=== PATIENT | female | born 1935 | race Caucasian/White ===

== ENCOUNTER → 2016-04-24 | Outpatient (CLI) | payer OTHER, BC ==
[~2016-04-24] MED LIST: AMOX500T PO; ASPEC81 PO; ASPI81TA28 PO; Boost PO; CEPH500C2 PO; FLV1 PO; FLV400 PO; FOLI1TAB7 PO; HYDR200T5 PO; LISI-461 PO; LPR25 PO; MCR/50 PO; METH10TA32 PO; METH2.5T PO; MGCUDL400 PO; MTH25 PO; MXZC25 PO; MYR25 PO; NRV5 PO; NUTR-7 PO; POTA1CAP2 PO; PRED-301 PO; PRED10TA PO; PRED20TA PO; PRMVC PV; SIMV20TA2 PO; TRAM-10 PO; ULT50X PO; VSC/5 PO
== END | disposition home or self-care (01) ==
LOC: C.LABSPEC 17:08
PROVIDERS: ATTEND Internal Medicine
DX: N39.0 Urinary tract infection, site not specified (principal)

== ENCOUNTER → 2016-05-22 | Outpatient (CLI) | payer OTHER, BC ==
[2016-05-22 13:29] LABS: BASO % 0.4 %; BASO ABS # 0.05 K/uL (0-0.2); COMPLETE YES; EOS % 0.7 %; HEMATOCRIT 30.1 % (37-47); LYMPH % 18.8 %; LYMPH ABS # 2.11 K/uL (1.2-3.4); MEAN CELL VOLUME 99.7 fL (80-100); MEAN CORPUSCULAR HEMOGLOBIN 32.5 pg (25-34); MEAN CORPUSCULAR HGB CONC 32.6 g/dl (32-36); MEAN PLATELET VOLUME 9.4 fL (7.4-10.4); MONO % 10.7 %; NEUT % 66.4 %; PLATELET COUNT 300 K/uL (130-400); RED BLOOD COUNT 3.02 M/uL (4.2-5.4); WHITE BLOOD COUNT 11.21 K/uL (4.8-10.8)
[2016-05-22 13:35] LABS: ALT/SGPT 18 U/L (12-78)
[2016-05-22 13:36] LABS: ALKALINE PHOSPHATASE 46 U/L (45-117); AST/SGOT 14 U/L (15-37)
== END | disposition home or self-care (01) ==
LOC: C.LAB1850 11:33
PROVIDERS: ATTEND Internal Medicine Rheumatology
DX: Z51.81 Encounter for therapeutic drug level monitoring (principal); Z79.899 Other long term (current) drug therapy

== ENCOUNTER → 2016-06-22 | Outpatient (CLI) | payer OTHER, BC ==
[~2016-06-22] MED LIST changes: +GADAVIST IV PRN
--- NOTE | 2016-06-22 15:06 | DIAGNOSTIC IMAGING REPORT ---
MRI OF THE BRAIN COMBO INTERNAL FOR CANAL PROTOCOL CLINICAL HISTORY: Acute left-sided hearing loss. COMPARISON STUDY: CT of the brain dated 09/28/2013. TECHNIQUE: MRI of the brain was performed utilizing various T1 and T2-weighted sequences in the axial, sagittal, and coronal planes. Contrast-enhanced sequences were acquired following the administration of 4 cc of Gadavist. Additional high-resolution imaging was performed through the skull base both pre and postcontrast for further assessment of the internal auditory canals. FINDINGS: Brain parenchyma: There are age-related involutional changes noting mild to moderate patchy subcortical and periventricular microangiopathic disease. There is no hemorrhage or mass effect. There is no restricted diffusion to suggest acute ischemia. There is a 12 mm extra-axial nodule identified in the right posterior fossa seen on axial image #6. This is typical appearance for a small meningioma. There is no associated mass effect. No additional enhancing lesions are identified. Shannon-white matter differentiation is preserved. No extra-axial fluid collection is seen. The cerebellar tonsils are normal in configuration. Ventricles, sulci, and cisterns: Prominent secondary to involutional change. Internal auditory canals: No mass lesion is identified within the cerebellopontine angle bilaterally. There is no mass or normal enhancement identified along the course of the internal auditory canals. The middle ear structures are normal as visualized. Pituitary and sella: Partially empty sella is incidentally noted. Intracranial vasculature: Normal flow voids are maintained at the skull base. Orbits: The bony orbits are grossly intact. Orbital contents are normal in appearance noting a right ocular lens implant. Sinuses and mastoids: Clear. There is evidence of previous right mastoid surgery. Calvarium: Unremarkable. Cervical cord: Partially visualized cervical spinal cord is normal in morphology and signal intensity. IMPRESSION: 1. No acute intracranial abnormality. 2. A 12 mm extra-axial nodule at the posterior right skull base is typical in appearance for a small meningioma. There is no associated mass effect. 3. Unremarkable MRI assessment of the internal auditory canals. Electronically signed by: Christiano James M.D. 06/22/2016 3:05 PM Dictated Date/Time: 06/22/2016 2:54 PM
== END | disposition home or self-care (01) ==
LOC: C.MRI 13:02
PROVIDERS: ATTEND Surgery
DX: H91.22 Sudden idiopathic hearing loss, left ear (principal)

== ENCOUNTER → 2016-06-30 | Outpatient (CLI) | payer OTHER, BC ==
[~2016-06-30] MED LIST changes: -GADAVIST IV PRN
[2016-06-30 15:45] LABS: HEMATOCRIT 35.3 % (37-47); MEAN CELL VOLUME 98.3 fL (80-100); MEAN CORPUSCULAR HEMOGLOBIN 32.3 pg (25-34); MEAN CORPUSCULAR HGB CONC 32.9 g/dl (32-36); MEAN PLATELET VOLUME 9.9 fL (7.4-10.4); PLATELET COUNT 304 K/uL (130-400); RED BLOOD COUNT 3.59 M/uL (4.2-5.4); WHITE BLOOD COUNT 14.83 K/uL (4.8-10.8)
[2016-06-30 15:58] LABS: ALT/SGPT 40 U/L (12-78)
[2016-06-30 16:08] LABS: ALKALINE PHOSPHATASE 50 U/L (45-117); AST/SGOT 24 U/L (15-37)
[2016-06-30 16:28] LABS: ACANTHOCYTES 1+; BASO % 0.2 %; BASO ABS # 0.03 K/uL (0-0.2); COMPLETE YES; EOS % 0.1 %; IG% 4.5 %; LYMPH % 9.6 %; LYMPH ABS # 1.43 K/uL (1.2-3.4); MONO % 3.2 %; NEUT % 82.4 %
[2016-06-30 16:46] LABS: LYME DISEASE AB IGG NEG (NEG); LYME DISEASE AB IGM NEG (NEG)
[2016-07-06 18:17] LABS: ANTI-68 kd Ag (HSP-70 Ab) NEGATIVE (NEGATIVE)
== END | disposition home or self-care (01) ==
LOC: C.LAB1850 13:54
PROVIDERS: ATTEND Surgery
DX: M06.9 Rheumatoid arthritis, unspecified (principal); Z79.899 Other long term (current) drug therapy; N32.89 Other specified disorders of bladder; H91.22 Sudden idiopathic hearing loss, left ear

== ENCOUNTER → 2016-08-02 | Outpatient (CLI) | payer OTHER, BC ==
[~2016-08-02] MED LIST changes: -MCR/50 PO; +NITR50CA39 PO
== END | disposition home or self-care (01) ==
LOC: C.MAMM 15:24
PROVIDERS: ATTEND Internal Medicine Rheumatology
DX: M81.0 Age-related osteoporosis without current pathological fracture (principal); H91.22 Sudden idiopathic hearing loss, left ear; E55.9 Vitamin D deficiency, unspecified; E61.8 Deficiency of other specified nutrient elements

== ENCOUNTER → 2016-09-13 | Outpatient (CLI) | payer OTHER, BC ==
[2016-09-13 16:32] LABS: COMPLETE YES; HEMATOCRIT 31.7 % (37-47); IG% 0.9 %; LYMPH % 7.2 %; LYMPH ABS # 0.69 K/uL (1.2-3.4); MEAN CELL VOLUME 95.8 fL (80-100); MEAN CORPUSCULAR HEMOGLOBIN 29.9 pg (25-34); MEAN CORPUSCULAR HGB CONC 31.2 g/dl (32-36); MEAN PLATELET VOLUME 8.8 fL (7.4-10.4); MONO % 0.8 %; NEUT % 91.1 %; PLATELET COUNT 383 K/uL (130-400); RED BLOOD COUNT 3.31 M/uL (4.2-5.4); WHITE BLOOD COUNT 9.61 K/uL (4.8-10.8)
[2016-09-13 16:57] LABS: ALT/SGPT 17 U/L (12-78); AST/SGOT 9 U/L (15-37)
[2016-09-13 17:00] LABS: ALKALINE PHOSPHATASE 53 U/L (45-117)
[2016-09-15 17:40] LABS: ALBUMIN 3.2 G/DL (3.8-4.8); GAMMA GLOBULIN 0.6 G/DL (0.8-1.7); TOTAL PROTEIN 5.8 G/DL (6.2-8.3)
== END | disposition home or self-care (01) ==
LOC: C.LAB1850 14:59
PROVIDERS: ATTEND Internal Medicine Rheumatology
DX: M06.9 Rheumatoid arthritis, unspecified (principal); M81.0 Age-related osteoporosis without current pathological fracture; E61.8 Deficiency of other specified nutrient elements; E55.9 Vitamin D deficiency, unspecified; Z79.899 Other long term (current) drug therapy

== ENCOUNTER 2016-09-26 18:47 | Inpatient (IN) | payer OTHER, BC ==
[~2016-09-26] VITALS: Ht 160 cm; Wt 43.0 kg
[~2016-09-26 18:47] MED LIST changes: -ASPI81TA28 PO; -CEPH500C2 PO; -FLV400 PO; -FOLI1TAB7 PO; -METH2.5T PO; -MTH25 PO; -MXZC25 PO; -MYR25 PO; -NITR50CA39 PO; -NRV5 PO; -NUTR-7 PO; -POTA1CAP2 PO; -PRED20TA PO; -PRMVC PV; -ULT50X PO
[2016-09-26] MEDS ORDERED: PIPERACILLIN/TAZOBACTAM 4.5 GM/100ML D5W IV STA (18:57)
[2016-09-26] MEDS ORDERED: SODIUM CHLORIDE 0.9% 1000ML 500 ML IV ONE (18:57)
[2016-09-26] MEDS ORDERED: ACETAMINOPHEN 325 MG TAB PO ONE (19:00)
--- NOTE | 2016-09-26 19:12 | EMERGENCY ROOM VISIT NOTE ---
History Report prepared by Adina: Justina Kidd Under the Supervision of: Dr. Christiano Felix M.D. First contact with patient: 18:54 Chief Complaint: FEVER Stated Complaint: PAIN ALL OVER, FEVER History of Present Illness The patient is an 81 year old female who presents to the Emergency Room with complaints of a persistent fever that began today prior to arrival. She currently rates her discomfort as a 7/10 in severity. The patient reports that for the past several days she has been feeling dizzy. She states that today she started noticing lower leg pain and edema. The patient notes a history of rheumatoid arthritis, and states that she always has joint pain. The patient additionally notes a cough and chills. Her daughter states that the patient had a fever of 101.7 degrees Fahrenheit. The patient states that she has noticed increased swelling and erythema to her left hand, and her daughter states that is new since yesterday. She denies any trauma to her wrist or hand. The patient reports nausea earlier today and her daughter states that the patient spent most of the day in bed. The patient's daughter denies giving the patient anything for a fever. The patient's daughter denies the patient having any known sick contacts. The patient denies any sore throat, stuffy nose , abdominal pain, vomiting, urinary symptoms, or diarrhea. No recent tick bite. Source of History: patient, family (daughter) Onset: prior to arrival Position: other (global) Symptom Intensity: 7/10 Quality: other (fever) Timing: other (persistent) Associated Symptoms: + cough, + nausea, No vomiting, No abdominal pain, No diarrhea, No urinary symptoms Note: Associated Symptoms: swelling and erythema to her left hand, dizziness, ankle pain, swelling to ankles Review of Systems See HPI for pertinent positives & negatives. A total of 10 systems reviewed and were otherwise negative. Past Medical & Surgical Medical Problems: (1) Arthritis (2) Back pain (3) CELLULITIS LEFT HAND/WRIST. ACUTE ARTHRITIS L WRIST (4) DEHYD,UTI,ANENIA (5) Fungus present in urine (6) Hypertension (7) Lower urinary tract infection, acute (8) PERSISTENT UTI, VOMITING (9) Pneumonia (10) RECURRENT UTI, ?SEPSIS (11) Rheumatoid arthritis (12) S/P hysterectomy (13) SEPSIS,UTI,ACUTE RENAL FAILURE,RHEUMATOID ARTH (14) UTI, SEPSIS SYNDROME, Surgical Problems: (1) History of back surgery (2) History of cataract surgery (3) History of cholecystectomy (4) History of left hip replacement (5) History of right hip replacement (6) S/P lumpectomy of breast Family History Cancer Diabetes mellitus Hypertension Social History Smoking Status: Never Smoker Alcohol Use: none Marital Status: Housing Status: lives with significant other Occupation Status: retired Current/Historical Medications Scheduled Folic Acid (Folic Acid), 400 MG PO EXCEPT SUNDAY Hydroxychloroquine Sulfate (Plaquenil), 200 MG PO BIDM Lisinopril (Zestril), 10 MG PO QAM Methotrexate (Methotrexate), 10 MG PO FRIDAYS ONLY Metoprolol Tartrate (Lopressor), 25 MG PO BID Mirabegron (Myrbetriq Er), 25 MG PO DAILY Nitrofurantoin Macrocrystals (Nitrofurantoin Macrocryst), 50 MG PO DAILY Potassium Chloride (Potassium Chloride Er), 10 MEQ PO BID Prednisone (Prednisone), 20 MG PO QAM Simvastatin (Zocor), 20 MG PO QPM Triamterene/Hctz (Triamterene/Hctz 37.5-25MG Tab), 1 TAB PO DAILY Scheduled PRN Tramadol (Ultram), 50 MG PO Q4H PRN for Pain Allergies Coded Allergies: Sulfa Antibiotics (Verified Allergy, Unknown, ., 09/08/16) Sulfamethoxazole (Verified Allergy, Unknown, 09/08/16) Trimethoprim (Verified Allergy, Unknown, 09/08/16) Physical Exam Vital Signs Date Time Temp Pulse Resp B/P (MAP) Pulse Ox O2 Delivery O2 Flow Rate FiO2 09/26/16 23:24 78 20 113/47 100 09/26/16 22:13 37.8 88 20 98/42 98 Room Air 09/26/16 21:10 38.4 105 20 125/57 100 Room Air 09/26/16 20:37 102 18 157/62 99 Room Air 09/26/16 19:28 96 20 145/58 98 Room Air 09/26/16 19:24 98 Room Air 09/26/16 18:50 36.5 100 18 114/56 99 Room Air Physical Exam GENERAL: Patient is in no acute distress. HEENT: No acute trauma, normocephalic atraumatic, mucous membranes moist, no nasal congestion, no scleral icterus. NECK: No stridor, no adenopathy, no meningismus, trachea is midline. LUNGS: Clear to auscultation bilaterally, no wheeze, no rhonchi, breath sounds equal. HEART: Without murmurs gallops or rubs, regular rate and rhythm. ABDOMEN: Soft, nontender, bowel sounds positive, no hernias, no peritonitis. EXTREMITIES: Left wrist and dorsal hand are swollen with warmth and erythema, pain primarily over the 3rd MCP joint, minimal to no pain to move left wrist. NEUROLOGIC: Oriented x 3, no acute motor or sensory deficits, no focal weakness. SKIN: No rash, no jaundice, no diaphoresis. Medical Decision & Procedures ER Provider Diagnostic Interpretation: Radiology results as stated below per my review and radiologist interpretation: LEFT WRIST MIN 3 VIEWS ROUTINE CLINICAL HISTORY: Left wrist pain and swelling COMPARISON: 11/12/2015 DISCUSSION: The bones are osteopenic. There are flexion deformities of the fingers. There are advanced arthritic changes. There is proximal carpal row collapse. There is minor ulnar subluxation of the carpal bones with respect to the radius. There are erosive changes involving the distal radial ulnar joint. There is soft tissue edema. IMPRESSION: Osteopenia and advanced arthritic changes with carpal collapse as described above. No significant change from the preceding examination. Electronically signed by: Nicko Caldwell M.D. 09/26/2016 8:08 PM Dictated Date/Time: 09/26/2016 8:06 PM LEFT HAND MIN 3 VIEWS ROUTINE CLINICAL HISTORY: Left hand pain and swelling COMPARISON: None. DISCUSSION: There are flexion deformities at the level of the proximal interphalangeal joints. The bones are osteopenic. There are severe arthritic changes present within the wrist with carpal collapse, and mild ulnar subluxation of the carpal bones with respect to the radius and ulna. There are erosive changes involving the distal radial ulnar joint. There is dorsal soft tissue swelling. IMPRESSION: Severe arthritic change. Osteopenia. Flexion deformities of the fingers. Carpal collapse and mild chronic subluxation. Erosive changes involving the distal radial ulnar joint. Electronically signed by: Nicko Caldwell M.D. 09/26/2016 8:04 PM Dictated Date/Time: 09/26/2016 8:01 PM CHEST ONE VIEW PORTABLE CLINICAL HISTORY: Sepsis COMPARISON STUDY: February 22, 2016 FINDINGS: There is persistent elevation right hemidiaphragm. There is a left-sided A-Port catheter unchanged in position. There is no failure. There is no lobar consolidation. There are no pleural effusions. There is stable right hilar prominence. There are scattered calcific densities, possibly pleural. Surgical clips project over the right axillary region. There are surgical clips in the right upper quadrant consistent with a prior cholecystectomy. There are postsurgical changes present within the lumbar spine.[ IMPRESSION: No active disease in the chest. Electronically signed by: Nicko Caldwell M.D. 09/26/2016 8:00 PM Dictated Date/Time: 09/26/2016 7:59 PM Laboratory Results 09/26/16 20:40 Red Blood Count 3.31, Mean Corpuscular Volume 96.1, Mean Corpuscular Hemoglobin 31.4, Mean Corpuscular Hemoglobin Concent 32.7, Mean Platelet Volume 9.2, Neutrophils (%) (Auto) 66.3, Lymphocytes (%) (Auto) 23.8, Monocytes (%) (Auto) 8.1, Eosinophils (%) (Auto) 0.4, Basophils (%) (Auto) 0.1, Neutrophils # (Auto) 9.47, Lymphocytes # (Auto) 3.40, Monocytes # (Auto) 1.16, Eosinophils # (Auto) 0.05, Basophils # (Auto) 0.01 09/26/16 20:40 Test 09/26/16 19:23 09/26/16 20:39 09/26/16 20:40 Urine Color YELLOW Urine Appearance CLEAR (CLEAR) Urine pH 6.0 (4.5-7.5) Urine Specific [place] 1.013 (1.000-1.030) Urine Protein NEG (NEG) Urine Glucose (UA) NEG (NEG) Urine Ketones 1+ (NEG) Urine Occult Blood NEG (NEG) Urine Nitrite NEG (NEG) Urine Bilirubin NEG (NEG) Urine Urobilinogen NEG (NEG) Urine Leukocyte Esterase TRACE (NEG) Urine WBC (Auto) 1-5 /hpf (0-5) Urine RBC (Auto) 0-4 /hpf (0-4) Urine Hyaline Casts (Auto) 0 /lpf (0-5) Urine Epithelial Cells (Auto) >30 /lpf (0-5) Urine Bacteria (Auto) NEG (NEG) Bedside Lactic Acid Venous 0.47 mmol/L (0.90-1.70) White Blood Count 14.27 K/uL (4.8-10.8) Red Blood Count 3.31 M/uL (4.2-5.4) Hemoglobin 10.4 g/dL (12.0-16.0) Hematocrit 31.8 % (37-47) Mean Corpuscular Volume 96.1 fL (80-100) Mean Corpuscular Hemoglobin 31.4 pg (25-34) Mean Corpuscular Hemoglobin Concent 32.7 g/dl (32-36) Platelet Count 281 K/uL (130-400) Mean Platelet Volume 9.2 fL (7.4-10.4) Neutrophils (%) (Auto) 66.3 % Lymphocytes (%) (Auto) 23.8 % Monocytes (%) (Auto) 8.1 % Eosinophils (%) (Auto) 0.4 % Basophils (%) (Auto) 0.1 % Neutrophils # (Auto) 9.47 K/uL (1.4-6.5) Lymphocytes # (Auto) 3.40 K/uL (1.2-3.4) Monocytes # (Auto) 1.16 K/uL (0.11-0.59) Eosinophils # (Auto) 0.05 K/uL (0-0.5) Basophils # (Auto) 0.01 K/uL (0-0.2) RDW Standard Deviation 51.3 fL (36.4-46.3) RDW Coefficient of Variation 14.9 % (11.5-14.5) Immature Granulocyte % (Auto) 1.3 % Immature Granulocyte # (Auto) 0.18 K/uL (0.00-0.02) Prothrombin Time 12.3 SECONDS (9.0-12.0) Prothromb Time International Ratio 1.1 (0.9-1.1) Activated Partial Thromboplast Time 30.0 SECONDS (21.0-31.0) Partial Thromboplastin Ratio 1.2 Anion Gap 12.0 mmol/L (3-11) Est Creatinine Clear Calc Drug Dose 28.8 ml/min Estimated GFR () 60.8 Estimated GFR (Non- 52.4 BUN/Creatinine Ratio 18.6 (10-20) Uric Acid 5.6 mg/dl (2.6-7.2) Calcium Level 8.4 mg/dl (8.5-10.1) Magnesium Level 1.8 mg/dl (1.8-2.4) Total Bilirubin 0.6 mg/dl (0.2-1) Aspartate Amino Transf (AST/SGOT) 14 U/L (15-37) Alanine Aminotransferase (ALT/SGPT) 15 U/L (12-78) Alkaline Phosphatase 54 U/L (45-117) Total Protein 5.7 gm/dl (6.4-8.2) Albumin 2.9 gm/dl (3.4-5.0) Globulin 2.8 gm/dl (2.5-4.0) Albumin/Globulin Ratio 1.0 (0.9-2) Laboratory results reviewed by me. Medications Administered Medications (Trade) Dose Ordered Sig/Martina Route Start Time Stop Time Status Last Admin Dose Admin Sodium Chloride 500 ml @ 999 mls/hr Q31M ONCE IV 09/26/16 18:57 09/26/16 19:27 DC 09/26/16 21:00 999 MLS/HR Piperacillin Sod/ Tazobactam Sod (Zosyn Iv) 4.5 gm ONE STAT IV 09/26/16 18:57 09/26/16 19:08 DC 09/26/16 21:00 4.5 GM Acetaminophen (Tylenol Tab) 650 mg ONE ONCE PO 09/26/16 19:00 09/26/16 19:08 DC 09/26/16 21:00 650 MG Ibuprofen (Motrin Tab) 600 mg NOW STAT PO 09/26/16 21:42 09/26/16 21:43 DC 09/26/16 22:12 600 MG Methylprednisolone Sodium Succinate 60 mg/Syringe 0.96 ml @ 1.5 mls/min TODAY@2245 IV 09/26/16 22:45 09/26/16 23:59 09/26/16 22:44 1.5 MLS/MIN ECG Indication: other (fever) Rate (beats per minute): 91 Rhythm: normal sinus Findings: no ectopy, other (old anterior infarct) ED Course 1854: The patient was evaluated in room C5. A complete history and physical exam was performed. 7: Ordered Zosyn IV 4.5 gm IV, Sodium Chloride 500 ml @ 999 mls/hr IV. 1899: Ordered Tylenol Tab 650 mg PO. 2132: I reevaluated the patient and she is resting comfortably. I discussed the exam findings with her and her family and I discussed the treatment plan. They verbalized complete understanding and agreement. Dr. Montaño, Internal Medicine will be consulted. 2141: Ordered Ibuprofen 600 mg PO. 2149: I discussed the patients case with Dr. Montaño, Internal Medicine. He is going to evaluate the patient for further treatment. Medical Decision The patient is an 81 year old female who presents to the ED with complaints of a fever. Differential diagnoses considered include sepsis or bacteremia, cellulitis, joint infection, pneumonia, UTI, electrolyte imbalance, anemia, viral illness. There is a moderate leukocytosis, this could be consistent with infection. No concerning anemia although a mild anemia was noted. No significant electrolyte abnormality or kidney failure. No hepatitis. Lactic acid level was not elevated making severe sepsis less likely. Blood cultures are pending. EKG showed a sinus rhythm, no acute ischemia. Chest x-ray did not show any evidence for pneumonia. Left hand and wrist film showed arthritis, no evidence for fracture or true osteomyelitis. Urinalysis does not show infection. The patient received IV saline, oral Motrin and oral Tylenol. She was given IV Zosyn as antibiotic coverage. The patient is immunocompromised because of her arthritis, she is on a few meds that lower her immune system response. She has a fever, a left arm/hand cellulitis, she is weak and seems to be having difficulty at home. I do think further care in the hospital is warranted, I do think antibiotic therapy IV is warranted. I spoke to the patient and case management. The on-call hospitalist was consulted. Medication Reconciliation: I attest that I have personally reviewed the patient' s current medication list. Blood Pressure Screening: Patient was found to have an elevated blood pressure and was referred to their primary doctor for recheck and further treatment. Consults Time Called: 2140 Consulting Physician: Dr. Montaño, Internal Medicine Returned Call: 2149 I discussed the patients case with Dr. Montaño, Internal Medicine. He is going to evaluate the patient for further treatment. Impression Primary Impression: Left arm cellulitis Additional Impressions: Weakness Leukocytosis Immunocompromised Scribe Attestation The scribe's documentation has been prepared under my direction and personally reviewed by me in its entirety. I confirm that the note above accurately reflects all work, treatment, procedures, and medical decision making performed by me. Departure Information Dispostion Being Evaluated By Hospitalist Referrals Wilmar Dela Cruz M.D. (PCP) Problem Qualifiers
[2016-09-26 19:32] LABS: URINE APPEARANCE CLEAR (CLEAR); URINE BILIRUBIN NEG (NEG); URINE COLOR YELLOW; URINE EPITHELIAL CELL AUTO >30 /lpf (0-5); URINE NITRITE NEG (NEG); URINE SPECIFIC GRAVITY 1.013 (1.000-1.030); UROBILINOGEN NEG (NEG); ZZURINE CULT IF INDIC CATH NO
[2016-09-26 19:33] LABS: MANUAL MICROSCOPIC REQUIRED? NO; REVIEW REQ? NO
[2016-09-26] MEDS ORDERED: POTA1CAP2 PO (19:35)
[2016-09-26] MEDS ORDERED: MYR25 PO (19:35)
[2016-09-26] MEDS ORDERED: MTH25 PO (19:35)
[2016-09-26] MEDS ORDERED: NITR50CA39 PO (19:35)
[2016-09-26] MEDS ORDERED: PRED20TA PO (19:35)
[2016-09-26] MEDS ORDERED: FLV400 PO (19:35)
[2016-09-26] MEDS ORDERED: MXZC25 PO (19:35)
--- NOTE | 2016-09-26 20:01 | DIAGNOSTIC IMAGING REPORT ---
CHEST ONE VIEW PORTABLE CLINICAL HISTORY: Sepsis COMPARISON STUDY: February 22, 2016 FINDINGS: There is persistent elevation right hemidiaphragm. There is a left-sided A-Port catheter unchanged in position. There is no failure. There is no lobar consolidation. There are no pleural effusions. There is stable right hilar prominence. There are scattered calcific densities, possibly pleural. Surgical clips project over the right axillary region. There are surgical clips in the right upper quadrant consistent with a prior cholecystectomy. There are postsurgical changes present within the lumbar spine.[ IMPRESSION: No active disease in the chest. Electronically signed by: Nicko Caldwell M.D. 09/26/2016 8:00 PM Dictated Date/Time: 09/26/2016 7:59 PM
--- NOTE | 2016-09-26 20:05 | DIAGNOSTIC IMAGING REPORT ---
LEFT HAND MIN 3 VIEWS ROUTINE CLINICAL HISTORY: Left hand pain and swelling COMPARISON: None. DISCUSSION: There are flexion deformities at the level of the proximal interphalangeal joints. The bones are osteopenic. There are severe arthritic changes present within the wrist with carpal collapse, and mild ulnar subluxation of the carpal bones with respect to the radius and ulna. There are erosive changes involving the distal radial ulnar joint. There is dorsal soft tissue swelling. IMPRESSION: Severe arthritic change. Osteopenia. Flexion deformities of the fingers. Carpal collapse and mild chronic subluxation. Erosive changes involving the distal radial ulnar joint. Electronically signed by: Nicko Caldwell M.D. 09/26/2016 8:04 PM Dictated Date/Time: 09/26/2016 8:01 PM
--- NOTE | 2016-09-26 20:09 | DIAGNOSTIC IMAGING REPORT ---
LEFT WRIST MIN 3 VIEWS ROUTINE CLINICAL HISTORY: Left wrist pain and swelling COMPARISON: 11/12/2015 DISCUSSION: The bones are osteopenic. There are flexion deformities of the fingers. There are advanced arthritic changes. There is proximal carpal row collapse. There is minor ulnar subluxation of the carpal bones with respect to the radius. There are erosive changes involving the distal radial ulnar joint. There is soft tissue edema. IMPRESSION: Osteopenia and advanced arthritic changes with carpal collapse as described above. No significant change from the preceding examination. Electronically signed by: Nicko Caldwell M.D. 09/26/2016 8:08 PM Dictated Date/Time: 09/26/2016 8:06 PM
[2016-09-26 20:56] LABS: BASO % 0.1 %; BASO ABS # 0.01 K/uL (0-0.2); COMPLETE YES; EOS % 0.4 %; HEMATOCRIT 31.8 % (37-47); IG% 1.3 %; LYMPH % 23.8 %; MEAN CELL VOLUME 96.1 fL (80-100); MEAN CORPUSCULAR HEMOGLOBIN 31.4 pg (25-34); MEAN CORPUSCULAR HGB CONC 32.7 g/dl (32-36); MEAN PLATELET VOLUME 9.2 fL (7.4-10.4); MONO % 8.1 %; NEUT % 66.3 %; PLATELET COUNT 281 K/uL (130-400); RED BLOOD COUNT 3.31 M/uL (4.2-5.4); WHITE BLOOD COUNT 14.27 K/uL (4.8-10.8)
[2016-09-26 21:06] LABS: INR 1.1 (0.9-1.1); PARTIAL THROMBOPLASTIN RATIO 1.2; PROTHROMBIN TIME (PATIENT) 12.3 SECONDS (9.0-12.0)
[2016-09-26] MEDS ORDERED: ACETAMINOPHEN 325 MG TAB ONE (21:08)
[2016-09-26 21:12] LABS: BUN/CREATININE RATIO 18.6 (10-20); MAGNESIUM 1.8 mg/dl (1.8-2.4); POTASSIUM 4.2 mmol/L (3.5-5.1)
[2016-09-26] MEDS ORDERED: IBUPROFEN 600 MG TAB PO STA (21:42)
[2016-09-26 21:52] LABS: CALCIUM 8.4 mg/dl (8.5-10.1)
[2016-09-26] MEDS ORDERED: TRAMADOL HCL 50 MG TAB PO PRN (22:15)
[2016-09-26] MEDS ORDERED: ACETAMINOPHEN 325 MG TAB PO PRN (22:15)
[2016-09-26] MEDS ORDERED: METHYLPREDNISOLONE IV 60 MG in SYRINGE 0 ML IV SCH (22:45)
[2016-09-26 23:09] LABS: URIC ACID 5.6 mg/dl (2.6-7.2)
[2016-09-27] VITALS: Ht 160 cm; Wt 43.0 kg
[2016-09-27 00:01] VITALS: BP 129/60; PULSE 78; TEMP 36.6; O2SAT 98
[2016-09-27] MEDS: SODIUM CHLORIDE 0.9% 1000ML 1,000 ML IV SCH ×3 (00:14→20:19)
--- NOTE | 2016-09-27 00:45 | HISTORY & PHYSICAL EXAMINATION ---
DATE OF ADMISSION: 09/26/2016 An 81-year-old female, admitted through the Emergency Room with fever, chills and suspected cellulitis of her left wrist and left arm. HISTORY OF PRESENT ILLNESS: The patient with multiple medical problems including rheumatoid arthritis. She is on prednisone, methotrexate and Plaquenil. She has had recurrent urinary tract infections. She is on suppressive therapy with Macrodantin. She was also treated for arterial hypertension. She has severe degenerative disc disease of the lumbar spine with lumbar stenosis that required multiple interventions. She also had multiple orthopedic procedures with joint replacements in her hands and feet. The patient has been at home. Her daughter called this evening stating that her mother was in bed all day. She was complaining of generalized aches and pains. She had fever up to 101. She has had problems in the past with recurrent urinary tract infection and her daughter thought that she was having recurrent problem related to that. She was brought to the Emergency Room. She was evaluated by Dr. Felix. The patient stated that she has not been feeling well for a few days. She has been feeling lightheaded and nauseous. She has had recurrent episodes where she felt warm and chilled ,could not get warm enough. Denied any headache. Denied any chest pain. No shortness of breath. She has been coughing. Not producing any sputum. Nauseous. No vomiting. She does have chronic pain in her back and joints. I saw the patient in the Emergency Room. Dr. Felix already ordered all the cultures He also started her on Zosyn and she was given one dose of 4.5 grams IV. PAST MEDICAL HISTORY: 1. Recurrent urinary tract infection requiring multiple hospitalizations. She is currently on suppressive therapy. She does see Dr. Francois for her urology followup. She also has had in the past urinary tract infections secondary to yeast, she was admitted by Dr. Francois and treated with amphotericin irrigations. 2. Rheumatoid arthritis, longstanding, treated. 3. Left total hip arthroplasty, back in 1989. 4. Right total hip arthroplasty, in 1993. 5. Multiple joint replacements in her hands and feet because of her rheumatoid arthritis. 6. History of compression fractures of T12 and T11, in 1986. 7. Degenerative disc disease of the lumbar spine with severe spinal stenosis requiring multiple surgeries. 8. Right inguinal hernia repair in 1993. 9. Cholecystectomy in 1985. 10. History of breast cancer in 1988, treated with radiation and lumpectomy. 11. Lymphedema of the right arm after her right breast cancer treatment, treated with compression sleeves. SOCIAL HISTORY: She is , has 3 children. No history of any smoking. No excessive coffee, tea or soft drinks. She retired many years ago after her hip surgeries. FAMILY HISTORY: Her mother at age 94. She was in a personal home care. Her father at age 62, had myocardial infarction and congestive heart failure. She had one brother and one sister. One brother at age 64 of heart failure. One sister treated for arterial hypertension and type 2 diabetes mellitus and has Crohn's disease. One son was killed in a truck accident at age 31. ALLERGIES: SULFA. MEDICATIONS ON ADMISSION: All as noted on her home medication list. REVIEW OF SYSTEMS: All as noted above. PHYSICAL EXAMINATION: GENERAL: Well-developed, feeling acutely ill. Feeling very weak, tired and complaining of pain all over; mostly the muscles and joints. Her recorded weight is 42 kg, height 149 cm and BMI 18.7. VITAL SIGNS: On arrival to the Emergency Room her blood pressure was 145/58, pulse 96, respirations 20, temperature 38.4 rectally and oxygen saturation 98% on room air. SKIN: Warm and dry. Multiple bruises and ecchymotic areas. HEENT: Markedly decreased hearing. She has hearing aids. She also wears glasses. Oxygen cannula is in place. NECK: Supple. Nontender. No lymph node or thyroid enlargement. No JVD. Bilateral carotid bruits. CHEST: She has an [id number] in place. HEART: Regular heart sounds with 2/6 systolic murmur. LUNGS: Clear. No wheezing. ABDOMEN: Soft and nontender, without organomegaly or masses. BACK: Surgical scars. EXTREMITIES: Multiple surgical scars. Severe joint deformities. Decreased posterior tibialis pulses. Absent dorsalis pedis pulses. She does have swelling of her left wrist with an area of fluctuation. Also, she does have evidence of cellulitis of the left wrist and dorsal aspect of her left hand and forearm. NEUROLOGIC: She is alert and oriented. Sleepy, but arousable. No evidence of any lateralized deficits. ADMISSION LABORATORY TESTS: WBC count 14,270, hemoglobin 10.4, hematocrit 31.8 and platelets 281,000. Prothrombin time 12.3, INR 1.1, PTT 30. Sodium 140, potassium 4.2, chloride 105, CO2 23, BUN 19, creatinine 1.0, glucose 58, uric acid 5.6, calcium 8.4, magnesium 1.8, total bilirubin 0.6, AST 14, ALT 15, alkaline phosphatase 54, total protein 5.7 and albumin 2.9. Her urine showed trace leukocyte esterase and only 1-5 RBCs. Her chest x-ray showed no evidence of any congestive heart failure. No evidence of any infiltrates or any active disease. X-rays of her left hand and left wrist mostly showed inflammatory changes. ASSESSMENT: 1. Cellulitis of the left wrist, left hand and forearm. 2. Acute arthritis of the left wrist. 3. Rheumatoid arthritis. 4. Generalized weakness. 5. Arterial hypertension. 6. History of recurrent urinary tract infections. 7. Spinal stenosis and degenerative disc disease of the lumbar spine with prior surgeries. 8. Chronic steroid therapy. She is also on methotrexate and Plaquenil. PLAN: The patient was admitted to a medical bed. Resuscitation level 5 as previously established. All her laboratory tests were ordered. Cultures were ordered. She was started on IV Ancef. Also because of the inflammatory changes in her left wrist and left hand she was started on IV Solu-Medrol. The plan is to wait for cultures. Continue IV Ancef. Increase the dose of her steroids. Monitor her condition. IV fluids. We will decide on initiating physical and occupational therapy as soon as her condition starts to improve. MTDD
[2016-09-27] MEDS: METHYLPREDNISOLONE IV 20 MG in SYRINGE 0 ML IV SCH ×4 (03:54→22:07)
[2016-09-27 05:57] LABS: COMPLETE YES; HEMATOCRIT 29.7 % (37-47); IG% 1.3 %; LYMPH % 5.6 %; LYMPH ABS # 0.44 K/uL (1.2-3.4); MEAN CELL VOLUME 95.8 fL (80-100); MEAN CORPUSCULAR HEMOGLOBIN 31.3 pg (25-34); MEAN CORPUSCULAR HGB CONC 32.7 g/dl (32-36); MEAN PLATELET VOLUME 9.1 fL (7.4-10.4); MONO % 1.1 %; PLATELET COUNT 243 K/uL (130-400); WHITE BLOOD COUNT 7.92 K/uL (4.8-10.8)
[2016-09-27 06:41] LABS: BUN/CREATININE RATIO 25.3 (10-20); CALCIUM 7.7 mg/dl (8.5-10.1); POTASSIUM 4.2 mmol/L (3.5-5.1)
[2016-09-27 07:12] VITALS: BP 135/68; PULSE 81; TEMP 36.6; O2SAT 98
[2016-09-27] MEDS: NITROFURANTOIN MACROCRYSTALS 50 MG CAP PO SCH (08:37)
[2016-09-27] MEDS: HYDROXYCHLOROQUINE SULFATE 200 MG TAB PO SCH ×2 (08:38→16:59)
[2016-09-27] MEDS: CEFAZOLIN IV 500 MG in DEXTROSE 5% 50ML 50 ML IV SCH ×2 (08:38→20:28)
[2016-09-27] MEDS: HEPARIN SOD 5000 UNIT/0.5 ML CARP SQ SCH ×2 (08:38→22:17)
[2016-09-27] MEDS: METOPROLOL TARTRATE 25 MG TAB PO SCH ×2 (08:39→20:20)
[2016-09-27] MEDS: LISINOPRIL 10 MG TAB PO SCH (08:39)
[2016-09-27] MEDS: MIRABEGRON ER 25 MG TAB PO SCH (08:39)
[2016-09-27 11:49] VITALS: BP 125/68; PULSE 64; TEMP 36.6; O2SAT 98
[2016-09-27 15:25] VITALS: BP 131/57; PULSE 66; TEMP 36.6; O2SAT 99
[2016-09-27 15:53] VITALS: BP 145/64; PULSE 66; O2SAT 99
[2016-09-27] MEDS: SIMVASTATIN 20 MG TAB PO SCH (20:20)
[2016-09-27] MEDS: BOOST VANILLA PO SCH ×2 (20:28)
[2016-09-27] MEDS: ZOLPIDEM TARTRATE 5 MG TAB PO PRN (22:07)
[2016-09-27 23:58] VITALS: BP 127/54; PULSE 67; TEMP 36.7; O2SAT 98
--- NOTE | 2016-09-28 01:37 | PROGRESS NOTE ---
DATE: 09/27/2016 An 81-year-old female admitted with fever and chills. She had evidence of cellulitis of her left wrist and left hand and forearm. Also had acute arthritis of her left wrist. She does have rheumatoid arthritis. She is on multiple medications. She also is treated for arterial hypertension. Urinary frequency and urgency, and she has had recurrent urinary tract infection and currently on suppressive therapy with Macrodantin. She remains afebrile. Her generalized aches and pains are subsiding. She denied any headache. No dizziness. No chest pain, no shortness of breath. No cough. No abdominal pain, no nausea, no vomiting. No urinary problem. No ankle edema. PHYSICAL EXAMINATION: GENERAL: Well developed, in no distress. VITAL SIGNS: Blood pressure 135/68, pulse 81, respirations 20, temperature 36.6, oxygen saturation 98% on room air. SKIN: Warm and dry. No rash. Multiple ecchymotic areas and bruises. HEENT: No mucosal abnormality. NECK: No adenopathy, no thyromegaly, no JVD. HEART: Regular heart sounds. LUNGS: Clear. ABDOMEN: Soft, nontender. BACK: Surgical scar. EXTREMITIES: Severe deformities of her joints in her hands and feet related to her rheumatoid arthritis and history of multiple surgeries. TODAY'S LABORATORY TESTS: WBC count 7920, hemoglobin 9.7, hematocrit 29.7, platelet count 243,000. Sodium 141, potassium 4.2, chloride 109, CO2 18, BUN 25, creatinine 1.0, glucose 73, calcium 7.7. ASSESSMENT: 1. Cellulitis, left wrist and hand. 2. Acute arthritis, left wrist. Markedly improved. 3. Rheumatoid arthritis. 4. Arterial hypertension. 5. Severe degenerative disc disease and spinal stenosis, has had prior surgery. 6. History of recurrent urinary tract infection. PLAN: 1. Continuing her medications. 2. She is on IV Solu-Medrol. 3. Physical and occupational therapies. 4. Continue IV fluids. 5. Continue monitoring her laboratory tests.
[2016-09-28] MEDS: METHYLPREDNISOLONE IV 20 MG in SYRINGE 0 ML IV SCH ×2 (04:10→16:21)
[2016-09-28 05:50] LABS: HEMATOCRIT 25.4 % (37-47); MEAN CELL VOLUME 93.7 fL (80-100); MEAN CORPUSCULAR HEMOGLOBIN 31.7 pg (25-34); MEAN CORPUSCULAR HGB CONC 33.9 g/dl (32-36); MEAN PLATELET VOLUME 8.8 fL (7.4-10.4); PLATELET COUNT 251 K/uL (130-400); RED BLOOD COUNT 2.71 M/uL (4.2-5.4); WHITE BLOOD COUNT 12.07 K/uL (4.8-10.8)
[2016-09-28] MEDS: SODIUM CHLORIDE 0.9% 1000ML 1,000 ML IV SCH ×2 (05:57→16:21)
[2016-09-28 06:21] LABS: COMPLETE YES; ECHINOCYTES 1+; IG% 0.4 %; MONO % 1.6 %
[2016-09-28 06:26] LABS: BUN/CREATININE RATIO 33.4 (10-20); CALCIUM 7.6 mg/dl (8.5-10.1); CREATININE 1.2 mg/dl (0.60-1.20)
[2016-09-28 07:06] VITALS: BP 184/74; PULSE 86; TEMP 36.6; O2SAT 98
[2016-09-28] MEDS: MIRABEGRON ER 25 MG TAB PO SCH (08:19)
[2016-09-28] MEDS: HYDROXYCHLOROQUINE SULFATE 200 MG TAB PO SCH ×2 (08:19→16:21)
[2016-09-28] MEDS: NITROFURANTOIN MACROCRYSTALS 50 MG CAP PO SCH (08:19)
[2016-09-28] MEDS: CEFAZOLIN IV 500 MG in DEXTROSE 5% 50ML 50 ML IV SCH ×2 (08:20→21:14)
[2016-09-28] MEDS: LISINOPRIL 10 MG TAB PO SCH (08:20)
[2016-09-28] MEDS: METOPROLOL TARTRATE 25 MG TAB PO SCH ×2 (08:20→20:27)
[2016-09-28] MEDS: HEPARIN SOD 5000 UNIT/0.5 ML CARP SQ SCH ×2 (08:22→21:14)
[2016-09-28 10:42] VITALS: BP 147/74
[2016-09-28] MEDS: BOOST VANILLA PO SCH ×4 (10:42→20:27)
[2016-09-28 14:13] VITALS: BP 172/60; PULSE 83; O2SAT 100
[2016-09-28 15:31] VITALS: BP 146/66; PULSE 68; TEMP 36.6; O2SAT 98
[2016-09-28] MEDS: SIMVASTATIN 20 MG TAB PO SCH (20:27)
[2016-09-28] MEDS: ZOLPIDEM TARTRATE 5 MG TAB PO PRN (21:41)
[2016-09-29] VITALS (7 sets, daily range): BP systolic 157–211; BP diastolic 63–80; PULSE 64–97; TEMP 36.6–36.9; O2SAT 94–97
[2016-09-29] MEDS: SODIUM CHLORIDE 0.9% 1000ML 1,000 ML IV SCH ×2 (00:58→11:12)
--- NOTE | 2016-09-29 01:44 | PROGRESS NOTE ---
DATE: 09/28/2016 An 81-year-old female admitted with cellulitis of her left upper extremity and acute arthritis of her left wrist. The patient with rheumatoid arthritis. Arterial hypertension. History of multiple orthopedic procedures. Spinal stenosis. Recurrent urinary tract infection. The patient was admitted. Cultures were done. She was started on IV Ancef. Also, IV Solu-Medrol. Her fever resolved. She is not having any more chills. Her aches and pains are resolving. She denied any headache or dizziness. No chest pain, no shortness of breath. No abdominal pain. Her appetite is improving. She does have chronic pain in her back and extremities. PHYSICAL EXAMINATION: GENERAL: Well developed, in no distress. VITAL SIGNS: Blood pressure 184/74, initially, this morning and subsequently, came down to 147/74 and 146/66, pulse 86, respiration 20, temperature 36.6, oxygen saturation 98% on room air. SKIN: Warm and dry. Multiple bruises and ecchymotic areas. HEENT: Markedly decreased hearing. She wears glasses. Has hearing aids. NECK: No JVD. No adenopathy. HEART: Regular heart sounds. LUNGS: Clear. ABDOMEN: Soft, nontender. BACK: Spinal deformity. Surgical scar. EXTREMITIES: Severe deformities of her hands and feet, related to her rheumatoid arthritis. Multiple surgical scars. Has had multiple orthopedic procedures. LABORATORY TESTS: WBC count 12,070; hemoglobin 8.6, hematocrit 25.4, platelet count 251,000. Sodium 143, potassium 4.0, chloride 115, CO2 17, BUN 40, creatinine 1.2, glucose 134, calcium 7.6. ASSESSMENT: 1. Cellulitis of the left arm. At this time, the redness and the swelling and the tenderness in her left wrist, left hand and forearm are resolved. 2. Acute arthritis of the left wrist, resolving. 3. Rheumatoid arthritis. 4. Arterial hypertension. 5. History of recurrent urinary tract infection. 6. Spinal stenosis. PLAN: 1. Her WBC count is elevated, most likely related to the steroids. 2. Continuing all her medications. 3. Continue IV fluids. 4. Physical and occupational therapy. 5. Continue monitoring her laboratory tests. 6. Encouraged to be out of bed.
[2016-09-29] MEDS: METHYLPREDNISOLONE IV 20 MG in SYRINGE 0 ML IV SCH ×2 (03:44→15:57)
[2016-09-29] MEDS ORDERED: COUGH DROP (SUGAR FREE) LOZ 24 LOZ/1 BOX PO PRN (04:00)
[2016-09-29 05:35] LABS: HEMATOCRIT 23.4 % (37-47); MEAN CORPUSCULAR HEMOGLOBIN 31.7 pg (25-34); MEAN CORPUSCULAR HGB CONC 33.8 g/dl (32-36); MEAN PLATELET VOLUME 9.1 fL (7.4-10.4); PLATELET COUNT 240 K/uL (130-400); RED BLOOD COUNT 2.49 M/uL (4.2-5.4); WHITE BLOOD COUNT 12.02 K/uL (4.8-10.8)
[2016-09-29 06:13] LABS: BUN/CREATININE RATIO 39.5 (10-20); CREATININE 0.88 mg/dl (0.60-1.20)
[2016-09-29 06:35] LABS: COMPLETE YES; ECHINOCYTES 2+; IG% 0.2 %; LYMPH % 4.7 %; LYMPH ABS # 0.57 K/uL (1.2-3.4); MONO % 4.8 %; NEUT % 90.3 %; OVALOCYTES 1+
[2016-09-29] MEDS: CEFAZOLIN IV 500 MG in DEXTROSE 5% 50ML 50 ML IV SCH ×2 (08:41→21:41)
[2016-09-29] MEDS: MIRABEGRON ER 25 MG TAB PO SCH (08:43)
[2016-09-29] MEDS: HYDROXYCHLOROQUINE SULFATE 200 MG TAB PO SCH ×2 (08:43→16:53)
[2016-09-29] MEDS: LISINOPRIL 10 MG TAB PO SCH (08:44)
[2016-09-29] MEDS: NITROFURANTOIN MACROCRYSTALS 50 MG CAP PO SCH (08:44)
[2016-09-29] MEDS: METOPROLOL TARTRATE 25 MG TAB PO SCH ×2 (08:44→21:42)
[2016-09-29] MEDS: HEPARIN SOD 5000 UNIT/0.5 ML CARP SQ SCH ×2 (08:47→21:46)
[2016-09-29] MEDS ORDERED: METHOTREXATE 2.5 MG TAB PO SCH (09:00)
[2016-09-29] MEDS: BOOST VANILLA PO SCH ×4 (10:03→21:00)
[2016-09-29 11:59] LABS: FERRITIN 840.3 ng/ml (8.0-388.0)
[2016-09-29 16:13] LABS: CALCIUM 8.8 mg/dl (8.5-10.1)
[2016-09-29] MEDS ORDERED: AMLODIPINE BESYLATE 5 MG TAB PO ONE (17:30)
[2016-09-29] MEDS ORDERED: ONDANSETRON INJ 2 MG/ML 2 ML VIAL IV STA (17:33)
[2016-09-29] MEDS ORDERED: ONDANSETRON INJ 8 MG in DEXTROSE 5% 50ML 50 ML IV PRN ×2 (17:45→18:00)
[2016-09-29 18:36] LABS: HEMATOCRIT 26.6 % (37-47); MEAN CELL VOLUME 93.3 fL (80-100); MEAN CORPUSCULAR HEMOGLOBIN 30.2 pg (25-34); MEAN CORPUSCULAR HGB CONC 32.3 g/dl (32-36); MEAN PLATELET VOLUME 8.6 fL (7.4-10.4); PLATELET COUNT 253 K/uL (130-400); RED BLOOD COUNT 2.85 M/uL (4.2-5.4); WHITE BLOOD COUNT 12.18 K/uL (4.8-10.8)
[2016-09-29] MEDS: SIMVASTATIN 20 MG TAB PO SCH (21:42)
--- NOTE | 2016-09-30 01:51 | PROGRESS NOTE ---
DATE: 09/29/2016 An 81-year-old female, admitted with cellulitis of her left arm mostly over her wrist, hand and forearm. Also had an acute arthritis of her left wrist. She has rheumatoid arthritis, arterial hypertension and history of recurrent urinary tract infections. Her condition has improved. She remains afebrile. She denied any headache. No dizziness. No chest pain, no shortness of breath. No abdominal pain, no nausea, no vomiting. No back pain. No pain in her extremities. No edema. PHYSICAL EXAMINATION: GENERAL: Well-developed, in no distress. VITAL SIGNS: Blood pressure 161/64, pulse 97, respirations 16, temperature 36.8 and oxygen saturation 97% on room air. SKIN: Warm and dry. No rash. HEENT: No mucosal abnormality. NECK: No JVD. No adenopathy. HEART: Regular heart sounds. LUNGS: Clear. ABDOMEN: Soft and nontender. BACK: Surgical scar from prior surgery. EXTREMITIES: No edema, clubbing or cyanosis. Resolved swelling and tenderness of the left wrist. Resolved erythema and swelling of the left forearm and left hand. TODAY'S LABORATORY TESTS: WBC count 12,020, hemoglobin 7.9, hematocrit 23.4 and platelet count 240,000. Sodium 144, potassium 4.0, chloride 117, CO2 20, BUN 35, creatinine 0.88, glucose 99 and calcium 8.8. ASSESSMENT: 1. Cellulitis, left upper extremity. 2. Acute arthritis, left wrist. 3. Arterial hypertension. 4. Anemia. 5. Rheumatoid arthritis. 6. Arterial hypertension. 7. Degenerative disc disease and spinal stenosis. PLAN: 1. This morning, her hemoglobin was down to 7.9. I did order a repeat CBC to be done in the afternoon and her hemoglobin was 8.6. There was no clear indication for transfusion. 2. Her blood pressure was elevated this afternoon. Norvasc was added. 3. IV fluid was discontinued. 4. Continue IV antibiotics. 5. Continue Solu-Medrol. 6. She is getting out of bed with physical and occupational therapies. 7. We will repeat her laboratory tests in the morning. Decide on any further treatment. Anticipating discharge home after her acute hospitalization.
[2016-09-30] MEDS: METHYLPREDNISOLONE IV 20 MG in SYRINGE 0 ML IV SCH (04:00)
[2016-09-30 06:09] LABS: COMPLETE YES; HEMATOCRIT 27.3 % (37-47); IG% 0.3 %; LYMPH % 4.9 %; LYMPH ABS # 0.57 K/uL (1.2-3.4); MEAN CELL VOLUME 93.2 fL (80-100); MEAN CORPUSCULAR HEMOGLOBIN 30.7 pg (25-34); MEAN PLATELET VOLUME 9.1 fL (7.4-10.4); MONO % 3.7 %; NEUT % 91.1 %; PLATELET COUNT 270 K/uL (130-400); RED BLOOD COUNT 2.93 M/uL (4.2-5.4); WHITE BLOOD COUNT 11.67 K/uL (4.8-10.8)
[2016-09-30 06:42] LABS: BUN/CREATININE RATIO 36.2 (10-20); CALCIUM 8.1 mg/dl (8.5-10.1); CREATININE 0.79 mg/dl (0.60-1.20); POTASSIUM 4.4 mmol/L (3.5-5.1)
[2016-09-30 06:59] VITALS: BP 177/66; PULSE 70; TEMP 36.6; O2SAT 95
[2016-09-30] MEDS: LISINOPRIL 10 MG TAB PO SCH (07:50)
[2016-09-30] MEDS: CEFAZOLIN IV 500 MG in DEXTROSE 5% 50ML 50 ML IV SCH (07:51)
[2016-09-30] MEDS: MIRABEGRON ER 25 MG TAB PO SCH (07:51)
[2016-09-30] MEDS: HYDROXYCHLOROQUINE SULFATE 200 MG TAB PO SCH (07:51)
[2016-09-30] MEDS: NITROFURANTOIN MACROCRYSTALS 50 MG CAP PO SCH (07:51)
[2016-09-30] MEDS: METOPROLOL TARTRATE 25 MG TAB PO SCH (07:51)
[2016-09-30 08:00] VITALS: O2SAT 95
[2016-09-30] MEDS ORDERED: AMLODIPINE BESYLATE 5 MG TAB PO SCH (08:00)
[2016-09-30] MEDS: HEPARIN SOD 5000 UNIT/0.5 ML CARP SQ SCH (08:01)
[2016-09-30] MEDS: BOOST VANILLA PO SCH ×2 (09:23)
[2016-09-30 09:30] VITALS: BP 133/67; PULSE 60
[2016-09-30] MEDS ORDERED: CEPH500C2 PO (10:48)
[2016-09-30] MEDS ORDERED: NRV5 PO (10:48)
--- NOTE | 2016-09-30 10:52 | Discharge Instructions ---
Discharge Instructions Date of Service Sep 30, 2016. Admission Reason for Admission: Cellulitis Left Hand/Wrist, Acute Arthritis Left wrist RHEUMATOID ARTHRITIS ARTERIAL HYPERTENSION Discharge Discharge Diagnosis / Problem: CELLULITIS LEFT HAND FOREARM AND WRIST. ACUTE ARTHRITIS LEFT WRIST Discharge Goals Goal(s): Decrease discomfort, Improve function Activity Recommendations Activity Limitations: resume your previous activity . Instructions / Follow-Up Instructions / Follow-Up DR OLSON 7-10 DAYS Current Hospital Diet Patient's current hospital diet: Regular Diet Discharge Diet Recommended Diet: Regular Diet Pending Studies Studies pending at discharge: no Medical Emergencies . Who to Call and When: Medical Emergencies: If at any time you feel your situation is an emergency, please call 911 immediately. . Non-Emergent Contact Non-Emergency issues call your: Primary Care Provider . . "Provider Documentation" section prepared by Wilmar Olson. . VTE Core Measure Inpt VTE Proph given/why not?: Treatment not indicated
[2016-09-30 10:57] VITALS: BP 133/67; PULSE 60; TEMP 36.6; O2SAT 95
--- NOTE | 2016-09-30 20:09 | PROGRESS NOTE ---
DATE: 09/30/2016 An 81-year-old female, admitted with cellulitis of her left wrist, left hand, left forearm and acute arthritis of her left wrist. She has rheumatoid arthritis, arterial hypertension and degenerative disc disease of the lumbar spine which required multiple surgeries. She also has a history of recurrent urinary tract infections. She is on suppressive therapy with Macrodantin. The patient remained afebrile. All her cultures came back negative. The swelling, the redness and inflammation in her left upper extremity resolved. She denied any headache. No dizziness. No chest pain, no shortness of breath. No abdominal pain, no nausea, no vomiting. She does have chronic joint pain. PHYSICAL EXAMINATION: GENERAL: Well-developed, in no distress. VITAL SIGNS: Blood pressure 177/66 then subsequently 133/67, pulse 70, respirations 16, temperature 36.6 and oxygen saturation 95% on room air. SKIN: Warm and dry. No rash. Multiple ecchymotic areas. HEENT: She has decreased hearing. Has hearing aids. NECK: No JVD, no adenopathy. HEART: Regular heart sounds with 2/6 systolic murmur. LUNGS: Clear. ABDOMEN: Soft and nontender. EXTREMITIES: Severe joint deformities related to her rheumatoid arthritis and prior surgeries. TODAY'S LABORATORY TESTS: WBC count 11,670, hemoglobin 9, hematocrit 27.3 and platelet count 270,000. Sodium 143, potassium 4.4, chloride 114, CO2 20, BUN 29, creatinine 0.79, glucose 89 and calcium 8.1. ASSESSMENT: 1. Cellulitis, left upper extremity. 2. Acute arthritis, left wrist, resolved. 3. Arterial hypertension. 4. Rheumatoid arthritis. PLAN: 1. Continuing the same medications. 2. She was discharged home. She was switched to Keflex 500 mg three times a day. 3. She is on prednisone 20 mg daily and will continue that along with her other medications for her rheumatoid arthritis. 4. Follow up in the office in one week to ten days.
--- NOTE | 2016-10-08 17:00 | DISCHARGE SUMMARY ---
DISCHARGE DIAGNOSES: 1. Cellulitis of the left upper extremity. 2. Acute arthritis of the left wrist. 3. Rheumatoid arthritis. 4. Generalized weakness. 5. Arterial hypertension. 6. History of recurrent urinary tract infections. 7. Spinal stenosis and degenerative disk disease of the lumbar spine requiring surgery in the past. 8. Chronic steroid therapy. DISCHARGE MEDICATIONS: Included: 1. Amlodipine 5 mg daily. 2. Cephalexin 500 mg 3 times a day for 7 days. 3. Folic acid 400 mcg daily except on Sunday. 4. Plaquenil 200 mg twice a day. 5. Lisinopril 10 mg daily. 6. Methotrexate 10 mg weekly, usually on Sunday. 7. Metoprolol tartrate 25 mg twice a day. 8. Myrbetriq 25 mg daily. 9. Nitrofurantoin 50 mg daily. 10. Potassium chloride 10 mEq twice a day. 11. Prednisone 20 mg daily. 12. Simvastatin 20 mg daily. 13. Tramadol 50 mg every 4 hours as needed. 14. Triamterene/HCTZ 37.5/25 one daily. HISTORY OF PRESENT ILLNESS: Mrs. Alex is an 81-year-old female admitted through the Emergency Room with fever and chills and suspected cellulitis of her left arm and also acute arthritis of the left wrist. The patient with multiple medical problems as noted above. She is at home. Her daughter called this evening stating that her mother was in bed all day. She was complaining of generalized aches and pains. She had a fever up to 101. She has had problem in the past with recurrent urinary tract infection and her daughter thought that she may be having a recurrent one. She was brought to the Emergency Room. She was evaluated by Dr. Felix. She stated that she has been feeling ill for a few days. She has been feeling lightheaded and nauseous. She has had recurrent episodes where she felt warm and chilled, could not get warm enough. Denied any headache. No chest pain, no shortness of breath. No cough or sputum. She was feeling nauseous. No vomiting. She does have chronic pain in her back and joints. I saw the patient in the Emergency Room. She was admitted for further evaluation and treatment. Dr. Felix already gave her a dose of Zosyn 4.5 grams IV. PAST MEDICAL HISTORY, SOCIAL HISTORY AND FAMILY HISTORY: All as noted. ALLERGIES: SULFA. MEDICATIONS ON ADMISSION: All as noted. PHYSICAL EXAMINATION AND ADMISSION LABORATORY TESTS: All as noted. HOSPITAL COURSE: The patient was admitted to medical bed. Resuscitation level 5. All her laboratory tests were ordered. Cultures were ordered. She was started on IV Ancef. She was also started on IV Solu-Medrol. Physical and occupational therapies were ordered. Her fever subsided. She started to feel better. She was continued on IV fluid and IV cefazolin. Her condition started to improve. The swelling and inflammatory changes in her left upper extremity and left wrist started to improve and resolved. The patient was getting out of bed. She was able to ambulate. Her appetite improved. She remained afebrile. Her cultures were negative for any specific bacterial growth. She did not have evidence of any urinary tract infection. The patient was able to return home. Medications as noted above. Rheumatology followup as scheduled. Follow up with me in the office in 1 week after her discharge.
== END 2016-09-30 12:45 | disposition home or self-care (01) | DRG 603 ==
LOC: C.EDB 18:49 → C.MS4W 22:24 → ENRESERV 23:04
PROVIDERS: ADMIT Internal Medicine; ATTEND Internal Medicine
DX: L03.114 Cellulitis of left upper limb (principal); I10 Essential (primary) hypertension; D72.829 Elevated white blood cell count, unspecified; M06.9 Rheumatoid arthritis, unspecified; Z87.440 Personal history of urinary (tract) infections; Z96.643 Presence of artificial hip joint, bilateral; Z79.52 Long term (current) use of systemic steroids; Z87.01 Personal history of pneumonia (recurrent)

== ENCOUNTER → 2016-10-18 | Outpatient (CLI) | payer OTHER, BC ==
[~2016-10-18] MED LIST changes: -ASPEC81 PO; +ASPI81TA28 PO; -Boost PO; -FLV1 PO; +FLV400 PO; +FOLI1TAB7 PO; +MCR/50 PO; -METH10TA32 PO; +METH2.5T PO; -MGCUDL400 PO; +MTH25 PO; +MXZC25 PO; +MYR25 PO; +NRV5 PO; +NUTR-7 PO; +POTA1CAP2 PO; -PRED-301 PO; -PRED10TA PO; +PRED20TA PO; +PRMVC PV; +ULT50X PO; -VSC/5 PO
[2016-10-18 13:11] LABS: EOS % 0.2 %; HEMATOCRIT 25.5 % (37-47); IG% 1.1 %; LYMPH % 11.9 %; LYMPH ABS # 1.13 K/uL (1.2-3.4); MEAN CELL VOLUME 96.2 fL (80-100); MEAN CORPUSCULAR HEMOGLOBIN 29.4 pg (25-34); MEAN CORPUSCULAR HGB CONC 30.6 g/dl (32-36); MEAN PLATELET VOLUME 9.2 fL (7.4-10.4); MONO % 6.4 %; NEUT % 80.4 %; PLATELET COUNT 396 K/uL (130-400); RED BLOOD COUNT 2.65 M/uL (4.2-5.4); WHITE BLOOD COUNT 9.48 K/uL (4.8-10.8)
[2016-10-18 13:47] LABS: COMPLETE YES; ECHINOCYTES 1+
[2016-10-18 13:51] LABS: ALT/SGPT 17 U/L (12-78)
[2016-10-18 13:54] LABS: ALKALINE PHOSPHATASE 55 U/L (45-117); AST/SGOT 15 U/L (15-37)
== END | disposition home or self-care (01) ==
LOC: C.LAB1850 11:30
PROVIDERS: ATTEND Internal Medicine Rheumatology
DX: M06.9 Rheumatoid arthritis, unspecified (principal); Z79.899 Other long term (current) drug therapy

== ENCOUNTER 2016-10-19 09:04 | Inpatient (IN) | payer OTHER, BC ==
[2016-10-19] VITALS (12 sets, daily range): BP systolic 117–150; BP diastolic 53–72; PULSE 70–80; TEMP 36.3–36.9; O2SAT 96–100; Ht 160 cm; Wt 43.0 kg
[~2016-10-19] VITALS: Ht 160 cm; Wt 43.0 kg
[~2016-10-19 09:04] MED LIST changes: -AMOX500T PO; -ASPI81TA28 PO; -FOLI1TAB7 PO; -METH2.5T PO; -NUTR-7 PO; -PRMVC PV; -ULT50X PO
[2016-10-19] MEDS ORDERED: ACETAMINOPHEN 325 MG TAB PO PRN (10:00)
[2016-10-19] MEDS: SODIUM CHLORIDE 0.9% 1000ML 1,000 ML IV SCH ×2 (11:39→21:18)
[2016-10-19 11:59] LABS: HEMATOCRIT 22.3 % (37-47); MEAN CELL VOLUME 94.1 fL (80-100); MEAN CORPUSCULAR HEMOGLOBIN 30.8 pg (25-34); MEAN CORPUSCULAR HGB CONC 32.7 g/dl (32-36); MEAN PLATELET VOLUME 8.6 fL (7.4-10.4); PARTIAL THROMBOPLASTIN RATIO 0.9; PLATELET COUNT 375 K/uL (130-400); PROTHROMBIN TIME (PATIENT) 11.1 SECONDS (9.0-12.0); RED BLOOD COUNT 2.37 M/uL (4.2-5.4); WHITE BLOOD COUNT 9.39 K/uL (4.8-10.8)
[2016-10-19 12:07] LABS: ALT/SGPT 16 U/L (12-78); AST/SGOT 13 U/L (15-37); BLOOD UREA NITROGEN 47 mg/dl (7-18); BUN/CREATININE RATIO 24.6 (10-20); CALCIUM 9.2 mg/dl (8.5-10.1); CARBON DIOXIDE 20 mmol/L (21-32); CHLORIDE 111 mmol/L (98-107); GLUCOSE 76 mg/dl (70-99); POTASSIUM 5.5 mmol/L (3.5-5.1); SODIUM 139 mmol/L (136-145)
[2016-10-19 12:11] LABS: ALB/GLOB RATIO 0.9 (0.9-2); ALKALINE PHOSPHATASE 50 U/L (45-117)
[2016-10-19 12:16] LABS: BASO % 0.1 %; BASO ABS # 0.01 K/uL (0-0.2); COMPLETE YES; EOS % 0.2 %; LYMPH % 17.9 %; LYMPH ABS # 1.68 K/uL (1.2-3.4); MONO % 11.2 %; NEUT % 69.6 %
[2016-10-19] MEDS: FoLIC ACID TAB 400 MCG TAB PO SCH (17:24)
[2016-10-19] MEDS ORDERED: ZOLPIDEM TARTRATE 5 MG TAB PO PRN (18:00)
[2016-10-19 21:09] LABS: URINE APPEARANCE CLEAR (CLEAR); URINE BILIRUBIN NEG (NEG); URINE COLOR YELLOW; URINE EPITHELIAL CELL AUTO 20-30 /lpf (0-5); URINE NITRITE NEG (NEG); URINE PH 6.5 (4.5-7.5); URINE SPECIFIC GRAVITY 1.011 (1.000-1.030); UROBILINOGEN NEG (NEG)
[2016-10-19] MEDS: BOOST VANILLA PO SCH ×2 (21:17)
[2016-10-19] MEDS: METOPROLOL TARTRATE 25 MG TAB PO SCH (21:17)
[2016-10-19] MEDS: SIMVASTATIN 20 MG TAB PO SCH (21:17)
[2016-10-19 21:23] LABS: MANUAL MICROSCOPIC REQUIRED? NO; REVIEW REQ? NO
[2016-10-20] VITALS: O2SAT 97
[2016-10-20] MEDS: SODIUM CHLORIDE 0.9% 1000ML 1,000 ML IV SCH ×2 (06:34→15:24)
[2016-10-20 07:17] LABS: COMPLETE YES; EOS % 0.4 %; HEMATOCRIT 31.6 % (37-47); IG% 2.1 %; IMMATURE RETIC FRACTION 8.1 % (3.0-15.9); LYMPH % 23.9 %; LYMPH ABS # 2.39 K/uL (1.2-3.4); MEAN CELL VOLUME 92.4 fL (80-100); MEAN CORPUSCULAR HGB CONC 33.5 g/dl (32-36); MEAN PLATELET VOLUME 9.1 fL (7.4-10.4); MONO % 9.4 %; NEUT % 64.2 %; PLATELET COUNT 336 K/uL (130-400); RED BLOOD COUNT 3.42 M/uL (4.2-5.4); RETHE 30.5 PG (28.2-36.6); WHITE BLOOD COUNT 10.01 K/uL (4.8-10.8)
[2016-10-20 07:40] LABS: BUN/CREATININE RATIO 29.8 (10-20); CALCIUM 8.4 mg/dl (8.5-10.1); CREATININE 1.3 mg/dl (0.60-1.20); POTASSIUM 5.2 mmol/L (3.5-5.1)
[2016-10-20 07:41] VITALS: BP 135/64; PULSE 59; TEMP 36.6; O2SAT 96
[2016-10-20] MEDS: NITROFURANTOIN MACROCRYSTALS 50 MG CAP PO SCH (07:44)
[2016-10-20] MEDS: MIRABEGRON ER 25 MG TAB PO SCH (07:44)
[2016-10-20] MEDS: AMLODIPINE BESYLATE 5 MG TAB PO SCH (07:44)
[2016-10-20] MEDS: METOPROLOL TARTRATE 25 MG TAB PO SCH ×2 (07:44→20:44)
[2016-10-20] MEDS: FoLIC ACID TAB 400 MCG TAB PO SCH (07:44)
[2016-10-20] MEDS: BOOST VANILLA PO SCH ×4 (07:47→20:44)
[2016-10-20 08:00] VITALS: O2SAT 96
[2016-10-20 15:03] VITALS: BP 134/63; PULSE 63; TEMP 37.1; O2SAT 96
--- NOTE | 2016-10-20 17:45 | Progress Note ---
Progress Note Date of Service Oct 20, 2016. Progress Note 81-year-old female admitted with severe anemia. She has multiple medical problems including rheumatoid arthritis, acute hypertension, spinal stenosis, recurrent urinary tract infection. Patient was admitted. She was transfused 2 units of packed RBCs. There is no evidence of any GI bleed. She had a restful night. She denied any headache no dizziness no lightheadedness. Denied any chest pain. No shortness of breath. No abdominal pain. No nausea no vomiting. No problems with her bowel movements. She did have diarrhea prior to her admission she is tolerating her diet well. Examination: General she is well-developed. No distress. No complaints Vital signs blood pressure 134/68 pulse 63 respirations 16 and temperature 37 1 oxygen saturation 96% on room air. Skin is warm and dry. No rash. Multiple bruised areas. HEENT she wears glasses. Has hearing aids. Markedly decreased hearing Neck is supple without adenopathy or thyromegaly. No JVD. Heart regular heart sounds. Lungs are clear. Abdomen is soft nontender. No organomegaly or masses. Back kyphoscoliosis. Surgical scar. Extremities severe joint deformities related to her rheumatoid arthritis. No edema. Laboratory tests: WBC count 10,010, hemoglobin 10.6, hematocrit 31.6, this is after 2 units of packed RBCs. Platelet count 336,000. Sodium 141, potassium 5.2, chloride 114, CO2 22, BUN/creatinine 39, creatinine 1 , glucose 63, calcium 8.4. LDH 183. Stool is negative for occult blood. Assessment Anemia. Multiple factors contributing including chronic inflammation related to her rheumatoid arthritis, her medications, worsening renal function which is now improving. Rheumatoid arthritis Arterial hypertension Degenerative disc disease of the lumbar spine Recurrent urinary tract infection Plan: Continue the same medications Continue IV fluids Her BUN/creatinine are improving. Her potassium level is improving. She is off methotrexate and hydroxychloroquine. We will continue prednisone. Dr. Sosa is considering starting Enbrel in the future will recheck her laboratory tests in the morning.
[2016-10-20] MEDS: SIMVASTATIN 20 MG TAB PO SCH (20:44)
[2016-10-20 23:01] VITALS: BP 137/65; PULSE 70; TEMP 36.7; O2SAT 98
[2016-10-21] MEDS: SODIUM CHLORIDE 0.9% 1000ML 1,000 ML IV SCH ×2 (01:17→12:00)
[2016-10-21 06:08] LABS: BASO % 0.1 %; BASO ABS # 0.01 K/uL (0-0.2); COMPLETE YES; EOS % 0.3 %; HEMATOCRIT 33.7 % (37-47); IG% 1.4 %; LYMPH % 17.8 %; LYMPH ABS # 1.85 K/uL (1.2-3.4); MEAN CELL VOLUME 93.6 fL (80-100); MEAN CORPUSCULAR HEMOGLOBIN 31.1 pg (25-34); MEAN CORPUSCULAR HGB CONC 33.2 g/dl (32-36); MONO % 7.9 %; NEUT % 72.5 %; PLATELET COUNT 352 K/uL (130-400); WHITE BLOOD COUNT 10.37 K/uL (4.8-10.8)
[2016-10-21 07:31] VITALS: BP 153/63; PULSE 68; TEMP 36.8; O2SAT 97
[2016-10-21 07:38] LABS: BUN/CREATININE RATIO 24.5 (10-20); CALCIUM 8.1 mg/dl (8.5-10.1); CREATININE 1.1 mg/dl (0.60-1.20); POTASSIUM 4.3 mmol/L (3.5-5.1)
[2016-10-21] MEDS: NITROFURANTOIN MACROCRYSTALS 50 MG CAP PO SCH (07:53)
[2016-10-21] MEDS: AMLODIPINE BESYLATE 5 MG TAB PO SCH (07:53)
[2016-10-21] MEDS: METOPROLOL TARTRATE 25 MG TAB PO SCH (07:53)
[2016-10-21] MEDS: FoLIC ACID TAB 400 MCG TAB PO SCH (07:53)
[2016-10-21] MEDS: MIRABEGRON ER 25 MG TAB PO SCH (07:54)
[2016-10-21] MEDS: BOOST VANILLA PO SCH ×2 (07:59)
--- NOTE | 2016-10-21 10:34 | Discharge Instructions ---
Discharge Instructions Date of Service Oct 21, 2016. Admission Reason for Admission: Anemia. Multifactorial ( chronic inflammation,methotrexate,Plaquenil,chronic kidney disease) Rheumatoid arthritis arterial hypertension recurrent urinary tract infection Discharge Discharge Diagnosis / Problem: anemia multifactorial.( chronic inflammation, plaquenil, methotrexate), rheu Discharge Goals Goal(s): Decrease discomfort, Improve function, Increase independence, Improve disease control Activity Recommendations Activity Limitations: resume your previous activity . Current Hospital Diet Patient's current hospital diet: Regular Diet Discharge Diet Recommended Diet: Regular Diet Pending Studies Studies pending at discharge: no Medical Emergencies . Who to Call and When: Medical Emergencies: If at any time you feel your situation is an emergency, please call 911 immediately. . Non-Emergent Contact Non-Emergency issues call your: Primary Care Provider . . "Provider Documentation" section prepared by Wilmar Montaño. . VTE Core Measure Inpt VTE Proph given/why not?: Treatment not indicated
[2016-10-21 11:14] VITALS: BP 153/63; PULSE 68; TEMP 36.8; O2SAT 97
--- NOTE | 2016-10-21 11:27 | Progress Note ---
Progress Note Date of Service Oct 21, 2016. Progress Note 81-year-old female admitted with anemia. She has multiple medical problems including arterial hypertension, rheumatoid arthritis, chronic anemia, severe joint deformities related to her rheumatoid arthritis, spinal stenosis required multiple surgeries in the past. Recurrent urinary tract infection as she is on suppression treatment with Macrodantin. She was admitted. She was transfused 2 units of packed RBCs. Her hemoglobin is stabilized. There has been no evidence of any blood loss. It is thought that her anemia is secondary to multiple factors including chronic inflammation because of her rheumatoid arthritis, medications that she has received including methotrexate and Plaquenil. Her chronic kidney disease. Her condition improved. She is doing well. Resting comfortably. She has no problem with any headache or dizziness. No chest pain no shortness of breath. Good appetite. No abdominal pain no nausea no vomiting. She did have normal bowel movements but the stool was loose. No blood noted. No urinary problem. No ankle edema. Examination: She is well developed. Resting comfortably. Vital signs blood pressure 153/63 pulse 68 respiration 20 temperature 36.8 oxygen saturation 97% on room air Skin is warm and dry. Multiple ecchymotic areas. HEENT she does have markedly decreased hearing. She has hearing aids. No mucosal abnormality. Neck is supple without adenopathy or thyromegaly Heart regular heart sounds with door 6 systolic murmur. Lungs are clear. Abdomen is soft nontender without organomegaly or masses. Extremities no edema clubbing or cyanosis. Severe joint deformities. Laboratory tests WBC count 10,370, hemoglobin 11.2, hematocrit 33.7, platelet count 352,000. Sodium 142, potassium 4.3, chloride 116, CO2 19, BUS and 27, creatinine 1.1, glucose 76, calcium 8.1. Assessment: Severe anemia. Multifactorial. Chronic inflammation, medications including methotrexate and Plaquenil, chronic kidney disease, Rheumatoid arthritis Arterial hypertension Chronic kidney disease Recurrent urinary tract infection Plan: Her condition is stable Her hemoglobin is stable since transfusion We'll keep her off methotrexate and Plaquenil as recommended by Dr. Sosa Continue prednisone currently on 20 mg daily Discharged home today Follow up in the office in one week We'll repeat her CBC and PRP.
--- NOTE | 2016-11-03 09:58 | Discharge Summary ---
Discharge Summary Date of Service Nov 03, 2016. Discharge Summary ADMISSION DATE : 10/19/2016 DISCHARGE DATE: 10/21/2016 DISCHARGE DIAGNOSES Anemia. Multifactorial including chronic inflammation secondary to her rheumatoid arthritis, methotrexate, hydroxychloroquine, chronic kidney disease Rheumatoid arthritis Arterial hypertension Recurrent urinary tract infection DISCHARGE MEDICATIONS: Amlodipine 5 mg daily Folic acid 400 mcg daily Lisinopril 10 mg daily Metoprolol tartrate 25 mg twice a day Myrbetriq ER 25 mg daily Nitrofurantoin 50 mg daily Potassium chloride 10 mEq twice a day Prednisone 20 mg twice a day Simvastatin 20 mg daily Tramadol 50 mg every 4 hours as needed for pain Triamterene/HCTZ 37.5/25 one tablet daily 81-year-old female admitted directly from home with severe anemia. Patient with multiple medical problems as noted above. She was seen by Dr. Ana Sosa for rheumatology followup. She had blood tests done. Her hemoglobin was down to 7.8. Her indices were normal. I spoke with Dr. Sosa and Mrs. Alex.arrangements were made for admission for evaluation and for transfusion. There has been no evidence of any bleeding. Dr. Sosa suspected that her anemia could be related to her chronic inflammation related to her rheumatoid arthritis and a recent increase in her methotrexate and hydroxychloroquine. Her creatinine was also elevated. Past medical history social history and family history were ordered as noted Allergies: SULFA Medications on admission were oral as noted on her admission medication list. HOSPITAL COURSE: The patient was admitted to a medical bed. Resuscitation level V. All other laboratory tests were ordered. She was transfused 2 units of packed RBCs. The transfusions were well tolerated. Postoperatively her hemoglobin remained stable in. She was also treated with IV fluid. Her creatinine came back gradually to 1.1. As far as her hemoglobin it was 11.2 on 10/21/2016. One stool was positive for blood the other one was negative. Her indices are normal. Her condition improved. The recommendation by Dr. Sosa was to keep her off methotrexate and hydroxychloroquine but to continue her prednisone. Dr. Sosa is working on getting insurance approval for for a new medication. Patient was doing well. She was completely asymptomatic. She was tolerating her diet. She'll was ambulating. She was discharged home. Followup in the office in one week. Repeat her PRP and CBC at that time. She will followup with Dr. Ana Sosa as scheduled.
== END 2016-10-21 12:28 | disposition home or self-care (01) | DRG 812 ==
LOC: C.MS2W 10:57
PROVIDERS: ADMIT Internal Medicine; ATTEND Internal Medicine
DX: D64.9 Anemia, unspecified (principal); M06.9 Rheumatoid arthritis, unspecified; I12.9 Hypertensive chronic kidney disease with stage 1 through stage 4 chronic kidney disease, or unspecified chronic kidney disease; N18.9 Chronic kidney disease, unspecified; Z79.899 Other long term (current) drug therapy

== ENCOUNTER → 2016-10-27 | Outpatient (CLI) | payer OTHER, BC ==
[~2016-10-27] MED LIST changes: -HYDR200T5 PO; -MTH25 PO
[2016-10-27 14:47] LABS: BASO % 0.2 %; BASO ABS # 0.02 K/uL (0-0.2); COMPLETE YES; IG% 1.4 %; LYMPH % 14.1 %; LYMPH ABS # 1.76 K/uL (1.2-3.4); MEAN CELL VOLUME 95.7 fL (80-100); MEAN CORPUSCULAR HEMOGLOBIN 31.6 pg (25-34); MEAN CORPUSCULAR HGB CONC 33.1 g/dl (32-36); MEAN PLATELET VOLUME 9.5 fL (7.4-10.4); MONO % 7.5 %; NEUT % 76.8 %; PLATELET COUNT 378 K/uL (130-400); RED BLOOD COUNT 3.76 M/uL (4.2-5.4); WHITE BLOOD COUNT 12.48 K/uL (4.8-10.8)
[2016-10-27 14:54] LABS: BLOOD UREA NITROGEN 36 mg/dl (7-18); BUN/CREATININE RATIO 27.5 (10-20); CALCIUM 9.2 mg/dl (8.5-10.1); CARBON DIOXIDE 23 mmol/L (21-32); CHLORIDE 110 mmol/L (98-107); GLUCOSE 77 mg/dl (70-99); POTASSIUM 4.6 mmol/L (3.5-5.1); SODIUM 139 mmol/L (136-145)
== END | disposition home or self-care (01) ==
LOC: C.LABSPEC 14:27
PROVIDERS: ATTEND Internal Medicine
DX: D64.9 Anemia, unspecified (principal); I10 Essential (primary) hypertension

== ENCOUNTER → 2016-11-03 | Outpatient (CLI) | payer OTHER, BC ==
[~2016-11-03] MED LIST changes: +AMOX500T PO; +ASPI81TA28 PO; +FOLI1TAB7 PO; +METH2.5T PO; +NUTR-7 PO; +PRMVC PV; +ULT50X PO
[2016-11-03 17:18] LABS: BASO % 0.1 %; BASO ABS # 0.01 K/uL (0-0.2); COMPLETE YES; HEMATOCRIT 36.6 % (37-47); IG% 2.1 %; LYMPH % 6.3 %; LYMPH ABS # 0.67 K/uL (1.2-3.4); MEAN CELL VOLUME 94.8 fL (80-100); MEAN CORPUSCULAR HEMOGLOBIN 32.1 pg (25-34); MEAN CORPUSCULAR HGB CONC 33.9 g/dl (32-36); MEAN PLATELET VOLUME 9.6 fL (7.4-10.4); MONO % 0.9 %; NEUT % 90.6 %; PLATELET COUNT 243 K/uL (130-400); RED BLOOD COUNT 3.86 M/uL (4.2-5.4); WHITE BLOOD COUNT 10.58 K/uL (4.8-10.8)
[2016-11-03 17:41] LABS: ALT/SGPT 23 U/L (12-78); AST/SGOT 13 U/L (15-37)
== END | disposition home or self-care (01) ==
LOC: C.LAB1850 16:17
PROVIDERS: ATTEND Internal Medicine Rheumatology
DX: M06.9 Rheumatoid arthritis, unspecified (principal); Z79.899 Other long term (current) drug therapy

== ENCOUNTER 2016-11-30 13:07 | Inpatient (IN) | payer OTHER, BC ==
[~2016-11-30] VITALS: Ht 157.5 cm; Wt 46.1 kg
[~2016-11-30 13:07] MED LIST changes: -AMOX500T PO; -ASPI81TA28 PO; -FOLI1TAB7 PO; -METH2.5T PO; -NUTR-7 PO; -PRMVC PV; -ULT50X PO
[2016-11-30] MEDS ORDERED: SODIUM CHLORIDE 0.9% 1000ML 1,000 ML IV ONE (13:44)
--- NOTE | 2016-11-30 14:00 | EMERGENCY ROOM VISIT NOTE ---
History First contact with patient: 13:30 Chief Complaint: FEVER Stated Complaint: CHILLS, FEVER History of Present Illness The patient is a 81 year old female who presents to the Emergency Room with complaints of fevers, chills, and diarrhea that started yesterday. Fever was as high as 100.7 this morning. Patient denies any blood, black stools, or coffee ground stools in her diarrhea, states it is water, she has been going almost every hour, and it has a foul odor to it. Patient states she called her PCP yesterday when her symptoms started, he gave her prescription for Lomotil which she has been taking and this has improved her diarrhea somewhat, however she continues to have fevers and chills. Of note, patient is on chronic prednisone for her RA and was started Enbrel injections 3 weeks ago. Patient has not taken any antipyretics. She denies any abdominal pain, but states she has a lot of cramping with diarrhea. She takes chronic Macrobid for UTI prevention, which she states she gets frequently, she denies any other recent antibiotics. She denies any headaches, neck pain, back pain, chest pain, shortness of breath, cough, palpitations, dizziness or syncope, nausea or vomiting, urinary symptoms, rash. Review of Systems A complete 10 point review of systems was reviewed with the patient with pertinent positives and negatives as per history of present illness. All else were negative. Past Medical/Surgical History Medical Problems: (1) ANEMIA,RHEUMATOID ARTHRITIS (2) Arthritis (3) Back pain (4) CELLULITIS LEFT HAND/WRIST. ACUTE ARTHRITIS L WRIST (5) DEHYD,UTI,ANENIA (6) elev. troponinn,diarrhea, dehyd (7) Fungus present in urine (8) Hypertension (9) Lower urinary tract infection, acute (10) PERSISTENT UTI, VOMITING (11) Pneumonia (12) RECURRENT UTI, ?SEPSIS (13) Rheumatoid arthritis (14) S/P hysterectomy (15) SEPSIS,UTI,ACUTE RENAL FAILURE,RHEUMATOID ARTH (16) UTI, SEPSIS SYNDROME, Surgical Problems: (1) History of back surgery (2) History of cataract surgery (3) History of cholecystectomy (4) History of left hip replacement (5) History of right hip replacement (6) S/P lumpectomy of breast Family History Cancer Diabetes mellitus Hypertension Social History Smoking Status: Never Smoker Alcohol Use: none Marital Status: Housing Status: lives with significant other Occupation Status: retired Current/Historical Medications Scheduled Amlodipine Besylate (Amlodipine Besylate), 5 MG PO QAM Aspirin (Aspirin Ec), 81 MG PO DAILY Estrogens, Conjugated (Premarin), 1 APPLN PV [id number] Folic Acid (Folvite), 1 MG PO DAILY Lisinopril (Zestril), 5 MG PO QAM Methotrexate (Methotrexate), 3 TAB PO WK Metoprolol Tartrate (Lopressor), 12.5 MG PO QAM Mirabegron (Myrbetriq Er), 25 MG PO DAILY Nitrofurantoin Macrocrystals (Nitrofurantoin Macrocryst), 50 MG PO DAILY Nutritional Supplements (Boost), 2 CAN PO DAILY Potassium Chloride (Potassium Chloride Er), 20 MEQ PO DAILY Prednisone (Prednisone), 20 MG PO QAM Simvastatin (Zocor), 20 MG PO QPM Triamterene/Hctz (Triamterene/Hctz 37.5-25MG Tab), 1 TAB PO DAILY Physical Exam Vital Signs Date Time Temp Pulse Resp B/P (MAP) Pulse Ox O2 Delivery O2 Flow Rate FiO2 11/30/16 18:19 77 18 98 11/30/16 17:00 88 18 100/42 98 Room Air 11/30/16 16:55 79 22 89/42 97 Room Air 11/30/16 14:25 70 16 106/50 11/30/16 14:22 78 11/30/16 13:10 37.8 129 22 103/52 100 Room Air Physical Exam CONSTITUTIONAL: No acute distress. Moderately dehydrated. Nontoxic appearing. Alert and oriented X 4 with normal affect. HEENT: Normocephalic, atraumatic. Pupils equal, round and reactive to light, EOMI. TMs normal. Pharynx normal. Dry mucous membranes. NECK: Supple, full active range of motion without discomfort. RESPIRATORY: Clear to auscultation bilaterally with no wheezing, crackles, rhonchi or stridor. Equal expansion bilaterally. CARDIOVASCULAR: Regular rate and rhythm with no murmurs, rubs or gallops. Normal peripheral perfusion. No edema. Bilateral peripheral vascular disease. GASTROINTESTINAL: Moderate tenderness in the left lower quadrant palpation, otherwise nontender. No rebound tenderness or guarding. Soft, nondistended. Bowel sounds present in all quadrants. MUSCULOSKELETAL: Full range of motion of all joints without discomfort. INTEGUMENTARY: No rash or other significant dermatologic conditions noted. NEUROLOGIC: Cranial nerves II-XII grossly intact. No focal neurologic deficits noted. Medical Decision & Procedures ER Provider Diagnostic Interpretation: Chest x-ray: IMPRESSION: 1. There are patchy airspace opacities at the left lung base, likely representing atelectasis. Cortical clinically for evidence of a superimposed infectious/inflammatory pneumonitis. 2. Additional chronic findings as above. ----- CT abdomen/pelvis: IMPRESSION: 1. No acute intra-abdominal pathology. 2. Diverticulosis without evidence of diverticulitis. 3. No bowel obstruction. 4. Likely dependent atelectasis. Laboratory Results 11/30/16 14:05 Red Blood Count 3.61, Mean Corpuscular Volume 90.3, Mean Corpuscular Hemoglobin 31.3, Mean Corpuscular Hemoglobin Concent 34.7, Mean Platelet Volume 9.3, Neutrophils (%) (Auto) 91.8, Lymphocytes (%) (Auto) 3.2, Monocytes (%) (Auto) 3.0, Eosinophils (%) (Auto) 0.0, Basophils (%) (Auto) 0.1, Neutrophils # (Auto) 9.90, Lymphocytes # (Auto) 0.35, Monocytes # (Auto) 0.32, Eosinophils # (Auto) 0.00, Basophils # (Auto) 0.01 11/30/16 14:05 Test 11/30/16 14:05 11/30/16 14:09 11/30/16 15:48 11/30/16 16:10 White Blood Count 10.78 K/uL (4.8-10.8) Red Blood Count 3.61 M/uL (4.2-5.4) Hemoglobin 11.3 g/dL (12.0-16.0) Hematocrit 32.6 % (37-47) Mean Corpuscular Volume 90.3 fL (80-100) Mean Corpuscular Hemoglobin 31.3 pg (25-34) Mean Corpuscular Hemoglobin Concent 34.7 g/dl (32-36) Platelet Count 149 K/uL (130-400) Mean Platelet Volume 9.3 fL (7.4-10.4) Neutrophils (%) (Auto) 91.8 % Lymphocytes (%) (Auto) 3.2 % Monocytes (%) (Auto) 3.0 % Eosinophils (%) (Auto) 0.0 % Basophils (%) (Auto) 0.1 % Neutrophils # (Auto) 9.90 K/uL (1.4-6.5) Lymphocytes # (Auto) 0.35 K/uL (1.2-3.4) Monocytes # (Auto) 0.32 K/uL (0.11-0.59) Eosinophils # (Auto) 0.00 K/uL (0-0.5) Basophils # (Auto) 0.01 K/uL (0-0.2) RDW Standard Deviation 52.4 fL (36.4-46.3) RDW Coefficient of Variation 15.9 % (11.5-14.5) Immature Granulocyte % (Auto) 1.9 % Immature Granulocyte # (Auto) 0.20 K/uL (0.00-0.02) Anion Gap 10.0 mmol/L (3-11) Estimated GFR () 44.2 Estimated GFR (Non- 38.2 BUN/Creatinine Ratio 34.0 (10-20) Calcium Level 8.3 mg/dl (8.5-10.1) Total Bilirubin 0.5 mg/dl (0.2-1) Direct Bilirubin 0.2 mg/dl (0-0.2) Aspartate Amino Transf (AST/SGOT) 27 U/L (15-37) Alanine Aminotransferase (ALT/SGPT) 32 U/L (12-78) Alkaline Phosphatase 45 U/L (45-117) Total Protein 5.2 gm/dl (6.4-8.2) Albumin 2.6 gm/dl (3.4-5.0) Lipase 115 U/L (73-393) Bedside Lactic Acid Venous 1.38 mmol/L (0.90-1.70) Urine Color YELLOW Urine Appearance CLEAR (CLEAR) Urine pH 5.0 (4.5-7.5) Urine Specific [place] 1.017 (1.000-1.030) Urine Protein NEG (NEG) Urine Glucose (UA) NEG (NEG) Urine Ketones 1+ (NEG) Urine Occult Blood TRACE (NEG) Urine Nitrite NEG (NEG) Urine Bilirubin NEG (NEG) Urine Urobilinogen NEG (NEG) Urine Leukocyte Esterase NEG (NEG) Urine WBC (Auto) 0 /hpf (0-5) Urine RBC (Auto) 0-4 /hpf (0-4) Urine Hyaline Casts (Auto) 1-5 /lpf (0-5) Urine Epithelial Cells (Auto) 0-5 /lpf (0-5) Urine Bacteria (Auto) NEG (NEG) Troponin I 0.091 ng/ml (0-0.045) Medications Administered Medications (Trade) Dose Ordered Sig/Martina Route Start Time Stop Time Status Last Admin Dose Admin Sodium Chloride 1,000 ml @ 1,000 mls/hr Q1H ONCE IV 11/30/16 13:44 11/30/16 14:43 DC 11/30/16 14:30 1,000 MLS/HR ECG Indication: weakness Rate (beats per minute): 79 Rhythm: sinus rhythm (with sinus arrhythmia) Findings: no acute ischemic change, left axis deviation, no ectopy Change: no significant change (compared to EKG from 10/19/16) Medical Decision CC: Patient presenting with complaint of fevers and diarrhea Interpretation of Labs: No leukocytosis, however neutrophil count is elevated, anemia at baseline, mild hyponatremia, no significant electrolyte abnormalities , renal function at baseline, liver enzymes and lipase normal, lactic acid is within normal limits. UA pending. Blood and urine cultures pending. Elevated troponin of 0.086. Differential Diagnosis: Includes, but not limited to gastroenteritis, colitis, diverticulitis, diverticulosis, C. difficile, UTI, pneumonia, sepsis/bacteremia , dehydration, among others. Medication Reconciliation: I attest that I have personally reviewed the patient' s current medication list. Vital signs review: I reviewed the patient's vital signs and interpret them as follows: T: Febrile; BP: Normotensive; HR: Tachycardic; RR: Tachypneic; Pulse Ox: Within normal limits on room air. Blood pressure screening: The patient was found to have normal blood pressure on screening and does not require follow-up for repeat blood pressure check. Summary: Patient was evaluated at bedside, history of physical exam performed. Patient is alert and oriented, cooperative, resting comfortably in the stretcher in no acute distress. She is febrile. Patient complains of feeling very chilled and generally weak and tired. Neurologic exam is normal with no focal deficits. Patient does appear moderately dehydrated with dry mucous membranes and poor skin turgor, as well as tachycardia. Orders were placed at bedside for labs, UA and culture, blood culture, IV fluid bolus for hydration, EKG, chest x-ray, CT abdomen/pelvis with contrast to evaluate for intra-abdominal infection. Patient discussed with Dr. Cisneros, who independently examined the patient and agrees with my assessment and plan. Labs reviewed as above, concerning for elevated troponin level. EKG reviewed and no ischemic changes noted. Second troponin level ordered for trending purposes. Chest x-ray reviewed, findings seem most consistent with atelectasis, however cannot rule out pneumonia. CT reviewed, no diverticulitis or other abdominal infectious etiology. UA pending. Stool studies pending. Patient reassessed multiple times throughout ED stay, she remains well appearing , tachycardia resolved after IV fluid bolus, fever also improved. Patient was discussed with Dr. Catrachita Maciel, who agrees to evaluate the patient and admit her for further management. Patient and family updated on plan for admission, they verbalized understanding and are agreeable to this plan. Patient stable and without any complaints at time of admission. Impression Primary Impression: Fever Additional Impressions: Diarrhea Elevated troponin I level Departure Information Dispostion Admitted as an inpatient Condition GOOD Referrals Wilmar Dela Cruz M.D. (PCP) Patient Instructions [facility] Problem Qualifiers Primary Impression: Fever Fever type: unspecified Qualified Codes: R50.9 - Fever, unspecified Additional Impressions: Diarrhea Diarrhea type: presumed infectious Qualified Codes: A09 - Infectious gastroenteritis and colitis, unspecified
[2016-11-30] MEDS ORDERED: OPTIRAY 320 IV PRN (14:15)
[2016-11-30 14:25] LABS: BASO % 0.1 %; BASO ABS # 0.01 K/uL (0-0.2); COMPLETE YES; HEMATOCRIT 32.6 % (37-47); IG% 1.9 %; LYMPH % 3.2 %; LYMPH ABS # 0.35 K/uL (1.2-3.4); MEAN CELL VOLUME 90.3 fL (80-100); MEAN CORPUSCULAR HEMOGLOBIN 31.3 pg (25-34); MEAN CORPUSCULAR HGB CONC 34.7 g/dl (32-36); MEAN PLATELET VOLUME 9.3 fL (7.4-10.4); NEUT % 91.8 %; PLATELET COUNT 149 K/uL (130-400); RED BLOOD COUNT 3.61 M/uL (4.2-5.4); WHITE BLOOD COUNT 10.78 K/uL (4.8-10.8)
[2016-11-30 14:48] LABS: ALT/SGPT 32 U/L (12-78); AST/SGOT 27 U/L (15-37); BLOOD UREA NITROGEN 44 mg/dl (7-18); CALCIUM 8.3 mg/dl (8.5-10.1); CARBON DIOXIDE 16 mmol/L (21-32); CHLORIDE 107 mmol/L (98-107); GLUCOSE 76 mg/dl (70-99); SODIUM 133 mmol/L (136-145)
--- NOTE | 2016-11-30 14:56 | DIAGNOSTIC IMAGING REPORT ---
SINGLE VIEW CHEST CLINICAL HISTORY: Fever. Sepsis. FINDINGS: An AP, portable, upright chest radiograph is compared to study dated 09/26/2016. Correlation is made with chest CT dated 07/08/2009. The examination is degraded by portable technique and patient rotation. A left subclavian central venous infusion port is unchanged in position. The heart is top normal for projection and there is atherosclerotic calcification of the thoracic aorta. The pulmonary vasculature is noncongested. Superior mediastinal density is unchanged and consistent with mediastinal fat gland when correlated with prior studies. Chronic elevation of the right hemidiaphragm with right basilar atelectasis is unchanged, as is chronic interstitial thickening. Scattered calcified granulomas are again seen. Apical scarring is observed. Airspace opacities are present the left lung base. There is no large pleural effusion or pneumothorax. The skeletal structures are osteopenic. The bony thorax is grossly intact. Fusion hardware is noted in the lumbar spine. Degenerative change and scoliosis are noted in the thoracic spine. Cholecystectomy clips are present in the right upper quadrant. Surgical clips are seen in the right axilla. IMPRESSION: 1. There are patchy airspace opacities at the left lung base, likely representing atelectasis. Cortical clinically for evidence of a superimposed infectious/inflammatory pneumonitis. 2. Additional chronic findings as above. Electronically signed by: Christiano James M.D. 11/30/2016 2:54 PM Dictated Date/Time: 11/30/2016 2:45 PM
[2016-11-30 15:04] LABS: ALKALINE PHOSPHATASE 45 U/L (45-117)
[2016-11-30 16:16] LABS: URINE APPEARANCE CLEAR (CLEAR); URINE BILIRUBIN NEG (NEG); URINE COLOR YELLOW; URINE EPITHELIAL CELL AUTO 0-5 /lpf (0-5); URINE NITRITE NEG (NEG); URINE SPECIFIC GRAVITY 1.017 (1.000-1.030); UROBILINOGEN NEG (NEG)
--- NOTE | 2016-11-30 16:20 | EMERGENCY ROOM VISIT NOTE ---
ED Visit Note First contact with patient: 13:30 81-year-old female with fever and diarrhea was fully evaluated by Cathy Huitron NP. Please see her note. I also independently evaluated the patient. The patient's troponin is elevated. She also may have an underlying infection. The patient is on Embrel. The patient will require further evaluation in the hospital.
[2016-11-30 16:30] LABS: MANUAL MICROSCOPIC REQUIRED? NO; REVIEW REQ? NO
[2016-11-30] MEDS ORDERED: FOLI1TAB7 PO (16:30)
[2016-11-30] MEDS ORDERED: METH2.5T PO (16:30)
[2016-11-30] MEDS ORDERED: NUTR-7 PO (16:30)
[2016-11-30] MEDS ORDERED: PRMVC PV (16:30)
[2016-11-30] MEDS ORDERED: ASPI81TA28 PO (16:30)
[2016-11-30] MEDS ORDERED: ACETAMINOPHEN 325 MG TAB PO PRN (17:00)
[2016-11-30] MEDS ORDERED: CEFTRIAXONE SOD INJ 1 GM in DEXTROSE 5% ADD-VANTAGE 50ML 50 ML IV STA (17:01)
[2016-11-30] MEDS ORDERED: ONDANSETRON INJ 8 MG in DEXTROSE 5% 50ML 50 ML IV PRN (17:15)
--- NOTE | 2016-11-30 17:31 | DIAGNOSTIC IMAGING REPORT ---
ABD/PELVIS IV AND ORAL CONT CLINICAL HISTORY: 81 years-old Female presenting with left lower quadrant pain, eval diverticulitis, colitis, infection. TECHNIQUE: Multidetector CT of the abdomen and pelvis was performed after the administration of oral and intravenous contrast. IV contrast: 118 mL of Optiray 320. A dose lowering technique was used consistent with the principles of ALARA (as low as reasonably achievable). COMPARISON: 10/05/2015. CT DOSE (mGy.cm): The estimated cumulative dose is 398.69 mGy.cm. FINDINGS: Elevator Mechanic topogram: Cholecystectomy clips, posterior lumbar fusion hardware, and bilateral total hip arthroplasties noted. Diffuse mild gaseous distention of bowel. S-shaped scoliotic curvature of the spine. Lung bases: Dependent consolidation. No pericardial or pleural effusion. Enlargement of the left atrium. Mitral annular, aortic valve, and coronary artery calcification. Liver: Normal morphology. No liver lesion. Patent hepatic vasculature. Biliary: Prominent biliary ductal dilatation within the medial right hepatic lobe and to a lesser degree centrally diffusely. The common duct is also dilated up to 1.5 cm. Gallbladder surgically absent. Pancreas: 4 mm cystic lesion in the body neck of the pancreas (series 3 image 147) versus focal invaginated fat. Mild diffuse rectal atrophy. Spleen: Normal. Adrenal glands: Normal. Kidneys and ureters: Cortical thinning in the right kidney with focal scarring in the interpolar region posteriorly. Extrarenal pelvis on the right. Few small hypodensities in the kidneys bilaterally, too small to characterize. The left kidney has prominent persistent lobulations. No nephrolithiasis. No hydronephrosis. Mild apparent urothelial thickening of the ureters bilaterally. Distal ureters poorly visualized secondary to extensive streak artifact arising from arthroplasties. Bladder: Poorly visualized secondary to artifact. Pelvic organs: Poorly visualized secondary to artifact. Bowel: Sigmoid and descending colonic diverticulosis no evidence of diverticulitis. No bowel obstruction, although proximal bowel is mildly distended. Small duodenal diverticulum at the level of the pancreatic head may be present. Peritoneal cavity: No free fluid or intraperitoneal gas. Vasculature: Atherosclerosis of the normal caliber abdominal aorta. IVC patent. Lymph nodes: No enlarged lymph nodes in the abdomen or pelvis. Abdominal wall: Normal. Musculoskeletal: Bilateral total hip arthroplasties and posterior lumbar fusion with associated laminectomy defects. Osteopenia. Degenerative changes of the sacroiliac joints. No acute osseous injury or destructive osseous lesion. IMPRESSION: 1. No acute intra-abdominal pathology. 2. Diverticulosis without evidence of diverticulitis. 3. No bowel obstruction. 4. Likely dependent atelectasis. Electronically signed by: Jony Ulrich M.D. 11/30/2016 5:29 PM Dictated Date/Time: 11/30/2016 5:18 PM
[2016-11-30 18:44] VITALS: BP 120/65; PULSE 80; TEMP 37.2; O2SAT 96; Ht 157.5 cm; Wt 46.1 kg
[2016-11-30 19:34] LABS: INR 1.2 (0.9-1.1); PROTHROMBIN TIME (PATIENT) 13.2 SECONDS (9.0-12.0)
[2016-11-30] MEDS: SODIUM CHLORIDE 0.9% 1000ML 1,000 ML IV SCH (20:01)
[2016-11-30] MEDS: CEFTRIAXONE SOD INJ 1 GM in DEXTROSE 5% ADD-VANTAGE 50ML 50 ML IV SCH (20:04)
[2016-11-30 20:26] VITALS: BP 120/65; PULSE 80; TEMP 37.2; O2SAT 96
[2016-11-30] MEDS: METOPROLOL TARTRATE 25 MG TAB PO SCH (20:51)
[2016-11-30] MEDS: SIMVASTATIN 20 MG TAB PO SCH (20:51)
[2016-11-30] MEDS: HEPARIN SOD 5000 UNIT/0.5 ML CARP SQ SCH (20:53)
--- NOTE | 2016-11-30 22:03 | History and Physical ---
History & Physical Date of Service Nov 30, 2016. History & Physical ADMISSION DATE: 11/30/2016 CHIEF COMPLAINT: 81-year-old female admitted through the emergency room with multiple problems including diarrhea, dehydration, generalized weakness, elevated troponin I. PRESENT ILLNESS : Patient with multiple medical problems including rheumatoid arthritis currently on Enbrel. Arterial hypertension. Recurrent urinary tract infection. Generalized weakness. 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 Chronic anemia. Patient is at home with her . She had an appointment to be seen in the office yesterday. Her called before her appointment stating that she was very sick and they could not get her out of bed. She wanted to rest. She was having diarrhea. Today her daughter called stating that she had not gotten out of bed since yesterday. She is feeling very weak. She has fever. She is having chills. Having diarrhea. They were not able to get her out of bed. I asked them to bring her to the emergency room. Patient was noted to be febrile. She is very weak. Dehydrated. She was complaining of lower abdominal pain. Multiple laboratory tests were ordered. Cultures were done. I saw the patient in the emergency room. Her troponin I was slightly elevated. She was admitted for further evaluation. PAST MEDICAL HISTORY: * Rheumatoid arthritis. Long-standing. Severe joint deformities. Multiple interventions with joint replacement in her hands and feet. She has been on multiple medications including prednisone, methotrexate, Plaquenil. She was recently started on Enbrel. * Recurrent urinary tract infection. She has had multiple hospitalizations related to her infection. She is now on suppressive therapy with Macrodantin. This has been very effective recently. She does see Dr. Irvin Francois. * Arterial hypertension. Long-standing. * Left total hip arthroplasty in 1989 * Right total hip arthroplasty in 1993 * Compression fractures of T12 and T11 in the past * Degenerative disc disease of the lumbar spine requiring multiple surgeries * Cholecystectomy in 1985 * History of right breast cancer in 1988 treated with lumpectomy and radiation therapy * Lymphedema of the right arm after her breast surgery treated with compression sleeves * Recent hospitalization for anemia. Her hemoglobin was down to 7.8. She did require transfusion. It was thought that her anemia was related to her chronic inflammatory disease with her rheumatoid arthritis and also to the increased dose of methotrexate and hydroxychloroquine SOCIAL HISTORY: She is . Has 3 children. No history of any smoking or alcohol. No excessive coffee tea or soft pain. She is retired. FAMILY HISTORY: Her mother at age 94 she was in personal home care. Her father at age 62 had myocardial infarction and congestive heart failure one brother age 64 of heart failure one sister recently . She had Crohn's disease, type 2 diabetes mellitus, arterial hypertension, osteoarthritis. One son was killed in a truck accident at age 31 ALLERGIES: SULFA CURRENT MEDICATIONS: * amlodipine 5 mg p.o. daily * Folic acid 400 mcg daily * Lisinopril 10 mg daily * Metoprolol tartrate 25 mg twice a day * Myrbetriq ER 25 mg daily * Prednisone 20 mg twice a day * Simvastatin 20 mg daily * Tramadol 50 mg every 4 hours as needed * Triamterene/HCTZ 37.5/25 one tablet daily * Potassium chloride 10 mEq twice a day REVIEW OF SYSTEMS: She is feeling weak and tired. She has been feeling hot. She did have fever at home. Had chills. Denies any earache or sore throat. No neck pain. No chest pain.no shortness of breath. No nausea no vomiting. Diarrhea. Poor appetite. Markedly decreased oral intake. No urinary problem. Chronic back pain. Chronic joint pain. EXAMINATION GENERAL : Well developed. Well nourished. No acute distress.Weight 46.9 kg. Height 157.5 cm. BMI 18.9. VITAL SIGNS : Blood Pressure : 103/52. Pulse 129. Respiration 22. Temperature 37.8. Oxygen saturation 100% on room air. After arrival to the emergency room her heart rate came down to 78. SKIN : Warm and dry. No rash.Multiple bruises and ecchymotic areas HEENT :Markedly decreased hearing. Has hearing aids. She does wear glasses. Dry mucosa. NECK : Supple. No lymph node or thyroid enlargement. No JVD. Normal carotid pulses. Bilateral carotid bruits. CHEST : Normal. She has an [id number] in place HEART: Regular heart tones with 2/6 systolic murmur. No rub no gallop. LUNGS: decreased breath sounds. Minimal rhonchi. ABDOMEN: Soft. Slight lower abdominal tenderness. She thinks it's related to a pulled muscle . No evidence of any masses.no guarding or rebound. BACK: Evidence of kyphoscoliosis. Surgical scar. EXTREMITIES: No edema. Multiple ecchymotic areas. Severe joint deformities. 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 Good posterior tibialis pulses. Absent dorsalis pedis pulses. NEUROLOGICAL EXAMINATION: She is an awake alert and oriented. There is no deficit. LABORATORY TESTS : WBC count 10,780, hemoglobin 11.3, hematocrit 32.6, platelet count 149,000. Prothrombin time 13.2. INR 1.2. Sodium 133, potassium 5.0, chloride 107, CO2 16, BUN 44, creatinine 1.3, glucose 76, calcium 8.3, total bilirubin 0.3, AST 27 , ALT 32, alkaline phosphatase 45, total protein 5.2, albumin 2.6, lipase 115. Troponin I elevated to 0.086. Electrocardiogram showed a sinus rhythm without any acute changes Chest x-ray showed patchy airspace opacities in the left lung base. Thought to represent atelectasis but possibly a superimposed infectious/inflammatory pneumonitis. CT scan of the abdomen and pelvis showed no acute abnormalities. No inflammatory changes. She does have diverticulosis without diverticulitis. Urinalysis did not show any evidence of urinary tract infection ASSESSMENT: * enterocolitis with diarrhea * Dehydration * generalized weakness * Elevated troponin I * Rheumatoid arthritis * Atelectasis versus infectious/inflammatory process left lung base * Arterial hypertension * Recurrent urinary tract infection * Chronic kidney disease * Degenerative disc disease of the lumbar spine with spinal stenosis had prior surgeries PLAN: Because of the elevated troponin I patient was admitted to PCU with telemetry. Cardiac isoenzymes and electrocardiograms were ordered. She was started on IV fluid. Started on IV Rocephin. Continued on her oral medications. Except for the diuretic. She was due for her Enbrel injection today but we have to put that off in view of her acute illness and the fever and the chills. All cultures were done.Will check her stool for Clostridium difficile toxin. Will monitor her laboratory tests. Will increase her activity gradually as tolerated. Physical and occupational therapy evaluations. The plan is for her to return home with her family after her acute hospitalization.
[2016-12-01] VITALS (8 sets, daily range): BP systolic 91–126; BP diastolic 48–64; PULSE 60–83; TEMP 36.4–37.3; O2SAT 96–98
[2016-12-01 01:16] LABS: CKMB/CK RATIO 7.8 (0-3.0)
[2016-12-01] MEDS: SODIUM CHLORIDE 0.9% 1000ML 1,000 ML IV SCH ×3 (06:25→22:52)
[2016-12-01 06:32] LABS: BASO % 0.2 %; BASO ABS # 0.01 K/uL (0-0.2); COMPLETE YES; EOS % 0.2 %; HEMATOCRIT 27.7 % (37-47); IG% 1.3 %; LYMPH % 8.7 %; LYMPH ABS # 0.54 K/uL (1.2-3.4); MEAN CELL VOLUME 89.1 fL (80-100); MEAN CORPUSCULAR HEMOGLOBIN 30.9 pg (25-34); MEAN CORPUSCULAR HGB CONC 34.7 g/dl (32-36); MEAN PLATELET VOLUME 9.1 fL (7.4-10.4); MONO % 7.4 %; NEUT % 82.2 %; PLATELET COUNT 138 K/uL (130-400); RED BLOOD COUNT 3.11 M/uL (4.2-5.4); WHITE BLOOD COUNT 6.19 K/uL (4.8-10.8)
--- NOTE | 2016-12-01 06:39 | Clinical Documentation Query ---
Dr. KAVEH SANCHEZ [facility], [place] : CLINICAL DOCUMENTATION QUERIES QUERY 1 OF 3 Patient is an 81 year old female admitted for evaluation and treatment of diarrhea, dehydration, weakness, fever, and elevated troponin I. Documentation includes "enterocolitis with diarrhea" and "atelectasis versus infectious/inflammatory process" (of the left lung base). She is being treated with IVF and IV Rocephin. Please clarify as clinically appropriate. Thank you. In your clinical opinion is this patient being managed for: ( ) (Possible/Suspected) Bacterial enteritis and/or pneumonia/pneumonitis ( ) Other explanation of clinical findings (Please Explain) ( x ) Unable to determine (Please Define) ( ) Need to Discuss ( ) Not Agree The medical record reflects the following clinical findings, treatment, and risk factors. Clinical Indicators: As above Treatment: IVF, IV Rocephin, blood cultures Risk Factors: Age, comorbid conditions, low BMI QUERY 2 OF 3 Serum troponin 0.086 ng/ml on admission, with subsequent 0.091, 0.066 ng/ml. Patient is being monitored on telemetry with serial troponins, isoenzymes, recieving ASA and Lopressor. As appropriate, consider documentation as suggested below. In your clinical opinion is this patient being managed for: ( ) Myocardial demand ischemia ( ) Other explanation of clinical findings (Please Explain) (x ) Unable to determine (Please Define) ( ) Need to Discuss ( ) Not Agree The medical record reflects the following clinical findings, treatment, and risk factors. Clinical Indicators: As above Treatment: Patient is being monitored on telemetry with serial troponins, isoenzymes, recieving ASA and Lopressor. Risk Factors: Age, possible bacterial enteritis, pneumonia/pneumonitis QUERY 3 OF 3 Documentation includes "chronic kidney disease". Estimated GFR range from 06/01/16 to present of 22-70 ml/min. In your clinical opinion is this patient being managed for: ( x) Chronic kidney disease, stage 2-3 ( ) Other explanation of clinical findings (Please Explain) ( ) Unable to determine (Please Define) ( ) Need to Discuss ( ) Not Agree The medical record reflects the following clinical findings, treatment, and risk factors. Clinical Indicators: As above Treatment: IVF, serial chemistries Risk Factors: Age, recurrent episodic acute renal failure, medications Please clarify and document your clinical opinion in the progress notes and discharge summary. Terms such as "probable", "suspected", "likely", "questionable", "possible", or "still to be ruled out" are acceptable. IF IN AGREEMENT, YOU MUST DOCUMENT ABOVE DIAGNOSTIC STATEMENT IN DAILY PROGRESS NOTES AND DISCHARGE SUMMARY. This document is not part of the patient's record. Thank You, Luis Alberto Cai, RN [phone]
[2016-12-01 07:16] LABS: BUN/CREATININE RATIO 32.4 (10-20); CALCIUM 7.4 mg/dl (8.5-10.1); CREATININE 0.96 mg/dl (0.60-1.20); POTASSIUM 4.3 mmol/L (3.5-5.1)
[2016-12-01 07:27] LABS: CKMB/CK RATIO 7.4 (0-3.0)
[2016-12-01] MEDS: NITROFURANTOIN MACROCRYSTALS 50 MG CAP PO SCH (07:54)
[2016-12-01] MEDS: MIRABEGRON ER 25 MG TAB PO SCH (07:54)
[2016-12-01] MEDS: ASPIRIN 81 MG ECTAB PO SCH (07:54)
[2016-12-01] MEDS: SIMVASTATIN 20 MG TAB PO SCH (07:55)
[2016-12-01] MEDS: AMLODIPINE BESYLATE 5 MG TAB PO SCH (07:55)
[2016-12-01] MEDS: HEPARIN SOD 5000 UNIT/0.5 ML CARP SQ SCH ×2 (07:56→20:33)
[2016-12-01] MEDS: BOOST VANILLA PO SCH ×2 (09:00)
[2016-12-01] MEDS: METOPROLOL TARTRATE 25 MG TAB PO SCH ×2 (09:00→20:32)
--- NOTE | 2016-12-01 15:40 | Progress Note ---
Progress Note Date of Service Dec 01, 2016. Progress Note 81-year-old female admitted yesterday through the emergency room with multiple problems including diarrhea, dehydration, anorexia, generalized weakness. She also has rheumatoid arthritis, arterial hypertension, recurrent urinary tract infections. Her troponin I was elevated. Patient was admitted. All her laboratory tests were ordered. Her troponin I is drifting down. She has not had any recurrent fever or any chills. Her appetite has improved. She denied any headache or dizziness or lightheadedness. No chest pain no shortness of breath. No cough. No abdominal pain. No nausea no vomiting. No problem with her bowel movements she has not had any diarrhea since her admission. Denied any problem urinating. No she does have chronic pain in her back. Chronic pain in her joints. EXAMINATION: General : Well developed. Well. No distress. Vital signs: Blood pressure 97/56, pulse 64, respiration 18, temperature 36.7, oxygen saturation 96% on room air. Skin is warm and dry. Multiple ecchymotic areas Neck is supple. Nontender. No liver or thyroid enlargement. Heart : Regular heart sounds. 2/6 systolic murmur. No rub or gallop. Lungs : Clear. Normal breath sounds. Abdomen : Soft nontender without any organomegaly or masses. Active bowel sounds. Back: Kyphoscoliosis. Surgical scar. Extremities: No edema clubbing or cyanosis. Multiple ecchymotic areas. Severe joint deformities related to her rheumatoid arthritis LABORATORY TESTS: WBC count 6190, hemoglobin 9.6, hematocrit 27.6, platelet count 138,000. Sodium 138, potassium 4.3, chloride 112, CO2 19, BUN 31, creatinine 0.96, glucose 96, calcium 7.4, magnesium 2.0, total CK 31, MB fraction 2.3, troponin I 0.051. ASSESSMENT: * elevated troponin I * Rheumatoid arthritis * Enterocolitis * Arterial hypertension * Severe degenerative disease and spinal stenosis of the lumbar spine PLAN: * Will hold medications as indicated for low blood pressure * Continue her other medications unchanged * Check an echocardiogram * Stool for Clostridium difficile was not sent yet. We'll try to send with her next bowel movement * So far all her blood cultures are negative * She is on Rocephin. We'll continue that for now onto the final culture reports are available
[2016-12-01] MEDS: CEFTRIAXONE SOD INJ 1 GM in DEXTROSE 5% ADD-VANTAGE 50ML 50 ML IV SCH (17:26)
[2016-12-01] MEDS ORDERED: TRAMADOL HCL 50 MG TAB PO PRN (20:45)
--- NOTE | 2016-12-01 21:05 | ECHOCARDIOGRAM REPORT ---
*NOTICE TO RECEIVING REPUBLICAN AGENCY This information is strictly Confidential and protected under [place] law. [place] law prohibits you from making any further disclosure of this information unless further disclosure is expressly permitted by the written consent of the person to whom it pertains or is authorized by law. A general authorization for the release of medical or other information is not sufficient for this purpose. Hospital accepts no responsibility if the information is made available to any other person, INCLUDING THE PATIENT. Interpretation Summary * Name: NAVYA DIAZ Study Date: 12/01/2016 08:47 AM BP: 97/56 mmHg * Patient Location: C.2T\S\S238\S\2 HR: 84 * : 1935 (M/d/yyy) Gender: Female Height: 62 in * Age: 81 yrs Ethnicity: [place] Weight: 101 lb * Ordering Physician: Wilmar Dela Cruz * Referring Physician: Wilmar Dela Cruz * Performed By: Maddy Agudelo RCS * * Reason For Study: ELEVATED TROPONIN * BSA: 1.4 m2 * Normal biventricular systolic pressure. * Left ventricular diastolic dysfunction. * Trace pulmonic regurgitation. * Moderate tricuspid regurgitation. * Mildly elevated right ventricular systolic pressure. * -- Conclusions -- * Aortic valve sclerosis moderate, without significant aortic valvular stenosis. Procedure Details * A complete two-dimensional transthoracic echocardiogram was performed (2D, M-mode, Doppler and color flow Doppler). Left Ventricle * The left ventricle is normal in size. * There is normal left ventricular wall thickness. * Left ventricular systolic function is normal. * A full diastolic examination was done with clinical findings of Class I diastolic dysfunction. * The left ventricular wall motion is normal. Right Ventricle * The right ventricle is normal in size and function. Atria * The left atrium is mildly dilated. * Right atrial size is normal. * No ASD detected; PFO is not assessed. Mitral Valve * There is mild mitral annular calcification. * There is no mitral valve stenosis. * There is trace mitral regurgitation. Tricuspid Valve * The tricuspid valve is not well visualized, but is grossly normal. * There is no tricuspid stenosis. * There is moderate tricuspid regurgitation. * Right ventricular systolic pressure is elevated at 30-40mmHg. Aortic Valve * The aortic valve is trileaflet. * The aortic valve opens well. * Aortic valve sclerosis moderate, without significant aortic valvular stenosis. * No aortic regurgitation is present. Pulmonic Valve * The pulmonic valve is not well visualized. * The pulmonary valve is inadequately visualized, but the Doppler data is adequate for interpretation. * There is no pulmonic valvular stenosis. * Trace pulmonic valvular regurgitation. Great Vessels * The aortic root is normal size. Pericardium/Pleural * There is no pericardial effusion. Great Vessels * Normal inferior vena cava diameter and respiratory variation suggests normal central venous pressure. MMode 2D Measurements and Calculations IVSd 0.90 cm IVSs 1.1 cm LVIDd 4.3 cm LVIDs 3.1 cm LVPWd 0.78 cm LVPWs 1.2 cm IVS/LVPW 1.1 FS 28.4 % EDV(Teich) 82.6 ml ESV(Teich) 37.1 ml EF(Teich) 55.1 % EDV(cubed) 78.9 ml ESV(cubed) 29.0 ml EF(cubed) 63.3 % % IVS thick 25.1 % % LVPW thick 48.5 % LV mass(C)d 111.6 grams LV mass(C)dI 78.1 grams/m\S\2 LV mass(C)s 104.0 grams LV mass(C)sI 72.7 grams/m\S\2 SV(Teich) 45.6 ml SI(Teich) 31.9 ml/m\S\2 SV(cubed) 50.0 ml SI(cubed) 35.0 ml/m\S\2 Ao root diam 3.4 cm Ao root area 9.1 cm\S\2 LA dimension 4.1 cm LA/Ao 1.2 LVOT diam 2.0 cm LVOT area 3.2 cm\S\2 Doppler Measurements and Calculations MV E max fernando 65.2 cm/sec MV A max fernando 172.6 cm/sec MV E/A 0.38 MV P1/2t max fernando 67.1 cm/sec MV P1/2t 124.0 msec MVA(P1/2t) 1.8 cm\S\2 MV dec slope 158.5 cm/sec\S\2 MV dec time 0.23 sec Ao V2 max 112.4 cm/sec Ao max PG 5.0 mmHg Ao max PG (full) 3.4 mmHg FLETCHER(V,A) 1.8 cm\S\2 FLETCHER(V,D) 1.8 cm\S\2 LV V1 max PG 1.6 mmHg LV V1 max 63.6 cm/sec PA V2 max 82.4 cm/sec PA max PG 2.7 mmHg PI max fernando 168.3 cm/sec PI max PG 11.3 mmHg PI dec slope 142.0 cm/sec\S\2 PI P1/2t 347.3 msec TR max fernando 261.9 cm/sec
[2016-12-02 00:05] VITALS: O2SAT 98
[2016-12-02 04:08] VITALS: O2SAT 98
[2016-12-02 04:18] VITALS: BP 110/59; PULSE 67; TEMP 36.9; O2SAT 98
[2016-12-02 05:24] LABS: BASO % 0.1 %; BASO ABS # 0.01 K/uL (0-0.2); COMPLETE YES; HEMATOCRIT 25.6 % (37-47); IG% 1.9 %; LYMPH % 8.8 %; LYMPH ABS # 0.61 K/uL (1.2-3.4); MEAN CELL VOLUME 88.9 fL (80-100); MEAN CORPUSCULAR HEMOGLOBIN 31.3 pg (25-34); MEAN CORPUSCULAR HGB CONC 35.2 g/dl (32-36); MEAN PLATELET VOLUME 9.7 fL (7.4-10.4); MONO % 8.3 %; NEUT % 80.9 %; PLATELET COUNT 156 K/uL (130-400); RED BLOOD COUNT 2.88 M/uL (4.2-5.4)
[2016-12-02 06:02] LABS: BUN/CREATININE RATIO 30.2 (10-20); CALCIUM 7.6 mg/dl (8.5-10.1); CREATININE 0.9 mg/dl (0.60-1.20)
[2016-12-02 07:08] VITALS: BP 117/69; PULSE 68; TEMP 37; O2SAT 95
[2016-12-02] MEDS: AMLODIPINE BESYLATE 5 MG TAB PO SCH (07:57)
[2016-12-02] MEDS: METOPROLOL TARTRATE 25 MG TAB PO SCH (07:57)
[2016-12-02] MEDS: NITROFURANTOIN MACROCRYSTALS 50 MG CAP PO SCH (07:57)
[2016-12-02] MEDS: ASPIRIN 81 MG ECTAB PO SCH (07:57)
[2016-12-02] MEDS: MIRABEGRON ER 25 MG TAB PO SCH (07:58)
[2016-12-02] MEDS: SIMVASTATIN 20 MG TAB PO SCH (07:58)
[2016-12-02] MEDS: HEPARIN SOD 5000 UNIT/0.5 ML CARP SQ SCH (07:59)
[2016-12-02] MEDS: BOOST VANILLA PO SCH ×2 (09:00)
[2016-12-02] MEDS ORDERED: LPR25 PO (09:20)
[2016-12-02] MEDS ORDERED: AMOX500T PO (09:20)
[2016-12-02] MEDS ORDERED: ULT50X PO (09:20)
--- NOTE | 2016-12-02 09:26 | Discharge Instructions ---
Discharge Instructions Date of Service Dec 02, 2016. Admission Reason for Admission: Account enterocolitis Dehydration Acute renal insufficiency Elevated troponin I Rheumatoid arthritis Suspected pneumonitis Discharge Discharge Diagnosis / Problem: acute enterocolitis, dehydration, acute renal insufficiency, elevated tropo Discharge Goals Goal(s): Decrease discomfort, Improve function, Increase independence, Improve disease control, Improve nutritional status Activity Recommendations Activity Limitations: resume your previous activity . Instructions / Follow-Up Instructions / Follow-Up Dr Montaño in one week Dr. Sosa as scheduled Resume Enbrel as prescribed by Dr. Sosa next Do not take methotrexate Current Hospital Diet Patient's current hospital diet: Regular Diet Discharge Diet Recommended Diet: Regular Diet Pending Studies Studies pending at discharge: no Medical Emergencies . Who to Call and When: Medical Emergencies: If at any time you feel your situation is an emergency, please call 911 immediately. . Non-Emergent Contact Non-Emergency issues call your: Primary Care Provider . . "Provider Documentation" section prepared by Wilmar Montaño. . VTE Core Measure Inpt VTE Proph given/why not?: Treatment not indicated
[2016-12-02 09:27] VITALS: BP 117/69; PULSE 68; TEMP 37; O2SAT 95
--- NOTE | 2016-12-02 10:31 | Progress Note ---
Progress Note Date of Service Dec 02, 2016. Progress Note 81-year-old female admitted through the emergency room with multiple problems including enterocolitis, dehydration, elevated troponin I, acute renal insufficiency. She also has rheumatoid arthritis and arterial hypertension. She has severe rheumatoid arthritis with severe deformities of her joints. She has had Spinal stenosis of the lumbar spine and required multiple surgeries. Patient was admitted. She was hydrated. Her renal function normalized. All her cultures have been negative. After admission she did not have any diarrhea. Stool studies were not sent because her diarrhea was subsided. Cardiac isoenzymes did not show any changes consistent with acute myocardial infarction. She had an echocardiogram done. She has normal ejection fraction. Normal wall motion. No valvular abnormalities. This morning she is resting comfortably. Good appetite. Tolerating her diet without any problem. No headache no dizziness no lightheadedness. No chest pain pressure or tightness. No shortness of breath. No abdominal pain no nausea no vomiting. No diarrhea. She does have chronic pain in her back and extremities. EXAMINATION: She is well-developed in no distress Vital signs blood pressure 117/69, pulse 68, respiration 18, temperature 37, oxygen saturation 95% on room air. Skin is warm and dry. Multiple ecchymotic areas. HEENT no evidence of mucosal abnormalities. Neck is supple without lymph node or thyroid enlargement. No JVD. Heart regular heart sounds with 2/6 systolic murmur Lungs are clear. Abdomen is soft nontender without organomegaly or masses. Back evidence of kyphoscoliosis. Surgical scar. Extremities no edema clubbing or cyanosis. Severe joint deformities. LABORATORY TESTS WBC count 6900, hemoglobin 9, hematocrit 25.6, platelet count 156,000. Sodium 143, potassium 4.0, chloride 118, CO2 19, BU and 27, creatinine 0.9, glucose 82, calcium 7.6 ASSESSMENT * Acute enterocolitis. Resolved. * Elevated troponin I * Dehydration * Acute renal insufficiency * Rheumatoid arthritis * Arterial hypertension * History of spinal stenosis required surgery PLAN: * Continuing all her medications * She is to resume Enbrel next * All her cultures have been negative * We will discharge home today * Follow up in the office in one week * I asked her to bring all her medications in the back next week so we can go over them in detail and make sure that she does not have any medications keeping on hand that she does not need * Follow-up in rheumatology as scheduled
--- NOTE | 2016-12-14 21:32 | Discharge Summary ---
Discharge Summary Date of Service Dec 14, 2016. Discharge Summary ADMISSION DATE: 11/30/2016 DISCHARGE DATE: 12/02/2016 DISCHARGE DIAGNOSES: * acute enterocolitis * Dehydration * Acute renal insufficiency * Elevated troponin I * Rheumatoid arthritis * Suspected pneumonitis * Degenerative disc disease of the lumbar spine * Arterial hypertension * Recurrent urinary tract infection DISCHARGE MEDICATIONS: * Augmentin 500 mg every 8 hours for 5 days * Metoprolol tartrate 25 mg twice a day * Tramadol 50 mg every 4 hours as needed for pain * Amlodipine 5 mg daily * Aspirin 81 mg daily * Premarin vaginal cream to apply vaginally 3 days a week * Folate acid 1 mg daily * lisinopril is 5 mg daily * Myrbetriq 25 mg daily * Macrodantin 50 mg daily as a suppressive therapy * Boost one can twice a day * Potassium chloride 10 mEq 2 capsules daily * Prednisone 20 mg daily * Simvastatin 20 mg daily * Triamterene/HCTZ 37.5/25 one tablet daily 81-year-old female admitted through the emergency room with multiple problems including diarrhea, dehydration, generalized weakness, elevated troponin I. Patient with multiple medical problems including rheumatoid arthritis currently on Enbrel. Arterial hypertension, recurrent urinary tract infection, degenerative disc disease of the lumbar spine required prior surgery, chronic anemia. Patient was at home. She lives with her . Her daughter checks on them regularly. She had an appointment to be seen in the office on the day prior to her admission. Her called before her appointment stating that she was very sick and they could not get her out of bed. She wanted to rest. She was having diarrhea. On the day of admission her daughter called stating that she has not gotten out of bed since the day prior to her admission. She was having chills. She was very weak. Had a fever. Under those circumstances I asked them to bring her to the emergency room. She was evaluated. Multiple tests were done. Cultures were done. Her troponin I was slightly elevated. She was admitted for further evaluation and treatment. PAST MEDICAL HISTORY, SOCIAL HISTORY, FAMILY HISTORY: As noted on admission history and physical ALLERGIES: sulfa ADMISSION MEDICATIONS: As noted on the home medication list PHYSICAL EXAMINATION AND LABORATORY TESTS ARE NOTED ON ADMISSION HITORY AND PHYSICAL HOSPITAL COURSE: Patient was admitted to PCU with telemetry. Cardiac isoenzymes and electrocardiograms were ordered. She was started on IV fluid. Started on IV Rocephin. She was continued on her oral medication except for her diuretic. She was due to have her Enbrel injection but because of the infection it was put on hold. Stool was sent for Clostridium difficile toxin. All her laboratory tests were monitored. Her activity was increased gradually. Her WBC count was normal her. She was anemic. Her lowest hemoglobin was 9. Her platelet count was normal. Her troponin I drifted down. It was not consistent with any myocardial injury. Her creatinine normalized. Her BUN improved. Her urine did not show any evidence of infection. Blood cultures were negative. Stool studies could not be done because after admission she did not have a bowel movement. Her condition improved. She remained afebrile. Her WBC count was normal. Her appetite improved. She was tolerating her diet without any difficulty. Her diarrhea has stopped. Patient was discharged home. Medications as noted above. She was to followup with Dr. Sosa as scheduled . She was to see me in the office one week after her discharge.
== END 2016-12-02 10:48 | disposition home or self-care (01) | DRG 392 ==
LOC: C.EDB 13:08 → C.2T 17:00 → ENRESERV 17:13
PROVIDERS: ADMIT Internal Medicine; ATTEND Internal Medicine
DX: K52.9 Noninfective gastroenteritis and colitis, unspecified (principal); R78.89 Finding of other specified substances, not normally found in blood; E86.0 Dehydration; N28.9 Disorder of kidney and ureter, unspecified; I10 Essential (primary) hypertension; M06.9 Rheumatoid arthritis, unspecified; M51.36 Other intervertebral disc degeneration, lumbar region; M48.06 Spinal stenosis, lumbar region; Z79.899 Other long term (current) drug therapy; Z79.52 Long term (current) use of systemic steroids; Z79.2 Long term (current) use of antibiotics; Z79.82 Long term (current) use of aspirin; Z66 Do not resuscitate; Z87.440 Personal history of urinary (tract) infections; Z86.19 Personal history of other infectious and parasitic diseases; Z85.3 Personal history of malignant neoplasm of breast; Z82.49 Family history of ischemic heart disease and other diseases of the circulatory system; Z83.3 Family history of diabetes mellitus

== ENCOUNTER → 2017-01-19 | Outpatient (CLI) | payer OTHER, BC ==
[~2017-01-19] MED LIST changes: +ASPI81TA28 PO; -FLV400 PO; +FOLI1TAB7 PO; +NUTR-7 PO; +PRMVC PV; -TRAM-10 PO; +ULT50X PO
[2017-01-19 15:39] LABS: BASO % 0.1 %; BASO ABS # 0.01 K/uL (0-0.2); COMPLETE YES; HEMATOCRIT 29.8 % (37-47); IG% 3.9 %; LYMPH % 8.5 %; LYMPH ABS # 0.95 K/uL (1.2-3.4); MEAN CELL VOLUME 94.6 fL (80-100); MEAN CORPUSCULAR HEMOGLOBIN 31.4 pg (25-34); MEAN CORPUSCULAR HGB CONC 33.2 g/dl (32-36); MONO % 1.6 %; NEUT % 85.9 %; PLATELET COUNT 269 K/uL (130-400); RED BLOOD COUNT 3.15 M/uL (4.2-5.4); WHITE BLOOD COUNT 11.15 K/uL (4.8-10.8)
[2017-01-19 15:43] LABS: ALT/SGPT 25 U/L (12-78)
[2017-01-19 15:46] LABS: ALKALINE PHOSPHATASE 49 U/L (45-117); AST/SGOT 22 U/L (15-37)
== END | disposition home or self-care (01) ==
LOC: C.LAB1850 13:47
PROVIDERS: ATTEND Internal Medicine Rheumatology
DX: M06.9 Rheumatoid arthritis, unspecified (principal); Z51.81 Encounter for therapeutic drug level monitoring; Z79.899 Other long term (current) drug therapy; Z79.52 Long term (current) use of systemic steroids; D63.8 Anemia in other chronic diseases classified elsewhere

== ENCOUNTER → 2017-03-06 | Outpatient (CLI) | payer OTHER, BC ==
[~2017-03-06] MED LIST changes: -MCR/50 PO; +NITR50CA39 PO
--- NOTE | 2017-03-06 17:24 | DIAGNOSTIC IMAGING REPORT ---
BILATERAL LOWER EXTREMITY VENOUS DOPPLER CLINICAL HISTORY: Bilateral leg swelling. COMPARISON STUDY: No previous studies for comparison. TECHNIQUE: Sonography of the deep venous system of the bilateral lower extremities was performed. Compression and augmentation were evaluated. FINDINGS: Exam was compromised due to suboptimal penetration related to lower extremity edema, greater on the right. The common femoral, superficial femoral and popliteal veins were compressible. Augmentation was normal. Flow was shown within the deep calf vessels. IMPRESSION: Exam compromised due to lower extremity edema but no evidence of deep venous thrombus within the bilateral lower extremities. Electronically signed by: Maurice Lala M.D. 03/06/2017 5:23 PM Dictated Date/Time: 03/06/2017 5:22 PM
== END | disposition home or self-care (01) ==
LOC: C.ULTR 16:12
PROVIDERS: ATTEND Internal Medicine
DX: R60.0 Localized edema (principal)

== ENCOUNTER → 2017-04-23 | Outpatient (CLI) | payer OTHER, BC ==
[~2017-04-23] MED LIST changes: -FOLI1TAB7 PO; +FOLI1TAB8 PO
[2017-04-23 15:17] LABS: BASO % 0.1 %; BASO ABS # 0.01 K/uL (0-0.2); HEMATOCRIT 25.2 % (37-47); IG# 0.22 K/uL (0.00-0.02); LYMPH ABS # 0.53 K/uL (1.2-3.4); MEAN CELL VOLUME 98.1 fL (80-100); MEAN CORPUSCULAR HEMOGLOBIN 31.1 pg (25-34); MEAN CORPUSCULAR HGB CONC 31.7 g/dl (32-36); MEAN PLATELET VOLUME 9.4 fL (7.4-10.4); MONO % 1.5 %; MONO ABS # 0.16 K/uL (0.11-0.59); NEUT % 91.3 %; PLATELET COUNT 275 K/uL (130-400); RED CELL DISTRIBUTION WIDTH CV 15.2 % (11.5-14.5); RED CELL DISTRIBUTION WIDTH SD 54.7 fL (36.4-46.3); WHITE BLOOD COUNT 10.62 K/uL (4.8-10.8)
[2017-04-23 15:40] LABS: ALBUMIN 3.1 gm/dl (3.4-5.0); ALT/SGPT 22 U/L (12-78); CREATININE 1.48 mg/dl (0.60-1.20)
[2017-04-23 15:43] LABS: ALKALINE PHOSPHATASE 51 U/L (45-117); AST/SGOT 16 U/L (15-37); TOTAL PROTEIN 6.1 gm/dl (6.4-8.2)
== END | disposition home or self-care (01) ==
LOC: C.LAB1850 14:15
PROVIDERS: ATTEND Internal Medicine Rheumatology
DX: M06.9 Rheumatoid arthritis, unspecified (principal); Z79.899 Other long term (current) drug therapy; Z79.52 Long term (current) use of systemic steroids; D63.8 Anemia in other chronic diseases classified elsewhere; Z51.81 Encounter for therapeutic drug level monitoring

== ENCOUNTER → 2017-05-10 | Outpatient (CLI) | payer OTHER, BC ==
[~2017-05-10] MED LIST changes: +ETAN50IN3 INJ
[2017-05-10 15:31] LABS: BASO % 0.1 %; BASO ABS # 0.01 K/uL (0-0.2); HEMATOCRIT 32.3 % (37-47); HEMOGLOBIN 10.5 g/dL (12.0-16.0); IG# 0.21 K/uL (0.00-0.02); LYMPH % 6.6 %; LYMPH ABS # 0.72 K/uL (1.2-3.4); MEAN CORPUSCULAR HEMOGLOBIN 31.5 pg (25-34); MEAN CORPUSCULAR HGB CONC 32.5 g/dl (32-36); MEAN PLATELET VOLUME 9.4 fL (7.4-10.4); MONO % 1.5 %; MONO ABS # 0.16 K/uL (0.11-0.59); NEUT % 89.9 %; NEUT ABS # 9.76 K/uL (1.4-6.5); PLATELET COUNT 243 K/uL (130-400); RED CELL DISTRIBUTION WIDTH CV 14.9 % (11.5-14.5); RED CELL DISTRIBUTION WIDTH SD 52.9 fL (36.4-46.3); WHITE BLOOD COUNT 10.86 K/uL (4.8-10.8)
[2017-05-10 16:00] LABS: ALBUMIN 3.1 gm/dl (3.4-5.0); ALT/SGPT 23 U/L (12-78); AST/SGOT 18 U/L (15-37); BLOOD UREA NITROGEN 46 mg/dl (7-18); CALCIUM 8.4 mg/dl (8.5-10.1); CARBON DIOXIDE 20 mmol/L (21-32); CREATININE 1.47 mg/dl (0.60-1.20); GLUCOSE 211 mg/dl (70-99); POTASSIUM 5.1 mmol/L (3.5-5.1); SODIUM 138 mmol/L (136-145)
[2017-05-10 16:02] LABS: ALKALINE PHOSPHATASE 61 U/L (45-117); TOTAL PROTEIN 6.2 gm/dl (6.4-8.2)
== END | disposition home or self-care (01) ==
LOC: C.LAB 14:25
PROVIDERS: ATTEND Internal Medicine
DX: D64.9 Anemia, unspecified (principal); M06.9 Rheumatoid arthritis, unspecified

== ENCOUNTER → 2017-06-13 | Day surgery (SDC) | payer OTHER, BC ==
[2017-06-01 11:36] VITALS: Ht 162.6 cm; Wt 55.0 kg
[~2017-06-13] VITALS: Ht 162.6 cm; Wt 55.0 kg
[~2017-06-13] MED LIST changes: +AMLO-110 PO; +ATROPINE SULFATE 0.1 MG/ML 5ML SYR IV PRN; +ENDOSCOPIC MARKER 5 ML SYR ONE; +EpHEDrine SULFATE INJ 50 MG/ML AMP IV PRN; +FENTANYL CITRATE INJ 50 MCG/1 ML 2 ML VIAL IV PRN; +FENTANYL CITRATE INJ 50 MCG/1 ML 2 ML VIAL ONE; +LIDOCAINE HCL 2% 2 ML VIAL (20MG/ML) ONE; -LISI-461 PO; +LISI10TA PO; -LPR25 PO; +MIDAZOLAM HCL 1 MG/ML 2ML VIAL ONE; +MIRA100T PO; -MXZC25 PO; -MYR25 PO; +NITR50CA PO; -NITR50CA39 PO; -NRV5 PO; -NUTR-7 PO; -PRMVC PV; +PROPOFOL IV EMULSION 10 MG/ML 20 ML VIAL IV ONE; +SODIUM CHLORIDE 0.9% 500ML 500 ML IV ONE; +TRAM-10 PO; +TRIATAB3 PO; -ULT50X PO
--- NOTE | 2017-06-13 14:12 | Endo History and Physical ---
History & Physical Date of Service: Jun 13, 2017. Chief Complaint: anemia Referring Physician: Dr. Montaño History of Present Illness anemia Past Medical History Arthritis, Fractures, Cancer, Hypertension Past Surgical History Hx Cardiac Surgery: No Hx Internal Defibrillator: No Hx Pacemaker: No Hx Abdominal Surgery: Yes (HYSTERECTOMY, [place], Inguinal hernia, D&C) Hx of Implantable Prosthesis: No Hx Post-Op Nausea and Vomiting: No Hx Cancer Surgery: Yes (RT LUMPECTOMY) Hx Thoracic Surgery: Yes Hx Orthopedic: Yes (LEFT/RT PUSHPA, RT TOE REPAIR, RT HAND JOINT REPAIR, LUMBAR DISCEC,RT WRIST SX) Hx Urinary Tract Surgery: No Family History Polyp Social History Smoking Status: Never Smoker Hx Substance Use: No Hx Alcohol Use: No Allergies Coded Allergies: Sulfa Antibiotics (Verified Allergy, Unknown, FLU LIKE SYMPTOMS, 06/06/17) Sulfamethoxazole w/Trimethoprim (Verified Allergy, Unknown, FLU LIKE SYMPTOMS, 06/06/17) Current Medications Reported Home Medications Medications Dose Route/Sig Max Daily Dose Days Date Category Ultram (Tramadol HCl) 50 Mg Tab 50 Mg PO Q8H PRN 06/01/17 Reported Norvasc (Amlodipine Besylate) 5 Mg Tab 5 Mg PO QAM 06/01/17 Reported Nitrofurantoin Macrocryst (Nitrofurantoin Macrocrystal) 50 Mg Cap 1 Cap PO QPM 06/01/17 Reported Triamterene/Hctz 37.5-25MG (Triamterene/HCTZ) 1 Tab Tab 1 Tab PO QAM 06/01/17 Reported Prinivil (Lisinopril) 10 Mg Tab 10 Mg PO QAM 06/01/17 Reported Myrbetriq Er (Mirabegron) 25 Mg Tab 25 Mg PO QPM 06/01/17 Reported Enbrel Sureclick (Etanercept) 50 Mg/Ml Inj 1 INJ WK 04/27/17 Reported Folvite (Folic Acid) 1 Mg Tab 1 Mg PO QPM 11/30/16 Reported Aspirin Ec (Aspirin) 81 Mg Tab 81 Mg PO QAM 11/30/16 Reported Potassium Chloride Er (Potassium Chloride) 10 Meq Cap 1 Cap PO BID 09/26/16 Reported Prednisone 20 Mg Tab 20 Mg PO QAM 09/26/16 Reported Zocor (Simvastatin) 20 Mg Tab 20 Mg PO QPM 03/29/15 Reported Vital Signs Weight (Kilograms): 55 Height (Feet): 5 Height (Inches): 4 Date Time Temp Pulse Resp B/P (MAP) Pulse Ox O2 Delivery O2 Flow Rate FiO2 06/13/17 13:32 36.6 82 18 138/70 (92) 98 Room Air Physical Exam General Appearance: WD/WN, no apparent distress Respiratory/Chest: Auscultation: breath sounds normal Cardiovascular: Heart Auscultation: RRR Abdomen: Bowel Sounds: normal Inspection & Palpation: soft, non-distended, no tenderness, guarding & rebound Assessment and Plan EGD and colon with possible bx
--- NOTE | 2017-06-13 15:22 | Discharge Instructions ---
Endoscopy Patient Instructions Date / Procedure(s) Performed Jun 13, 2017. Colonoscopy, EGD Allergy Information Coded Allergies: Sulfa Antibiotics (Verified Allergy, Unknown, FLU LIKE SYMPTOMS, 06/06/17) Sulfamethoxazole w/Trimethoprim (Verified Allergy, Unknown, FLU LIKE SYMPTOMS, 06/06/17) Discharge Date / Findings Jun 13, 2017. 1) HH; Schatzki ring; duodenal/jejunal tics Colon with tics/polyps; Medication Instructions Stopped Medication(s): took ASA yesterday Restart Stopped Medication(s): Reported Home Medications Medications Dose Route/Sig Max Daily Dose Days Date Category Ultram (Tramadol HCl) 50 Mg Tab 50 Mg PO Q8H PRN 06/01/17 Reported Norvasc (Amlodipine Besylate) 5 Mg Tab 5 Mg PO QAM 06/01/17 Reported Nitrofurantoin Macrocryst (Nitrofurantoin Macrocrystal) 50 Mg Cap 1 Cap PO QPM 06/01/17 Reported Triamterene/Hctz 37.5-25MG (Triamterene/HCTZ) 1 Tab Tab 1 Tab PO QAM 06/01/17 Reported Prinivil (Lisinopril) 10 Mg Tab 10 Mg PO QAM 06/01/17 Reported Myrbetriq Er (Mirabegron) 25 Mg Tab 25 Mg PO QPM 06/01/17 Reported Enbrel Sureclick (Etanercept) 50 Mg/Ml Inj 1 INJ WK 04/27/17 Reported Folvite (Folic Acid) 1 Mg Tab 1 Mg PO QPM 11/30/16 Reported Aspirin Ec (Aspirin) 81 Mg Tab 81 Mg PO QAM 11/30/16 Reported Potassium Chloride Er (Potassium Chloride) 10 Meq Cap 1 Cap PO BID 09/26/16 Reported Prednisone 20 Mg Tab 20 Mg PO QAM 09/26/16 Reported Zocor (Simvastatin) 20 Mg Tab 20 Mg PO QPM 03/29/15 Reported Reported Home Medications Medications Dose Route/Sig Max Daily Dose Days Date Category Ultram (Tramadol HCl) 50 Mg Tab 50 Mg PO Q8H PRN 06/01/17 Reported Norvasc (Amlodipine Besylate) 5 Mg Tab 5 Mg PO QAM 06/01/17 Reported Nitrofurantoin Macrocryst (Nitrofurantoin Macrocrystal) 50 Mg Cap 1 Cap PO QPM 06/01/17 Reported Triamterene/Hctz 37.5-25MG (Triamterene/HCTZ) 1 Tab Tab 1 Tab PO QAM 06/01/17 Reported Prinivil (Lisinopril) 10 Mg Tab 10 Mg PO QAM 06/01/17 Reported Myrbetriq Er (Mirabegron) 25 Mg Tab 25 Mg PO QPM 06/01/17 Reported Enbrel Sureclick (Etanercept) 50 Mg/Ml Inj 1 INJ WK 04/27/17 Reported Folvite (Folic Acid) 1 Mg Tab 1 Mg PO QPM 11/30/16 Reported Aspirin Ec (Aspirin) 81 Mg Tab 81 Mg PO QAM 11/30/16 Reported Potassium Chloride Er (Potassium Chloride) 10 Meq Cap 1 Cap PO BID 09/26/16 Reported Prednisone 20 Mg Tab 20 Mg PO QAM 09/26/16 Reported Zocor (Simvastatin) 20 Mg Tab 20 Mg PO QPM 03/29/15 Reported Provider Instructions Activity Restrictions - No exercising or heavy lifting for 24 hours. - Do not drink alcohol the day of the procedure. - Do not drive a car or operate machinery until the day after the procedure. - Do not make any important decisions or sign important papers in 24 hours after the procedure. Following Day: - Return to full activity which may include returning to work/school. Diet Start your diet with liquids and light foods (jello, soup, juice, toast). Then eat your usual diet if not nauseated. Treatment For Common After Affects For mild abdominal pain, bloating, or excessive gas: - Rest - Eat lightly - Lie on right side Follow-Up Information Follow-up with Dr. Montaño as scheduled Anesthesia Information What You Should Know You have had a procedure that required some medicine to reduce anxiety and discomfort. This treatment is called moderate sedation. After receiving the treatment, you may be sleepy, but you will be able to breathe on your own. The effects of the treatment may last for several hours. Follow these instructions along with Activity/Diet recommendations noted above: * Do NOT do anything where dizziness or clumsiness would be dangerous. * Rest quietly at home today, then you can be up and about tomorrow. * Have a responsible person stay with you the rest of today. * You may have had an I.V. today. If so, you may take the dressing off later today. Recommendations Call your doctor if: * Trouble breathing * Continuous vomiting for more than 24 hours * Temperature above 101 degrees * Severe abdominal pain or bloating * Pain not relieved by pain medicine ordered * There is increased drainage or redness from any incision * A large amount of rectal bleeding greater than 2-3 tablespoons. (If you had a polyp/s removed or have hemorrhoids, a small amount of blood - from the rectum is to be expected.) * You have any unanswered questions or concerns. IN THE EVENT OF A SERIOUS EMERGENCY, GO TO THE NEAREST EMERGENCY ROOM Your discharge instructions were prepared by provider Leonidas Garcia. Patient Instructions Signature Page Chuyita Alex Patient (or Guardian) Signature/Date: I have read and understand the instructions given to me by my caregivers. Caregiver/RN/Doctor Signature/Date: The above-named patient and/or guardian has received patient instructions on this date. + Original Patient Signature Page (only) stays with chart. Please make copy for patient.
--- NOTE | 2017-06-13 15:31 | Anesthesiology Progress Note ---
Anesthesia Post Op Note Date & Time Jun 13, 2017 at 15:31 Vital Signs Pain Intensity: 4 Vital Signs Past 12 Hours Date Time Temp Pulse Resp B/P (MAP) Pulse Ox O2 Delivery O2 Flow Rate FiO2 06/13/17 13:32 36.6 82 18 138/70 (92) 98 Room Air Notes Mental Status: alert / awake / arousable, participated in evaluation Pt Amnestic to Procedure: Yes Nausea / Vomiting: adequately controlled Pain: adequately controlled Airway Patency, RR, SpO2: stable & adequate BP & HR: stable & adequate Hydration State: stable & adequate Anesthetic Complications: no major complications apparent
--- NOTE | 2017-06-13 15:37 | GI REPORT ---
Procedure Date: 06/13/2017 2:11 PM Procedure: Small bowel enteroscopy Indications: Anemia Medicines: Propofol per Anesthesia Complications: No immediate complications. Estimated blood loss: Minimal. Estimated Blood Loss: Estimated blood loss was minimal. Procedure: Pre-Anesthesia Assessment: - Prior to the procedure, a History and Physical was performed, and patient medications and allergies were reviewed. The patient's tolerance of previous anesthesia was also reviewed. The risks and benefits of the procedure and the sedation options and risks were discussed with the patient. All questions were answered, and informed consent was obtained. Prior Anticoagulants: The patient has taken no previous anticoagulant or antiplatelet agents. ASA Grade Assessment: III - A patient with severe systemic disease. After reviewing the risks and benefits, the patient was deemed in satisfactory condition to undergo the procedure. After obtaining informed consent, the endoscope was passed under direct vision. Throughout the procedure, the patient's blood pressure, pulse, and oxygen saturations were monitored continuously. The scope was introduced through the mouth and advanced to the mid-jejunum. After obtaining informed consent, the endoscope was passed under direct vision. Throughout the procedure, the patient's blood pressure, pulse, and oxygen saturations were monitored continuously.The small bowel enteroscopy was accomplished without difficulty. The patient tolerated the procedure well. Findings: The examined esophagus was normal. A medium-sized hiatal hernia was found. The proximal extent of the gastric folds (end of tubular esophagus) was 35 cm from the incisors. The hiatal narrowing was 39 cm from the incisors. The Z-line was 35 cm from the incisors. A widely patent, non-obstructing and mild Schatzki ring (acquired) was found at the gastroesophageal junction. The entire examined stomach was normal. There was no evidence of significant pathology in the entire examined duodenum. Biopsies for histology were taken with a cold forceps for evaluation of celiac disease. Estimated blood loss was minimal. There was no evidence of significant pathology in the proximal jejunum and in the mid-jejunum. A diverticulum was found in the third portion of the duodenum and in the fourth portion of the duodenum. A diverticulum was found in the proximal jejunum and in the mid-jejunum. The cardia and gastric fundus were normal on retroflexion. Retained gastric contents are not identified on this exam. A few small sessile polyps with no bleeding and no stigmata of recent bleeding were found in the cardia and in the gastric fundus. Biopsies were taken with a cold forceps for histology. Estimated blood loss was minimal. Verification of patient identification for the specimen was done by the physician and clinical dental technician using the patient's name and medical record number. Impression: - Normal esophagus. - Medium-sized hiatal hernia. - Widely patent, non-obstructing and mild Schatzki ring. - Normal stomach. - Normal examined duodenum. Biopsied. - The examined portion of the jejunum was normal. - Duodenal diverticulum. - Non-bleeding jejunal diverticulum. - A few gastric polyps. Biopsied. Recommendation: - Discharge patient to home (ambulatory). - Perform a colonoscopy today. MD Leonidas Shaffer MD 06/13/2017 3:36:28 PM This report has been signed electronically. Note Initiated On: 06/13/2017 2:11 PM I attest to the content of the Intraoperative Record and orders documented therein, exceptions below
[2017-06-13 16:00] VITALS: BP 133/63; PULSE 71; O2SAT 95
== END | disposition home or self-care (01) ==
LOC: C.GI 12:59
PROVIDERS: ATTEND Internal Medicine Gastroenterology
DX: D50.0 Iron deficiency anemia secondary to blood loss (chronic) (principal); D12.9 Benign neoplasm of anus and anal canal; D12.6 Benign neoplasm of colon, unspecified; M19.90 Unspecified osteoarthritis, unspecified site; I10 Essential (primary) hypertension; Z88.2 Allergy status to sulfonamides; Z79.899 Other long term (current) drug therapy; Z79.82 Long term (current) use of aspirin; K57.30 Diverticulosis of large intestine without perforation or abscess without bleeding

== ENCOUNTER 2017-08-05 03:35 | Inpatient (IN) | payer OTHER, BC ==
[~2017-08-05] VITALS: Ht 157.5 cm; Wt 65.3 kg
[~2017-08-05 03:35] MED LIST changes: -ATROPINE SULFATE 0.1 MG/ML 5ML SYR IV PRN; -ENDOSCOPIC MARKER 5 ML SYR ONE; -EpHEDrine SULFATE INJ 50 MG/ML AMP IV PRN; -FENTANYL CITRATE INJ 50 MCG/1 ML 2 ML VIAL IV PRN; -FENTANYL CITRATE INJ 50 MCG/1 ML 2 ML VIAL ONE; -LIDOCAINE HCL 2% 2 ML VIAL (20MG/ML) ONE; -MIDAZOLAM HCL 1 MG/ML 2ML VIAL ONE; -NITR50CA PO; +NITR50CA4 PO; -PROPOFOL IV EMULSION 10 MG/ML 20 ML VIAL IV ONE; -SODIUM CHLORIDE 0.9% 500ML 500 ML IV ONE
[2017-08-05] MEDS ORDERED: ONDANSETRON INJ 2 MG/ML 2 ML VIAL IV STA (04:10)
[2017-08-05] MEDS ORDERED: SODIUM CHLORIDE 0.9% 1000ML 1,000 ML IV STA (04:10)
[2017-08-05] MEDS ORDERED: FENTANYL CITRATE INJ 50 MCG/1 ML 2 ML VIAL IV STA ×2 (04:10→05:11)
[2017-08-05] MEDS ORDERED: PRD/1 PO (04:20)
[2017-08-05] MEDS ORDERED: PRD10 PO (04:20)
[2017-08-05 04:23] LABS: BASO % 0.2 %; BASO ABS # 0.04 K/uL (0-0.2); EOS % 0.3 %; EOS ABS # 0.05 K/uL (0-0.5); HEMOGLOBIN 13.1 g/dL (12.0-16.0); IG# 0.27 K/uL (0.00-0.02); LYMPH % 17.2 %; LYMPH ABS # 3.27 K/uL (1.2-3.4); MEAN CELL VOLUME 91.9 fL (80-100); MEAN CORPUSCULAR HEMOGLOBIN 28.7 pg (25-34); MEAN CORPUSCULAR HGB CONC 31.2 g/dl (32-36); MEAN PLATELET VOLUME 9.1 fL (7.4-10.4); MONO % 11.9 %; MONO ABS # 2.27 K/uL (0.11-0.59); NEUT ABS # 13.16 K/uL (1.4-6.5); NUCLEATED RED BLOOD CELL ABS 0.02 K/uL (0-0); PLATELET COUNT 340 K/uL (130-400); RED CELL DISTRIBUTION WIDTH CV 16.7 % (11.5-14.5); RED CELL DISTRIBUTION WIDTH SD 56.6 fL (36.4-46.3); WHITE BLOOD COUNT 19.06 K/uL (4.8-10.8)
[2017-08-05] MEDS ORDERED: CALC1TAB9 PO (04:23)
[2017-08-05] MEDS ORDERED: ERGO1TAB10 PO (04:23)
--- NOTE | 2017-08-05 04:26 | EMERGENCY ROOM VISIT NOTE ---
History Report prepared by Adina: Chance Leon Under the Supervision of: Leslie ArnoldO. First contact with patient: 03:56 Chief Complaint: ABDOMINAL PAIN Stated Complaint: SHARP PAIN LT SIDE History of Present Illness The patient is an 81 year old female who presents to the Emergency Room with complaints of constant sharp abdominal pain since yesterday. She notes the pain was worsening last night and this morning. She notes the pain is radiating around to the back. She reports the abdominal pain is dull, while the upper abdomen is sharp. She reports that movement worsens the pain. She reports nausea , though denies any vomiting. She reports bloody diarrhea. She denies any history of bloody stools. She denies any abdominal distension or bloating. She had a colonoscopy and EGD last month, which was negative. She denies any fevers or chills. She denies any dizziness. She reports a loss of appetite and a headache. She has a history of cholecystectomy, hysterectomy, and hernia repair. She has a history of bladder infections and was hospitalized for them. She has baseline leg swelling. The patient began vomiting while in the room. Source of History: patient Onset: since yesterday Position: abdomen Quality: sharp, dull Timing: constant Modifying Factors (Worsening): movement Associated Symptoms: + headache, + nausea, + vomiting, + back pain, + diarrhea (bloody), No fevers, No chills Note: Denies any dizziness. Notes loss of appetite. Review of Systems See HPI for pertinent positives & negatives. A total of 10 systems reviewed and were otherwise negative. Past Medical & Surgical Medical Problems: (1) Acute diverticulitis (2) ANEMIA,RHEUMATOID ARTHRITIS (3) Arthritis (4) Back pain (5) CELLULITIS LEFT HAND/WRIST. ACUTE ARTHRITIS L WRIST (6) DEHYD,UTI,ANENIA (7) elev. troponinn,diarrhea, dehyd (8) Fungus present in urine (9) Hypertension (10) Lower urinary tract infection, acute (11) PERSISTENT UTI, VOMITING (12) Pneumonia (13) RECURRENT UTI, ?SEPSIS (14) Rheumatoid arthritis (15) S/P hysterectomy (16) Sepsis (17) SEPSIS,UTI,ACUTE RENAL FAILURE,RHEUMATOID ARTH (18) UTI, SEPSIS SYNDROME, Surgical Problems: (1) History of back surgery (2) History of cataract surgery (3) History of cholecystectomy (4) History of left hip replacement (5) History of right hip replacement (6) S/P lumpectomy of breast Family History Cancer Diabetes mellitus Hypertension Social History Smoking Status: Never Smoker Alcohol Use: none Marital Status: Housing Status: lives with significant other Occupation Status: retired Current/Historical Medications Scheduled Amlodipine (Norvasc), 5 MG PO QAM Aspirin (Aspirin Ec), 81 MG PO QAM Calcium Citrate-Vitamin D (Citracal + D3 Maximum), 1 TAB PO QAM Ergocalciferol (Vitamin D2), 1 DOSE PO QAM Etanercept (Enbrel Sureclick), 1 INJ WK Gentamicin Sulfate (Gentak), 1 APPLN OP QID Lisinopril (Prinivil), 10 MG PO QAM Mirabegron (Myrbetriq Er), 25 MG PO QPM Nitrofurantoin Macrocrystal (Nitrofurantoin Macrocryst), 1 CAP PO QPM Potassium Chloride (Potassium Chloride Er), 1 CAP PO BID Prednisone (Prednisone), 10 MG PO QAM Prednisone (Prednisone), 2 MG PO QAM Simvastatin (Zocor), 20 MG PO QPM Triamterene/Hctz (Triamterene/Hctz 37.5-25MG), 1 TAB PO QAM Scheduled PRN Tramadol (Ultram), 50 MG PO Q8H PRN for Pain Allergies Coded Allergies: Sulfa Antibiotics (Verified Allergy, Intermediate, FLU LIKE SYMPTOMS, 08/05) Sulfamethoxazole w/Trimethoprim (Verified Allergy, Intermediate, FLU LIKE SYMPTOMS, 08/05/17) Physical Exam Vital Signs Date Time Temp Pulse Resp B/P (MAP) Pulse Ox O2 Delivery O2 Flow Rate FiO2 08/05/17 07:59 94 08/05/17 07:31 97/52 08/05/17 07:20 98 23 98 08/05/17 07:01 114/58 08/05/17 06:50 99 27 92 08/05/17 06:31 111/47 08/05/17 06:20 101 24 97 08/05/17 06:15 103 25 95 Nasal Cannula 2.0 08/05/17 06:01 116/53 08/05/17 05:45 100 28 97 Nasal Cannula 2.0 08/05/17 05:39 94 Nasal Cannula 2.0 08/05/17 05:39 95 Nasal Cannula 2.0 08/05/17 05:38 88 Room Air 08/05/17 05:29 100 18 116/93 92 Room Air 08/05/17 04:52 99 08/05/17 04:35 111 24 172/68 93 Room Air 08/05/17 03:39 36.7 112 18 109/56 93 Room Air Physical Exam GENERAL: alert, ill-appearing, well nourished, no distress, non-toxic. Hard of hearing. Patient began vomiting during exam. EYE EXAM: normal conjunctiva, PERRL and EOM's grossly intact OROPHARYNX: no exudate, no erythema, lips, buccal mucosa, and tongue normal and mucous membranes are dry. NECK: supple, no nuchal rigidity, no adenopathy, non-tender LUNGS: Clear to auscultation. Normal chest wall mechanics, no w/r/r HEART: no murmurs, S1 normal and S2 normal ABDOMEN: abdomen soft, normo-active bowel sounds, no masses, no rebound or guarding. Tender to palpation to left anterior, inferior ribs and tender in bilateral lower quadrants. BACK: Back is symmetrical on inspection and there is no deformity, no midline tenderness, no CVA tenderness. SKIN: no rashes and no bruising UPPER EXTREMITIES: upper extremities are grossly normal. FROM, nml pulses, mild RA deformities noted. LOWER EXTREMITIES: No pitting edema. from, nml pulses. NEURO EXAM: Normal sensorium, cranial nerves II-XII grossly intact, normal speech, no gross weakness of arms, no gross weakness of legs. Medical Decision & Procedures ER Provider Diagnostic Interpretation: Radiology results have been interpreted by the radiologist and reviewed by me. CHEST ONE VIEW PORTABLE CLINICAL HISTORY: left lower rib pain pain COMPARISON STUDY: 11/30/2016 FINDINGS: Bibasilar atelectasis. Fixed hiatal hernia. Central catheter in superior vena cava. Upper lungs are clear. Chronic apical fibrosis. Right axillary dissection. IMPRESSION: Bibasilar atelectasis . Mild cardiomegaly. Chronic and postoperative change. The above report was generated using voice recognition software. It may contain grammatical, syntax or spelling errors. Electronically signed by: Sammy Joseph M.D. 08/05/2017 6:22 AM Dictated Date/Time: 08/05/2017 6:21 AM ABD/PELVIS IV CONTRAST ONLY CT DOSE: 787.89 mGy.cm HISTORY: Pain lower abd pain, LUQ pain, diarrhea TECHNIQUE: Multiaxial CT images of the abdomen and pelvis were performed following the use of intravenous contrast. A dose lowering technique was utilized adhering to the principles of ALARA. COMPARISON STUDY: 11/30/2016 FINDINGS: Mild bibasilar parenchymal infiltrative change. Superimposed dependent atelectasis. Prior cholecystectomy. Residual chronic biliary ductal prominence. Moderate atrophy right kidney. Left kidney is negative for hydronephrosis. Bowel pattern is nonobstructive. Fixed lateral hernia. Chronic colonic diverticulosis with a suggestion of mild acute diverticulitis of the sigmoid and descending colon. No evidence for abscess collection or obstruction. No evidence for pneumatosis. IMPRESSION: 1. Mild bibasilar parenchymal infiltrative change. 2. Fixed hiatal hernia. 3. Diffuse colonic diverticulosis with superimposed acute diverticulitis involving the sigmoid and components of the descending colon. The above report was generated using voice recognition software. It may contain grammatical, syntax or spelling errors. Electronically signed by: Sammy Joseph M.D. 08/05/2017 6:41 AM Dictated Date/Time: 08/05/2017 6:37 AM Laboratory Results Test 08/05/17 04:00 08/05/17 04:27 08/05/17 04:30 Prothrombin Time 11.6 SECONDS (9.0-12.0) Prothromb Time International Ratio 1.1 (0.9-1.1) Troponin I < 0.015 ng/ml (0-0.045) Globulin 3.2 gm/dl (2.5-4.0) Albumin/Globulin Ratio 0.8 (0.9-2) Lipase 137 U/L (73-393) Bedside Lactic Acid Venous 0.85 mmol/L (0.90-1.70) Urine Color YELLOW Urine Appearance SL CLOUDY (CLEAR) Urine pH 5.5 (4.5-7.5) Urine Specific [place] 1.020 (1.000-1.030) Urine Protein TRACE (NEG) Urine Glucose (UA) NEG (NEG) Urine Ketones NEG (NEG) Urine Occult Blood 3+ (NEG) Urine Nitrite NEG (NEG) Urine Bilirubin NEG (NEG) Urine Urobilinogen NEG (NEG) Urine Leukocyte Esterase LARGE (NEG) Urine RBC 10-30 /hpf (0-4) Urine WBC 5-10 /hpf (0-5) Urine Epithelial Cells 5-10 /lpf (0-5) Urine Bacteria 1+ (NEG) Date/Time Source Procedure Growth Status 08/05/17 04:30 Urine , Random Urine Culture - Final THREE TYPES OF ORGANISMS PRESENT, ALL... Complete Laboratory results per my review. Medications Administered Medications (Trade) Dose Ordered Sig/Martina Route Start Time Stop Time Status Last Admin Dose Admin Sodium Chloride 1,000 ml @ 250 mls/hr Q4H STAT IV 08/05/17 04:10 08/05/17 08:09 DC 08/05/17 04:35 250 MLS/HR Fentanyl Citrate (Fentanyl Inj) 50 mcg NOW STAT IV 08/05/17 04:10 08/05/17 04:15 DC 08/05/17 04:35 50 MCG Ondansetron HCl (Zofran Inj) 4 mg NOW STAT IV 08/05/17 04:10 08/05/17 04:15 DC 08/05/17 04:34 4 MG Piperacillin Sod/ Tazobactam Sod (Zosyn Iv) 3.375 gm NOW STAT IV 08/05/17 05:09 08/05/17 05:10 DC 08/05/17 05:46 3.375 GM Fentanyl Citrate (Fentanyl Inj) 50 mcg NOW STAT IV 08/05/17 05:11 08/05/17 05:12 DC 08/05/17 05:35 50 MCG Metronidazole (Flagyl Tab) 500 mg NOW STAT PO 08/05/17 06:20 08/05/17 06:21 DC 08/05/17 06:52 500 MG Sodium Chloride 1,000 ml @ 100 mls/hr Q10H IV 08/05/17 07:30 09/04/17 07:29 08/06/17 21:13 100 MLS/HR ECG Per My Interpretation Indication: abdominal pain Rate (beats per minute): 102 Rhythm: sinus tachycardia Findings: Q waves (in L3 and aVF), left axis deviation, other (Normal intervals. ) ED Course 0405: The patient was evaluated in room A10. A complete history and physical exam was performed. 0410: Ordered Zofran 4 mg IV, Fentanyl 50 mcg IV, and Sodium Chloride 1,000 ml @ 250 mls/hr IV 0509: Ordered Zosyn 3.375 gm IV 0511: Ordered Fentanyl 50 mcg IV 0618: I reassessed the patient at this time. She states the pain medication helps. I discussed the results and treatment plan with the patient. I answered all pertaining questions that she had. She expressed understanding and verbalized agreement. The patient will be further evaluated. 619: TUCKER hospitalist paged. 0620: Ordered Flagyl 500 mg PO 0716: I spoke with TCUKER Reyes hospitalist. We discussed the patient's case. The patient will be evaluated by the [facility] for further management. Medical Decision Differential diagnoses includes but is not limited to gastritis, peptic ulcer disease, GERD, gallbladder disease, pancreatitis, small bowel obstruction, acute coronary syndrome, pericarditis, ischemic bowel, irritable bowel disease, irritable bowel syndrome, appendicitis, diverticulitis, malignancy, hernia, urinary tract infection, torsion, perforation, trauma, infectious. Pt ill appearing and found to have UTI and then initially colitis on CT a/p. Given hx of bloody diarrhea, this seemed a reasonable diagnosis. Overread by in house rad now stating diverticulitis. Blood cultures had already been drawn and Zosyn started to cover for both GI and pathology. Pt with no hx of resistant UTI's. After CT resulted, flagyl added for additional GI coverage. Lactate negative, pt afebrile, and pt hemodynamically stable in the ER. Pt initially tachycardic but improving with ivf and pain control. Pt given IVF but not aggressively bolused as patient not hypotensive and concern for cardiac status given comorbidities. However, evolving sepsis still possible. Pt pain improved with meds. Pt reported feeling improved. Pt with hx of anemia, and concern given bloody diarrhea for close monitoring. Pt stable at this time and doesn't require transfusion. Pt and family aware of all results and my concerns and were agreeable with plan for additional evaluation and likely admission. No evidence of acute surgical emergency. Medication Reconcilliation Current Medication List: was personally reviewed by me Blood Pressure Screening Patient's blood pressure: Normal blood pressure Consults Time Called: 619 Consulting Physician: TUCKER Reyes hospitalist Returned Call: [phone] I spoke with TUCKER Reyes hospitalist. We discussed the patient's case. The patient will be evaluated by the [facility] for further management. Overread by daytime rad now present in EMR and different from STAT rad overnight - their read now states diverticulitis, no perf/abscess. Impression Primary Impression: Colitis Additional Impressions: UTI (urinary tract infection) GI bleed Dehydration Acute diverticulitis Sepsis Scribe Attestation The scribe's documentation has been prepared under my direction and personally reviewed by me in its entirety. I confirm that the note above accurately reflects all work, treatment, procedures, and medical decision making performed by me. Departure Information Dispostion Being Evaluated By Hospitalist Referrals Wilmar Dela Cruz M.D. (PCP) Patient Instructions My [facility] Problem Qualifiers Additional Impressions: UTI (urinary tract infection) Urinary tract infection type: acute cystitis Hematuria presence: with hematuria Qualified Codes: N30.01 - Acute cystitis with hematuria GI bleed GI bleed type/associated pathology: unspecified gastrointestinal hemorrhage type Qualified Codes: K92.2 - Gastrointestinal hemorrhage, unspecified Sepsis Sepsis type: sepsis due to unspecified organism Qualified Codes: A41.9 - Sepsis, unspecified organism
[2017-08-05 04:30] LABS: INR 1.1 (0.9-1.1)
[2017-08-05 04:43] LABS: ALBUMIN 2.5 gm/dl (3.4-5.0); ALT/SGPT 12 U/L (12-78); AST/SGOT 10 U/L (15-37); BLOOD UREA NITROGEN 33 mg/dl (7-18); CALCIUM 8.2 mg/dl (8.5-10.1); CARBON DIOXIDE 20 mmol/L (21-32); GLUCOSE 126 mg/dl (70-99); LIPASE 137 U/L (73-393); POTASSIUM 4.5 mmol/L (3.5-5.1); SODIUM 135 mmol/L (136-145)
[2017-08-05 04:48] LABS: ALKALINE PHOSPHATASE 51 U/L (45-117); TOTAL PROTEIN 5.7 gm/dl (6.4-8.2)
[2017-08-05] MEDS ORDERED: PIPERACILLIN/TAZOBACTAM 3.375 GM/100ML D5W IV STA (05:09)
[2017-08-05] MEDS ORDERED: OPTIRAY 320 IV PRN (05:15)
[2017-08-05] MEDS ORDERED: METRONIDAZOLE 250 MG TAB PO STA (06:20)
--- NOTE | 2017-08-05 06:24 | DIAGNOSTIC IMAGING REPORT ---
CHEST ONE VIEW PORTABLE CLINICAL HISTORY: left lower rib pain pain COMPARISON STUDY: 11/30/2016 FINDINGS: Bibasilar atelectasis. Fixed hiatal hernia. Central catheter in superior vena cava. Upper lungs are clear. Chronic apical fibrosis. Right axillary dissection. IMPRESSION: Bibasilar atelectasis . Mild cardiomegaly. Chronic and postoperative change. The above report was generated using voice recognition software. It may contain grammatical, syntax or spelling errors. Electronically signed by: Sammy Joseph M.D. 08/05/2017 6:22 AM Dictated Date/Time: 08/05/2017 6:21 AM
--- NOTE | 2017-08-05 06:43 | DIAGNOSTIC IMAGING REPORT ---
ABD/PELVIS IV CONTRAST ONLY CT DOSE: 787.89 mGy.cm HISTORY: Pain lower abd pain, LUQ pain, diarrhea TECHNIQUE: Multiaxial CT images of the abdomen and pelvis were performed following the use of intravenous contrast. A dose lowering technique was utilized adhering to the principles of ALARA. COMPARISON STUDY: 11/30/2016 FINDINGS: Mild bibasilar parenchymal infiltrative change. Superimposed dependent atelectasis. Prior cholecystectomy. Residual chronic biliary ductal prominence. Moderate atrophy right kidney. Left kidney is negative for hydronephrosis. Bowel pattern is nonobstructive. Fixed lateral hernia. Chronic colonic diverticulosis with a suggestion of mild acute diverticulitis of the sigmoid and descending colon. No evidence for abscess collection or obstruction. No evidence for pneumatosis. IMPRESSION: 1. Mild bibasilar parenchymal infiltrative change. 2. Fixed hiatal hernia. 3. Diffuse colonic diverticulosis with superimposed acute diverticulitis involving the sigmoid and components of the descending colon. The above report was generated using voice recognition software. It may contain grammatical, syntax or spelling errors. Electronically signed by: Sammy Joseph M.D. 08/05/2017 6:41 AM Dictated Date/Time: 08/05/2017 6:37 AM
[2017-08-05] MEDS ORDERED: PIPERACILL/TAZOBAC CONSULT ACTIVE PRN (07:30)
[2017-08-05] MEDS ORDERED: SODIUM CHLORIDE 0.9% 500ML 500 ML IV SCH ×2 (08:15→12:30)
[2017-08-05] MEDS ORDERED: HYDROmorphone INJ 1 MG/ML SYR IV ONE (08:15)
[2017-08-05] MEDS ORDERED: HYDROmorphone INJ 1 MG/ML SYR ONE (08:24)
[2017-08-05 08:50] VITALS: BP 115/57; PULSE 99; TEMP 36.7; O2SAT 99; BMI 21.2
[2017-08-05] MEDS: SODIUM CHLORIDE 0.9% 1000ML 1,000 ML IV SCH ×2 (09:26→17:32)
[2017-08-05] MEDS ORDERED: HYDROmorphone INJ 2 MG/ML SYR/VIAL IV STA (09:40)
[2017-08-05] MEDS ORDERED: HYDROmorphone INJ 2 MG/ML SYR/VIAL ONE (09:42)
[2017-08-05] MEDS ORDERED: HYDROCORTISONE IV 50 MG in SYRINGE 0 ML IV SCH (10:00)
[2017-08-05 11:48] VITALS: BP 87/45; PULSE 97; TEMP 37.3; O2SAT 97
[2017-08-05] MEDS: PIPERACILL/TAZOBAC IV 3.375 GM in SODIUM CHLORIDE 0.9% 100ML 100 ML IV SCH ×2 (12:11→19:51)
--- NOTE | 2017-08-05 13:11 | History and Physical ---
History & Physical Date & Time of Service: Aug 05, 2017 at 12:49 Chief Complaint: Abdominal pain and diarrhea Primary Care Physician: Wilmar Dela Cruz M.D. History of Present Illness Source: patient, family, hospital records 81 yo female with history of rheumatoid arthritis, hypertension, breast cancer and recent work up for anemia with possible GI bleeding, presented to the ED this morning c/o abdominal pain and diarrhea. She said that she had some mild LUQ and LLQ pain yesterday and decreased appetite. No nausea and no diarrhea. Last evening the pain started to get more intense. She had weakness, chills. Started to experience diarrhea with blood. She has moved bowels 5 times overnight but most recently the bowels have been small volume. Pain has intensified. She reports that she has never had abdominal pain like this, typically no issues with diarrhea. She has never had a bout of diverticulitis. She was given IV fluids, Zosyn IV and Fentanyl IV in the ED prior to my exam. She was still c/o moderate to severe abdominal pain. She had a CT of the abdomen/pelvis that showed acute diverticulitis. WBC was 19k, Cr 1.5, lactic acid < 2. Blood and urine cultures sent. She recently had a work up for some anemia as outpatient. Small bowel endoscopy and EGD negative for source of bleeding. Showed some diverticula in duodenum and jejunum, non bleeding. Had gastric polyps that were biopsied. Colonoscopy was performed, there was no report though. She and family cannot recall if they were told that she had diverticular disease of the colon. Past Medical/Surgical History PAST MEDICAL HISTORY: Rheumatoid arthritis. Long-standing. Severe joint deformities. Multiple interventions with joint replacement in her hands and feet. She has been on multiple medications including prednisone, methotrexate, Plaquenil. She was recently started on Enbrel. Recurrent urinary tract infection. She has had multiple hospitalizations related to her infection. She is now on suppressive therapy with Macrodantin. This has been very effective recently. She does see Dr. Irvin Francois. Arterial hypertension. Long-standing. 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 Her hemoglobin was down to 7.8. She did require transfusion. It was thought that her anemia was related to her chronic inflammatory disease with her rheumatoid arthritis and also to the increased dose of methotrexate and hydroxychloroquine Family History FAMILY HISTORY: Her mother at age 94 she was in personal home care. Her father at age 62 had myocardial infarction and congestive heart failure one brother age 64 of heart failure one sister recently . She had Crohn's disease, type 2 diabetes mellitus, arterial hypertension, osteoarthritis. One son was killed in a truck accident at age 31 Social History Smoking Status: Never Smoker Marital Status: Occupational Status: retired Immunizations History of Influenza Vaccine: No History of Tetanus Vaccine?: UTD History of Pneumococcal: Yes Pneumococcal Date: Jul 14, 2009 History of Hepatitis B Vaccine: No Allergies Coded Allergies: Sulfa Antibiotics (Verified Allergy, Intermediate, FLU LIKE SYMPTOMS, 08/05) Sulfamethoxazole w/Trimethoprim (Verified Allergy, Intermediate, FLU LIKE SYMPTOMS, 08/05/17) Home Medications Scheduled Amlodipine (Norvasc), 5 MG PO QAM Aspirin (Aspirin Ec), 81 MG PO QAM Calcium Citrate-Vitamin D (Citracal + D3 Maximum), 1 TAB PO QAM Ergocalciferol (Vitamin D2), 1 DOSE PO QAM Etanercept (Enbrel Sureclick), 1 INJ WK Lisinopril (Prinivil), 10 MG PO QAM Mirabegron (Myrbetriq Er), 25 MG PO QPM Nitrofurantoin Macrocrystal (Nitrofurantoin Macrocryst), 1 CAP PO QPM Potassium Chloride (Potassium Chloride Er), 1 CAP PO BID Prednisone (Prednisone), 10 MG PO QAM Prednisone (Prednisone), 2 MG PO QAM Simvastatin (Zocor), 20 MG PO QPM Triamterene/Hctz (Triamterene/Hctz 37.5-25MG), 1 TAB PO QAM Scheduled PRN Tramadol (Ultram), 50 MG PO Q8H PRN for Pain Review of Systems Constitutional: + chills, + weakness, + fatigue, No fever, No sweats, No weight loss, No problem reported Eyes: No worsening of vision, No eye pain, No redness, No discharge, No diplopia, No problem reported ENT: No hearing loss, No unusual epistaxis, No nasal symptoms, No sore throat, No tinnitus, No dental problems, No trouble swallowing, No problem reported Respiratory: No cough, No sputum, No wheezing, No shortness of breath, No dyspnea on exertion, No dyspnea at rest, No hemoptysis, No problem reported Cardiovascular: No chest pain, No orthopnea, No PND, No edema, No claudication , No palpitations, No problem reported Abdomen: + pain, + nausea, + vomiting, + diarrhea, + GI bleeding, No constipation Musculoskeletal: + joint pain, + muscle pain, + swelling, No calf pain Genitourinary - Female: No dysuria, No urinary frequency, No urinary urgency, No urinary incontinence, No urinary retention, No hematuria Neurologic: + weakness, No memory loss, No paralysis, No numbness/tingling, No vertigo, No balance problems, No problem reported Psychiatric: No depression symptoms, No anhedonism, No anxiety, No insomnia, No substance abuse, No problem reported Endocrine: No fatigue, No excessive thirst, No excessive urination, No problem reported Hematologic / Lymphatic: No abnormal bleeding/bruising, No clotting problems, No swollen lymph nodes, No night sweats, No problem reported Integumentary: No rash, No itch, No new/changing skin lesions, No color change , No bleeding, No problem reported Allergic / Immunologic: No environmental allergies, No seasonal allergies, No pet sensitivities, No food allergies, No hives, No frequent infections, No poor healing, No prolonged convalescence, No problem reported Physical Exam Vital Signs Date Time Temp Pulse Resp B/P (MAP) Pulse Ox O2 Delivery O2 Flow Rate FiO2 08/05/17 11:48 37.3 97 18 87/45 (59) 97 Nasal Cannula 2.0 08/05/17 08:50 36.7 99 20 115/57 99 Nasal Cannula 2.0 08/05/17 08:36 94 22 106/46 99 08/05/17 08:28 98 20 127/59 100 Room Air Nasal Cannula 08/05/17 07:59 94 08/05/17 07:31 97/52 08/05/17 07:20 98 23 98 08/05/17 07:01 114/58 08/05/17 06:50 99 27 92 08/05/17 06:31 111/47 08/05/17 06:20 101 24 97 08/05/17 06:15 103 25 95 Nasal Cannula 2.0 08/05/17 06:01 116/53 08/05/17 05:45 100 28 97 Nasal Cannula 2.0 08/05/17 05:39 94 Nasal Cannula 2.0 08/05/17 05:39 95 Nasal Cannula 2.0 08/05/17 05:38 88 Room Air 08/05/17 05:29 100 18 116/93 92 Room Air 08/05/17 04:52 99 08/05/17 04:35 111 24 172/68 93 Room Air 08/05/17 03:39 36.7 112 18 109/56 93 Room Air General Appearance: no apparent distress, + thin Head: normocephalic, atraumatic Eyes: normal inspection, PERRL, EOMI, sclerae normal ENT: normal ENT inspection, hearing grossly normal, pharynx normal Neck: supple, no adenopathy, no JVD, trachea midline Respiratory/Chest: chest non-tender, lungs clear, normal breath sounds, no respiratory distress, no accessory muscle use Cardiovascular: regular rate, rhythm, no gallop, no JVD, no murmur, normal peripheral pulses Abdomen/GI: normal bowel sounds, soft (non-distended), no organomegaly, + tenderness (LUQ and LLQ, no rigidity or rebound tenderness) Back: normal inspection, no CVA tenderness, no muscle spasm, normal range of motion Extremities/Musculoskelatal: no calf tenderness, normal capillary refill, no pedal edema, normal range of motion, non-tender, pelvis stable, + pertinent finding (diffuse arthritic changes in multiple joints, especially hands) Neurologic/Psych: fish checker II-XII nml as tested, no motor/sensory deficits, alert, normal mood/affect, normal reflexes, oriented x 3 Skin: normal color, warm/dry, no rash Lymphatic: no adenopathy Diagnostics Laboratory Results Results Past 24 Hours Test 08/05/17 04:00 08/05/17 04:27 08/05/17 04:30 Range/Units White Blood Count 19.06 4.8-10.8 K/uL Red Blood Count 4.57 4.2-5.4 M/uL Hemoglobin 13.1 12.0-16.0 g/dL Hematocrit 42.0 37-47 % Mean Corpuscular Volume 91.9 80-100 fL Mean Corpuscular Hemoglobin 28.7 25-34 pg Mean Corpuscular Hemoglobin Concent 31.2 32-36 g/dl Platelet Count 340 130-400 K/uL Mean Platelet Volume 9.1 7.4-10.4 fL Neutrophils (%) (Auto) 69.0 % Lymphocytes (%) (Auto) 17.2 % Monocytes (%) (Auto) 11.9 % Eosinophils (%) (Auto) 0.3 % Basophils (%) (Auto) 0.2 % Neutrophils # (Auto) 13.16 1.4-6.5 K/uL Lymphocytes # (Auto) 3.27 1.2-3.4 K/uL Monocytes # (Auto) 2.27 0.11-0.59 K/uL Eosinophils # (Auto) 0.05 0-0.5 K/uL Basophils # (Auto) 0.04 0-0.2 K/uL RDW Standard Deviation 56.6 36.4-46.3 fL RDW Coefficient of Variation 16.7 11.5-14.5 % Immature Granulocyte % (Auto) 1.4 % Immature Granulocyte # (Auto) 0.27 0.00-0.02 K/uL Nucleated RBC Absolute Count (auto) 0.02 0-0 K/uL Nucleated Red Blood Cells % 0.1 % Prothrombin Time 11.6 9.0-12.0 SECONDS Prothromb Time International Ratio 1.1 0.9-1.1 Sodium Level 135 136-145 mmol/L Potassium Level 4.5 3.5-5.1 mmol/L Chloride Level 109 98-107 mmol/L Carbon Dioxide Level 20 21-32 mmol/L Anion Gap 6.0 3-11 mmol/L Blood Urea Nitrogen 33 7-18 mg/dl Creatinine 1.50 0.60-1.20 mg/dl Est Creatinine Clear Calc Drug Dose 22.9 ml/min Estimated GFR () 37.2 Estimated GFR (Non- 32.1 BUN/Creatinine Ratio 22.1 10-20 Random Glucose 126 70-99 mg/dl Calcium Level 8.2 8.5-10.1 mg/dl Magnesium Level 1.9 1.8-2.4 mg/dl Total Bilirubin 0.4 0.2-1 mg/dl Aspartate Amino Transf (AST/SGOT) 10 15-37 U/L Alanine Aminotransferase (ALT/SGPT) 12 12-78 U/L Alkaline Phosphatase 51 45-117 U/L Troponin I < 0.015 0-0.045 ng/ml Total Protein 5.7 6.4-8.2 gm/dl Albumin 2.5 3.4-5.0 gm/dl Globulin 3.2 2.5-4.0 gm/dl Albumin/Globulin Ratio 0.8 0.9-2 Lipase 137 73-393 U/L Bedside Lactic Acid Venous 0.85 0.90-1.70 mmol/L Urine Color YELLOW Urine Appearance SL CLOUDY CLEAR Urine pH 5.5 4.5-7.5 Urine Specific Center 1.020 1.000-1.030 Urine Protein TRACE NEG Urine Glucose (UA) NEG NEG Urine Ketones NEG NEG Urine Occult Blood 3+ NEG Urine Nitrite NEG NEG Urine Bilirubin NEG NEG Urine Urobilinogen NEG NEG Urine Leukocyte Esterase LARGE NEG Urine RBC 10-30 0-4 /hpf Urine WBC 5-10 0-5 /hpf Urine Epithelial Cells 5-10 0-5 /lpf Urine Bacteria 1+ NEG Microbiology Results 08/05/17 Blood Culture, Received Pending 08/05/17 Blood Culture, Received Pending 08/05/17 Urine Culture, Received Pending Diagnostic Radiology CXR: bibasilar atelectasis CT abdomen/pelvis IMPRESSION: 1. Mild bibasilar parenchymal infiltrative change. 2. Fixed hiatal hernia. 3. Diffuse colonic diverticulosis with superimposed acute diverticulitis involving the sigmoid and components of the descending colon. EKG sinus tachycardia with left axis deviation Impression Assessment and Plan 81 yo female with rheumatoid arthritis, presents with acute diverticulitis and sepsis - Acute diverticulitis with severe sepsis (hypotension) will treat with Zosyn IV NPO today NSS at 100cc/hr 1 liter given at 250cc/hr and two separate 500cc boluses given will give Hydrocortisone 100mg IV q8 for possible adrenal insufficiency no evidence of abscess on CT if she does not improve in 24 hours can consult general surgery no evidence of shock, lactic acid < 2, mentating well, making urine blood cultures pending - Possible UTI: more likely the 5-10WBC in urine are from inflammation with colon will follow up on urine culture done in ED Zosyn will cover urine in meantime - CKD stage III vs VALERIE range of Cr in past year from 1.0 to 1.5 Cr is 1.5 on admission will treat with IV fluids, repeat BMP this afternoon - Rheumatoid arthritis takes Prednisone 12mg daily and Enbrel hold Prednisone and give Hydrocortisone IV for possible adrenal crisis in setting of sepsis - Anemia: recent work up did not show a source of blood loss Hb today is 13, no anemia - DVT prophylaxis: SCD only due to bloody diarrhea DNR: discussed with patient and her daughter at the bedside 50 minutes of critical care time spent on this patient who is hypotensive, requiring fluid boluses, close monitoring Advanced Directives Existing Living Will: Yes Existing Power of Factory Superintendent: No Resuscitation Status VTE Prophylaxis Will order VTE Prophylaxis: Yes Reason for no VTE drug order: Contraindicated Reason no Mechanical VTE Order: Treatment not tolerated Note Total Time: Critical Care 30 - 74 minutes Additional Copies To Wilmar Dela Cruz M.D.
[2017-08-05 13:20] LABS: BASO % 0.2 %; BASO ABS # 0.03 K/uL (0-0.2); HEMATOCRIT 36.7 % (37-47); HEMOGLOBIN 11.2 g/dL (12.0-16.0); IG# 0.35 K/uL (0.00-0.02); LYMPH % 5.4 %; LYMPH ABS # 1.02 K/uL (1.2-3.4); MEAN CELL VOLUME 93.4 fL (80-100); MEAN CORPUSCULAR HEMOGLOBIN 28.5 pg (25-34); MEAN CORPUSCULAR HGB CONC 30.5 g/dl (32-36); MEAN PLATELET VOLUME 8.4 fL (7.4-10.4); MONO % 5.5 %; MONO ABS # 1.03 K/uL (0.11-0.59); NEUT ABS # 16.38 K/uL (1.4-6.5); PLATELET COUNT 269 K/uL (130-400); RED CELL DISTRIBUTION WIDTH CV 16.8 % (11.5-14.5); RED CELL DISTRIBUTION WIDTH SD 57.2 fL (36.4-46.3); WHITE BLOOD COUNT 18.81 K/uL (4.8-10.8)
[2017-08-05 14:14] LABS: CALCIUM 7.3 mg/dl (8.5-10.1); CREATININE 1.41 mg/dl (0.60-1.20); POTASSIUM 4.8 mmol/L (3.5-5.1)
[2017-08-05] MEDS: HYDROCORTISONE IV 100 MG in SYRINGE 0 ML IV SCH ×2 (14:55→19:52)
[2017-08-05 15:00] VITALS: BP 94/56
[2017-08-05 15:42] VITALS: BP 99/44; PULSE 74; TEMP 36.5; O2SAT 98
[2017-08-05 19:19] VITALS: BP 106/54; PULSE 72; TEMP 36.4; O2SAT 100
[2017-08-05] MEDS: MIRABEGRON ER 25 MG TAB PO SCH (19:51)
[2017-08-05] MEDS: HYDROmorphone INJ 0.5 MG/0.5 ML SYR IV PRN (20:14)
[2017-08-05 23:30] VITALS: BP 103/47; PULSE 69; TEMP 36.5; O2SAT 100
[2017-08-06] MEDS: HYDROmorphone INJ 0.5 MG/0.5 ML SYR IV PRN (02:03)
[2017-08-06] MEDS: SODIUM CHLORIDE 0.9% 1000ML 1,000 ML IV SCH ×3 (03:17→21:13)
[2017-08-06] MEDS: PIPERACILL/TAZOBAC IV 3.375 GM in SODIUM CHLORIDE 0.9% 100ML 100 ML IV SCH ×3 (03:34→19:46)
[2017-08-06] MEDS ORDERED: HYDROmorphone INJ 0.5 MG/0.5 ML SYR IV STA (03:35)
[2017-08-06 03:46] VITALS: BP 107/45; PULSE 71; TEMP 36.4; O2SAT 100
[2017-08-06 04:22] LABS: BASO % 0.1 %; BASO ABS # 0.01 K/uL (0-0.2); HEMATOCRIT 36.9 % (37-47); HEMOGLOBIN 11.6 g/dL (12.0-16.0); IG# 0.16 K/uL (0.00-0.02); LYMPH % 4.4 %; LYMPH ABS # 0.82 K/uL (1.2-3.4); MEAN CELL VOLUME 92.7 fL (80-100); MEAN CORPUSCULAR HEMOGLOBIN 29.1 pg (25-34); MEAN CORPUSCULAR HGB CONC 31.4 g/dl (32-36); MEAN PLATELET VOLUME 8.9 fL (7.4-10.4); MONO % 2.5 %; MONO ABS # 0.46 K/uL (0.11-0.59); NEUT % 92.1 %; NEUT ABS # 17.11 K/uL (1.4-6.5); PLATELET COUNT 283 K/uL (130-400); RED CELL DISTRIBUTION WIDTH CV 16.7 % (11.5-14.5); WHITE BLOOD COUNT 18.56 K/uL (4.8-10.8)
[2017-08-06 04:49] LABS: ALBUMIN 1.9 gm/dl (3.4-5.0); CALCIUM 6.8 mg/dl (8.5-10.1); CREATININE 1.5 mg/dl (0.60-1.20); POTASSIUM 4.8 mmol/L (3.5-5.1)
[2017-08-06 04:52] LABS: TOTAL PROTEIN 4.7 gm/dl (6.4-8.2)
[2017-08-06] MEDS: HYDROCORTISONE IV 100 MG in SYRINGE 0 ML IV SCH ×3 (05:39→19:47)
[2017-08-06 07:59] VITALS: BP 124/55; PULSE 83; TEMP 36.3; O2SAT 92
[2017-08-06] MEDS: HYDROmorphone INJ 2 MG/ML SYR/VIAL IV PRN ×3 (08:50→21:13)
--- NOTE | 2017-08-06 10:40 | Hospitalist Progress Note ---
Hospitalist Progress Note Date of Service Aug 06, 2017. Subjective Pt evaluation today including: conversation w/ patient, conversation w/ family (daughter at bedside), physical exam, chart review, lab review, review of studies, review of inpatient medication list Pain: 4/10 sharp LUQ/LLQ pain PO Intake: NPO Voiding: no voiding problems Patient reports feeling better than yesterday. She did have severe pain last night, but now with the IV medications she currently complains of a 4/10 sharp, burning pain in the LUQ and LLQ that is worse with movement and deep breaths. She denies any further diarrhea, but did have some blood in her pad early this morning. She states she does not wear oxygen at home, only while in the hospital. She reports a history of frequent blood transfusions. She now follows with Dr. García for Procrit injections. The patient denies fevers, chills , sweats, chest pain, palpitations, claudication, cough, wheezing, shortness of breath, nausea, vomiting, dysuria, hematuria, urinary retention, paralysis, weakness, numbness and tingling. Additional Comments: See HPI for pertinent positives and negatives. All other systems reviewed and negative. Objective Vital Signs Date Time Temp Pulse Resp B/P (MAP) Pulse Ox O2 Delivery O2 Flow Rate FiO2 08/06/17 07:59 36.3 83 18 124/55 (78) 92 Nasal Cannula 2.0 08/06/17 04:00 Nasal Cannula 2.0 08/06/17 03:46 36.4 71 16 107/45 (65) 100 Nasal Cannula 2.0 08/05/17 23:59 Nasal Cannula 2.0 08/05/17 23:30 36.5 69 14 103/47 (65) 100 Nasal Cannula 2.0 08/05/17 20:00 Nasal Cannula 2.0 08/05/17 19:19 36.4 72 18 106/54 (71) 100 Nasal Cannula 2.0 08/05/17 16:05 Nasal Cannula 08/05/17 15:42 36.5 74 18 99/44 (62) 98 Nasal Cannula 2.0 08/05/17 15:00 94/56 (69) 08/05/17 11:48 37.3 97 18 87/45 (59) 97 Nasal Cannula 2.0 Physical Exam Notes: General appearance: Well-developed, well-nourished, no apparent distress Head: Normocephalic, atraumatic Eyes: Normal inspection, PERRL, EOMI ENT: Normal ENT inspection, hearing grossly normal, pharynx normal Neck: Supple, no JVD, trachea midline Respiratory/Chest: +Currently on 2L NC. Lungs clear to auscultation, normal breath sounds, no respiratory distress Cardiovascular: Regular rate & rhythm, no gallop, no murmur Abdomen/GI: +LLQ and LUQ TTP. Hypoactive bowel sounds. Soft Extremities/Musculoskeletal: +Lymphedema, reportedly improving per pt. RA deformities in hands. No calf tenderness, no pedal edema Neurological/Psych: Alert, normal mood/affect, oriented x 3 Skin: Normal color, warm/dry, no rash Laboratory Results Last 24 Hours Test 08/05/17 13:08 08/06/17 04:01 White Blood Count 18.81 K/uL 18.56 K/uL Red Blood Count 3.93 M/uL 3.98 M/uL Hemoglobin 11.2 g/dL 11.6 g/dL Hematocrit 36.7 % 36.9 % Mean Corpuscular Volume 93.4 fL 92.7 fL Mean Corpuscular Hemoglobin 28.5 pg 29.1 pg Mean Corpuscular Hemoglobin Concent 30.5 g/dl 31.4 g/dl Platelet Count 269 K/uL 283 K/uL Mean Platelet Volume 8.4 fL 8.9 fL Neutrophils (%) (Auto) 87.0 % 92.1 % Lymphocytes (%) (Auto) 5.4 % 4.4 % Monocytes (%) (Auto) 5.5 % 2.5 % Eosinophils (%) (Auto) 0.0 % 0.0 % Basophils (%) (Auto) 0.2 % 0.1 % Neutrophils # (Auto) 16.38 K/uL 17.11 K/uL Lymphocytes # (Auto) 1.02 K/uL 0.82 K/uL Monocytes # (Auto) 1.03 K/uL 0.46 K/uL Eosinophils # (Auto) 0.00 K/uL 0.00 K/uL Basophils # (Auto) 0.03 K/uL 0.01 K/uL RDW Standard Deviation 57.2 fL 57.0 fL RDW Coefficient of Variation 16.8 % 16.7 % Immature Granulocyte % (Auto) 1.9 % 0.9 % Immature Granulocyte # (Auto) 0.35 K/uL 0.16 K/uL Sodium Level 136 mmol/L 140 mmol/L Potassium Level 4.8 mmol/L 4.8 mmol/L Chloride Level 111 mmol/L 115 mmol/L Carbon Dioxide Level 18 mmol/L 15 mmol/L Anion Gap 7.0 mmol/L 10.0 mmol/L Blood Urea Nitrogen 31 mg/dl 38 mg/dl Creatinine 1.41 mg/dl 1.50 mg/dl Est Creatinine Clear Calc Drug Dose 24.3 ml/min 22.9 ml/min Estimated GFR () 40.1 37.2 Estimated GFR (Non- 34.6 32.1 BUN/Creatinine Ratio 22.0 25.6 Random Glucose 99 mg/dl 85 mg/dl Calcium Level 6.8 mg/dl Magnesium Level 2.0 mg/dl Total Bilirubin 0.4 mg/dl Direct Bilirubin 0.1 mg/dl Aspartate Amino Transf (AST/SGOT) 31 U/L Alanine Aminotransferase (ALT/SGPT) 21 U/L Alkaline Phosphatase 53 U/L Total Protein 4.7 gm/dl Albumin 1.9 gm/dl Assessment and Plan 81 y/o female with a history HTN, HLD, RA, h/o breast cancer s/p lumpectomy and radiation, recurrent UTI, urinary incontinence, and anemia of chronic disease who presents with sepsis and acute diverticulitis. Acute diverticulitis with severe sepsis and hypotension--improving -Admit to telemetry. No acute events overnight. Pt in sinus rhythm with PACs, HR 60s-80s -Continue IV Zosyn, day #2 -NPO -NSS at 100 cc/hr -Continue stress dose steroids, hydrocortisone 100 mg IV q8h. BP stable -Dilaudid 1 mg IV q4h prn pain -Blood cultures pending -O2 by protocol -Leukocytosis stable. WBC 18.56 on 08/06, down from 18.81 HTN, HLD--stable on hydrocortisone -Norvasc, lisinopril, Dyazide on hold, BP borderline low this afternoon -Hold Zocor 20 mg PO qd while NPO RA--stable -Hold home prednisone, hydrocortisone as above -Enbrel injections at home H/o breast cancer--noted Recurrent UTI, urinary incontinence -Urine culture mixed -Continue Myrbetriq when no longer NPO. Hold Macrobid, on Zosyn Anemia of chronic disease--stable -Hgb 11.6 on 08/06, up from 11.2. Hgb had been 13 on admission -Bloody diarrhea [employer], denies diarrhea today but did have some BRBPR CKD stage III--stable -Baseline creatinine 1.0-1.5 -Creatinine 1.5 on 08/06 DVT prophylaxis -Hold chemical ppx for now due to 2 gm Hgb drop, still with some BRBPR -NANCY grubbs and SCDs Code Status -Level V, DO NOT RESUSCITATE
[2017-08-06 12:14] VITALS: BP 96/41; PULSE 73; TEMP 36.4; O2SAT 98
[2017-08-06] MEDS ORDERED: GNTOPO OP (14:24)
[2017-08-06 15:20] VITALS: BP 102/53; PULSE 84; TEMP 36.4; O2SAT 98
[2017-08-06 16:47] VITALS: Ht 157.5 cm; Wt 65.3 kg
[2017-08-06] MEDS ORDERED: GENTAMICIN SULFATE 0.3% OP OINT 3.5 GM TUBE OP SCH (17:00)
[2017-08-06] MEDS ORDERED: NURSING VERBAL MED ORDER ONE (18:45)
[2017-08-06 19:10] VITALS: BP 97/65; PULSE 78; TEMP 36.3; O2SAT 99
[2017-08-06] MEDS: GENTAMICIN SULFATE 0.3% OP OINT 3.5 GM TUBE OP SCH ×2 (19:30→19:47)
[2017-08-06] MEDS: MIRABEGRON ER 25 MG TAB PO SCH (19:47)
[2017-08-06 23:45] VITALS: BP 112/57; PULSE 81; TEMP 36.4; O2SAT 96
[2017-08-07] VITALS (9 sets, daily range): BP systolic 114–158; BP diastolic 52–86; PULSE 85–110; TEMP 36.1–36.8; O2SAT 94–98
[2017-08-07] MEDS: PIPERACILL/TAZOBAC IV 3.375 GM in SODIUM CHLORIDE 0.9% 100ML 100 ML IV SCH ×3 (03:39→19:37)
[2017-08-07] MEDS: HYDROCORTISONE IV 100 MG in SYRINGE 0 ML IV SCH (05:21)
[2017-08-07 05:23] LABS: HEMATOCRIT 39.5 % (37-47); HEMOGLOBIN 12.6 g/dL (12.0-16.0); MEAN CELL VOLUME 91.9 fL (80-100); MEAN CORPUSCULAR HEMOGLOBIN 29.3 pg (25-34); MEAN CORPUSCULAR HGB CONC 31.9 g/dl (32-36); MEAN PLATELET VOLUME 9.3 fL (7.4-10.4); PLATELET COUNT 345 K/uL (130-400); RED CELL DISTRIBUTION WIDTH CV 16.9 % (11.5-14.5); RED CELL DISTRIBUTION WIDTH SD 55.8 fL (36.4-46.3); WHITE BLOOD COUNT 25.09 K/uL (4.8-10.8)
[2017-08-07 05:47] LABS: CALCIUM 6.5 mg/dl (8.5-10.1); CREATININE 1.79 mg/dl (0.60-1.20); POTASSIUM 4.3 mmol/L (3.5-5.1)
[2017-08-07] MEDS: GENTAMICIN SULFATE 0.3% OP OINT 3.5 GM TUBE OP SCH ×4 (08:19→21:00)
[2017-08-07] MEDS: SODIUM CHLORIDE 0.9% 1000ML 1,000 ML IV SCH ×2 (08:24→15:53)
[2017-08-07] MEDS: HYDROmorphone INJ 2 MG/ML SYR/VIAL IV PRN ×3 (09:10→19:47)
[2017-08-07] MEDS: HYDROCORTISONE IV 50 MG in SYRINGE 0 ML IV SCH ×2 (12:20→22:36)
--- NOTE | 2017-08-07 14:25 | Surgery Consultation ---
Consultation Date of Consultation: Aug 07, 2017. Attending Physician: Phi Landis MD, PhD Reason for Consultation: Acute Diverticulitis, increasing abdominal pain (Edwige Wilson PA-C) History of Present Illness Chuyita is a pleasant 81 yo female with history of rheumatoid arthritis, hypertension, breast cancer and recent work up for anemia with possible GI bleeding, presented to the ED early Sunday morning c/o abdominal pain and diarrhea. She said that she had some mild LUQ and LLQ pain Sunday with associated decreased appetite. No nausea and no diarrhea. Sunday evening the pain intensified and she had weakness and chills. Started to experience diarrhea with blood. She reports that she has never had abdominal pain like this, typically no issues with diarrhea. Usually regular bowel movements that are formed daily. States she had diverticulitis about 50 years ago. She recently had a work up for some anemia as outpatient. EGD and Colonoscopy showed no evidence of GI bleeding. She has been following with Dr. Clement for weekly blood draws and if blood levels are low she receives Procrit. She takes daily prednisone and Enbrel for her RA. Has left sided aport for poor venous access for the past 2 years. She had a CT of the abdomen/pelvis that showed acute diverticulitis. No evidence of abscess or perforation/microperforation. WBC was 19k, Cr 1.5, lactic acid < 2. She was originally hypotensive and tachycardic in the emergency room. (Edwige Wilson PA-C) Past Medical/Surgical History Past Medical History: 1. Rheumatoid Arthritis 2. Breast cancer 3. Poor venous access 4. Hypertension 5. Hyperlipidemia 6. Chronic Anemia 7. History of Chronic recurrent urinary tract infection 8. History of septicemia Past surgical History: 1. Hysterectomy 2. Cholecystectomy 3. Inguinal hernia repair (Edwige Wilson PA-C) Family History Cancer Diabetes mellitus Hypertension (Edwige Wilson PA-C) Cancer Diabetes mellitus Hypertension (Sammy Sinha M.D.) Social History Smoking Status: Never Smoker Marital Status: Housing Status: lives with significant other Occupation Status: retired (Edwige Wilson PA-C) Allergies Coded Allergies: Sulfa Antibiotics (Verified Allergy, Intermediate, FLU LIKE SYMPTOMS, 08/05) Sulfamethoxazole w/Trimethoprim (Verified Allergy, Intermediate, FLU LIKE SYMPTOMS, 08/05/17) Home Medications Scheduled Amlodipine (Norvasc), 5 MG PO QAM Aspirin (Aspirin Ec), 81 MG PO QAM Calcium Citrate-Vitamin D (Citracal + D3 Maximum), 1 TAB PO QAM Ergocalciferol (Vitamin D2), 1 DOSE PO QAM Etanercept (Enbrel Sureclick), 1 INJ WK Gentamicin Sulfate (Gentak), 1 APPLN OP QID Lisinopril (Prinivil), 10 MG PO QAM Mirabegron (Myrbetriq Er), 25 MG PO QPM Nitrofurantoin Macrocrystal (Nitrofurantoin Macrocryst), 1 CAP PO QPM Potassium Chloride (Potassium Chloride Er), 1 CAP PO BID Prednisone (Prednisone), 10 MG PO QAM Prednisone (Prednisone), 2 MG PO QAM Simvastatin (Zocor), 20 MG PO QPM Triamterene/Hctz (Triamterene/Hctz 37.5-25MG), 1 TAB PO QAM Scheduled PRN Tramadol (Ultram), 50 MG PO Q8H PRN for Pain Current Inpatient Medications Current Inpatient Medications Medications (Trade) Dose Ordered Sig/Martina Route Start Time Stop Time Status Last Admin Dose Admin Ioversol (Optiray 320) 100 ml UD PRN IV 08/05/17 05:15 08/09/17 05:14 Acetaminophen (Tylenol Tab) 650 mg Q4H PRN PO 08/05/17 07:30 09/04/17 07:29 Ondansetron HCl (Zofran Inj) 4 mg Q6H PRN IV 08/05/17 07:30 09/04/17 07:29 Sodium Chloride 1,000 ml @ 100 mls/hr Q10H IV 08/05/17 07:30 09/04/17 07:29 08/07/17 08:24 100 MLS/HR Piperacillin Sod/ Tazobactam Sod 3.375 gm/Sodium Chloride 115 ml @ 28.75 mls/ hr Q8H IV 08/05/17 12:00 08/15/17 11:59 08/07/17 12:19 28.75 MLS/HR Miscellaneous Information (Consult) 1 ea UD PRN N/A 08/05/17 07:30 09/04/17 07:29 Mirabegron (Myrbetriq Er) 25 mg QPM PO 08/05/17 21:00 09/04/17 20:59 Hydromorphone HCl (Dilaudid Inj) 1 mg Q4 PRN IV 08/06/17 03:45 08/19/17 08:14 08/07/17 12:19 1 MG Gentamicin Sulfate (Gentamicin 0.3% Oph Oint) 1 appln QID OP 08/06/17 17:00 08/16/17 16:59 08/07/17 12:20 1 APPLN Hydrocortisone Sodium Succinate 50 mg/Syringe 1 ml @ 4 mls/min Q8 IV 08/07/17 14:00 09/06/17 13:59 08/07/17 12:20 4 MLS/MIN (Edwige Wilson, REINALDOC) Review of Systems Constitutional: No fever, No chills Respiratory: No cough, No shortness of breath Cardiovascular: No chest pain Abdomen: + pain, + diarrhea (no blood but dark stools), No nausea, No vomiting Genitourinary - Female: No dysuria Endocrine: + fatigue Hematologic / Lymphatic: No abnormal bleeding/bruising Integumentary: No rash (Edwige Wislon, PA-C) Physical Exam Date Time Temp Pulse Resp B/P (MAP) Pulse Ox O2 Delivery O2 Flow Rate FiO2 08/07/17 12:00 95 Nasal Cannula 2.0 100 08/07/17 12:00 36.5 98 20 135/75 (95) 96 Nasal Cannula 2.0 08/07/17 08:00 95 Nasal Cannula 2.0 100 08/07/17 07:23 36.6 95 20 127/82 (97) 95 Nasal Cannula 2.0 08/07/17 04:00 Nasal Cannula 2.0 08/07/17 03:30 36.8 85 18 114/52 (72) 98 Nasal Cannula 2.0 08/07/17 00:00 Nasal Cannula 2.0 08/06/17 23:45 36.4 81 20 112/57 (75) 96 Nasal Cannula 2.0 08/06/17 20:00 Nasal Cannula 2.0 08/06/17 19:10 36.3 78 22 97/65 (76) 99 Nasal Cannula 2.0 100 08/06/17 16:05 Nasal Cannula 2.0 08/06/17 15:20 36.4 84 20 102/53 (69) 98 Nasal Cannula 2.0 100 General Appearance: WD/WN, no apparent distress Head: normocephalic, atraumatic Eyes: sclerae normal Neck: trachea midline Respiratory/Chest: lungs clear, normal breath sounds, no respiratory distress, no accessory muscle use Cardiovascular: no murmur, + irregularly irregular Abdomen/GI: normal bowel sounds, soft, no organomegaly, no pulsatile mass, + tenderness (In the LUQ and LLQ, also tenderness of the left lower rib cage. no peritonitis, rigidity, or guarding. Also has some left flank pain) Extremities/Musculoskelatal: normal inspection, no pedal edema Neurologic/Psych: alert, normal mood/affect, oriented x 3 Skin: normal color, warm/dry, no rash (Edwige Wilson ., ADILIA) Laboratory Results Last 24 Hours Test 08/07/17 04:57 White Blood Count 25.09 K/uL Red Blood Count 4.30 M/uL Hemoglobin 12.6 g/dL Hematocrit 39.5 % Mean Corpuscular Volume 91.9 fL Mean Corpuscular Hemoglobin 29.3 pg Mean Corpuscular Hemoglobin Concent 31.9 g/dl RDW Standard Deviation 55.8 fL RDW Coefficient of Variation 16.9 % Platelet Count 345 K/uL Mean Platelet Volume 9.3 fL Nucleated RBC Absolute Count (auto) 0.10 K/uL Nucleated Red Blood Cells % 0.4 % Sodium Level 144 mmol/L Potassium Level 4.3 mmol/L Chloride Level 120 mmol/L Carbon Dioxide Level 13 mmol/L Anion Gap 11.0 mmol/L Blood Urea Nitrogen 49 mg/dl Creatinine 1.79 mg/dl Est Creatinine Clear Calc Drug Dose 19.2 ml/min Estimated GFR () 30.1 Estimated GFR (Non- 25.9 BUN/Creatinine Ratio 27.4 Random Glucose 111 mg/dl Calcium Level 6.5 mg/dl Magnesium Level 2.2 mg/dl [~ rep ct add3]] ABD/PELVIS IV CONTRAST ONLY CT DOSE: 787.89 mGy.cm HISTORY: Pain lower abd pain, LUQ pain, diarrhea TECHNIQUE: Multiaxial CT images of the abdomen and pelvis were performed following the use of intravenous contrast. A dose lowering technique was utilized adhering to the principles of ALARA. COMPARISON STUDY: 11/30/2016 FINDINGS: Mild bibasilar parenchymal infiltrative change. Superimposed dependent atelectasis. Prior cholecystectomy. Residual chronic biliary ductal prominence. Moderate atrophy right kidney. Left kidney is negative for hydronephrosis. Bowel pattern is nonobstructive. Fixed lateral hernia. Chronic colonic diverticulosis with a suggestion of mild acute diverticulitis of the sigmoid and descending colon. No evidence for abscess collection or obstruction. No evidence for pneumatosis. IMPRESSION: 1. Mild bibasilar parenchymal infiltrative change. 2. Fixed hiatal hernia. 3. Diffuse colonic diverticulosis with superimposed acute diverticulitis involving the sigmoid and components of the descending colon. (Edwige Wilson ., ROE-C) Assessment & Plan 81 year-old female who presented to emergency department with left sided abdominal pain with diarrhea and weakness and chills. CT scan of abdomen and pelvis with IV Contrast showed acute diverticulitis of sigmoid and descending colon without evidence of abscess or perforation. Leukocytosis of 19K on admission with hypotension consistent with sepsis. Blood cultures negative x 2. Increasing abdominal pain, with increasing leukocytosis today. History of Rheumatoid Arthritis: currently receiving IV Hydrocortisone IV q 8 hours (leukocytosis skewed given steroids) Loose stools this am, dark in color no blood. Stool studies pending Plan: No acute surgical intervention required at this time. Abdomen is soft and no rigidity, guarding, or peritonitis. CT scan of abdomen and pelvis being repeated today. Await results. Continue current conservative management: IV fluids, IV antibiotics, IV pain medication and Zofran as needed for pain and nausea, keep pt NPO. (Edwige Wilson ., PA-C) I interviewed and examined this patient and reviewed her radiology studies and laboratory values and I agree with the above note. She now has thickening of the entire colon. I would evaluate for C. difficile. There is no evidence of acute peritonitis. Think that she needs surgical intervention immediately. We will continue to follow. (Sammy Sinha M.D.)
--- NOTE | 2017-08-07 14:26 | Progress Note ---
Subjective Date of Service: Aug 07, 2017. Subjective Pt evaluation today including: conversation w/ patient, conversation w/ family , physical exam, chart review, lab review, review of studies, conversation w/ sql server consultant, review of inpatient medication list Was having left upper abdomen pain last night, required pain medication iv x1 dose, which was resolved, when I examined her she reports left abdomen bowel pain, no nausea vomiting, report feel comfortable when using water swab to the mouth, still on n.p.o. No fever and chill Problem List Medical Problems: (1) Acute kidney injury Status: Acute (2) Acute renal failure Status: Acute (3) Anemia Status: Acute (4) Anemia Status: Acute (5) Back pain Status: Chronic (6) Colitis Status: Acute (7) Dehydration Status: Acute (8) Dehydration Status: Acute (9) Diarrhea Status: Acute (10) Elevated lactic acid level Status: Acute (11) Elevated troponin I level Status: Acute (12) Failure of outpatient treatment Status: Acute (13) Fever Status: Acute (14) Fever Status: Acute (15) GI bleed Status: Acute (16) History of chronic urinary tract infection Status: Acute (17) Hyponatremia Status: Acute (18) Immunocompromised Status: Acute (19) Laceration Status: Acute (20) Left arm cellulitis Status: Acute (21) Leukocytosis Status: Acute (22) Leukocytosis Status: Acute (23) Sepsis Status: Acute (24) Sepsis Status: Acute (25) Severe sepsis Status: Acute (26) SIRS (systemic inflammatory response syndrome) Status: Acute (27) Urinary tract infection Status: Acute (28) UTI (urinary tract infection) Status: Acute (29) UTI (urinary tract infection) Status: Acute (30) UTI (urinary tract infection) Status: Acute (31) Weakness Status: Acute Review of Systems Constitutional: No fever, No chills, No sweats, No weight loss, No weakness, No fatigue, No problem reported Eyes: No worsening of vision, No eye pain, No redness, No discharge, No diplopia ENT: + problem reported (Dry mucous membrane), No hearing loss, No unusual epistaxis, No nasal symptoms, No sore throat, No tinnitus, No dental problems, No trouble swallowing Respiratory: No cough, No sputum, No wheezing, No shortness of breath, No dyspnea on exertion, No dyspnea at rest, No hemoptysis Cardiac: No chest pain, No orthopnea, No PND, No edema, No claudication, No palpitations Abdomen: + pain, No nausea, No vomiting, No diarrhea, No constipation Musculoskeletal: No joint pain, No muscle pain, No swelling, No calf pain Female : No dysuria, No urinary frequency, No hematuria, No incontinence, No abnormal vaginal bleeding, No vaginal discharge Neurologic: No memory loss, No paralysis, No weakness, No numbness/tingling, No vertigo, No balance problems Psychiatric: No depression symptoms, No anhedonism, No anxiety, No insomnia, No substance abuse Heme: No abnormal bleeding/bruising, No clotting problems, No swollen lymph nodes, No night sweats Endo: No fatigue, No excessive thirst, No excessive urination Skin: No rash, No itch, No new/changing skin lesions, No color change, No bleeding Objective Vital Signs Date Time Temp Pulse Resp B/P (MAP) Pulse Ox O2 Delivery O2 Flow Rate FiO2 08/07/17 12:00 95 Nasal Cannula 2.0 100 08/07/17 12:00 36.5 98 20 135/75 (95) 96 Nasal Cannula 2.0 08/07/17 08:00 95 Nasal Cannula 2.0 100 08/07/17 07:23 36.6 95 20 127/82 (97) 95 Nasal Cannula 2.0 08/07/17 04:00 Nasal Cannula 2.0 08/07/17 03:30 36.8 85 18 114/52 (72) 98 Nasal Cannula 2.0 08/07/17 00:00 Nasal Cannula 2.0 08/06/17 23:45 36.4 81 20 112/57 (75) 96 Nasal Cannula 2.0 08/06/17 20:00 Nasal Cannula 2.0 08/06/17 19:10 36.3 78 22 97/65 (76) 99 Nasal Cannula 2.0 100 08/06/17 16:05 Nasal Cannula 2.0 08/06/17 15:20 36.4 84 20 102/53 (69) 98 Nasal Cannula 2.0 100 Physical Exam General Appearance: WD/WN, no apparent distress, + pertinent finding (Sitting up in chair, generally looks better than yesterday, pleasant, conversational) Eyes: normal inspection, PERRL, EOMI, sclerae normal ENT: normal ENT inspection, hearing grossly normal, pharynx normal Neck: supple, no adenopathy, thyroid normal, no JVD, no carotid bruits, trachea midline Respiratory/Chest: chest non-tender, normal breath sounds, no respiratory distress, no accessory muscle use, + decreased breath sounds Cardiovascular: regular rate, rhythm, no edema, no gallop, no JVD, no murmur Abdomen: soft, no organomegaly, no pulsatile mass, + tenderness (Left abdomen mild tender in palpation) Extremities: normal range of motion, non-tender, normal inspection, no pedal edema, no calf tenderness, normal capillary refill, pelvis stable, + swelling ( Trace edema) Neurologic/Psychiatric: select banker II-XII nml as tested, no motor/sensory deficits, alert, normal mood/affect, oriented x 3 Skin: normal color, warm/dry, no rash Lymphatic: no adenopathy Laboratory Results Last 24 Hours Test 08/07/17 04:57 White Blood Count 25.09 K/uL Red Blood Count 4.30 M/uL Hemoglobin 12.6 g/dL Hematocrit 39.5 % Mean Corpuscular Volume 91.9 fL Mean Corpuscular Hemoglobin 29.3 pg Mean Corpuscular Hemoglobin Concent 31.9 g/dl RDW Standard Deviation 55.8 fL RDW Coefficient of Variation 16.9 % Platelet Count 345 K/uL Mean Platelet Volume 9.3 fL Nucleated RBC Absolute Count (auto) 0.10 K/uL Nucleated Red Blood Cells % 0.4 % Sodium Level 144 mmol/L Potassium Level 4.3 mmol/L Chloride Level 120 mmol/L Carbon Dioxide Level 13 mmol/L Anion Gap 11.0 mmol/L Blood Urea Nitrogen 49 mg/dl Creatinine 1.79 mg/dl Est Creatinine Clear Calc Drug Dose 19.2 ml/min Estimated GFR () 30.1 Estimated GFR (Non- 25.9 BUN/Creatinine Ratio 27.4 Random Glucose 111 mg/dl Calcium Level 6.5 mg/dl Magnesium Level 2.2 mg/dl Assessment and Plan 81 y/o female admitted on August 05, 2017 because of sepsis and acute diverticulitis Past medical history HTN, HLD, RA, h/o breast cancer s/p lumpectomy and radiation, recurrent UTI, urinary incontinence, and anemia of chronic disease Acute diverticulitis with severe sepsis and hypotension, stable and improving diverticulitis with abdominal pain, has been on conservative treatment, because patient complaining above abdominal pain, which required morphine, and She has worsening leukocytosis, although she has no fever and chill, and leukocytosis can be explained by using steroid, however still worry about any complications from the diverticulitis such as abscess The best imaging studies would be abdominal CT with IV contrast, however patient has worsening renal function, not able to tolerate IV contrast, I am ordering abdominal CT without contrast, requested surgeon to see Leukocytosis possible from steroid using, also could be from diverticulitis, Some diarrhea, possible from side effect of IV antibiotic, but will check stool for C. difficile HTN, HLD--stable on hydrocortisone Recurrent UTI, urinary incontinence Acute on CKD stage III, is getting worse today, creatinine is 1.7 from 1.5, is on IV antibiotic, has ordered renal ultrasound, will continue follow-up Continue tele. continue IV Zosyn, day #2, NPO IV fluid Continue stress dose steroids, change hydrocortisone 100 mg IV q8h to 50 mg IV every 8. BP stable, follow-up blood culture, oxygen per protocol, Continue Norvasc, lisinopril, Dyazide on hold, BP borderline low this afternoon , follow-up H&H RA--stable -Hold home prednisone, continue hydrocortisone as above -Enbrel injections at home H/o breast cancer--noted Recurrent UTI, urinary incontinence -Urine culture mixed. Possible contaminated, patient is on Zosyn DVT prophylaxis, NANCY grubbs and SCDs DO NOT RESUSCITATE Discussed with patient and patient's daughter in the bedside, because of her age and current medical conditions, prognosis is guarded Continued [facility] stay due to: multiple IV medications needed Discharge planning: uncertain
--- NOTE | 2017-08-07 15:40 | DIAGNOSTIC IMAGING REPORT ---
RENAL ULTRASOUND CLINICAL HISTORY: Acute kidney injury. COMPARISON STUDY: CT of the abdomen and pelvis August 05, 2017 and renal ultrasound August 14, 2015. TECHNIQUE: Sonography of the kidneys and the urinary bladder was performed. FINDINGS: This exam is compromised by suboptimal penetration. No hydronephrosis is noted. There is moderate to marked right renal atrophy. The right kidney measures 6.5 x 3.5 x 4.2 cm and the left measures 10.3 x 5 x 4 cm. No calculi or masses are identified by sonography. No abnormality of the bladder was identified. IMPRESSION: 1. No hydronephrosis. 2. Moderate to marked right renal atrophy. Electronically signed by: Maurice Lala M.D. 08/07/2017 3:39 PM Dictated Date/Time: 08/07/2017 3:37 PM
--- NOTE | 2017-08-07 16:00 | DIAGNOSTIC IMAGING REPORT ---
ABDOMEN AND PELVIS CT WITHOUT CONTRAST CT DOSE: 350.61 mGy.cm HISTORY: diverticulitis , now has worsening generalized abdominal pain, TECHNIQUE: Multiaxial CT images of the abdomen and pelvis were performed without contrast. A dose lowering technique was utilized adhering to the principles of ALARA. COMPARISON STUDY: Abdomen and pelvis CT 08/05/2017. FINDINGS: Small bilateral pleural effusions with bibasilar densities suggesting compressive atelectasis from the pleural effusions. Elevated right hemidiaphragm, unchanged. Moderate hiatus hernia. Emphysema. No pneumoperitoneum. No pneumatosis. Bilateral total hip arthroplasties. Posterior decompression and fusion within the lumbar spine. Stable sclerotic focus within the right posterior 12th rib. Old, healed left-sided rib fractures. Cholecystectomy. The unenhanced liver, spleen, adrenal glands, and pancreas are unremarkable. There are few diverticula within the duodenum. No hydronephrosis. Atrophic right kidney with cortical scarring. This remains unchanged. No retroperitoneal lymphadenopathy. The bladder is not well visualized due to the metallic artifact from the hip arthroplasties. Small amount of pelvic fluid. Mild presacral edema. Diffuse thickening of the entire colon and rectum with pericolonic fat stranding. This is consistent with a pancolitis. Multiple colonic diverticula are again noted. No perforation or abscess identified within the abdomen or pelvis. No dilated loops of small bowel to suggest an obstruction. Moderate body wall edema which has progressed. IV contrast within the bladder due to the prior CT examination. IMPRESSION: 1. Bowel wall thickening involving the entire colon and rectum with associated pericolonic fat stranding. This has progressed and is consistent with a pancolitis. Therefore, this is likely due to an inflammatory or infectious process such as C. difficile colitis. Stool culture is recommended. 2. Small amount of ascites and moderate body wall edema which has progressed. 3. Small bilateral pleural effusions. 4. Colonic diverticulosis. 5. Additional findings as described above. Electronically signed by: Smooth Bowman M.D. 08/07/2017 3:59 PM Dictated Date/Time: 08/07/2017 3:50 PM
[2017-08-07] MEDS: MIRABEGRON ER 25 MG TAB PO SCH (19:37)
[2017-08-07] MEDS: VANCOMYCIN HCL 125 MG/2.5ML SOLN PO SCH (23:45)
[2017-08-07] MEDS: RASPBERRY SYRUP 5 ML UDP PO SCH (23:45)
[2017-08-08] VITALS (14 sets, daily range): BP systolic 125–168; BP diastolic 55–110; PULSE 90–128; TEMP 36.3–36.8; O2SAT 94–100
[2017-08-08] MEDS: HYDROmorphone INJ 2 MG/ML SYR/VIAL IV PRN ×2 (02:37→08:34)
[2017-08-08] MEDS: SODIUM CHLORIDE 0.9% 1000ML 1,000 ML IV SCH (03:49)
[2017-08-08] MEDS: PIPERACILL/TAZOBAC IV 3.375 GM in SODIUM CHLORIDE 0.9% 100ML 100 ML IV SCH ×2 (03:50→12:28)
[2017-08-08] MEDS: RASPBERRY SYRUP 5 ML UDP PO SCH ×4 (05:03→22:46)
[2017-08-08] MEDS: VANCOMYCIN HCL 125 MG/2.5ML SOLN PO SCH ×4 (05:03→22:46)
[2017-08-08] MEDS: HYDROCORTISONE IV 50 MG in SYRINGE 0 ML IV SCH (05:03)
[2017-08-08 05:07] LABS: HEMATOCRIT 38.9 % (37-47); HEMOGLOBIN 12.2 g/dL (12.0-16.0); MEAN CELL VOLUME 90.9 fL (80-100); MEAN CORPUSCULAR HEMOGLOBIN 28.5 pg (25-34); MEAN CORPUSCULAR HGB CONC 31.4 g/dl (32-36); NUCLEATED RED BLOOD CELL ABS 0.15 K/uL (0-0); PLATELET COUNT 346 K/uL (130-400); RED CELL DISTRIBUTION WIDTH CV 17.2 % (11.5-14.5); RED CELL DISTRIBUTION WIDTH SD 56.3 fL (36.4-46.3); WHITE BLOOD COUNT 21.89 K/uL (4.8-10.8)
[2017-08-08 05:54] LABS: CALCIUM 5.8 mg/dl (8.5-10.1); CREATININE 1.69 mg/dl (0.60-1.20); POTASSIUM 3.8 mmol/L (3.5-5.1)
[2017-08-08] MEDS ORDERED: DEXTROSE 5% 1000ML 1,000 ML IV SCH (07:22)
[2017-08-08] MEDS: GENTAMICIN SULFATE 0.3% OP OINT 3.5 GM TUBE OP SCH ×4 (08:34→21:17)
[2017-08-08] MEDS: SACCHAROMYCES BOUL (FLORASTOR) 250 MG CAP PO SCH (09:36)
--- NOTE | 2017-08-08 10:49 | Clinical Documentation Query ---
CLINICAL DOCUMENTATION QUERY Dr. FANG, In your clinical opinion is this patient being managed for: ( ) C diff colitis, POA ( x ) C diff colitis, possible not POA ( ) Not Agree ( ) Other explanation of clinical findings (Please Explain. If no explanation given, this would be considered a no response.) ( ) Unable to determine ( ) Need to Discuss (Please call CDS via extension or qliq. If no interaction occurs this is considered a no response.) The medical record reflects the following clinical findings, treatment, and risk factors. Clinical Indicators: 81 yo female presenting with bloody diarrhea, N/V. Stool specimen was + for C difficile Treatment: po vancomycin, IV fluids Risk Factors: age, chronic steroid tx for rheumatoid arthritis, IV antibiotics for diverticulitis and recurrent UTI's Please clarify and document your clinical opinion in the progress notes and discharge summary. Terms such as "probable", "suspected", "likely", "questionable", "possible", or "still to be ruled out" are acceptable. IF IN AGREEMENT, YOU MUST DOCUMENT ABOVE DIAGNOSTIC STATEMENT IN DAILY PROGRESS NOTES AND DISCHARGE SUMMARY. This document is not part of the patient's record. Thank You, Hallie Salinas RN [phone]
--- NOTE | 2017-08-08 14:03 | Gastrointestinal Consultation ---
Gastrointestinal Consultation Date of Consultation: Aug 08, 2017 Attending Physician: Dr hPi Landis Consulting Physician: Dr Luis Alberto Pineda Reason for Consultation: pancolitis History of Present Illness Patient is a 81 year old female with CC of diarrhea and abd pain. 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 Chart says bloody diarrhea--pt states had dark stool. Todays nurse reports stool from yesterday brown but no black or red in them. Pt had CT scan showing diverticulitis and she was treated for that. However, yesterday WBC was worse and abd pain worse so CT A/P repeated and this time showed pancolitis. Cdiff ordered and postive. Stool cx pending. Abd pain is better and WBC better today. Reviewing [facility] EMR she had OV 05/28/[address] Garcia for anemia and he did SB enteroscopy and colonoscoppy 06/13/17 SB enteroscopy showed gastric polyps path fundic gland, medium HH, slight esophageal ring, diverticulum in 3rd and 4th duodenum and jejunal diverticulum. Random duod bx negative. [place] showed 6 polyps up to 13 mm in size all removed and diverticulosis. Colon polyps one tubular adenoma and rest inflammatory, random path colon negative. Past Medical/Surgical History Medical Problems: (1) Acute kidney injury Status: Acute (2) Acute renal failure Status: Acute (3) Anemia Status: Acute (4) Anemia Status: Acute (5) Back pain Status: Chronic (6) Colitis Status: Acute (7) Dehydration Status: Acute (8) Dehydration Status: Acute (9) Diarrhea Status: Acute (10) Elevated lactic acid level Status: Acute (11) Elevated troponin I level Status: Acute (12) Failure of outpatient treatment Status: Acute (13) Fever Status: Acute (14) Fever Status: Acute (15) GI bleed Status: Acute (16) History of chronic urinary tract infection Status: Acute (17) Hyponatremia Status: Acute (18) Immunocompromised Status: Acute (19) Laceration Status: Acute (20) Left arm cellulitis Status: Acute (21) Leukocytosis Status: Acute (22) Leukocytosis Status: Acute (23) Sepsis Status: Acute (24) Sepsis Status: Acute (25) Severe sepsis Status: Acute (26) SIRS (systemic inflammatory response syndrome) Status: Acute (27) Urinary tract infection Status: Acute (28) UTI (urinary tract infection) Status: Acute (29) UTI (urinary tract infection) Status: Acute (30) UTI (urinary tract infection) Status: Acute (31) Weakness Status: Acute Family History Cancer Diabetes mellitus Hypertension Social History Smoking Status: Never Smoker Alcohol Use: none Marital Status: Housing Status: lives with significant other Occupation Status: retired Allergies Coded Allergies: Sulfa Antibiotics (Verified Allergy, Intermediate, FLU LIKE SYMPTOMS, 08/05) Sulfamethoxazole w/Trimethoprim (Verified Allergy, Intermediate, FLU LIKE SYMPTOMS, 08/05/17) Current Medications Home Meds and Scripts Medications Dose Route/Sig Max Daily Dose Days Date Category Dose Instructions Gentak (Gentamicin Sulfate) 12 Appln/3.5 Gm Oint 1 Appln OP QID 08/06/17 Reported Citracal + D3 Maximum (Calcium Citrate-Vitamin D) 1 Tab Tab 1 Tab PO QAM 08/05/17 Reported Vitamin D2 (Ergocalciferol) Unknown Strength Tab 1 Dose PO QAM 08/05/17 Reported Prednisone 1 Mg Tab 2 Mg PO QAM 08/05/17 Reported TAKES TOTAL DOSE 12 MG. Prednisone 10 Mg Tab 10 Mg PO QAM 08/05/17 Reported TOTAL DOSE 12 MG. Ultram (Tramadol HCl) 50 Mg Tab 50 Mg PO Q8H PRN 06/01/17 Reported Norvasc (Amlodipine Besylate) 5 Mg Tab 5 Mg PO QAM 06/01/17 Reported Nitrofurantoin Macrocryst (Nitrofurantoin Macrocrystal) 50 Mg Cap 1 Cap PO QPM 06/01/17 Reported Triamterene/Hctz 37.5-25MG (Triamterene/HCTZ) 1 Tab Tab 1 Tab PO QAM 06/01/17 Reported Prinivil (Lisinopril) 10 Mg Tab 10 Mg PO QAM 06/01/17 Reported Myrbetriq Er (Mirabegron) 25 Mg Tab 25 Mg PO QPM 06/01/17 Reported Enbrel Sureclick (Etanercept) 50 Mg/Ml Inj 1 INJ WK 04/27/17 Reported TAKES ON THURSDAYS Aspirin Ec (Aspirin) 81 Mg Tab 81 Mg PO QAM 11/30/16 Reported Potassium Chloride Er (Potassium Chloride) 10 Meq Cap 1 Cap PO BID 09/26/16 Reported Zocor (Simvastatin) 20 Mg Tab 20 Mg PO QPM 03/29/15 Reported Review of Systems see HPI, otherwise 10 ROS negative. Physical Exam Date Time Temp Pulse Resp B/P (MAP) Pulse Ox O2 Delivery O2 Flow Rate FiO2 08/08/17 12:00 114 08/08/17 12:00 95 Nasal Cannula 2.0 100 08/08/17 11:26 118 94 08/08/17 10:33 36.3 113 20 151/90 (110) 95 Room Air 08/08/17 08:00 95 Nasal Cannula 2.0 100 08/08/17 07:44 36.5 111 20 163/105 (124) 95 Room Air 08/08/17 04:00 98 Nasal Cannula 1.0 100 08/08/17 03:48 36.4 100 22 133/73 (93) 100 Room Air 08/08/17 00:00 98 Nasal Cannula 1.0 100 08/07/17 23:43 36.4 110 18 132/67 (88) 98 Nasal Cannula 2.0 08/07/17 20:00 98 Nasal Cannula 1.0 100 08/07/17 19:47 36.4 107 20 148/86 (106) 94 Nasal Cannula 2.0 08/07/17 16:00 98 Nasal Cannula 1.0 100 08/07/17 15:50 36.1 109 20 158/76 (103) 98 Nasal Cannula 1.0 General Appearance: WD/WN, no apparent distress Eyes: normal inspection, PERRL ENT: pharynx normal, + pertinent finding (decreased hearing) Neck: supple, trachea midline Respiratory/Chest: lungs clear, normal breath sounds Cardiovascular: regular rate, rhythm, no murmur Abdomen: normal bowel sounds, soft, no organomegaly, no pulsatile mass, + pertinent finding (no guarding nor rebound) Extremities: normal range of motion, no pedal edema Neurologic/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, alert, normal mood/affect, oriented x 3 Skin: normal color, no jaundice Laboratory Results Last 24 Hours Test 08/07/17 14:38 08/08/17 04:41 08/08/17 13:47 Erythrocyte Sedimentation Rate 14 mm/hr Lactic Acid Level 0.9 mmol/L C-Reactive Protein 7.47 mg/dl Procalcitonin 0.60 ng/ml White Blood Count 21.89 K/uL Red Blood Count 4.28 M/uL Hemoglobin 12.2 g/dL Hematocrit 38.9 % Mean Corpuscular Volume 90.9 fL Mean Corpuscular Hemoglobin 28.5 pg Mean Corpuscular Hemoglobin Concent 31.4 g/dl RDW Standard Deviation 56.3 fL RDW Coefficient of Variation 17.2 % Platelet Count 346 K/uL Mean Platelet Volume 9.0 fL Nucleated RBC Absolute Count (auto) 0.15 K/uL Nucleated Red Blood Cells % 0.7 % Sodium Level 150 mmol/L Potassium Level 3.8 mmol/L Chloride Level 126 mmol/L Carbon Dioxide Level 12 mmol/L Anion Gap 12.0 mmol/L Blood Urea Nitrogen 56 mg/dl Creatinine 1.69 mg/dl Est Creatinine Clear Calc Drug Dose 20.3 ml/min Estimated GFR () 32.2 Estimated GFR (Non- 27.8 BUN/Creatinine Ratio 33.1 Random Glucose 95 mg/dl Calcium Level 5.8 mg/dl Magnesium Level 2.2 mg/dl Impression Cdiff colitis--continue po vanco pancolitis on CT--likely from cdiff diarrhea--likely from cdiff heme pos stool--can be from cdiff abd pain from cdiff Continue supportive care and abx for cdiff. Ok for clear liquid diet.
[2017-08-08 14:17] LABS: CALCIUM 6.2 mg/dl (8.5-10.1); CREATININE 2.07 mg/dl (0.60-1.20); PHOSPHORUS 4.5 mg/dl (2.5-4.9); POTASSIUM 4.2 mmol/L (3.5-5.1)
[2017-08-08] MEDS ORDERED: AMOXICILLIN/CLAVULANATE TAB 500 MG TAB PO SCH (16:45)
[2017-08-08] MEDS: ONDANSETRON INJ 2 MG/ML 2 ML VIAL IV PRN ×2 (16:45→22:46)
--- NOTE | 2017-08-08 17:56 | Progress Note ---
Subjective Date of Service: Aug 08, 2017. Subjective Pt evaluation today including: conversation w/ patient, conversation w/ family , physical exam, chart review, lab review, review of studies, conversation w/ advanced manufacturing consultant, review of inpatient medication list sitting up in chair, feeling better, only has once diarrhea , small amount this am , no fever, abd pain is controlled by iv meds Problem List Medical Problems: (1) Acute kidney injury Status: Acute (2) Acute renal failure Status: Acute (3) Anemia Status: Acute (4) Anemia Status: Acute (5) Back pain Status: Chronic (6) Colitis Status: Acute (7) Dehydration Status: Acute (8) Dehydration Status: Acute (9) Diarrhea Status: Acute (10) Elevated lactic acid level Status: Acute (11) Elevated troponin I level Status: Acute (12) Failure of outpatient treatment Status: Acute (13) Fever Status: Acute (14) Fever Status: Acute (15) GI bleed Status: Acute (16) History of chronic urinary tract infection Status: Acute (17) Hyponatremia Status: Acute (18) Immunocompromised Status: Acute (19) Laceration Status: Acute (20) Left arm cellulitis Status: Acute (21) Leukocytosis Status: Acute (22) Leukocytosis Status: Acute (23) Sepsis Status: Acute (24) Sepsis Status: Acute (25) Severe sepsis Status: Acute (26) SIRS (systemic inflammatory response syndrome) Status: Acute (27) Urinary tract infection Status: Acute (28) UTI (urinary tract infection) Status: Acute (29) UTI (urinary tract infection) Status: Acute (30) UTI (urinary tract infection) Status: Acute (31) Weakness Status: Acute Review of Systems Constitutional: + weakness, + fatigue, No fever, No chills, No sweats, No weight loss, No problem reported Eyes: No worsening of vision, No eye pain, No redness, No discharge, No diplopia ENT: No hearing loss, No unusual epistaxis, No nasal symptoms, No sore throat, No tinnitus, No dental problems, No trouble swallowing Respiratory: No cough, No sputum, No wheezing, No shortness of breath, No dyspnea on exertion, No dyspnea at rest, No hemoptysis Cardiac: No chest pain, No orthopnea, No PND, No edema, No claudication, No palpitations Abdomen: + pain, + diarrhea, No nausea, No vomiting, No constipation Musculoskeletal: No joint pain, No muscle pain, No swelling, No calf pain Female : No dysuria, No urinary frequency, No hematuria, No incontinence, No abnormal vaginal bleeding, No vaginal discharge Neurologic: No memory loss, No paralysis, No weakness, No numbness/tingling, No vertigo, No balance problems Psychiatric: No depression symptoms, No anhedonism, No anxiety, No insomnia, No substance abuse Heme: No abnormal bleeding/bruising, No clotting problems, No swollen lymph nodes, No night sweats Endo: No fatigue, No excessive thirst, No excessive urination Skin: No rash, No itch, No new/changing skin lesions, No color change, No bleeding Objective Vital Signs Date Time Temp Pulse Resp B/P (MAP) Pulse Ox O2 Delivery O2 Flow Rate FiO2 08/08/17 15:18 36.6 111 20 149/78 (101) 98 Nasal Cannula 2.0 08/08/17 12:00 114 08/08/17 12:00 95 Nasal Cannula 2.0 100 08/08/17 11:26 118 94 08/08/17 10:33 36.3 113 20 151/90 (110) 95 Room Air 08/08/17 08:00 95 Nasal Cannula 2.0 100 08/08/17 07:44 36.5 111 20 163/105 (124) 95 Room Air 08/08/17 04:00 98 Nasal Cannula 1.0 100 08/08/17 03:48 36.4 100 22 133/73 (93) 100 Room Air 08/08/17 00:00 98 Nasal Cannula 1.0 100 08/07/17 23:43 36.4 110 18 132/67 (88) 98 Nasal Cannula 2.0 08/07/17 20:00 98 Nasal Cannula 1.0 100 08/07/17 19:47 36.4 107 20 148/86 (106) 94 Nasal Cannula 2.0 Physical Exam General Appearance: WD/WN, no apparent distress Eyes: normal inspection, PERRL, EOMI, sclerae normal ENT: normal ENT inspection, hearing grossly normal, pharynx normal, + pertinent finding (dry lips) Neck: supple, no adenopathy, thyroid normal, no JVD, no carotid bruits, trachea midline Respiratory/Chest: chest non-tender, lungs clear, normal breath sounds, no respiratory distress, no accessory muscle use Cardiovascular: regular rate, rhythm, no edema, no gallop, no JVD, no murmur Abdomen: normal bowel sounds, soft, no organomegaly, no pulsatile mass, + tenderness (mild ) Extremities: normal range of motion, non-tender, normal inspection, no calf tenderness, normal capillary refill, pelvis stable, + swelling (trace) 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, no motor/sensory deficits, alert, normal mood/affect, oriented x 3 Skin: normal color, warm/dry, no rash Lymphatic: no adenopathy Laboratory Results Last 24 Hours Test 08/08/17 04:41 08/08/17 13:47 White Blood Count 21.89 K/uL Red Blood Count 4.28 M/uL Hemoglobin 12.2 g/dL Hematocrit 38.9 % Mean Corpuscular Volume 90.9 fL Mean Corpuscular Hemoglobin 28.5 pg Mean Corpuscular Hemoglobin Concent 31.4 g/dl RDW Standard Deviation 56.3 fL RDW Coefficient of Variation 17.2 % Platelet Count 346 K/uL Mean Platelet Volume 9.0 fL Nucleated RBC Absolute Count (auto) 0.15 K/uL Nucleated Red Blood Cells % 0.7 % Sodium Level 150 mmol/L 145 mmol/L Potassium Level 3.8 mmol/L 4.2 mmol/L Chloride Level 126 mmol/L 123 mmol/L Carbon Dioxide Level 12 mmol/L 12 mmol/L Anion Gap 12.0 mmol/L 10.0 mmol/L Blood Urea Nitrogen 56 mg/dl 62 mg/dl Creatinine 1.69 mg/dl 2.07 mg/dl Est Creatinine Clear Calc Drug Dose 20.3 ml/min 16.5 ml/min Estimated GFR () 32.2 25.2 Estimated GFR (Non- 27.8 21.8 BUN/Creatinine Ratio 33.1 29.9 Random Glucose 95 mg/dl 155 mg/dl Calcium Level 5.8 mg/dl 6.2 mg/dl Magnesium Level 2.2 mg/dl 2.6 mg/dl Phosphorus Level 4.5 mg/dl Assessment and Plan 81 y/o female admitted on August 05, 2017 because of sepsis and acute diverticulitis, later found has cdiff pancolitis Past medical history HTN, HLD, RA, h/o breast cancer s/p lumpectomy and radiation, recurrent UTI, urinary incontinence, and anemia of chronic disease Acute diverticulitis with severe sepsis and hypotension, stable and improving diverticulitis with abdominal pain, has been on conservative treatment, because patient complaining above abdominal pain, which required morphine, and abdominal CT without contrast has no abscess cdiff pancolitis, oral vanco started b/c has sepsis and diverticulitis upon admission, will will cont augmentin, and Van should be extended 7 days after finishing of augmentin HTN, HLD--stable on hydrocortisone Recurrent UTI, urinary incontinence Acute on CKD stage III, is getting worse today, likely prerenal , increase ivf RA--stable -Hold home prednisone, continue hydrocortisone as above -Enbrel injections at home H/o breast cancer--noted DVT prophylaxis, NANCY grubbs and SCDs DO NOT RESUSCITATE Discussed with patient and patient's daughter in the bedside, because of her age and current medical conditions, prognosis is guarded Continued [facility] stay due to: multiple IV medications needed Discharge planning: uncertain
[2017-08-08] MEDS: D5W AND 1/2NSS 1,000 ML IV SCH (19:42)
[2017-08-08] MEDS: MIRABEGRON ER 25 MG TAB PO SCH (21:17)
[2017-08-09 03:19] VITALS: BP 145/86; PULSE 125; TEMP 36.6; O2SAT 95
[2017-08-09] MEDS: D5W AND 1/2NSS 1,000 ML IV SCH ×3 (03:48→20:28)
[2017-08-09] MEDS: ONDANSETRON INJ 2 MG/ML 2 ML VIAL IV PRN ×2 (04:28→07:39)
[2017-08-09] MEDS: RASPBERRY SYRUP 5 ML UDP PO SCH ×4 (04:40→23:17)
[2017-08-09] MEDS: VANCOMYCIN HCL 125 MG/2.5ML SOLN PO SCH ×4 (04:40→23:17)
[2017-08-09 05:02] LABS: BASO % 0.2 %; BASO ABS # 0.04 K/uL (0-0.2); EOS % 0.1 %; EOS ABS # 0.02 K/uL (0-0.5); HEMATOCRIT 42.4 % (37-47); HEMOGLOBIN 13.6 g/dL (12.0-16.0); LYMPH % 6.3 %; LYMPH ABS # 1.43 K/uL (1.2-3.4); MEAN CELL VOLUME 88.1 fL (80-100); MEAN CORPUSCULAR HEMOGLOBIN 28.3 pg (25-34); MEAN CORPUSCULAR HGB CONC 32.1 g/dl (32-36); MEAN PLATELET VOLUME 9.1 fL (7.4-10.4); MONO % 7.4 %; MONO ABS # 1.68 K/uL (0.11-0.59); NEUT % 83.4 %; NEUT ABS # 19.08 K/uL (1.4-6.5); NUCLEATED RED BLOOD CELL ABS 0.12 K/uL (0-0); PLATELET COUNT 351 K/uL (130-400); RED CELL DISTRIBUTION WIDTH CV 17.1 % (11.5-14.5); RED CELL DISTRIBUTION WIDTH SD 55.1 fL (36.4-46.3); WHITE BLOOD COUNT 22.85 K/uL (4.8-10.8)
[2017-08-09 06:04] LABS: ALBUMIN 1.8 gm/dl (3.4-5.0); CALCIUM 5.8 mg/dl (8.5-10.1); CREATININE 2.04 mg/dl (0.60-1.20); POTASSIUM 3.1 mmol/L (3.5-5.1); TOTAL PROTEIN 4.4 gm/dl (6.4-8.2)
[2017-08-09 07:46] VITALS: BP 135/85; PULSE 123; TEMP 36.8; O2SAT 96
[2017-08-09] MEDS ORDERED: CALCIUM GLUCONATE 10% 1,000 MG in SODIUM CHLORIDE 0.9% 50ML 50 ML IV ONE ×2 (08:00→18:00)
[2017-08-09] MEDS: POTASSIUM CHLR 20 MEQ / WTR 20 MEQ in PREMIXED WATER 100 ML IV SCH ×2 (08:26→11:08)
[2017-08-09] MEDS: SACCHAROMYCES BOUL (FLORASTOR) 250 MG CAP PO SCH (08:28)
[2017-08-09] MEDS: GENTAMICIN SULFATE 0.3% OP OINT 3.5 GM TUBE OP SCH ×4 (08:28→20:32)
[2017-08-09] MEDS: HYDROmorphone INJ 2 MG/ML SYR/VIAL IV PRN ×2 (09:35→15:28)
[2017-08-09] MEDS: PROMETHAZINE HCL INJ 12.5 MG in SODIUM CHLORIDE 0.9% 50ML 50 ML IV PRN ×2 (09:36→15:27)
--- NOTE | 2017-08-09 10:41 | Medical Consult ---
Consultation Date of Consultation: Aug 09, 2017. Attending Physician: Phi Landis MD, PhD Reason for Consultation: Sepsis, C diff History of Present Illness History obtained from medical records and staff as patient unable to provide adequate history at present time. 81-year-old female with history of rheumatoid arthritis, hypertension, breast cancer, and anemia, who was admitted to the hospital August 05 with 1 day history of severe abdominal pain and diarrhea. Was felt to have diverticulitis and started on Zosyn, but subsequently patient found to have positive C diff PCR. Now on oral vancomycin therapy. CT scan of the abdomen, read by me, shows evidence of pancolitis. Patient with elevated white count and renal insufficiency consistent with severe C diff infection. Today is become much less arousable and conversant. Had 12 bowel movements yesterday. Has been afebrile with stable blood pressure. Blood cultures have been negative. Past Medical/Surgical History Medical Problems: (1) Acute kidney injury Status: Acute (2) Acute renal failure Status: Acute (3) Anemia Status: Acute (4) Anemia Status: Acute (5) Back pain Status: Chronic (6) Colitis Status: Acute (7) Dehydration Status: Acute (8) Dehydration Status: Acute (9) Diarrhea Status: Acute (10) Elevated lactic acid level Status: Acute (11) Elevated troponin I level Status: Acute (12) Failure of outpatient treatment Status: Acute (13) Fever Status: Acute (14) Fever Status: Acute (15) GI bleed Status: Acute (16) History of chronic urinary tract infection Status: Acute (17) Hyponatremia Status: Acute (18) Immunocompromised Status: Acute (19) Laceration Status: Acute (20) Left arm cellulitis Status: Acute (21) Leukocytosis Status: Acute (22) Leukocytosis Status: Acute (23) Sepsis Status: Acute (24) Sepsis Status: Acute (25) Severe sepsis Status: Acute (26) SIRS (systemic inflammatory response syndrome) Status: Acute (27) Urinary tract infection Status: Acute (28) UTI (urinary tract infection) Status: Acute (29) UTI (urinary tract infection) Status: Acute (30) UTI (urinary tract infection) Status: Acute (31) Weakness Status: Acute Medical Problems: (1) Acute diverticulitis (2) ANEMIA,RHEUMATOID ARTHRITIS (3) Arthritis (4) Back pain (5) CELLULITIS LEFT HAND/WRIST. ACUTE ARTHRITIS L WRIST (6) DEHYD,UTI,ANENIA (7) elev. troponinn,diarrhea, dehyd (8) Fungus present in urine (9) Hypertension (10) Lower urinary tract infection, acute (11) PERSISTENT UTI, VOMITING (12) Pneumonia (13) RECURRENT UTI, ?SEPSIS (14) Rheumatoid arthritis (15) S/P hysterectomy (16) Sepsis (17) SEPSIS,UTI,ACUTE RENAL FAILURE,RHEUMATOID ARTH (18) UTI, SEPSIS SYNDROME, Surgical Problems: (1) History of back surgery (2) History of cataract surgery (3) History of cholecystectomy (4) History of left hip replacement (5) History of right hip replacement (6) S/P lumpectomy of breast Family History Cancer Diabetes mellitus Hypertension Social History Smoking Status: Never Smoker Marital Status: Housing Status: lives with significant other Occupation Status: retired Allergies Coded Allergies: Sulfa Antibiotics (Verified Allergy, Intermediate, FLU LIKE SYMPTOMS, 08/05) Sulfamethoxazole w/Trimethoprim (Verified Allergy, Intermediate, FLU LIKE SYMPTOMS, 08/05/17) Current Inpatient Medications Current Inpatient Medications Medications (Trade) Dose Ordered Sig/Martina Route Start Time Stop Time Status Last Admin Dose Admin Acetaminophen (Tylenol Tab) 650 mg Q4H PRN PO 08/05/17 07:30 09/04/17 07:29 Ondansetron HCl (Zofran Inj) 4 mg Q6H PRN IV 08/05/17 07:30 09/04/17 07:29 08/09/17 07:39 4 MG Mirabegron (Myrbetriq Er) 25 mg QPM PO 08/05/17 21:00 09/04/17 20:59 08/08/17 21:17 25 MG Hydromorphone HCl (Dilaudid Inj) 1 mg Q4 PRN IV 08/06/17 03:45 08/19/17 08:14 08/09/17 09:35 1 MG Gentamicin Sulfate (Gentamicin 0.3% Oph Oint) 1 appln QID OP 08/06/17 17:00 08/16/17 16:59 08/09/17 08:28 1 APPLN Vancomycin HCl (Vancomycin Oral Soln) 125 mg Q6H PO 08/07/17 23:00 08/21/17 23:59 08/09/17 04:40 125 MG Raspberry (Raspberry Syrup 5ml Cup) 5 ml Q6H PO 08/07/17 23:00 08/21/17 23:59 08/09/17 04:40 5 ML Saccharomyces Boulardii (Florastor Cap) 250 mg DAILY PO 08/08/17 09:00 09/07/17 08:59 08/09/17 08:28 250 MG Dextrose/Sodium Chloride 1,000 ml @ 150 mls/hr Q6H40M IV 08/08/17 19:00 09/07/17 18:59 08/09/17 03:48 125 MLS/HR Potassium Chloride 20 meq/ Prmx 100 ml @ 50 mls/hr Q2H IV 08/09/17 08:15 08/09/17 12:14 08/09/17 08:26 50 MLS/HR Promethazine HCl 12.5 mg/Sodium Chloride 50.5 ml @ 204 mls/hr Q6H PRN IV 08/09/17 09:15 09/08/17 09:14 08/09/17 09:36 204 MLS/HR Review of Systems Not obtainable because of patient's mental status Physical Exam Date Time Temp Pulse Resp B/P (MAP) Pulse Ox O2 Delivery O2 Flow Rate FiO2 08/09/17 08:00 Nasal Cannula 2.0 08/09/17 07:46 36.8 123 18 135/85 (102) 96 Nasal Cannula 2.0 08/09/17 04:00 Nasal Cannula 2.0 08/09/17 03:19 36.6 125 19 145/86 (105) 95 Nasal Cannula 2.0 08/09/17 00:01 Nasal Cannula 2.0 08/08/17 23:12 36.8 90 21 144/55 (84) 99 Room Air 08/08/17 21:00 119 20 168/84 (112) 08/08/17 20:00 99 Nasal Cannula 2.0 08/08/17 19:10 36.8 128 20 168/110 (129) 99 Nasal Cannula 2.0 100 08/08/17 16:00 98 Nasal Cannula 2.0 08/08/17 15:18 36.6 111 20 149/78 (101) 98 Nasal Cannula 2.0 08/08/17 12:00 114 08/08/17 12:00 95 Nasal Cannula 2.0 100 08/08/17 11:26 118 94 General Appearance: WD/WN, no apparent distress Head: normocephalic, atraumatic Eyes: normal inspection, EOMI, sclerae normal ENT: normal ENT inspection, pharynx normal Neck: supple, no adenopathy, thyroid normal, trachea midline Respiratory/Chest: chest non-tender, lungs clear, normal breath sounds, no respiratory distress Cardiovascular: regular rate, rhythm, no gallop, no murmur Abdomen/GI: normal bowel sounds, soft, no organomegaly, + tenderness Back: normal inspection, no CVA tenderness Extremities/Musculoskelatal: no calf tenderness, non-tender Neurologic/Psych: no motor/sensory deficits, + pertinent finding (Lethargic) Skin: normal color, warm/dry, no rash Lymphatic: no adenopathy Laboratory Results RUN DATE: 08/07/17 [facility] LAB PAGE 1 RUN TIME: 2057 Specimen Inquiry PATIENT: NAVYA DIAZ LOC: [facility] U # : [id number] AGE/SX: 81/F ROOM: [facility] REG : 08/05/[address]: Phi Landis MD, PhD : 1935 BED: 1 DIS : STATUS: ADM IN TLOC: SPEC #: [id number] RANDAL: 08/07/17-1904 STATUS: COMP REQ #: [id number] RECD: 08/07/17 [facility] [address]: Phi Landis MD , PhD SOURCE: STOOL ENTR: 08/07/[address] [facility] [address]: Wilmar Dela Cruz M.D. [facility]: Sammy Sinha M.D. Thomas, Peter W., D.O. ORDERED: CDIFF TOXIN B COMMENTS: Has Specimen Been Obtained/Collected? Y I have reviewed the C. diff order recommendations Y Procedure Result Verified Site CDIFF TOXIN B GENE*(2 YR OR >) Final 08/07/17-2057 Positive for C. difficile toxin B gene RESULTS WERE ALSO CALLED TO [facility] INFECTION CONTROL ANSWERING MACHINE ON 08/07/17 BY MADI. Last 24 Hours Test 08/08/17 13:47 08/09/17 04:40 Sodium Level 145 mmol/L 143 mmol/L Potassium Level 4.2 mmol/L 3.1 mmol/L Chloride Level 123 mmol/L 121 mmol/L Carbon Dioxide Level 12 mmol/L 12 mmol/L Anion Gap 10.0 mmol/L 10.0 mmol/L Blood Urea Nitrogen 62 mg/dl 60 mg/dl Creatinine 2.07 mg/dl 2.04 mg/dl Est Creatinine Clear Calc Drug Dose 16.5 ml/min 16.6 ml/min Estimated GFR () 25.2 25.7 Estimated GFR (Non- 21.8 22.1 BUN/Creatinine Ratio 29.9 29.4 Random Glucose 155 mg/dl 174 mg/dl Calcium Level 6.2 mg/dl 5.8 mg/dl Phosphorus Level 4.5 mg/dl Magnesium Level 2.6 mg/dl 2.2 mg/dl White Blood Count 22.85 K/uL Red Blood Count 4.81 M/uL Hemoglobin 13.6 g/dL Hematocrit 42.4 % Mean Corpuscular Volume 88.1 fL Mean Corpuscular Hemoglobin 28.3 pg Mean Corpuscular Hemoglobin Concent 32.1 g/dl Platelet Count 351 K/uL Mean Platelet Volume 9.1 fL Neutrophils (%) (Auto) 83.4 % Lymphocytes (%) (Auto) 6.3 % Monocytes (%) (Auto) 7.4 % Eosinophils (%) (Auto) 0.1 % Basophils (%) (Auto) 0.2 % Neutrophils # (Auto) 19.08 K/uL Lymphocytes # (Auto) 1.43 K/uL Monocytes # (Auto) 1.68 K/uL Eosinophils # (Auto) 0.02 K/uL Basophils # (Auto) 0.04 K/uL RDW Standard Deviation 55.1 fL RDW Coefficient of Variation 17.1 % Immature Granulocyte % (Auto) 2.6 % Immature Granulocyte # (Auto) 0.60 K/uL Nucleated RBC Absolute Count (auto) 0.12 K/uL Nucleated Red Blood Cells % 0.5 % Total Bilirubin 0.3 mg/dl Aspartate Amino Transf (AST/SGOT) 21 U/L Alanine Aminotransferase (ALT/SGPT) 16 U/L Alkaline Phosphatase 41 U/L Total Protein 4.4 gm/dl Albumin 1.8 gm/dl Globulin 2.6 gm/dl Albumin/Globulin Ratio 0.7 Patient Name: NAVYA DIAZ Unit Number: [id number] Dictated: 08/07/171549 Transcribed: 08/07/171549 [facility] Printed Date/Time: [~ rep prt dt]/[~ rep prt tm] [~ rep ct labl] - [~ rep ct ivnm] [facility] [place] [address] Dictated: 08/07/171549 Transcribed: 08/07/171549 [facility] Printed Date/Time: [~ rep prt dt]/[~ rep prt tm] [~ rep ct labl] - [~ rep ct ivnm] ABDOMEN AND PELVIS CT WITHOUT CONTRAST CT DOSE: 350.61 mGy.cm HISTORY: diverticulitis , now has worsening generalized abdominal pain, TECHNIQUE: Multiaxial CT images of the abdomen and pelvis were performed without contrast. A dose lowering technique was utilized adhering to the principles of ALARA. COMPARISON STUDY: Abdomen and pelvis CT 08/05/2017. FINDINGS: Small bilateral pleural effusions with bibasilar densities suggesting compressive atelectasis from the pleural effusions. Elevated right hemidiaphragm, unchanged. Moderate hiatus hernia. Emphysema. No pneumoperitoneum. No pneumatosis. Bilateral total hip arthroplasties. Posterior decompression and fusion within the lumbar spine. Stable sclerotic focus within the right posterior 12th rib. Old, healed left-sided rib fractures. Cholecystectomy. The unenhanced liver, spleen, adrenal glands, and pancreas are unremarkable. There are few diverticula within the duodenum. No hydronephrosis. Atrophic right kidney with cortical scarring. This remains unchanged. No retroperitoneal lymphadenopathy. The bladder is not well visualized due to the metallic artifact from the hip arthroplasties. Small amount of pelvic fluid. Mild presacral edema. Diffuse thickening of the entire colon and rectum with pericolonic fat stranding. This is consistent with a pancolitis. Multiple colonic diverticula are again noted. No perforation or abscess identified within the abdomen or pelvis. No dilated loops of small bowel to suggest an obstruction. Moderate body wall edema which has progressed. IV contrast within the bladder due to the prior CT examination. IMPRESSION: 1. Bowel wall thickening involving the entire colon and rectum with associated pericolonic fat stranding. This has progressed and is consistent with a pancolitis. Therefore, this is likely due to an inflammatory or infectious process such as C. difficile colitis. Stool culture is recommended. 2. Small amount of ascites and moderate body wall edema which has progressed. 3. Small bilateral pleural effusions. 4. Colonic diverticulosis. 5. Additional findings as described above. Electronically signed by: Smooth Bowman M.D. 08/07/2017 3:59 PM Dictated Date/Time: 08/07/2017 3:50 PM The status of this report is Signed. Draft = Not yet reviewed or approved by Radiologist. Signed = Reviewed and approved by Radiologist. <AttendingPhy>Phi Landis MD, PhD</AttendingPhy> <FamilyPhy>Wilmar Dela Cruz M.D.</FamilyPhy> <PrimaryPhy>Wilmar Dela Cruz M.D.</PrimaryPhy> < UnitNumber>[id number]</UnitNumber> <VisitNumber>[id number]</VisitNumber> < PatientName>NAVYA DIAZ</PatientName> <DateOfBirth>1935</DateOfBirth > <Location>C.2E</Location> <ServiceDate>08/05/17</ServiceDate> <MNE>ESINDI</MNE > <OrderingPhy>Phi Landis MD, PhD</OrderingPhy> <OrderingPhyMNE>f rep ord dr bradford</OrderingPhyMNE> <DictatingPhyMNE>f rep dict dr bradford</DictatingPhyMNE> < CCListMNE>f rep ct mne</CCListMNE> <AdmittingPhyMNE>f pt admit dr bradford</ AdmittingPhyMNE> <AttendingPhyMNE>f pt attend dr bradford</AttendingPhyMNE> <ConsultingPhyMNE>f pt consult dr bradford</ConsultingPhyMNE> <FamilyPhyMNE>f pt fam dr bradford</FamilyPhyMNE> <OtherPhyMNE>f pt other dr bradford</OtherPhyMNE> < PrimaryPhyMNE>f pt prim care dr bradford</PrimaryPhyMNE> <ReferringPhyMNE>f pt referring dr bradford</ReferringPhyMNE> Assessment & Plan 81-year-old female with severe colitis secondary to C difficile, at risk for significant complications given elevated white count and acute kidney injury. Would consider adding IV metronidazole to vancomycin therapy, and watch closely for possible development of toxic megacolon. Will follow.
--- NOTE | 2017-08-09 10:44 | Gastroenterology Progress Note ---
Progress Note Date of Service: Aug 09, 2017 Subjective Pt evaluation today including: conversation w/ patient, physical exam, chart review, lab review, review of studies, review of inpatient medication list cc f/u diarrhea HPI Per nurse she was having multiple bms throughout the night so rectal tube placed putting out bile colored stool. Also n/v througought the evening. Pt complaing of some abd pain to nurse and given Dilaudid. Pt wakes but somewhat lethargic and states only minor abd pain at present. Review of Systems Respiratory: + shortness of breath Cardiac: + chest pain Pt not really answering ROS questions when asked. Medications Current Inpatient Medications Medications (Trade) Dose Ordered Sig/Martina Route Start Time Stop Time Status Last Admin Dose Admin Acetaminophen (Tylenol Tab) 650 mg Q4H PRN PO 08/05/17 07:30 09/04/17 07:29 Ondansetron HCl (Zofran Inj) 4 mg Q6H PRN IV 08/05/17 07:30 09/04/17 07:29 08/09/17 07:39 4 MG Mirabegron (Myrbetriq Er) 25 mg QPM PO 08/05/17 21:00 09/04/17 20:59 08/08/17 21:17 25 MG Hydromorphone HCl (Dilaudid Inj) 1 mg Q4 PRN IV 08/06/17 03:45 08/19/17 08:14 08/09/17 09:35 1 MG Gentamicin Sulfate (Gentamicin 0.3% Oph Oint) 1 appln QID OP 08/06/17 17:00 08/16/17 16:59 08/09/17 08:28 1 APPLN Vancomycin HCl (Vancomycin Oral Soln) 125 mg Q6H PO 08/07/17 23:00 08/21/17 23:59 08/09/17 04:40 125 MG Raspberry (Raspberry Syrup 5ml Cup) 5 ml Q6H PO 08/07/17 23:00 08/21/17 23:59 08/09/17 04:40 5 ML Saccharomyces Boulardii (Florastor Cap) 250 mg DAILY PO 08/08/17 09:00 09/07/17 08:59 08/09/17 08:28 250 MG Dextrose/Sodium Chloride 1,000 ml @ 150 mls/hr Q6H40M IV 08/08/17 19:00 09/07/17 18:59 08/09/17 03:48 125 MLS/HR Potassium Chloride 20 meq/ Prmx 100 ml @ 50 mls/hr Q2H IV 08/09/17 08:15 08/09/17 12:14 08/09/17 08:26 50 MLS/HR Promethazine HCl 12.5 mg/Sodium Chloride 50.5 ml @ 204 mls/hr Q6H PRN IV 08/09/17 09:15 09/08/17 09:14 08/09/17 09:36 204 MLS/HR Objective Vital Signs Date Time Temp Pulse Resp B/P (MAP) Pulse Ox O2 Delivery O2 Flow Rate FiO2 08/09/17 08:00 Nasal Cannula 2.0 08/09/17 07:46 36.8 123 18 135/85 (102) 96 Nasal Cannula 2.0 08/09/17 04:00 Nasal Cannula 2.0 08/09/17 03:19 36.6 125 19 145/86 (105) 95 Nasal Cannula 2.0 08/09/17 00:01 Nasal Cannula 2.0 08/08/17 23:12 36.8 90 21 144/55 (84) 99 Room Air 08/08/17 21:00 119 20 168/84 (112) 08/08/17 20:00 99 Nasal Cannula 2.0 08/08/17 19:10 36.8 128 20 168/110 (129) 99 Nasal Cannula 2.0 100 08/08/17 16:00 98 Nasal Cannula 2.0 08/08/17 15:18 36.6 111 20 149/78 (101) 98 Nasal Cannula 2.0 08/08/17 12:00 114 08/08/17 12:00 95 Nasal Cannula 2.0 100 08/08/17 11:26 118 94 Physical Exam General Appearance: WD/WN, no apparent distress Respiratory/Chest: lungs clear, normal breath sounds Cardiovascular: regular rate, rhythm, no edema Abdomen: normal bowel sounds, soft, no organomegaly, + pertinent finding Neurologic/Psych: normal mood/affect, oriented x 3 Skin: normal color, no jaundice no guarding nor rebound Laboratory Results Last 24 Hours Test 08/08/17 13:47 08/09/17 04:40 Sodium Level 145 mmol/L 143 mmol/L Potassium Level 4.2 mmol/L 3.1 mmol/L Chloride Level 123 mmol/L 121 mmol/L Carbon Dioxide Level 12 mmol/L 12 mmol/L Anion Gap 10.0 mmol/L 10.0 mmol/L Blood Urea Nitrogen 62 mg/dl 60 mg/dl Creatinine 2.07 mg/dl 2.04 mg/dl Est Creatinine Clear Calc Drug Dose 16.5 ml/min 16.6 ml/min Estimated GFR () 25.2 25.7 Estimated GFR (Non- 21.8 22.1 BUN/Creatinine Ratio 29.9 29.4 Random Glucose 155 mg/dl 174 mg/dl Calcium Level 6.2 mg/dl 5.8 mg/dl Phosphorus Level 4.5 mg/dl Magnesium Level 2.6 mg/dl 2.2 mg/dl White Blood Count 22.85 K/uL Red Blood Count 4.81 M/uL Hemoglobin 13.6 g/dL Hematocrit 42.4 % Mean Corpuscular Volume 88.1 fL Mean Corpuscular Hemoglobin 28.3 pg Mean Corpuscular Hemoglobin Concent 32.1 g/dl Platelet Count 351 K/uL Mean Platelet Volume 9.1 fL Neutrophils (%) (Auto) 83.4 % Lymphocytes (%) (Auto) 6.3 % Monocytes (%) (Auto) 7.4 % Eosinophils (%) (Auto) 0.1 % Basophils (%) (Auto) 0.2 % Neutrophils # (Auto) 19.08 K/uL Lymphocytes # (Auto) 1.43 K/uL Monocytes # (Auto) 1.68 K/uL Eosinophils # (Auto) 0.02 K/uL Basophils # (Auto) 0.04 K/uL RDW Standard Deviation 55.1 fL RDW Coefficient of Variation 17.1 % Immature Granulocyte % (Auto) 2.6 % Immature Granulocyte # (Auto) 0.60 K/uL Nucleated RBC Absolute Count (auto) 0.12 K/uL Nucleated Red Blood Cells % 0.5 % Total Bilirubin 0.3 mg/dl Aspartate Amino Transf (AST/SGOT) 21 U/L Alanine Aminotransferase (ALT/SGPT) 16 U/L Alkaline Phosphatase 41 U/L Total Protein 4.4 gm/dl Albumin 1.8 gm/dl Globulin 2.6 gm/dl Albumin/Globulin Ratio 0.7 Assessment and Plan Cdiff colitis--continue po vanco pancolitis on CT--likely from cdiff diarrhea--likely from cdiff--rectal tube in place heme pos stool--can be from cdiff abd pain from cdiff n/v elevated WBC--worse today. continue to follow low co2 stable and exam not suggestive of surgical abdomen but check lactic acid for baseline since WBC worse. Continue supportive care and abx for cdiff. Most likely had CDiff from beginning and no diverticulitis so other Abx have been stopped to help with Cdiff treatment. I am going off service tomorrow at [address] Dill is on schedule to be assuming GI care then.
[2017-08-09 11:00] VITALS: BP 119/84; PULSE 119; TEMP 36.8; O2SAT 97
[2017-08-09] MEDS: METRONIDAZOLE / NSS 500 MG in PREMIXED NSS 100 ML IV SCH ×2 (11:32→20:29)
--- NOTE | 2017-08-09 11:58 | Surgery Progress Note ---
Surgery Progress Note Date of Service Aug 09, 2017. Subjective Post OP Day: HD # 4 patient sleeping on encounter Daughter present in room pt does not have hearing aids in and very hard of hearing but states abdominal pain is slightly better compared to yesterday + nausea and dry heaves Multiple loose bowel movements s/p rectal tube placement (current draining bile) Per nurse in the room: Zofran not helping with nausea on two previous administrations Objective Vital Signs: Date Time Temp Pulse Resp B/P (MAP) Pulse Ox O2 Delivery O2 Flow Rate FiO2 08/09/17 11:00 36.8 119 22 119/84 (96) 97 Nasal Cannula 2.0 08/09/17 08:00 Nasal Cannula 2.0 08/09/17 07:46 36.8 123 18 135/85 (102) 96 Nasal Cannula 2.0 08/09/17 04:00 Nasal Cannula 2.0 08/09/17 03:19 36.6 125 19 145/86 (105) 95 Nasal Cannula 2.0 08/09/17 00:01 Nasal Cannula 2.0 08/08/17 23:12 36.8 90 21 144/55 (84) 99 Room Air 08/08/17 21:00 119 20 168/84 (112) 08/08/17 20:00 99 Nasal Cannula 2.0 08/08/17 19:10 36.8 128 20 168/110 (129) 99 Nasal Cannula 2.0 100 08/08/17 16:00 98 Nasal Cannula 2.0 08/08/17 15:18 36.6 111 20 149/78 (101) 98 Nasal Cannula 2.0 08/08/17 12:00 114 08/08/17 12:00 95 Nasal Cannula 2.0 100 General Appearance: WD/WN, no apparent distress Head: normocephalic, atraumatic Neck: trachea midline Respiratory/Chest: no respiratory distress, no accessory muscle use Abdomen: non distended, soft, no organomegaly, no pulsatile mass, + tenderness (mild tenderness to palpation ), + pertinent finding (rectal tube with dark bile output) Laboratory Results: Results Past 24 Hours Test 08/08/17 13:47 08/09/17 04:40 08/09/17 11:07 Range/Units Sodium Level 145 143 136-145 mmol/L Potassium Level 4.2 3.1 3.5-5.1 mmol/L Chloride Level 123 121 98-107 mmol/L Carbon Dioxide Level 12 12 21-32 mmol/L Anion Gap 10.0 10.0 3-11 mmol/L Blood Urea Nitrogen 62 60 7-18 mg/dl Creatinine 2.07 2.04 0.60-1.20 mg/dl Est Creatinine Clear Calc Drug Dose 16.5 16.6 ml/min Estimated GFR () 25.2 25.7 Estimated GFR (Non- 21.8 22.1 BUN/Creatinine Ratio 29.9 29.4 10-20 Random Glucose 155 174 70-99 mg/dl Calcium Level 6.2 5.8 8.5-10.1 mg/dl Phosphorus Level 4.5 2.5-4.9 mg/dl Magnesium Level 2.6 2.2 1.8-2.4 mg/dl White Blood Count 22.85 4.8-10.8 K/uL Red Blood Count 4.81 4.2-5.4 M/uL Hemoglobin 13.6 12.0-16.0 g/dL Hematocrit 42.4 37-47 % Mean Corpuscular Volume 88.1 80-100 fL Mean Corpuscular Hemoglobin 28.3 25-34 pg Mean Corpuscular Hemoglobin Concent 32.1 32-36 g/dl Platelet Count 351 130-400 K/uL Mean Platelet Volume 9.1 7.4-10.4 fL Neutrophils (%) (Auto) 83.4 % Lymphocytes (%) (Auto) 6.3 % Monocytes (%) (Auto) 7.4 % Eosinophils (%) (Auto) 0.1 % Basophils (%) (Auto) 0.2 % Neutrophils # (Auto) 19.08 1.4-6.5 K/uL Lymphocytes # (Auto) 1.43 1.2-3.4 K/uL Monocytes # (Auto) 1.68 0.11-0.59 K/uL Eosinophils # (Auto) 0.02 0-0.5 K/uL Basophils # (Auto) 0.04 0-0.2 K/uL RDW Standard Deviation 55.1 36.4-46.3 fL RDW Coefficient of Variation 17.1 11.5-14.5 % Immature Granulocyte % (Auto) 2.6 % Immature Granulocyte # (Auto) 0.60 0.00-0.02 K/uL Nucleated RBC Absolute Count (auto) 0.12 0-0 K/uL Nucleated Red Blood Cells % 0.5 % Total Bilirubin 0.3 0.2-1 mg/dl Aspartate Amino Transf (AST/SGOT) 21 15-37 U/L Alanine Aminotransferase (ALT/SGPT) 16 12-78 U/L Alkaline Phosphatase 41 45-117 U/L Total Protein 4.4 6.4-8.2 gm/dl Albumin 1.8 3.4-5.0 gm/dl Globulin 2.6 2.5-4.0 gm/dl Albumin/Globulin Ratio 0.7 0.9-2 Lactic Acid Level 1.0 0.4-2.0 mmol/L Assessment & Plan C. Diff colitis - afebrile - Leukocytosis increased to 22.85K today, currently on steroids - abdominal pain improved - s/p rectal tube placement Plan: No acute surgical intervention required Continue conservative management: IV Fluids, PO Vancomycin, IV pain management as needed. Will add IV Phenergan 12.5 mg q 6 hours. Continue current medical management Will sign off at this time, call with questions or concerns Dr. Sinha has seen and examined patient, agrees with above I interviewed and examined this patient and I agree with the above note. She has C. difficile colitis and will feel there is any need for surgical intervention. Would continue with the antibiotics. Please let us know if there is anything else we can do to help.
--- NOTE | 2017-08-09 12:38 | Nephrology Consultation ---
Nephrology Consultation Date & Providers Date of Consultation: Aug 09, 2017. Primary Care Provider: Wilmar Dela Cruz M.D. Referring Provider: Reason for Consultation VALERIE History of Present Illness Chuyita Alex is an 81 yyear-old female with rheumatoid arthritis, hypertension, breast cancer and anemia. She was admitted to [facility] on August 05 with abdominal pain and diarrhea. She described mild LUQ and LLQ pain as well as anorexia. Prior to admission she had associated weakness and chills as well as diarrhea with blood. She had diverticulitis about 50 years ago. She recently had a work up for anemia as outpatient including EGD and colonoscopy which showed no evidence of GI bleeding. She takes daily prednisone and Enbrel for her RA. Has left sided a- port for poor access for the past 2 [address] She had a CT of the abdomen/pelvis that showed acute diverticulitis. No evidence of abscess or perforation/microperforation. WBC was 19k, Cr 1.5, lactic acid < 2. She was originally hypotensive and tachycardic in the emergency room. Stool testing was positive for C diff. Rectal tube has been placed. Oral intake remains very poor. The patient is now experiencing significant nausea. Abdominal discomfort persists but she denies significant pain. She has a persistent leukocytosis but remains afebrile. GI and surgery have been following and records were reviewed in detail. CT scan documented chronic corticomedullary changes in both kidneys without any acute pathology or evidence of obstruction. The patient remains non oliguric. I/ O's were inaccurate yesterday due to incontinence and urine frequently mixed with stool. Creatinine at baseline has been 1.4 mg/dL. It increased to 1.7 mg/ dL on the . Creatinine has been stable at 2.0 mg/dL for the past 24 hours. Metabolic profile is otherwise acceptable. The patient has not been evaluated by a operations support manager in the past. She denies any significant history of kidney disease. It is noted that she had VALERIE during treatment for sepsis related to bacteremia in the past. The patient was evaluated with her daughter at the bedside today. Past Medical/Surgical History Medical: 1. Rheumatoid Arthritis 2. Breast cancer 3. Poor venous access 4. Hypertension 5. Hyperlipidemia 6. Chronic Anemia, followed by Dr. Clement and maintained on Procrit as outpatient 7. History of Chronic recurrent urinary tract infection 8. History of septicemia Surgical: 1. Hysterectomy 2. Cholecystectomy 3. Inguinal hernia repair Allergies Coded Allergies: Sulfa Antibiotics (Verified Allergy, Intermediate, FLU LIKE SYMPTOMS, 08/05) Sulfamethoxazole w/Trimethoprim (Verified Allergy, Intermediate, FLU LIKE SYMPTOMS, 08/05/17) Inpatient Medications Current Inpatient Medications Medications (Trade) Dose Ordered Sig/Martina Route Start Time Stop Time Status Last Admin Dose Admin Acetaminophen (Tylenol Tab) 650 mg Q4H PRN PO 08/05/17 07:30 09/04/17 07:29 Ondansetron HCl (Zofran Inj) 4 mg Q6H PRN IV 08/05/17 07:30 09/04/17 07:29 08/09/17 07:39 4 MG Mirabegron (Myrbetriq Er) 25 mg QPM PO 08/05/17 21:00 09/04/17 20:59 08/08/17 21:17 25 MG Hydromorphone HCl (Dilaudid Inj) 1 mg Q4 PRN IV 08/06/17 03:45 08/19/17 08:14 08/09/17 09:35 1 MG Gentamicin Sulfate (Gentamicin 0.3% Oph Oint) 1 appln QID OP 08/06/17 17:00 08/16/17 16:59 08/09/17 08:28 1 APPLN Vancomycin HCl (Vancomycin Oral Soln) 125 mg Q6H PO 08/07/17 23:00 08/21/17 23:59 08/09/17 11:17 125 MG Raspberry (Raspberry Syrup 5ml Cup) 5 ml Q6H PO 08/07/17 23:00 08/21/17 23:59 08/09/17 11:11 5 ML Saccharomyces Boulardii (Florastor Cap) 250 mg DAILY PO 08/08/17 09:00 09/07/17 08:59 08/09/17 08:28 250 MG Dextrose/Sodium Chloride 1,000 ml @ 150 mls/hr Q6H40M IV 08/08/17 19:00 09/07/17 18:59 08/09/17 11:12 150 MLS/HR Potassium Chloride 20 meq/ Prmx 100 ml @ 50 mls/hr Q2H IV 08/09/17 08:15 08/09/17 12:14 08/09/17 11:08 50 MLS/HR Promethazine HCl 12.5 mg/Sodium Chloride 50.5 ml @ 204 mls/hr Q6H PRN IV 08/09/17 09:15 09/08/17 09:14 08/09/17 09:36 204 MLS/HR Metronidazole 500 mg/Prmx 100 ml @ 100 mls/hr Q8H IV 08/09/17 12:00 08/23/17 11:59 08/09/17 11:32 100 MLS/HR Family History Cancer Diabetes mellitus Hypertension Social History Smoking Status: Never Smoker Marital Status: Occupation: retired Review of Systems A complete review of systems was performed. Pertinent positives are noted above. All other systems are negative. Physical Exam Date Time Temp Pulse Resp B/P (MAP) Pulse Ox O2 Delivery O2 Flow Rate FiO2 08/09/17 11:00 36.8 119 22 119/84 (96) 97 Nasal Cannula 2.0 08/09/17 08:00 Nasal Cannula 2.0 08/09/17 07:46 36.8 123 18 135/85 (102) 96 Nasal Cannula 2.0 08/09/17 04:00 Nasal Cannula 2.0 08/09/17 03:19 36.6 125 19 145/86 (105) 95 Nasal Cannula 2.0 08/09/17 00:01 Nasal Cannula 2.0 08/08/17 23:12 36.8 90 21 144/55 (84) 99 Room Air 08/08/17 21:00 119 20 168/84 (112) 08/08/17 20:00 99 Nasal Cannula 2.0 08/08/17 19:10 36.8 128 20 168/110 (129) 99 Nasal Cannula 2.0 100 08/08/17 16:00 98 Nasal Cannula 2.0 08/08/17 15:18 36.6 111 20 149/78 (101) 98 Nasal Cannula 2.0 General Appearance: + thin, + pertinent finding (frail, elderly) Head: normocephalic, atraumatic Eyes: normal inspection, sclerae normal ENT: normal ENT inspection, pharynx normal Neck: supple, no JVD Respiratory/Chest: lungs clear, no respiratory distress, no accessory muscle use Cardiovascular: no gallop, no murmur, + tachycardia Abdomen/GI: soft, + distended (slightly), + pertinent finding (mild discomfort , no guarding) Extremities/Musculoskelatal: + pedal edema, + pertinent finding (chronic stasis changes, some dependent edema noted) Neurologic/Psych: alert, + depressed affect Laboratory Results Last 24 Hours Test 08/08/17 13:47 08/09/17 04:40 08/09/17 11:07 Sodium Level 145 mmol/L 143 mmol/L Potassium Level 4.2 mmol/L 3.1 mmol/L Chloride Level 123 mmol/L 121 mmol/L Carbon Dioxide Level 12 mmol/L 12 mmol/L Anion Gap 10.0 mmol/L 10.0 mmol/L Blood Urea Nitrogen 62 mg/dl 60 mg/dl Creatinine 2.07 mg/dl 2.04 mg/dl Est Creatinine Clear Calc Drug Dose 16.5 ml/min 16.6 ml/min Estimated GFR () 25.2 25.7 Estimated GFR (Non- 21.8 22.1 BUN/Creatinine Ratio 29.9 29.4 Random Glucose 155 mg/dl 174 mg/dl Calcium Level 6.2 mg/dl 5.8 mg/dl Phosphorus Level 4.5 mg/dl Magnesium Level 2.6 mg/dl 2.2 mg/dl White Blood Count 22.85 K/uL Red Blood Count 4.81 M/uL Hemoglobin 13.6 g/dL Hematocrit 42.4 % Mean Corpuscular Volume 88.1 fL Mean Corpuscular Hemoglobin 28.3 pg Mean Corpuscular Hemoglobin Concent 32.1 g/dl Platelet Count 351 K/uL Mean Platelet Volume 9.1 fL Neutrophils (%) (Auto) 83.4 % Lymphocytes (%) (Auto) 6.3 % Monocytes (%) (Auto) 7.4 % Eosinophils (%) (Auto) 0.1 % Basophils (%) (Auto) 0.2 % Neutrophils # (Auto) 19.08 K/uL Lymphocytes # (Auto) 1.43 K/uL Monocytes # (Auto) 1.68 K/uL Eosinophils # (Auto) 0.02 K/uL Basophils # (Auto) 0.04 K/uL RDW Standard Deviation 55.1 fL RDW Coefficient of Variation 17.1 % Immature Granulocyte % (Auto) 2.6 % Immature Granulocyte # (Auto) 0.60 K/uL Nucleated RBC Absolute Count (auto) 0.12 K/uL Nucleated Red Blood Cells % 0.5 % Total Bilirubin 0.3 mg/dl Aspartate Amino Transf (AST/SGOT) 21 U/L Alanine Aminotransferase (ALT/SGPT) 16 U/L Alkaline Phosphatase 41 U/L Total Protein 4.4 gm/dl Albumin 1.8 gm/dl Globulin 2.6 gm/dl Albumin/Globulin Ratio 0.7 Lactic Acid Level 1.0 mmol/L Impression (1) Acute renal insufficiency (2) CKD (chronic kidney disease), stage III (3) C. difficile diarrhea (4) ANEMIA,RHEUMATOID ARTHRITIS (5) Acute diverticulitis Chuyita is an 81-year-old female with RA, hypertension and anemia of chronic disease. She was admitted with diverticulitis and superimposed C diff colitis. She is being treated with Zosyn and oral vancomycin. ID consult is pending. Blood cultures have been negative. Leukocytosis is persistent but patient remains afebrile. Oral intake is poor. The patient continues to have diarrhea. She has evidence of decreased EAV. IV saline is being provided to encourage intravascular expansion. VALERIE is likely multifactorial related to prerenal azotemia and ATN. The patient is non oliguric and metabolic profile is otherwise acceptable. Corrected calcium is slightly low at 7.6. The patient did receive IV calcium gluconate for this. After a long conversation with the patient and her daughter, they both clearly stated that dialysis should not be considered part of the overall plan of care. They understand the complications associated with renal dysfunction and the need to maintain appropriate fluid balance. We will monitor metabolic profile daily and adjust fluids as needed. An electrolyte neutral fluid would be an appropriate consideration. HCO3 replacement would be expected to be required. I will adjust pending review of labs this afternoon as needed. Recommendations -- Corrected calcium 7.6 -- Check ionized calcium with AM labs and monitor -- Repeat metabolic profile this afternoon -- Document I/O's -- Medications appropriately dosed for renal function -- AIN remains a consideration but considered less likely given clinical presentation -- Encourage nutrition -- 0.9% saline @ 150 ml/hr
--- NOTE | 2017-08-09 14:56 | Progress Note ---
Subjective Date of Service: Aug 09, 2017. Subjective Pt evaluation today including: conversation w/ patient, conversation w/ family , physical exam, chart review, lab review, review of studies, review of inpatient medication list Report obvious nausea , no vomiting, has plenty liquid stools, rectal tube was placed, no fever much generalized weakness, Problem List Medical Problems: (1) Acute kidney injury Status: Acute (2) Acute renal failure Status: Acute (3) Anemia Status: Acute (4) Anemia Status: Acute (5) Back pain Status: Chronic (6) Colitis Status: Acute (7) Dehydration Status: Acute (8) Dehydration Status: Acute (9) Diarrhea Status: Acute (10) Elevated lactic acid level Status: Acute (11) Elevated troponin I level Status: Acute (12) Failure of outpatient treatment Status: Acute (13) Fever Status: Acute (14) Fever Status: Acute (15) GI bleed Status: Acute (16) History of chronic urinary tract infection Status: Acute (17) Hyponatremia Status: Acute (18) Immunocompromised Status: Acute (19) Laceration Status: Acute (20) Left arm cellulitis Status: Acute (21) Leukocytosis Status: Acute (22) Leukocytosis Status: Acute (23) Sepsis Status: Acute (24) Sepsis Status: Acute (25) Severe sepsis Status: Acute (26) SIRS (systemic inflammatory response syndrome) Status: Acute (27) Urinary tract infection Status: Acute (28) UTI (urinary tract infection) Status: Acute (29) UTI (urinary tract infection) Status: Acute (30) UTI (urinary tract infection) Status: Acute (31) Weakness Status: Acute Review of Systems Constitutional: + weakness, + fatigue, + problem reported (Look tired, frail,) , No fever, No chills, No sweats, No weight loss Eyes: No worsening of vision, No eye pain, No redness, No discharge, No diplopia ENT: No hearing loss, No unusual epistaxis, No nasal symptoms, No sore throat, No tinnitus, No dental problems, No trouble swallowing Respiratory: No cough, No sputum, No wheezing, No shortness of breath, No dyspnea on exertion, No dyspnea at rest, No hemoptysis Cardiac: No chest pain, No orthopnea, No PND, No edema, No claudication, No palpitations Abdomen: + pain (Mild sore), + nausea, + diarrhea, No vomiting, No constipation Musculoskeletal: No joint pain, No muscle pain, No swelling, No calf pain Female : No dysuria, No urinary frequency, No hematuria, No incontinence, No abnormal vaginal bleeding, No vaginal discharge Neurologic: No memory loss, No paralysis, No weakness, No numbness/tingling, No vertigo, No balance problems Psychiatric: No depression symptoms, No anhedonism, No anxiety, No insomnia, No substance abuse Heme: No abnormal bleeding/bruising, No clotting problems, No swollen lymph nodes, No night sweats Endo: No fatigue, No excessive thirst, No excessive urination Skin: No rash, No itch, No new/changing skin lesions, No color change, No bleeding Objective Vital Signs Date Time Temp Pulse Resp B/P (MAP) Pulse Ox O2 Delivery O2 Flow Rate FiO2 08/09/17 12:00 Nasal Cannula 2.0 08/09/17 11:00 36.8 119 22 119/84 (96) 97 Nasal Cannula 2.0 08/09/17 08:00 Nasal Cannula 2.0 08/09/17 07:46 36.8 123 18 135/85 (102) 96 Nasal Cannula 2.0 08/09/17 04:00 Nasal Cannula 2.0 08/09/17 03:19 36.6 125 19 145/86 (105) 95 Nasal Cannula 2.0 08/09/17 00:01 Nasal Cannula 2.0 08/08/17 23:12 36.8 90 21 144/55 (84) 99 Room Air 08/08/17 21:00 119 20 168/84 (112) 08/08/17 20:00 99 Nasal Cannula 2.0 08/08/17 19:10 36.8 128 20 168/110 (129) 99 Nasal Cannula 2.0 100 08/08/17 16:00 98 Nasal Cannula 2.0 08/08/17 15:18 36.6 111 20 149/78 (101) 98 Nasal Cannula 2.0 Physical Exam General Appearance: WD/WN, no apparent distress, + cachetic, + thin, + pertinent finding (Frail) Eyes: normal inspection, PERRL, EOMI, sclerae normal ENT: normal ENT inspection, hearing grossly normal, pharynx normal Neck: supple, no adenopathy, thyroid normal, no JVD, no carotid bruits, trachea midline Respiratory/Chest: chest non-tender, normal breath sounds, no respiratory distress, no accessory muscle use, + decreased breath sounds Cardiovascular: regular rate, rhythm, no edema, no gallop, no JVD, no murmur Abdomen: normal bowel sounds, soft, no organomegaly, no pulsatile mass, + tenderness (Mild) Extremities: normal range of motion, non-tender, normal inspection, no pedal edema, no calf tenderness, normal capillary refill, pelvis stable Neurologic/Psychiatric: edge stainer II-XII nml as tested, no motor/sensory deficits, alert, normal mood/affect, oriented x 3 Skin: normal color, warm/dry, no rash Lymphatic: no adenopathy Laboratory Results Last 24 Hours Test 08/09/17 04:40 08/09/17 11:07 White Blood Count 22.85 K/uL Red Blood Count 4.81 M/uL Hemoglobin 13.6 g/dL Hematocrit 42.4 % Mean Corpuscular Volume 88.1 fL Mean Corpuscular Hemoglobin 28.3 pg Mean Corpuscular Hemoglobin Concent 32.1 g/dl Platelet Count 351 K/uL Mean Platelet Volume 9.1 fL Neutrophils (%) (Auto) 83.4 % Lymphocytes (%) (Auto) 6.3 % Monocytes (%) (Auto) 7.4 % Eosinophils (%) (Auto) 0.1 % Basophils (%) (Auto) 0.2 % Neutrophils # (Auto) 19.08 K/uL Lymphocytes # (Auto) 1.43 K/uL Monocytes # (Auto) 1.68 K/uL Eosinophils # (Auto) 0.02 K/uL Basophils # (Auto) 0.04 K/uL RDW Standard Deviation 55.1 fL RDW Coefficient of Variation 17.1 % Immature Granulocyte % (Auto) 2.6 % Immature Granulocyte # (Auto) 0.60 K/uL Nucleated RBC Absolute Count (auto) 0.12 K/uL Nucleated Red Blood Cells % 0.5 % Sodium Level 143 mmol/L Potassium Level 3.1 mmol/L Chloride Level 121 mmol/L Carbon Dioxide Level 12 mmol/L Anion Gap 10.0 mmol/L Blood Urea Nitrogen 60 mg/dl Creatinine 2.04 mg/dl Est Creatinine Clear Calc Drug Dose 16.6 ml/min Estimated GFR () 25.7 Estimated GFR (Non- 22.1 BUN/Creatinine Ratio 29.4 Random Glucose 174 mg/dl Calcium Level 5.8 mg/dl Magnesium Level 2.2 mg/dl Total Bilirubin 0.3 mg/dl Aspartate Amino Transf (AST/SGOT) 21 U/L Alanine Aminotransferase (ALT/SGPT) 16 U/L Alkaline Phosphatase 41 U/L Total Protein 4.4 gm/dl Albumin 1.8 gm/dl Globulin 2.6 gm/dl Albumin/Globulin Ratio 0.7 Lactic Acid Level 1.0 mmol/L Assessment and Plan 81 y/o female admitted on August 05, 2017 because of sepsis and acute diverticulitis, later found has cdiff pancolitis Past medical history HTN, HLD, RA, h/o breast cancer s/p lumpectomy and radiation, recurrent UTI, urinary incontinence, and anemia of chronic disease cdiff pancolitis, oral vanco , IV Flagyl per infectious disease recommended, continue probiotic Significant worsening renal function, history of CKD stage III, is getting worsening, associated with hypo-glycemia and hyperchloride, nephrology consulted Mild tachycardia likely because of dehydration, increased IV fluid HTN, HLD--stable on hydrocortisone Recurrent UTI, urinary incontinence, no on specific antibiotic for now RA Was on oral prednisone at home -Hold home prednisone, was on a few days of hydrocortisone IV which has been tapered down and stop -Enbrel injections at home H/o breast cancer--noted DVT prophylaxis, NANCY grubbs and SCDs DO NOT RESUSCITATE Discussed with patient and patient's daughter in the bedside, because of her age and current medical conditions, prognosis is guarded Appreciated surgeons ID and GI input Continued [facility] stay due to: multiple IV medications needed Discharge planning: uncertain
[2017-08-09 15:38] VITALS: BP 125/66; PULSE 121; TEMP 36.8; O2SAT 98
[2017-08-09 16:43] LABS: CREATININE 1.93 mg/dl (0.60-1.20); POTASSIUM 3.5 mmol/L (3.5-5.1)
[2017-08-09 16:45] LABS: CALCIUM 5.9 mg/dl (8.5-10.1)
[2017-08-09] MEDS ORDERED: HYDROCORTISONE SOD SUCCINATE 100 MG/2 ML VIAL IV STA (18:05)
[2017-08-09] MEDS ORDERED: HYDROCORTISONE IV 50 MG in SYRINGE 0 ML IV ONE (18:30)
[2017-08-09 19:44] VITALS: BP 128/72; PULSE 120; TEMP 36.9; O2SAT 97
[2017-08-09] MEDS: MIRABEGRON ER 25 MG TAB PO SCH (20:30)
[2017-08-09] MEDS ORDERED: CALCIUM GLUCONATE 10% 2,000 MG in SODIUM CHLORIDE 0.9% 50ML 50 ML IV STA (21:58)
[2017-08-09] MEDS: SODIUM BICARBONATE 8.4% INJ 75 MEQ in D5W AND 1/2NSS 1,000 ML IV SCH (22:33)
[2017-08-09] MEDS: HYDROCORTISONE IV 50 MG in SYRINGE 0 ML IV SCH (23:17)
[2017-08-09 23:32] VITALS: BP 151/84; PULSE 117; TEMP 36.8; O2SAT 97
[2017-08-10] VITALS (9 sets, daily range): BP systolic 140–161; BP diastolic 72–85; PULSE 82–120; TEMP 36.4–36.7; O2SAT 92–100
[2017-08-10] MEDS ORDERED: HYDROCORTISONE IV 50 MG in SYRINGE 0 ML IV SCH
[2017-08-10 00:23] LABS: CREATININE 1.74 mg/dl (0.60-1.20); POTASSIUM 3.8 mmol/L (3.5-5.1)
[2017-08-10 00:37] LABS: CALCIUM 6.8 mg/dl (8.5-10.1)
[2017-08-10 05:04] LABS: BASO % 0.1 %; BASO ABS # 0.02 K/uL (0-0.2); HEMATOCRIT 36.2 % (37-47); HEMOGLOBIN 11.9 g/dL (12.0-16.0); IG# 0.47 K/uL (0.00-0.02); LYMPH % 3.1 %; MEAN CELL VOLUME 87.7 fL (80-100); MEAN CORPUSCULAR HEMOGLOBIN 28.8 pg (25-34); MEAN CORPUSCULAR HGB CONC 32.9 g/dl (32-36); MEAN PLATELET VOLUME 8.8 fL (7.4-10.4); MONO % 1.4 %; MONO ABS # 0.23 K/uL (0.11-0.59); NEUT % 92.5 %; NEUT ABS # 14.72 K/uL (1.4-6.5); PLATELET COUNT 258 K/uL (130-400); RED CELL DISTRIBUTION WIDTH CV 17.2 % (11.5-14.5); RED CELL DISTRIBUTION WIDTH SD 55.4 fL (36.4-46.3); WHITE BLOOD COUNT 15.94 K/uL (4.8-10.8)
[2017-08-10] MEDS: HYDROCORTISONE IV 50 MG in SYRINGE 0 ML IV SCH ×4 (05:14→23:52)
[2017-08-10] MEDS: METRONIDAZOLE / NSS 500 MG in PREMIXED NSS 100 ML IV SCH ×3 (05:15→20:30)
[2017-08-10] MEDS: RASPBERRY SYRUP 5 ML UDP PO SCH ×4 (05:20→23:51)
[2017-08-10 05:22] LABS: ALBUMIN 1.6 gm/dl (3.4-5.0); CALCIUM 6.4 mg/dl (8.5-10.1); CREATININE 1.56 mg/dl (0.60-1.20); POTASSIUM 3.4 mmol/L (3.5-5.1)
[2017-08-10] MEDS: VANCOMYCIN HCL 125 MG/2.5ML SOLN PO SCH ×4 (05:25→23:51)
[2017-08-10 05:27] LABS: PHOSPHORUS 2.5 mg/dl (2.5-4.9); TOTAL PROTEIN 4.1 gm/dl (6.4-8.2)
[2017-08-10] MEDS: SODIUM BICARBONATE 8.4% INJ 75 MEQ in D5W AND 1/2NSS 1,000 ML IV SCH ×3 (07:16→23:51)
[2017-08-10] MEDS ORDERED: POTASSIUM CHLR 20 MEQ / WTR 20 MEQ in PREMIXED WATER 100 ML IV STA (07:55)
[2017-08-10] MEDS ORDERED: CALCIUM GLUCONATE 10% 1,000 MG in SODIUM CHLORIDE 0.9% 50ML 50 ML IV ONE (08:00)
[2017-08-10] MEDS: GENTAMICIN SULFATE 0.3% OP OINT 3.5 GM TUBE OP SCH ×4 (08:32→20:35)
[2017-08-10] MEDS: SACCHAROMYCES BOUL (FLORASTOR) 250 MG CAP PO SCH (08:33)
--- NOTE | 2017-08-10 09:24 | Nephrology Progress Note ---
Nephrology Progress Note Date of Service Aug 10, 2017. Chief Complaint VALERIE Subjective No acute events overnight. No fevers or chills. Chuyita states that she feels miserable. She feels cold. She is very tired and weak. Her appetite is very poor. She was not able to tolerate oral HCO3. She denies significant abdominal pain. She denies shortness of breath. She feels that LE edema is consistent with chronic lymphedema. Review of Systems A complete review of systems was performed. Pertinent positives are noted above. All other systems are negative. Vital Signs Last 8 Hrs Date Time Temp Pulse Resp B/P (MAP) Pulse Ox O2 Delivery O2 Flow Rate FiO2 08/10/17 04:35 36.6 82 19 152/72 (98) 92 Nasal Cannula 3.0 08/10/17 04:00 Nasal Cannula 2.0 Last Recorded Weight Weight (Kilograms): 49.200 Physical Exam General Appearance: no apparent distress, + thin, + pertinent finding (frail, elderly) Head: normocephalic, atraumatic Eyes: normal inspection, sclerae normal ENT: normal ENT inspection, pharynx normal, + pertinent finding (oral mucosa dry) Neck: supple, no JVD Respiratory/Chest: lungs clear, no respiratory distress, no accessory muscle use, + rales (few basilar) Cardiovascular: regular rate, rhythm, no gallop Abdomen/GI: non tender, soft Extremities/Musculoskelatal: normal inspection, + pedal edema (dependent edema , LE edema with chronic stais changes) Neurologic/Psych: alert, normal mood/affect Family History Cancer Diabetes mellitus Hypertension Social History Smoking Status: Never smoker Marital Status: Occupation: retired Laboratory Results Past 24 Hours 08/10/17 04:56 Red Blood Count 4.13, Mean Corpuscular Volume 87.7, Mean Corpuscular Hemoglobin 28.8, Mean Corpuscular Hemoglobin Concent 32.9, Mean Platelet Volume 8.8, Neutrophils (%) (Auto) 92.5, Lymphocytes (%) (Auto) 3.1, Monocytes (%) (Auto) 1.4, Eosinophils (%) (Auto) 0.0, Basophils (%) (Auto) 0.1, Neutrophils # (Auto) 14.72, Lymphocytes # (Auto) 0.50, Monocytes # (Auto) 0.23, Eosinophils # (Auto) 0.00, Basophils # (Auto) 0.02 08/09/17 16:01 08/09/17 23:44 08/10/17 04:56 Test 08/09/17 11:07 08/09/17 16:01 08/09/17 23:44 08/10/17 04:56 Lactic Acid Level 1.0 mmol/L (0.4-2.0) 0.8 mmol/L (0.4-2.0) Anion Gap 6.0 mmol/L (3-11) 6.0 mmol/L (3-11) 5.0 mmol/L (3-11) Est Creatinine Clear Calc Drug Dose 17.6 ml/min 19.5 ml/min 21.6 ml/min Estimated GFR () 27.4 31.1 35.5 Estimated GFR (Non- 23.7 26.8 30.6 BUN/Creatinine Ratio 28.6 (10-20) 30.0 (10-20) 30.9 (10-20) Calcium Level 5.9 mg/dl (8.5-10.1) 6.8 mg/dl (8.5-10.1) 6.4 mg/dl (8.5-10.1) Ionized Calcium 0.88 mmol/l (1.12-1.32) 1.01 mmol/l (1.12-1.32) White Blood Count 15.94 K/uL (4.8-10.8) Red Blood Count 4.13 M/uL (4.2-5.4) Hemoglobin 11.9 g/dL (12.0-16.0) Hematocrit 36.2 % (37-47) Mean Corpuscular Volume 87.7 fL (80-100) Mean Corpuscular Hemoglobin 28.8 pg (25-34) Mean Corpuscular Hemoglobin Concent 32.9 g/dl (32-36) Platelet Count 258 K/uL (130-400) Mean Platelet Volume 8.8 fL (7.4-10.4) Neutrophils (%) (Auto) 92.5 % Lymphocytes (%) (Auto) 3.1 % Monocytes (%) (Auto) 1.4 % Eosinophils (%) (Auto) 0.0 % Basophils (%) (Auto) 0.1 % Neutrophils # (Auto) 14.72 K/uL (1.4-6.5) Lymphocytes # (Auto) 0.50 K/uL (1.2-3.4) Monocytes # (Auto) 0.23 K/uL (0.11-0.59) Eosinophils # (Auto) 0.00 K/uL (0-0.5) Basophils # (Auto) 0.02 K/uL (0-0.2) RDW Standard Deviation 55.4 fL (36.4-46.3) RDW Coefficient of Variation 17.2 % (11.5-14.5) Immature Granulocyte % (Auto) 2.9 % Immature Granulocyte # (Auto) 0.47 K/uL (0.00-0.02) Phosphorus Level 2.5 mg/dl (2.5-4.9) Magnesium Level 2.2 mg/dl (1.8-2.4) Total Bilirubin 0.2 mg/dl (0.2-1) Aspartate Amino Transf (AST/SGOT) 17 U/L (15-37) Alanine Aminotransferase (ALT/SGPT) 14 U/L (12-78) Alkaline Phosphatase 37 U/L (45-117) Total Protein 4.1 gm/dl (6.4-8.2) Albumin 1.6 gm/dl (3.4-5.0) Globulin 2.5 gm/dl (2.5-4.0) Albumin/Globulin Ratio 0.6 (0.9-2) Allergies Coded Allergies: Sulfa Antibiotics (Verified Allergy, Intermediate, FLU LIKE SYMPTOMS, 08/05) Sulfamethoxazole w/Trimethoprim (Verified Allergy, Intermediate, FLU LIKE SYMPTOMS, 08/05/17) Medications Current Inpatient Medications Medications (Trade) Dose Ordered Sig/Martina Route Start Time Stop Time Status Last Admin Dose Admin Acetaminophen (Tylenol Tab) 650 mg Q4H PRN PO 08/05/17 07:30 09/04/17 07:29 Ondansetron HCl (Zofran Inj) 4 mg Q6H PRN IV 08/05/17 07:30 09/04/17 07:29 08/09/17 07:39 4 MG Mirabegron (Myrbetriq Er) 25 mg QPM PO 08/05/17 21:00 09/04/17 20:59 08/09/17 20:30 25 MG Hydromorphone HCl (Dilaudid Inj) 1 mg Q4 PRN IV 08/06/17 03:45 08/19/17 08:14 08/09/17 15:28 1 MG Gentamicin Sulfate (Gentamicin 0.3% Oph Oint) 1 appln QID OP 08/06/17 17:00 08/16/17 16:59 08/10/17 08:32 1 APPLN Vancomycin HCl (Vancomycin Oral Soln) 125 mg Q6H PO 08/07/17 23:00 08/21/17 23:59 08/10/17 05:25 125 MG Raspberry (Raspberry Syrup 5ml Cup) 5 ml Q6H PO 08/07/17 23:00 08/21/17 23:59 08/10/17 05:20 5 ML Saccharomyces Boulardii (Florastor Cap) 250 mg DAILY PO 08/08/17 09:00 09/07/17 08:59 08/10/17 08:33 250 MG Promethazine HCl 12.5 mg/Sodium Chloride 50.5 ml @ 204 mls/hr Q6H PRN IV 08/09/17 09:15 09/08/17 09:14 08/09/17 15:27 204 MLS/HR Metronidazole 500 mg/Prmx 100 ml @ 100 mls/hr Q8H IV 08/09/17 12:00 08/23/17 11:59 08/10/17 05:15 100 MLS/HR Hydrocortisone Sodium Succinate 50 mg/Syringe 1 ml @ 4 mls/min Q6H IV 08/10/17 00:00 09/09/17 00:00 08/10/17 05:14 4 MLS/MIN Sodium Bicarbonate 75 meq/Dextrose/ Sodium Chloride 1,075 ml @ 150 mls/hr Q7H10M IV 08/09/17 22:00 09/07/17 18:59 08/10/17 07:16 150 MLS/HR Potassium Chloride 20 meq/ Prmx 100 ml @ 50 mls/hr NOW STAT IV 08/10/17 07:55 08/10/17 09:54 08/10/17 08:32 50 MLS/HR Impression (1) Acute renal insufficiency (2) CKD (chronic kidney disease), stage III (3) C. difficile diarrhea (4) ANEMIA,RHEUMATOID ARTHRITIS (5) Acute diverticulitis Chuyita is an 81-year-old female with RA, hypertension and anemia of chronic disease. She is being treated for C diff colitis with IV Flagyl and oral vancomycin. Blood cultures have been negative. Leukocytosis is persistent but patient remains afebrile. Oral intake is poor. The patient continues to have diarrhea. She has decreased EAV. IVF is being provided to encourage intravascular expansion. VALERIE is multifactorial related to prerenal azotemia and ATN. The patient is non oliguric and metabolic profile is otherwise acceptable. Corrected calcium is slightly low at 7.6. The patient is receiving IV calcium gluconate for this. I suspect that this is a manifestation of critical illness. I cannot exclude other potential etiologies such as underlying malignancy with blastic mets. Additional work up will be deferred at this time given severity of illness. Current primary goals of care are restoring appropriate fluid balance (notably complicated by chronic lymphedema and severe hypoalbuminemia) as well as balancing associated electrolyte abnormalities. Recommendations -- Additional 1 gm calcium gluconate this morning -- Check ionized calcium with AM labs and monitor -- Repeat metabolic profile this afternoon -- Document I/O's -- Medications appropriately dosed for renal function -- Encourage nutrition --0.45% saline + 75 mEq HCO3 @ 150 ml/hr; noted shortage of IV HCO3 - patient unable to tolerate oral -- May need to consider 150 mEq HCO3 pending follow up labs or balance IVF -- Potassium replacement PRN for hypokalemia - 20 mEq IV provided today
--- NOTE | 2017-08-10 11:30 | Hospitalist Progress Note ---
Hospitalist Progress Note Date of Service Aug 10, 2017. Subjective Pt evaluation today including: conversation w/ patient, conversation w/ family (daughter at bedside), physical exam, chart review, lab review, review of inpatient medication list Pain: 5/10 sharp LUQ pain PO Intake: Tolerating clears/full liquid Voiding: voiding difficulty (little urine output) The patient reports feeling better. She complains of a 5/10 sharp pain in her LUQ but states this is improving. She is no longer nauseated and tolerated some cream of wheat for breakfast. She is still not making much urine. Rectal tube is in place with dark, liquidy stools. She reports a cough that is sometimes productive but denies any shortness of breath. Her daughter notes hearing some wheezing. The patient denies fevers, chills, sweats, chest pain, palpitations, claudication, shortness of breath, nausea, vomiting, dysuria, hematuria, urinary retention, paralysis, weakness, numbness and tingling. Additional Comments: See HPI for pertinent positives and negatives. All other systems reviewed and negative. Objective Vital Signs Date Time Temp Pulse Resp B/P (MAP) Pulse Ox O2 Delivery O2 Flow Rate FiO2 08/10/17 08:00 36.7 103 18 140/78 (98) 92 Nasal Cannula 3.0 08/10/17 08:00 95 Nasal Cannula 2.0 100 08/10/17 04:35 36.6 82 19 152/72 (98) 92 Nasal Cannula 3.0 08/10/17 04:00 Nasal Cannula 2.0 08/10/17 00:01 Nasal Cannula 2.0 08/09/17 23:32 36.8 117 20 151/84 (106) 97 Nasal Cannula 3.0 08/09/17 20:00 Nasal Cannula 2.0 08/09/17 19:44 36.9 120 20 128/72 (90) 97 Nasal Cannula 2.0 100 08/09/17 16:00 Nasal Cannula 2.0 08/09/17 15:38 36.8 121 22 125/66 (85) 98 Nasal Cannula 2.0 100 08/09/17 12:00 Nasal Cannula 2.0 Physical Exam Notes: General appearance: Well-developed, well-nourished, no apparent distress Head: Normocephalic, atraumatic Eyes: Normal inspection, PERRL, EOMI ENT: Normal ENT inspection, hearing grossly normal, pharynx normal Neck: Supple, no JVD, trachea midline Respiratory/Chest: +Currently on 3L NC. Wheezing appears to be more upper airway. Lungs clear to auscultation, normal breath sounds, no respiratory distress Cardiovascular: Regular rate & rhythm, no gallop, no murmur Abdomen/GI: +LUQ TTP. Normal bowel sounds, soft Extremities/Musculoskeletal: +Lymphedema, chronic. RA deformities in hands. No calf tenderness, no pedal edema Neurological/Psych: Alert, normal mood/affect, oriented x 3 Skin: Normal color, warm/dry, no rash Laboratory Results Last 24 Hours Test 08/09/17 16:01 08/09/17 23:44 08/10/17 04:56 Sodium Level 142 mmol/L 143 mmol/L 144 mmol/L Potassium Level 3.5 mmol/L 3.8 mmol/L 3.4 mmol/L Chloride Level 122 mmol/L 122 mmol/L 123 mmol/L Carbon Dioxide Level 14 mmol/L 15 mmol/L 16 mmol/L Anion Gap 6.0 mmol/L 6.0 mmol/L 5.0 mmol/L Blood Urea Nitrogen 55 mg/dl 52 mg/dl 48 mg/dl Creatinine 1.93 mg/dl 1.74 mg/dl 1.56 mg/dl Est Creatinine Clear Calc Drug Dose 17.6 ml/min 19.5 ml/min 21.6 ml/min Estimated GFR () 27.4 31.1 35.5 Estimated GFR (Non- 23.7 26.8 30.6 BUN/Creatinine Ratio 28.6 30.0 30.9 Random Glucose 164 mg/dl 165 mg/dl 184 mg/dl Calcium Level 5.9 mg/dl 6.8 mg/dl 6.4 mg/dl Ionized Calcium 0.88 mmol/l 1.01 mmol/l White Blood Count 15.94 K/uL Red Blood Count 4.13 M/uL Hemoglobin 11.9 g/dL Hematocrit 36.2 % Mean Corpuscular Volume 87.7 fL Mean Corpuscular Hemoglobin 28.8 pg Mean Corpuscular Hemoglobin Concent 32.9 g/dl Platelet Count 258 K/uL Mean Platelet Volume 8.8 fL Neutrophils (%) (Auto) 92.5 % Lymphocytes (%) (Auto) 3.1 % Monocytes (%) (Auto) 1.4 % Eosinophils (%) (Auto) 0.0 % Basophils (%) (Auto) 0.1 % Neutrophils # (Auto) 14.72 K/uL Lymphocytes # (Auto) 0.50 K/uL Monocytes # (Auto) 0.23 K/uL Eosinophils # (Auto) 0.00 K/uL Basophils # (Auto) 0.02 K/uL RDW Standard Deviation 55.4 fL RDW Coefficient of Variation 17.2 % Immature Granulocyte % (Auto) 2.9 % Immature Granulocyte # (Auto) 0.47 K/uL Lactic Acid Level 0.8 mmol/L Phosphorus Level 2.5 mg/dl Magnesium Level 2.2 mg/dl Total Bilirubin 0.2 mg/dl Aspartate Amino Transf (AST/SGOT) 17 U/L Alanine Aminotransferase (ALT/SGPT) 14 U/L Alkaline Phosphatase 37 U/L Total Protein 4.1 gm/dl Albumin 1.6 gm/dl Globulin 2.5 gm/dl Albumin/Globulin Ratio 0.6 Assessment and Plan 81 y/o female with a history HTN, HLD, RA, h/o breast cancer s/p lumpectomy and radiation, recurrent UTI, urinary incontinence, and anemia of chronic disease who presents with sepsis and acute diverticulitis. C. diff pancolitis severe sepsis and hypotension--improving -Admit to telemetry. No acute events overnight. Pt in sinus tach with PACs, HR low 100s -C. diff positive. Stool cultures negative -GI consulted, appreciate recs: Continue supportive care and abx for cdiff. Most likely had CDiff from beginning and no diverticulitis so other Abx have been stopped. -Infectious disease consulted, appreciate recs: At risk for significant complications given elevated white count and acute kidney injury. Would consider adding IV metronidazole to vancomycin therapy, and watch closely for possible development of toxic megacolon. -Continue PO vancomycin and IV Flagyl -Continue stress dose steroids, hydrocortisone 100 mg IV q6h -Dilaudid 1 mg IV q4h prn pain -Blood cultures negative -O2 by protocol -Leukocytosis improving. WBC 15.94 on 08/10, down from 22.85 -Rectal tube in place VALERIE on CKD stage III, hypocalcemia--improving -Baseline creatinine 1.0-1.5 -Creatinine 1.56 on 08/10, down form 1.74 -D5 1/2NSS + 75 mEq HCO3 at 150 cc/hr -Corrected calcium 8.32 on 08/10, up from 7.6 (corrected due to hypalbuminemia) -Nephrology following, appreciate recs: Repeat metabolic panel in afternoon. Check ionized calcium in morning labs. Continue IVF Hypokalemia -Potassium 3.4 on 08/10, down from 3.8 -KCl 20 mEq IV x 1, continue to monitor. Magnesium WNL HTN, HLD--stable on hydrocortisone -Lisinopril, triamterene/HCTZ, Zocor on hold -Will restart Norvasc 5 mg PO qd RA--stable -Hold home prednisone, hydrocortisone as above -Enbrel injections at home H/o breast cancer--noted Recurrent UTI, urinary incontinence -Urine culture mixed -Continue Myrbetriq when no longer NPO. Hold Macrobid Anemia of chronic disease--stable -Hgb remains stable DVT prophylaxis -Heparin 5000 units SC q12h Code Status -Level V, DO NOT RESUSCITATE
--- NOTE | 2017-08-10 13:27 | Clinical Documentation Query ---
CLINICAL DOCUMENTATION QUERY Dr. FANG, In your clinical opinion is this patient being managed for: ( x ) severe protein-calorie malnutrition ( ) Not Agree ( ) Other explanation of clinical findings (Please Explain. If no explanation given, this would be considered a no response.) ( ) Unable to determine ( ) Need to Discuss (Please call CDS via extension or qliq. If no interaction occurs this is considered a no response.) The medical record reflects the following clinical findings, treatment, and risk factors. Clinical Indicators: 81 yo female presenting with sepsis, C diff colitis. Admission wt 08/06 of 54.5 kg compared to 08/10 49.2 kg for a 9.7% wt loss in 4 days. Pt is described as cachectic, thin, frail. Has been NPO/CL diet since admission (5 days) Treatment:dietary consult, consider initiation of boost once diet is advanced, monitor labs, wts Risk Factors:dietary restriction status, sepsis, C diff colitis. Please clarify and document your clinical opinion in the progress notes and discharge summary. Terms such as "probable", "suspected", "likely", "questionable", "possible", or "still to be ruled out" are acceptable. IF IN AGREEMENT, YOU MUST DOCUMENT ABOVE DIAGNOSTIC STATEMENT IN DAILY PROGRESS NOTES AND DISCHARGE SUMMARY. This document is not part of the patient's record. Thank You, Hallie Salinas, MARY [phone]
[2017-08-10] MEDS ORDERED: NURSING VERBAL MED ORDER ONE ×3 (13:30→14:00)
--- NOTE | 2017-08-10 13:51 | DIAGNOSTIC IMAGING REPORT ---
CHEST ONE VIEW PORTABLE HISTORY: Short of breath. Sepsis. COMPARISON: Chest 08/05/2017. FINDINGS: Left Port-A-Cath terminates in the SVC. No pneumothorax. The heart remains mildly enlarged. Bilateral pleural effusions and bibasilar densities have progressed. There is mild interstitial pulmonary edema, unchanged. IMPRESSION: 1. Interval progression of the bilateral pleural effusions and bibasilar densities. 2. Mild pulmonary edema is again noted. Electronically signed by: Smooth Bowman M.D. 08/10/2017 1:50 PM Dictated Date/Time: 08/10/2017 1:48 PM
[2017-08-10] MEDS ORDERED: ALBUT/IPRATROP 3MG/0.5MG NEB 3 ML VIAL INH ONE (14:15)
[2017-08-10] MEDS: HYDROmorphone INJ 2 MG/ML SYR/VIAL IV PRN ×2 (16:00→20:53)
--- NOTE | 2017-08-10 16:28 | Gastroenterology Progress Note ---
Progress Note Date of Service: Aug 10, 2017 Subjective Pt evaluation today including: chart review, lab review, review of studies Medications Current Inpatient Medications Medications (Trade) Dose Ordered Sig/Martina Route Start Time Stop Time Status Last Admin Dose Admin Acetaminophen (Tylenol Tab) 650 mg Q4H PRN PO 08/05/17 07:30 09/04/17 07:29 Ondansetron HCl (Zofran Inj) 4 mg Q6H PRN IV 08/05/17 07:30 09/04/17 07:29 08/09/17 07:39 4 MG Mirabegron (Myrbetriq Er) 25 mg QPM PO 08/05/17 21:00 09/04/17 20:59 08/09/17 20:30 25 MG Hydromorphone HCl (Dilaudid Inj) 1 mg Q4 PRN IV 08/06/17 03:45 08/19/17 08:14 08/09/17 15:28 1 MG Gentamicin Sulfate (Gentamicin 0.3% Oph Oint) 1 appln QID OP 08/06/17 17:00 08/16/17 16:59 08/10/17 12:08 1 APPLN Vancomycin HCl (Vancomycin Oral Soln) 125 mg Q6H PO 08/07/17 23:00 08/21/17 23:59 08/10/17 12:07 125 MG Raspberry (Raspberry Syrup 5ml Cup) 5 ml Q6H PO 08/07/17 23:00 08/21/17 23:59 08/10/17 12:07 5 ML Saccharomyces Boulardii (Florastor Cap) 250 mg DAILY PO 08/08/17 09:00 09/07/17 08:59 08/10/17 08:33 250 MG Promethazine HCl 12.5 mg/Sodium Chloride 50.5 ml @ 204 mls/hr Q6H PRN IV 08/09/17 09:15 09/08/17 09:14 08/09/17 15:27 204 MLS/HR Metronidazole 500 mg/Prmx 100 ml @ 100 mls/hr Q8H IV 08/09/17 12:00 08/23/17 11:59 08/10/17 12:07 100 MLS/HR Hydrocortisone Sodium Succinate 50 mg/Syringe 1 ml @ 4 mls/min Q6H IV 08/10/17 00:00 09/09/17 00:00 08/10/17 12:07 4 MLS/MIN Sodium Bicarbonate 75 meq/Dextrose/ Sodium Chloride 1,075 ml @ 100 mls/hr [id number] IV 08/09/17 22:00 09/07/17 18:59 08/10/17 12:08 150 MLS/HR Enteral Nutritional Formula (Boost Breeze Nutritional Drink) 1 box BID PO 08/10/17 21:00 09/09/17 20:59 Amlodipine Besylate (Norvasc Tab) 5 mg QAM PO 08/11/17 09:00 09/10/17 08:59 Heparin Sodium (Porcine) (Heparin Sq 5000 Unit/0.5ml) 5,000 unit Q12 SQ 08/10/17 21:00 09/09/17 20:59 Objective Vital Signs Date Time Temp Pulse Resp B/P (MAP) Pulse Ox O2 Delivery O2 Flow Rate FiO2 08/10/17 16:00 95 Nasal Cannula 2.0 100 08/10/17 15:45 36.6 114 16 161/72 (101) 97 Nasal Cannula 3.0 08/10/17 13:22 118 20 98 Nasal Cannula 3.0 08/10/17 12:05 36.7 112 20 141/85 (103) 100 Nasal Cannula 3.0 08/10/17 12:00 95 Nasal Cannula 2.0 100 08/10/17 08:00 36.7 103 18 140/78 (98) 92 Nasal Cannula 3.0 08/10/17 08:00 95 Nasal Cannula 2.0 100 08/10/17 04:35 36.6 82 19 152/72 (98) 92 Nasal Cannula 3.0 08/10/17 04:00 Nasal Cannula 2.0 08/10/17 00:01 Nasal Cannula 2.0 08/09/17 23:32 36.8 117 20 151/84 (106) 97 Nasal Cannula 3.0 08/09/17 20:00 Nasal Cannula 2.0 08/09/17 19:44 36.9 120 20 128/72 (90) 97 Nasal Cannula 2.0 100 Physical Exam General Appearance: WD/WN Abdomen: normal bowel sounds, + tenderness Laboratory Results Last 24 Hours Test 08/09/17 23:44 08/10/17 04:56 Sodium Level 143 mmol/L 144 mmol/L Potassium Level 3.8 mmol/L 3.4 mmol/L Chloride Level 122 mmol/L 123 mmol/L Carbon Dioxide Level 15 mmol/L 16 mmol/L Anion Gap 6.0 mmol/L 5.0 mmol/L Blood Urea Nitrogen 52 mg/dl 48 mg/dl Creatinine 1.74 mg/dl 1.56 mg/dl Est Creatinine Clear Calc Drug Dose 19.5 ml/min 21.6 ml/min Estimated GFR () 31.1 35.5 Estimated GFR (Non- 26.8 30.6 BUN/Creatinine Ratio 30.0 30.9 Random Glucose 165 mg/dl 184 mg/dl Calcium Level 6.8 mg/dl 6.4 mg/dl Ionized Calcium 1.01 mmol/l White Blood Count 15.94 K/uL Red Blood Count 4.13 M/uL Hemoglobin 11.9 g/dL Hematocrit 36.2 % Mean Corpuscular Volume 87.7 fL Mean Corpuscular Hemoglobin 28.8 pg Mean Corpuscular Hemoglobin Concent 32.9 g/dl Platelet Count 258 K/uL Mean Platelet Volume 8.8 fL Neutrophils (%) (Auto) 92.5 % Lymphocytes (%) (Auto) 3.1 % Monocytes (%) (Auto) 1.4 % Eosinophils (%) (Auto) 0.0 % Basophils (%) (Auto) 0.1 % Neutrophils # (Auto) 14.72 K/uL Lymphocytes # (Auto) 0.50 K/uL Monocytes # (Auto) 0.23 K/uL Eosinophils # (Auto) 0.00 K/uL Basophils # (Auto) 0.02 K/uL RDW Standard Deviation 55.4 fL RDW Coefficient of Variation 17.2 % Immature Granulocyte % (Auto) 2.9 % Immature Granulocyte # (Auto) 0.47 K/uL Lactic Acid Level 0.8 mmol/L Phosphorus Level 2.5 mg/dl Magnesium Level 2.2 mg/dl Total Bilirubin 0.2 mg/dl Aspartate Amino Transf (AST/SGOT) 17 U/L Alanine Aminotransferase (ALT/SGPT) 14 U/L Alkaline Phosphatase 37 U/L Total Protein 4.1 gm/dl Albumin 1.6 gm/dl Globulin 2.5 gm/dl Albumin/Globulin Ratio 0.6 Assessment and Plan C diff colitis on po vanco and IV flagyl. WBC is improving. Continue current measures
[2017-08-10 18:14] LABS: CREATININE 1.44 mg/dl (0.60-1.20); PHOSPHORUS 1.9 mg/dl (2.5-4.9); POTASSIUM 3.6 mmol/L (3.5-5.1)
[2017-08-10] MEDS: BOOST BREEZE NUTRITION DRINK 1 BOX PO SCH (20:34)
[2017-08-10] MEDS: MIRABEGRON ER 25 MG TAB PO SCH (20:38)
[2017-08-10] MEDS: HEPARIN SOD 5000 UNIT/0.5 ML CARP SQ SCH (20:42)
[2017-08-11] VITALS (14 sets, daily range): BP systolic 127–162; BP diastolic 69–89; PULSE 98–121; TEMP 36.3–36.8; O2SAT 93–100
[2017-08-11] MEDS: HYDROmorphone INJ 2 MG/ML SYR/VIAL IV PRN ×2 (02:16→08:28)
[2017-08-11] MEDS: METRONIDAZOLE / NSS 500 MG in PREMIXED NSS 100 ML IV SCH ×3 (03:53→19:22)
[2017-08-11] MEDS: VANCOMYCIN HCL 125 MG/2.5ML SOLN PO SCH ×4 (05:24→23:37)
[2017-08-11] MEDS: HYDROCORTISONE IV 50 MG in SYRINGE 0 ML IV SCH ×2 (05:24→11:05)
[2017-08-11] MEDS: RASPBERRY SYRUP 5 ML UDP PO SCH ×4 (05:24→23:36)
[2017-08-11 06:02] LABS: HEMATOCRIT 38.3 % (37-47); HEMOGLOBIN 12.5 g/dL (12.0-16.0); MEAN CELL VOLUME 87.2 fL (80-100); MEAN CORPUSCULAR HEMOGLOBIN 28.5 pg (25-34); MEAN CORPUSCULAR HGB CONC 32.6 g/dl (32-36); MEAN PLATELET VOLUME 9.3 fL (7.4-10.4); PLATELET COUNT 285 K/uL (130-400); RED CELL DISTRIBUTION WIDTH CV 17.2 % (11.5-14.5); WHITE BLOOD COUNT 15.88 K/uL (4.8-10.8)
[2017-08-11] MEDS: ALBUT/IPRATROP 3MG/0.5MG NEB 3 ML VIAL INH SCH ×4 (06:27→19:52)
[2017-08-11 06:36] LABS: CALCIUM 7.2 mg/dl (8.5-10.1); CREATININE 1.42 mg/dl (0.60-1.20); POTASSIUM 3.9 mmol/L (3.5-5.1)
[2017-08-11 06:37] LABS: PHOSPHORUS 2.4 mg/dl (2.5-4.9)
[2017-08-11] MEDS: GENTAMICIN SULFATE 0.3% OP OINT 3.5 GM TUBE OP SCH ×4 (08:28→20:50)
[2017-08-11] MEDS: BOOST BREEZE NUTRITION DRINK 1 BOX PO SCH ×2 (08:29→20:51)
[2017-08-11] MEDS: AMLODIPINE BESYLATE 5 MG TAB PO SCH (08:29)
[2017-08-11] MEDS: SACCHAROMYCES BOUL (FLORASTOR) 250 MG CAP PO SCH (08:29)
[2017-08-11] MEDS: HEPARIN SOD 5000 UNIT/0.5 ML CARP SQ SCH ×2 (08:32→20:53)
[2017-08-11] MEDS: SODIUM BICARBONATE 8.4% INJ 75 MEQ in D5W AND 1/2NSS 1,000 ML IV SCH (09:30)
--- NOTE | 2017-08-11 10:59 | Nephrology Progress Note ---
Nephrology Progress Note Date of Service Aug 11, 2017. Chief Complaint VALERIE Subjective Ms. Alex was seen & examined in her hospital room this morning. She continues to have diarrhea and has a fecal incontinence bag in place. She is tolerating IV hydration without dyspnea. She voices no new medical concerns. Review of Systems Constitutional: No fever Cardiovascular: No chest pain Respiratory: No dyspnea at rest Abdomen: No pain, No nausea, No vomiting Extremities: No leg edema A complete review of systems was performed. Pertinent positives are noted above. All other systems are negative. Vital Signs Last 8 Hrs Date Time Temp Pulse Resp B/P (MAP) Pulse Ox O2 Delivery O2 Flow Rate FiO2 08/11/17 08:13 36.7 112 20 162/79 (106) 97 Nasal Cannula 3.0 08/11/17 08:00 95 Nasal Cannula 2.0 100 08/11/17 06:27 110 20 98 Nasal Cannula 3.0 08/11/17 04:00 Nasal Cannula 1.0 08/11/17 03:28 36.6 98 21 149/87 (107) 97 Nasal Cannula 1.0 Last Recorded Weight Weight (Kilograms): 49.200 Physical Exam General Appearance: no apparent distress Head: normocephalic Eyes: PERRL, EOMI Neck: no adenopathy Respiratory/Chest: lungs clear, no respiratory distress Cardiovascular: regular rate, rhythm Abdomen/GI: normal bowel sounds, non tender, soft Extremities/Musculoskelatal: no calf tenderness, no pedal edema Neurologic/Psych: alert Family History Cancer Diabetes mellitus Hypertension Social History Smoking Status: Never smoker Marital Status: Occupation: retired Laboratory Results Past 24 Hours 08/11/17 05:53 08/10/17 17:17 08/11/17 05:53 Test 08/10/17 17:17 08/11/17 05:53 Anion Gap 7.0 mmol/L (3-11) 8.0 mmol/L (3-11) Est Creatinine Clear Calc Drug Dose 23.4 ml/min 23.7 ml/min Estimated GFR () 39.1 39.8 Estimated GFR (Non- 33.7 34.3 BUN/Creatinine Ratio 30.2 (10-20) 26.6 (10-20) Calcium Level 7.0 mg/dl (8.5-10.1) 7.2 mg/dl (8.5-10.1) Phosphorus Level 1.9 mg/dl (2.5-4.9) 2.4 mg/dl (2.5-4.9) Magnesium Level 2.2 mg/dl (1.8-2.4) 2.0 mg/dl (1.8-2.4) Red Blood Count 4.39 M/uL (4.2-5.4) Mean Corpuscular Volume 87.2 fL (80-100) Mean Corpuscular Hemoglobin 28.5 pg (25-34) Mean Corpuscular Hemoglobin Concent 32.6 g/dl (32-36) RDW Standard Deviation 55.0 fL (36.4-46.3) RDW Coefficient of Variation 17.2 % (11.5-14.5) Mean Platelet Volume 9.3 fL (7.4-10.4) Ionized Calcium 1.07 mmol/l (1.12-1.32) Allergies Coded Allergies: Sulfa Antibiotics (Verified Allergy, Intermediate, FLU LIKE SYMPTOMS, 08/05) Sulfamethoxazole w/Trimethoprim (Verified Allergy, Intermediate, FLU LIKE SYMPTOMS, 08/05/17) Medications Current Inpatient Medications Medications (Trade) Dose Ordered Sig/Martina Route Start Time Stop Time Status Last Admin Dose Admin Acetaminophen (Tylenol Tab) 650 mg Q4H PRN PO 08/05/17 07:30 09/04/17 07:29 Ondansetron HCl (Zofran Inj) 4 mg Q6H PRN IV 08/05/17 07:30 09/04/17 07:29 08/09/17 07:39 4 MG Mirabegron (Myrbetriq Er) 25 mg QPM PO 08/05/17 21:00 09/04/17 20:59 08/10/17 20:38 25 MG Hydromorphone HCl (Dilaudid Inj) 1 mg Q4 PRN IV 08/06/17 03:45 08/19/17 08:14 08/11/17 08:28 1 MG Gentamicin Sulfate (Gentamicin 0.3% Oph Oint) 1 appln QID OP 08/06/17 17:00 08/16/17 16:59 08/11/17 08:28 1 APPLN Vancomycin HCl (Vancomycin Oral Soln) 125 mg Q6H PO 08/07/17 23:00 08/21/17 23:59 08/11/17 05:24 125 MG Raspberry (Raspberry Syrup 5ml Cup) 5 ml Q6H PO 08/07/17 23:00 08/21/17 23:59 08/11/17 05:24 5 ML Saccharomyces Boulardii (Florastor Cap) 250 mg DAILY PO 08/08/17 09:00 09/07/17 08:59 08/11/17 08:29 250 MG Promethazine HCl 12.5 mg/Sodium Chloride 50.5 ml @ 204 mls/hr Q6H PRN IV 08/09/17 09:15 09/08/17 09:14 08/09/17 15:27 204 MLS/HR Metronidazole 500 mg/Prmx 100 ml @ 100 mls/hr Q8H IV 08/09/17 12:00 08/23/17 11:59 08/11/17 03:53 100 MLS/HR Hydrocortisone Sodium Succinate 50 mg/Syringe 1 ml @ 4 mls/min Q6H IV 08/10/17 00:00 09/09/17 00:00 08/11/17 05:24 4 MLS/MIN Sodium Bicarbonate 75 meq/Dextrose/ Sodium Chloride 1,075 ml @ 100 mls/hr [id number] IV 08/09/17 22:00 09/07/17 18:59 08/11/17 09:30 100 MLS/HR Enteral Nutritional Formula (Boost Breeze Nutritional Drink) 1 box BID PO 08/10/17 21:00 09/09/17 20:59 08/11/17 08:29 1 BOX Amlodipine Besylate (Norvasc Tab) 5 mg QAM PO 08/11/17 09:00 09/10/17 08:59 08/11/17 08:29 5 MG Heparin Sodium (Porcine) (Heparin Sq 5000 Unit/0.5ml) 5,000 unit Q12 SQ 08/10/17 21:00 09/09/17 20:59 08/11/17 08:32 5,000 UNIT Albuterol/ Ipratropium (Duoneb) 3 ml QIDR INH 08/11/17 08:00 09/10/17 07:59 08/11/17 06:27 3 ML Impression (1) Acute renal insufficiency (2) CKD (chronic kidney disease), stage III (3) C. difficile diarrhea (4) ANEMIA,RHEUMATOID ARTHRITIS (5) Acute diverticulitis Chuyita is an 81-year-old female with RA, hypertension and anemia of chronic disease. She is being treated for C diff colitis with IV Flagyl and oral vancomycin. Blood cultures have been negative. VALERIE is multifactorial related to prerenal azotemia and ATN. Recommendations -- VALERIE has resolved. -- Patient is developing mild hypernatremia. Will change IVF to 0.45 NS w/ 50 mEq NaHCO3 at 100 cc/hr -- Repeat metabolic profile in am -- Corrected serum calcium is within acceptable limits this am
[2017-08-11] MEDS ORDERED: SODIUM BICARBONATE 8.4% INJ 50 MEQ in SODIUM CHLORIDE 0.45% 1000ML 1,000 ML IV SCH (11:00)
--- NOTE | 2017-08-11 11:15 | PROGRESS NOTE ---
DATE: 08/11/2017 SUBJECTIVE: The patient reports her abdominal pain is improving, stool frequency is decreasing. She only has 3 stools recorded yesterday and 1 so far today. OBJECTIVE: VITAL SIGNS: Show a pulse of 112, blood pressure is 162/79, temperature is 36.7. ABDOMEN: Shows right upper quadrant and low midline scars. There is some tenderness, particularly in the left upper quadrant. No mass or rebound. IMPRESSION AND PLAN: The patient has C. diff colitis which is improving on p.o. vancomycin and IV Flagyl. Her white count today is decreased to 15.88. We will continue on current measures at this point and keep her on a full liquid diet.
[2017-08-11] MEDS ORDERED: METOPROLOL TARTRATE 1 MG/ML VIAL ONE (12:00)
[2017-08-11] MEDS ORDERED: NURSING VERBAL MED ORDER ONE (12:00)
--- NOTE | 2017-08-11 14:35 | Progress Note ---
Subjective Date of Service: Aug 11, 2017. Subjective Pt evaluation today including: conversation w/ patient, conversation w/ family , physical exam, chart review, lab review, review of studies, conversation w/ x ray consultant, review of inpatient medication list No fluid from the rectal tube is much decreased, patient tolerated full liquid diet, no other complaint, this report was tachycardia heart rate up to 150 was sinus tachycardia, associated with an elevated blood pressure, patient's tachycardia improved after 1 dose of metoprolol IV, Problem List Medical Problems: (1) Acute kidney injury Status: Acute (2) Acute renal failure Status: Acute (3) Anemia Status: Acute (4) Anemia Status: Acute (5) Back pain Status: Chronic (6) Colitis Status: Acute (7) Dehydration Status: Acute (8) Dehydration Status: Acute (9) Diarrhea Status: Acute (10) Elevated lactic acid level Status: Acute (11) Elevated troponin I level Status: Acute (12) Failure of outpatient treatment Status: Acute (13) Fever Status: Acute (14) Fever Status: Acute (15) GI bleed Status: Acute (16) History of chronic urinary tract infection Status: Acute (17) Hyponatremia Status: Acute (18) Immunocompromised Status: Acute (19) Laceration Status: Acute (20) Left arm cellulitis Status: Acute (21) Leukocytosis Status: Acute (22) Leukocytosis Status: Acute (23) Sepsis Status: Acute (24) Sepsis Status: Acute (25) Severe sepsis Status: Acute (26) SIRS (systemic inflammatory response syndrome) Status: Acute (27) Urinary tract infection Status: Acute (28) UTI (urinary tract infection) Status: Acute (29) UTI (urinary tract infection) Status: Acute (30) UTI (urinary tract infection) Status: Acute (31) Weakness Status: Acute Review of Systems Constitutional: + weakness, + fatigue, No fever, No chills, No sweats, No weight loss, No problem reported Eyes: No worsening of vision, No eye pain, No redness, No discharge, No diplopia ENT: No hearing loss, No unusual epistaxis, No nasal symptoms, No sore throat, No tinnitus, No dental problems, No trouble swallowing Respiratory: + cough, + wheezing, + shortness of breath, No sputum, No dyspnea on exertion, No dyspnea at rest, No hemoptysis Cardiac: No chest pain, No orthopnea, No PND, No edema, No claudication, No palpitations Abdomen: + diarrhea, No pain, No nausea, No vomiting, No constipation Musculoskeletal: No joint pain, No muscle pain, No swelling, No calf pain Female : No dysuria, No urinary frequency, No hematuria, No incontinence, No abnormal vaginal bleeding, No vaginal discharge Neurologic: No memory loss, No paralysis, No weakness, No numbness/tingling, No vertigo, No balance problems Psychiatric: No depression symptoms, No anhedonism, No anxiety, No insomnia, No substance abuse Heme: No abnormal bleeding/bruising, No clotting problems, No swollen lymph nodes, No night sweats Endo: No fatigue, No excessive thirst, No excessive urination Skin: No rash, No itch, No new/changing skin lesions, No color change, No bleeding Objective Vital Signs Date Time Temp Pulse Resp B/P (MAP) Pulse Ox O2 Delivery O2 Flow Rate FiO2 08/11/17 12:07 135 141/76 08/11/17 12:00 95 Nasal Cannula 2.0 100 08/11/17 11:18 36.3 98 20 127/82 (97) 100 08/11/17 11:13 115 20 98 Nasal Cannula 3.0 08/11/17 08:13 36.7 112 20 162/79 (106) 97 Nasal Cannula 3.0 08/11/17 08:00 95 Nasal Cannula 2.0 100 08/11/17 06:27 110 20 98 Nasal Cannula 3.0 08/11/17 04:00 Nasal Cannula 1.0 08/11/17 03:28 36.6 98 21 149/87 (107) 97 Nasal Cannula 1.0 08/10/17 23:59 Nasal Cannula 1.0 08/10/17 23:38 36.4 120 19 147/80 (102) 98 Nasal Cannula 3.0 08/10/17 20:00 Nasal Cannula 2.0 08/10/17 19:35 36.5 116 16 144/72 (96) 99 Nasal Cannula 3.0 08/10/17 16:00 95 Nasal Cannula 2.0 100 08/10/17 15:45 36.6 114 16 161/72 (101) 97 Nasal Cannula 3.0 Physical Exam General Appearance: WD/WN, no apparent distress, + pertinent finding (Looks better than yesterday, conversational and atretic,) Eyes: normal inspection, PERRL, EOMI, sclerae normal ENT: normal ENT inspection, hearing grossly normal, pharynx normal Neck: supple, no adenopathy, thyroid normal, no JVD, no carotid bruits, trachea midline Respiratory/Chest: chest non-tender, normal breath sounds, no respiratory distress, no accessory muscle use, + decreased breath sounds Cardiovascular: regular rate, rhythm, no gallop, no JVD, no murmur, + pertinent finding (Trace edema) Abdomen: normal bowel sounds, non tender, soft, no organomegaly, no pulsatile mass Extremities: normal range of motion, non-tender, normal inspection, no pedal edema, no calf tenderness, normal capillary refill, pelvis stable Neurologic/Psychiatric: clinical nursing professor II-XII nml as tested, no motor/sensory deficits, alert, normal mood/affect, oriented x 3 Skin: normal color, warm/dry, no rash Lymphatic: no adenopathy Laboratory Results Last 24 Hours Test 08/10/17 17:17 08/11/17 05:53 Sodium Level 144 mmol/L 146 mmol/L Potassium Level 3.6 mmol/L 3.9 mmol/L Chloride Level 121 mmol/L 119 mmol/L Carbon Dioxide Level 16 mmol/L 19 mmol/L Anion Gap 7.0 mmol/L 8.0 mmol/L Blood Urea Nitrogen 44 mg/dl 38 mg/dl Creatinine 1.44 mg/dl 1.42 mg/dl Est Creatinine Clear Calc Drug Dose 23.4 ml/min 23.7 ml/min Estimated GFR () 39.1 39.8 Estimated GFR (Non- 33.7 34.3 BUN/Creatinine Ratio 30.2 26.6 Random Glucose 154 mg/dl 188 mg/dl Calcium Level 7.0 mg/dl 7.2 mg/dl Phosphorus Level 1.9 mg/dl 2.4 mg/dl Magnesium Level 2.2 mg/dl 2.0 mg/dl White Blood Count 15.88 K/uL Red Blood Count 4.39 M/uL Hemoglobin 12.5 g/dL Hematocrit 38.3 % Mean Corpuscular Volume 87.2 fL Mean Corpuscular Hemoglobin 28.5 pg Mean Corpuscular Hemoglobin Concent 32.6 g/dl RDW Standard Deviation 55.0 fL RDW Coefficient of Variation 17.2 % Platelet Count 285 K/uL Mean Platelet Volume 9.3 fL Ionized Calcium 1.07 mmol/l Assessment and Plan 81 y/o female admitted on August 05, 2017 because of sepsis and acute diverticulitis, later found has cdiff pancolitis Past medical history HTN, HLD, RA, h/o breast cancer s/p lumpectomy and radiation, recurrent UTI, urinary incontinence, and anemia of chronic disease cdiff pancolitis, oral vanco , IV Flagyl per infectious disease recommended, continue probiotic, has been significantly improving, Tolerated diet, advance as tolerated, rectal tube removed, Shortness of breath and wheezing, chest x-ray yesterday shows pleural effusion, and mild pulmonary edema, start IV fluid, check echocardiogram, Lasix if needed , check echocardiogram Acute on chronic kidney failure stage III, creatinine improving, Hypernatremia, sodium was 146, discontinue IV fluid, start free water 200 ml q. shift 24 hour, will follow up sodium level 1600 and tomorrow morning HTN, HLD--stable on hydrocortisone History of RA Was on oral prednisone at home -Hold home prednisone, change hydrocortisone IV to 25 mg every 6, will switch back to oral home dose of prednisone tomorrow -Enbrel injections at home H/o breast cancer--noted DVT prophylaxis, NANCY grubbs and SCDs DO NOT RESUSCITATE Discussed with patient and patient's daughter in the bedside, because of her age and current medical conditions, prognosis is guarded Continued [facility] stay due to: multiple IV medications needed Discharge planning: uncertain
[2017-08-11 17:16] LABS: CALCIUM 7.5 mg/dl (8.5-10.1); CREATININE 1.36 mg/dl (0.60-1.20); POTASSIUM 3.6 mmol/L (3.5-5.1)
[2017-08-11] MEDS: HYDROCORTISONE IV 25 MG in SYRINGE 0 ML IV SCH ×2 (17:27→23:37)
[2017-08-11] MEDS: METOPROLOL TARTRATE 25 MG TAB PO SCH (20:51)
[2017-08-11] MEDS: MIRABEGRON ER 25 MG TAB PO SCH (20:51)
[2017-08-11] MEDS: SIMVASTATIN 20 MG TAB PO SCH (20:51)
[2017-08-11] MEDS: HYDROmorphone INJ 0.5 MG/0.5 ML SYR IV PRN (20:52)
[2017-08-12] VITALS (11 sets, daily range): BP systolic 105–150; BP diastolic 47–75; PULSE 88–115; TEMP 36.4–36.9; O2SAT 93–99
[2017-08-12] MEDS: HYDROmorphone INJ 0.5 MG/0.5 ML SYR IV PRN ×3 (02:34→15:17)
[2017-08-12] MEDS: METRONIDAZOLE / NSS 500 MG in PREMIXED NSS 100 ML IV SCH ×3 (05:00→20:28)
[2017-08-12] MEDS: HYDROCORTISONE IV 25 MG in SYRINGE 0 ML IV SCH ×2 (05:00→12:21)
[2017-08-12] MEDS: RASPBERRY SYRUP 5 ML UDP PO SCH ×4 (05:00→23:40)
[2017-08-12] MEDS: VANCOMYCIN HCL 125 MG/2.5ML SOLN PO SCH ×4 (05:00→23:40)
[2017-08-12 05:39] LABS: HEMATOCRIT 38.5 % (37-47); HEMOGLOBIN 12.4 g/dL (12.0-16.0); MEAN CELL VOLUME 88.5 fL (80-100); MEAN CORPUSCULAR HEMOGLOBIN 28.5 pg (25-34); MEAN CORPUSCULAR HGB CONC 32.2 g/dl (32-36); MEAN PLATELET VOLUME 9.9 fL (7.4-10.4); NUCLEATED RED BLOOD CELL ABS 0.03 K/uL (0-0); PLATELET COUNT 294 K/uL (130-400); RED CELL DISTRIBUTION WIDTH CV 17.5 % (11.5-14.5); RED CELL DISTRIBUTION WIDTH SD 56.5 fL (36.4-46.3); WHITE BLOOD COUNT 20.01 K/uL (4.8-10.8)
[2017-08-12 06:07] LABS: CALCIUM 7.4 mg/dl (8.5-10.1); CREATININE 1.1 mg/dl (0.60-1.20); POTASSIUM 3.7 mmol/L (3.5-5.1)
[2017-08-12] MEDS: ALBUT/IPRATROP 3MG/0.5MG NEB 3 ML VIAL INH SCH ×3 (06:55→15:02)
[2017-08-12] MEDS ORDERED: POTASSIUM PHOS 3 MMOL/1 ML INFUSION IV STA (08:01)
[2017-08-12] MEDS ORDERED: POTASSIUM PHOSPHATE INJ 15 MMOL in SODIUM CHLORIDE 0.9% 250ML 250 ML IV ONE (08:15)
[2017-08-12] MEDS: ASPIRIN 81 MG ECTAB PO SCH (08:33)
[2017-08-12] MEDS: SACCHAROMYCES BOUL (FLORASTOR) 250 MG CAP PO SCH (08:33)
[2017-08-12] MEDS: CALCIUM 600MG + VIT D 400 IU TAB PO SCH (08:33)
[2017-08-12] MEDS: BOOST BREEZE NUTRITION DRINK 1 BOX PO SCH (08:33)
[2017-08-12] MEDS: GENTAMICIN SULFATE 0.3% OP OINT 3.5 GM TUBE OP SCH ×4 (08:33→20:51)
[2017-08-12] MEDS: METOPROLOL TARTRATE 25 MG TAB PO SCH ×2 (08:34→20:50)
[2017-08-12] MEDS: TRIAMTERENE/HCTZ 37.5/25MG TAB PO SCH (08:34)
[2017-08-12] MEDS: HEPARIN SOD 5000 UNIT/0.5 ML CARP SQ SCH ×2 (08:35→20:54)
[2017-08-12] MEDS: AMLODIPINE BESYLATE 5 MG TAB PO SCH (10:15)
[2017-08-12] MEDS ORDERED: NURSING VERBAL MED ORDER ONE ×3 (10:30→18:00)
--- NOTE | 2017-08-12 11:09 | PROGRESS NOTE ---
DATE: 08/12/2017 SUBJECTIVE: Patient reports that she feels a little bit better every day, but she is still having abdominal pain. OBJECTIVE: VITAL SIGNS: Her vital signs showed temperature of 36.4, pulse 114. Blood pressure is 132/47, oxygen saturation is 95% on 2 liters. ABDOMEN: On abdominal exam, her abdomen is distended and tympanitic and slightly tender in the left upper quadrant and bilateral lower abdomen. LABORATORY: Shows a white count which has gone up today to 20.01, hemoglobin stable at 12.4, platelets 294,000. Patient continues on p.o. vancomycin and IV Flagyl for her C. diff. IMPRESSION: The patient got Clostridium difficile colitis with increased white count today and abdominal distention. Concern is that she may be developing a toxic megacolon and I plan on sending her down for abdominal series today to see if she has a megacolon.
--- NOTE | 2017-08-12 11:19 | Nephrology Progress Note ---
Nephrology Progress Note Date of Service Aug 12, 2017. Chief Complaint VALERIE Subjective Ms. Alex was seen & examined in her hospital room this morning. Her daughter was present at bedside. Ms. Alex reports that her diarrhea has slowed and she is now tolerating an oral diet. Review of Systems Constitutional: No fever Cardiovascular: No chest pain Respiratory: No dyspnea at rest Abdomen: No pain, No nausea, No vomiting Extremities: No leg edema A complete review of systems was performed. Pertinent positives are noted above. All other systems are negative. Vital Signs Last 8 Hrs Date Time Temp Pulse Resp B/P (MAP) Pulse Ox O2 Delivery O2 Flow Rate FiO2 08/12/17 08:01 95 Nasal Cannula 2.0 08/12/17 07:57 36.4 114 20 132/47 (75) 96 08/12/17 07:44 97 18 95 Nasal Cannula 3.0 08/12/17 04:15 97 Nasal Cannula 2.0 Last Recorded Weight Weight (Kilograms): 65.300 Physical Exam General Appearance: no apparent distress Head: normocephalic, atraumatic Eyes: PERRL, EOMI Neck: no adenopathy Respiratory/Chest: lungs clear, no respiratory distress Cardiovascular: regular rate, rhythm Abdomen/GI: normal bowel sounds, non tender, soft Extremities/Musculoskelatal: no pedal edema Neurologic/Psych: alert, oriented x 3 Family History Cancer Diabetes mellitus Hypertension Social History Smoking Status: Never smoker Marital Status: Occupation: retired Laboratory Results Past 24 Hours 08/12/17 04:55 08/11/17 15:57 08/12/17 04:55 Test 08/11/17 15:57 08/12/17 04:55 Anion Gap 7.0 mmol/L (3-11) 7.0 mmol/L (3-11) Est Creatinine Clear Calc Drug Dose 24.8 ml/min 30.6 ml/min Estimated GFR () 41.9 54.1 Estimated GFR (Non- 36.1 46.7 BUN/Creatinine Ratio 29.4 (10-20) 33.5 (10-20) Calcium Level 7.5 mg/dl (8.5-10.1) 7.4 mg/dl (8.5-10.1) Red Blood Count 4.35 M/uL (4.2-5.4) Mean Corpuscular Volume 88.5 fL (80-100) Mean Corpuscular Hemoglobin 28.5 pg (25-34) Mean Corpuscular Hemoglobin Concent 32.2 g/dl (32-36) RDW Standard Deviation 56.5 fL (36.4-46.3) RDW Coefficient of Variation 17.5 % (11.5-14.5) Mean Platelet Volume 9.9 fL (7.4-10.4) Nucleated RBC Absolute Count (auto) 0.03 K/uL (0-0) Nucleated Red Blood Cells % 0.1 % Phosphorus Level 2.0 mg/dl (2.5-4.9) Magnesium Level 2.0 mg/dl (1.8-2.4) Allergies Coded Allergies: Sulfa Antibiotics (Verified Allergy, Intermediate, FLU LIKE SYMPTOMS, 08/05) Sulfamethoxazole w/Trimethoprim (Verified Allergy, Intermediate, FLU LIKE SYMPTOMS, 08/05/17) Medications Current Inpatient Medications Medications (Trade) Dose Ordered Sig/Martina Route Start Time Stop Time Status Last Admin Dose Admin Acetaminophen (Tylenol Tab) 650 mg Q4H PRN PO 08/05/17 07:30 09/04/17 07:29 Ondansetron HCl (Zofran Inj) 4 mg Q6H PRN IV 08/05/17 07:30 09/04/17 07:29 08/09/17 07:39 4 MG Mirabegron (Myrbetriq Er) 25 mg QPM PO 08/05/17 21:00 09/04/17 20:59 08/11/17 20:51 25 MG Gentamicin Sulfate (Gentamicin 0.3% Oph Oint) 1 appln QID OP 08/06/17 17:00 08/16/17 16:59 08/12/17 08:33 1 APPLN Vancomycin HCl (Vancomycin Oral Soln) 125 mg Q6H PO 08/07/17 23:00 08/21/17 23:59 08/12/17 08:34 125 MG Raspberry (Raspberry Syrup 5ml Cup) 5 ml Q6H PO 08/07/17 23:00 08/21/17 23:59 08/12/17 08:34 5 ML Saccharomyces Boulardii (Florastor Cap) 250 mg DAILY PO 08/08/17 09:00 09/07/17 08:59 08/12/17 08:33 250 MG Promethazine HCl 12.5 mg/Sodium Chloride 50.5 ml @ 204 mls/hr Q6H PRN IV 08/09/17 09:15 09/08/17 09:14 08/09/17 15:27 204 MLS/HR Metronidazole 500 mg/Prmx 100 ml @ 100 mls/hr Q8H IV 08/09/17 12:00 08/23/17 11:59 08/12/17 05:00 100 MLS/HR Amlodipine Besylate (Norvasc Tab) 5 mg QAM PO 08/11/17 09:00 09/10/17 08:59 08/12/17 10:15 5 MG Heparin Sodium (Porcine) (Heparin Sq 5000 Unit/0.5ml) 5,000 unit Q12 SQ 08/10/17 21:00 09/09/17 20:59 08/12/17 08:35 5,000 UNIT Albuterol/ Ipratropium (Duoneb) 3 ml QIDR INH 08/11/17 08:00 09/10/17 07:59 08/12/17 06:55 3 ML Hydromorphone HCl (Dilaudid Inj) 0.5 mg Q4 PRN IV 08/11/17 14:30 08/19/17 08:14 08/12/17 09:35 0.5 MG Hydrocortisone Sodium Succinate 25 mg/Syringe 0.5 ml @ 4 mls/min Q6 IV 08/11/17 18:00 09/10/17 17:59 08/12/17 05:00 4 MLS/MIN Aspirin (Ecotrin Tab) 81 mg QAM PO 08/12/17 09:00 09/11/17 08:59 08/12/17 08:33 81 MG Simvastatin (Zocor Tab) 20 mg QPM PO 08/11/17 21:00 09/10/17 20:59 08/11/17 20:51 20 MG Triamterene/HCTZ (Maxzide 37.5/25 Tab) 1 tab QAM PO 08/12/17 09:00 09/11/17 08:59 08/12/17 08:34 1 TAB Calcium/Vitamin D (Caltrate Plus Tab) 1 tab QAM PO 08/12/17 09:00 09/11/17 08:59 08/12/17 08:33 1 TAB Miscellaneous Information (Order Awaiting Action) 1 ea QS N/A 08/11/17 16:00 09/10/17 15:59 Metoprolol Tartrate (Lopressor Tab) 25 mg BID PO 08/11/17 21:00 09/10/17 20:59 08/12/17 08:34 25 MG Heparin Sodium (Porcine) (Heparin 100 Unit/ml 5ml Flush) 5 ml PRN PRN IV 08/11/17 18:30 09/10/17 18:29 Enteral Nutritional Formula (Boost) 1 can BID PO 08/12/17 21:00 09/11/17 20:59 Impression (1) Acute renal insufficiency (2) CKD (chronic kidney disease), stage III (3) C. difficile diarrhea (4) ANEMIA,RHEUMATOID ARTHRITIS (5) Acute diverticulitis Chuyita is an 81-year-old female with RA, hypertension and anemia of chronic disease. She is being treated for C diff colitis with IV Flagyl and oral vancomycin. Blood cultures have been negative. VALERIE is multifactorial related to prerenal azotemia and ATN. Recommendations -- VALERIE has resolved. -- Continue 0.45 NS w/ 50 mEq NaHCO3 at 100 cc/hr. Stop IVF once serum bicarbonate 20 or greater and patient is tolerating oral diet -- Corrected serum calcium is within acceptable limits this am -- No further Nephrology evaluation needed at this time. Will defer further medical management and IVF to primary service. Will sign off. Please call if further Nephrology assistance is needed.
--- NOTE | 2017-08-12 11:33 | DIAGNOSTIC IMAGING REPORT ---
ABDOMEN 2 VIEWS CLINICAL HISTORY: Colitis. Clinical concern for megacolon. FINDINGS: Supine and decubitus abdominal radiographs are correlated with abdominal CT dated 08/07/2017. There is a nonobstructed abdominal bowel gas pattern. No evidence of intraperitoneal free air is seen on the decubitus view. There is no radiographic evidence of megacolon as clinically queried. Cholecystectomy clips are noted. There is advanced atherosclerotic calcification of the abdominal aorta. No abnormal abdominal calcifications are identified. The skeletal structures are osteopenic. There is a lumbosacral spondylosis and scoliosis with evidence of extensive lumbar spinal fusion surgery. Bilateral hip arthroplasties are in place. Pleural effusions are noted at the lung bases. IMPRESSION: 1. Nonobstructed abdominal bowel gas pattern. 2. No evidence of intraperitoneal free air is seen. 3. There is no radiographic evidence of megacolon as clinically queried. 4. Pleural effusions. Electronically signed by: Christiano James M.D. 08/12/2017 11:32 AM Dictated Date/Time: 08/12/2017 11:30 AM
--- NOTE | 2017-08-12 13:21 | ECHOCARDIOGRAM REPORT ---
*NOTICE TO RECEIVING CONSTITUTION PARTY AGENCY This information is strictly Confidential and protected under [place] law. [place] law prohibits you from making any further disclosure of this information unless further disclosure is expressly permitted by the written consent of the person to whom it pertains or is authorized by law. A general authorization for the release of medical or other information is not sufficient for this purpose. Hospital accepts no responsibility if the information is made available to any other person, INCLUDING THE PATIENT. Interpretation Summary * Name: NAVYA DIAZ Study Date: 08/12/2017 07:16 AM BP: 132/47 mmHg * Patient Location: C.2E\S\E208\S\1 HR: 107 * : 1935 (M/d/yyyy) Gender: Female Height: 62 in * Age: 81 yrs Ethnicity: [place] Weight: 108 lb * Ordering Physician: Phi Landis * Referring Physician: Self, Referred * Performed By: Justina Meneses RDCS * * Reason For Study: SOB * BSA: 1.5 m2 * -- Conclusions -- * Left ventricular systolic function is normal. * Aortic valve sclerosis mild, without significant aortic valvular stenosis. * There is mild to moderate mitral annular calcification. * Right ventricular systolic pressure is normal. Procedure Details * A complete two-dimensional transthoracic echocardiogram was performed (2D, M-mode, Doppler and color flow Doppler). Left Ventricle * The left ventricle is normal in size. * There is normal left ventricular wall thickness. * Ejection Fraction = >70 %. * Left ventricular systolic function is normal. * The left ventricular wall motion is normal. Right Ventricle * The right ventricle is normal in size and function. Atria * The left atrial size is normal. * Right atrial size is normal. Mitral Valve * There is mild to moderate mitral annular calcification. * Significant mitral regurgitation is absent. Tricuspid Valve * The tricuspid valve is not well visualized, but is grossly normal. * There is mild tricuspid regurgitation. * Right ventricular systolic pressure is normal. Aortic Valve * Aortic valve sclerosis mild, without significant aortic valvular stenosis. * No hemodynamically significant valvular aortic stenosis. * There is no significant aortic regurgitation. Pulmonic Valve * The pulmonic valve is not well visualized. Great Vessels * The aortic root is normal size. Pericardium/Pleural * There is no pericardial effusion. MMode 2D Measurements and Calculations IVSd 1.1 cm IVSs 1.4 cm LVIDd 3.3 cm LVIDs 1.8 cm LVPWd 1.2 cm LVPWs 1.6 cm IVS/LVPW 0.91 FS 45.8 % EDV(Teich) 43.2 ml ESV(Teich) 9.3 ml EF(Teich) 78.4 % EDV(cubed) 35.0 ml ESV(cubed) 5.6 ml EF(cubed) 84.1 % % IVS thick 29.8 % % LVPW thick 37.8 % LV mass(C)d 111.7 grams LV mass(C)dI 75.9 grams/m\S\2 LV mass(C)s 87.4 grams LV mass(C)sI 59.4 grams/m\S\2 SV(Teich) 33.9 ml SI(Teich) 23.0 ml/m\S\2 SV(cubed) 29.5 ml SI(cubed) 20.0 ml/m\S\2 Ao root diam 3.2 cm Ao root area 8.0 cm\S\2 LA dimension 2.8 cm LA/Ao 0.89 LVAd ap4 15.2 cm\S\2 LVLd ap4 6.3 cm EDV(MOD-sp4) 30.0 ml EDV(sp4-el) 30.9 ml LVAs ap4 7.0 cm\S\2 LVLs ap4 5.3 cm ESV(MOD-sp4) 8.8 ml ESV(sp4-el) 7.8 ml EF(MOD-sp4) 70.8 % EF(sp4-el) 74.7 % LVAd ap2 15.0 cm\S\2 LVLd ap2 6.2 cm EDV(MOD-sp2) 29.6 ml EDV(sp2-el) 30.9 ml LVAs ap2 8.2 cm\S\2 LVLs ap2 6.3 cm ESV(MOD-sp2) 9.1 ml ESV(sp2-el) 9.0 ml EF(MOD-sp2) 69.3 % EF(sp2-el) 71.0 % LVLd %diff -2.30 % EDV(MOD-bp) 30.2 ml LVLs %diff 16.5 % ESV(MOD-bp) 9.7 ml EF(MOD-bp) 68.0 % SV(MOD-sp4) 21.3 ml SI(MOD-sp4) 14.4 ml/m\S\2 SV(MOD-sp2) 20.5 ml SI(MOD-sp2) 14.0 ml/m\S\2 SV(MOD-bp) 20.5 ml SI(MOD-bp) 14.0 ml/m\S\2 SV(sp4-el) 23.1 ml SI(sp4-el) 15.7 ml/m\S\2 SV(sp2-el) 21.9 ml SI(sp2-el) 14.9 ml/m\S\2 Doppler Measurements and Calculations MV E max fernando 73.8 cm/sec MV A max fernando 172.1 cm/sec MV E/A 0.43 MV dec time 0.20 sec Ao V2 max 116.5 cm/sec Ao max PG 5.4 mmHg Ao max PG (full) 2.0 mmHg LV V1 max PG 3.4 mmHg LV V1 max 92.5 cm/sec TR max fernando 245.1 cm/sec
--- NOTE | 2017-08-12 16:05 | Progress Note ---
Subjective Date of Service: Aug 12, 2017. Subjective Pt evaluation today including: conversation w/ patient, conversation w/ family , physical exam, chart review, conversation w/ small business consultant, review of inpatient medication list n chair, only 2 diarrhea yesterday and today so far, no fever and chill, general condition significantly improved, but generally weak, tolerate diet, no complaint Problem List Medical Problems: (1) Acute kidney injury Status: Acute (2) Acute renal failure Status: Acute (3) Anemia Status: Acute (4) Anemia Status: Acute (5) Back pain Status: Chronic (6) Colitis Status: Acute (7) Dehydration Status: Acute (8) Dehydration Status: Acute (9) Diarrhea Status: Acute (10) Elevated lactic acid level Status: Acute (11) Elevated troponin I level Status: Acute (12) Failure of outpatient treatment Status: Acute (13) Fever Status: Acute (14) Fever Status: Acute (15) GI bleed Status: Acute (16) History of chronic urinary tract infection Status: Acute (17) Hyponatremia Status: Acute (18) Immunocompromised Status: Acute (19) Laceration Status: Acute (20) Left arm cellulitis Status: Acute (21) Leukocytosis Status: Acute (22) Leukocytosis Status: Acute (23) Sepsis Status: Acute (24) Sepsis Status: Acute (25) Severe sepsis Status: Acute (26) SIRS (systemic inflammatory response syndrome) Status: Acute (27) Urinary tract infection Status: Acute (28) UTI (urinary tract infection) Status: Acute (29) UTI (urinary tract infection) Status: Acute (30) UTI (urinary tract infection) Status: Acute (31) Weakness Status: Acute Review of Systems Constitutional: No fever, No chills, No sweats, No weight loss, No weakness, No fatigue, No problem reported Eyes: No worsening of vision, No eye pain, No redness, No discharge, No diplopia ENT: No hearing loss, No unusual epistaxis, No nasal symptoms, No sore throat, No tinnitus, No dental problems, No trouble swallowing Respiratory: + cough, No sputum, No wheezing, No shortness of breath, No dyspnea on exertion, No dyspnea at rest, No hemoptysis Cardiac: + edema, No chest pain, No orthopnea, No PND, No claudication, No palpitations Abdomen: No pain, No nausea, No vomiting, No diarrhea, No constipation Musculoskeletal: No joint pain, No muscle pain, No swelling, No calf pain Female : No dysuria, No urinary frequency, No hematuria, No incontinence, No abnormal vaginal bleeding, No vaginal discharge Neurologic: No memory loss, No paralysis, No weakness, No numbness/tingling, No vertigo, No balance problems Psychiatric: No depression symptoms, No anhedonism, No anxiety, No insomnia, No substance abuse Heme: No abnormal bleeding/bruising, No clotting problems, No swollen lymph nodes, No night sweats Endo: + fatigue, No excessive thirst, No excessive urination Skin: No rash, No itch, No new/changing skin lesions, No color change, No bleeding Objective Vital Signs Date Time Temp Pulse Resp B/P (MAP) Pulse Ox O2 Delivery O2 Flow Rate FiO2 08/12/17 15:33 36.8 115 20 105/49 (67) 93 Nasal Cannula 2.0 08/12/17 12:11 95 Nasal Cannula 2.0 08/12/17 08:01 95 Nasal Cannula 2.0 08/12/17 07:57 36.4 114 20 132/47 (75) 96 08/12/17 07:44 97 18 95 Nasal Cannula 3.0 08/12/17 04:15 97 Nasal Cannula 2.0 08/12/17 02:35 36.9 105 20 119/62 (81) 99 Nasal Cannula 2.0 08/12/17 00:20 95 Nasal Cannula 2.0 08/11/17 23:20 36.8 101 18 128/69 (88) 98 Nasal Cannula 2.0 08/11/17 20:00 95 Nasal Cannula 2.0 08/11/17 19:52 108 18 94 Nasal Cannula 3.0 08/11/17 19:30 36.6 121 18 148/88 (108) 95 Nasal Cannula 2.0 Physical Exam General Appearance: WD/WN, no apparent distress, + thin, + pertinent finding ( Frail looking, is better) Eyes: normal inspection, PERRL, EOMI, sclerae normal ENT: normal ENT inspection, hearing grossly normal, pharynx normal Neck: supple, no adenopathy, thyroid normal, no JVD, no carotid bruits, trachea midline Respiratory/Chest: chest non-tender, normal breath sounds, no respiratory distress, no accessory muscle use, + decreased breath sounds Cardiovascular: regular rate, rhythm, no gallop, no JVD, no murmur, + pertinent finding (2+ edema) Abdomen: normal bowel sounds, non tender, soft, no organomegaly, no pulsatile mass Extremities: normal range of motion, non-tender, normal inspection, no calf tenderness, normal capillary refill, pelvis stable, + swelling Neurologic/Psychiatric: senior grants officer II-XII nml as tested, no motor/sensory deficits, alert, normal mood/affect, oriented x 3 Skin: normal color, warm/dry, no rash Lymphatic: no adenopathy Laboratory Results Last 24 Hours Test 08/12/17 04:55 White Blood Count 20.01 K/uL Red Blood Count 4.35 M/uL Hemoglobin 12.4 g/dL Hematocrit 38.5 % Mean Corpuscular Volume 88.5 fL Mean Corpuscular Hemoglobin 28.5 pg Mean Corpuscular Hemoglobin Concent 32.2 g/dl RDW Standard Deviation 56.5 fL RDW Coefficient of Variation 17.5 % Platelet Count 294 K/uL Mean Platelet Volume 9.9 fL Nucleated RBC Absolute Count (auto) 0.03 K/uL Nucleated Red Blood Cells % 0.1 % Sodium Level 145 mmol/L Potassium Level 3.7 mmol/L Chloride Level 119 mmol/L Carbon Dioxide Level 19 mmol/L Anion Gap 7.0 mmol/L Blood Urea Nitrogen 37 mg/dl Creatinine 1.10 mg/dl Est Creatinine Clear Calc Drug Dose 30.6 ml/min Estimated GFR () 54.1 Estimated GFR (Non- 46.7 BUN/Creatinine Ratio 33.5 Random Glucose 116 mg/dl Calcium Level 7.4 mg/dl Phosphorus Level 2.0 mg/dl Magnesium Level 2.0 mg/dl Assessment and Plan 81 y/o female admitted on August 05, 2017 because of sepsis and acute diverticulitis, later found has cdiff pancolitis Past medical history HTN, HLD, RA, h/o breast cancer s/p lumpectomy and radiation, recurrent UTI, urinary incontinence, and anemia of chronic disease cdiff pancolitis, has been on oral vanco , IV Flagyl added later per infectious disease recommended, continue probiotic, has been significantly improving, Tolerated diet, advance as tolerated, rectal tube removed, yesterday and today on 2 bowel movement Possible continue oral vancomycin, can continue see IV Flagyl, continue oral Vanco for total 14 days should be good enough GI on the case, KUB checked, there was no obstruction Shortness of breath and wheezing, chest x-ray yesterday shows pleural effusion, and mild pulmonary edema, stop IV fluid, checked echocardiogram, which shows normal LVEF, no obvious diastolic dysfunction, Patient shortness of breath and wheezing seems improved today we will continue oxygen support, and not give Lasix now Acute on chronic kidney failure stage III, creatinine improving, today's creatinine is normal Hypernatremia, resolved discontinue IV fluid, encourage normal intake HTN, HLD--stable on hydrocortisone History of RA Was on oral prednisone at home -Has been using tapering dose of hydrocortisone 100 mg daily to 50 mg every morning and 25 mg daily, and today we will switch to home dose of oral prednisone -Enbrel injections at home H/o breast cancer--noted DVT prophylaxis, NANCY grubbs and SCDs DO NOT RESUSCITATE Discussed with patient and patient's daughter in the bedside, because of her age and current medical conditions, prognosis is guarded But improving, continue PT OT, may move to [facility], and increase activity, and discharge plan Continued [facility] stay due to: home environment unsafe for pt Discharge planning: rehab hospital, care home facility
[2017-08-12] MEDS ORDERED: BIOFREEZE ROLL ON EXT PRN (17:00)
[2017-08-12] MEDS: ACETAMINOPHEN 325 MG TAB PO PRN ×2 (17:05→23:41)
[2017-08-12] MEDS ORDERED: TRAMADOL HCL 50 MG TAB ONE (17:58)
[2017-08-12] MEDS ORDERED: TRAMADOL HCL 50 MG TAB PO STA (18:04)
[2017-08-12] MEDS: BOOST VANILLA PO SCH (20:46)
[2017-08-12] MEDS: SIMVASTATIN 20 MG TAB PO SCH (20:50)
[2017-08-12] MEDS: MIRABEGRON ER 25 MG TAB PO SCH (20:51)
[2017-08-13] VITALS (7 sets, daily range): BP systolic 100–142; BP diastolic 63–85; PULSE 90–114; TEMP 36.4–36.8; O2SAT 94–98
[2017-08-13] MEDS: ONDANSETRON INJ 2 MG/ML 2 ML VIAL IV PRN (01:55)
[2017-08-13] MEDS: METRONIDAZOLE / NSS 500 MG in PREMIXED NSS 100 ML IV SCH ×3 (04:23→20:47)
[2017-08-13] MEDS: RASPBERRY SYRUP 5 ML UDP PO SCH ×4 (04:32→21:28)
[2017-08-13] MEDS: VANCOMYCIN HCL 125 MG/2.5ML SOLN PO SCH ×4 (04:32→21:27)
[2017-08-13 05:57] LABS: HEMATOCRIT 37.2 % (37-47); HEMOGLOBIN 12.1 g/dL (12.0-16.0); MEAN CELL VOLUME 88.2 fL (80-100); MEAN CORPUSCULAR HEMOGLOBIN 28.7 pg (25-34); MEAN CORPUSCULAR HGB CONC 32.5 g/dl (32-36); MEAN PLATELET VOLUME 9.8 fL (7.4-10.4); NUCLEATED RED BLOOD CELL ABS 0.03 K/uL (0-0); PLATELET COUNT 261 K/uL (130-400); RED CELL DISTRIBUTION WIDTH CV 17.5 % (11.5-14.5); RED CELL DISTRIBUTION WIDTH SD 56.4 fL (36.4-46.3)
[2017-08-13 06:24] LABS: CALCIUM 7.7 mg/dl (8.5-10.1); CREATININE 1.21 mg/dl (0.60-1.20); POTASSIUM 3.6 mmol/L (3.5-5.1)
[2017-08-13 06:25] LABS: PHOSPHORUS 1.8 mg/dl (2.5-4.9)
[2017-08-13] MEDS: BOOST VANILLA PO SCH ×2 (07:34→20:52)
[2017-08-13] MEDS: HEPARIN SOD 5000 UNIT/0.5 ML CARP SQ SCH ×2 (07:34→20:59)
[2017-08-13] MEDS: CALCIUM 600MG + VIT D 400 IU TAB PO SCH (07:35)
[2017-08-13] MEDS: ASPIRIN 81 MG ECTAB PO SCH (07:35)
[2017-08-13] MEDS: SACCHAROMYCES BOUL (FLORASTOR) 250 MG CAP PO SCH (07:36)
[2017-08-13] MEDS: TRIAMTERENE/HCTZ 37.5/25MG TAB PO SCH (07:36)
[2017-08-13] MEDS: PREDNISONE PO SCH ×2 (07:36)
[2017-08-13] MEDS: METOPROLOL TARTRATE 25 MG TAB PO SCH ×2 (07:37→20:53)
[2017-08-13] MEDS: GENTAMICIN SULFATE 0.3% OP OINT 3.5 GM TUBE OP SCH ×4 (07:37→20:52)
[2017-08-13] MEDS: ALBUT/IPRATROP 3MG/0.5MG NEB 3 ML VIAL INH SCH ×4 (08:00→20:00)
[2017-08-13] MEDS: AMLODIPINE BESYLATE 5 MG TAB PO SCH (08:55)
[2017-08-13] MEDS: TRAMADOL HCL 50 MG TAB PO PRN ×2 (09:23→21:27)
[2017-08-13] MEDS ORDERED: CHOLESTYRAMINE LIGHT 4 GM PKT PO ONE (10:19)
[2017-08-13] MEDS: HYDROmorphone INJ 0.5 MG/0.5 ML SYR IV PRN ×2 (11:37→18:41)
[2017-08-13] MEDS ORDERED: NURSING DECISION MEDICATION ORDER SCH (15:45)
--- NOTE | 2017-08-13 16:28 | Progress Note ---
Subjective Date of Service: Aug 13, 2017. Subjective Pt evaluation today including: conversation w/ patient, conversation w/ family , physical exam, lab review, review of studies, conversation w/ proposal consultant, review of inpatient medication list Pain: moderate to severe pain, LUQ PO Intake: poor appetite Voiding: no voiding problems patient moving bowels constantly again this morning, very painful, ringing every 15 minutes had a rectal tube earlier in admission, was removed two days ago still with LUQ pain, poor intake WBC elevated at 20k reviewed abdominal film from yesterday, no evidence of toxic megacolon, no obstruction discussed with patient and her daughter at the bedside, this is day 6 of treatment for C diff, would expect her to be better at this point good that she does not have megacolon, but still with pain and diarrhea certainly does not help with her RA and chronic Prednisone use Problem List Medical Problems: (1) Acute kidney injury Status: Acute (2) Acute renal failure Status: Acute (3) Anemia Status: Acute (4) Anemia Status: Acute (5) Back pain Status: Chronic (6) Colitis Status: Acute (7) Dehydration Status: Acute (8) Dehydration Status: Acute (9) Diarrhea Status: Acute (10) Elevated lactic acid level Status: Acute (11) Elevated troponin I level Status: Acute (12) Failure of outpatient treatment Status: Acute (13) Fever Status: Acute (14) Fever Status: Acute (15) GI bleed Status: Acute (16) History of chronic urinary tract infection Status: Acute (17) Hyponatremia Status: Acute (18) Immunocompromised Status: Acute (19) Laceration Status: Acute (20) Left arm cellulitis Status: Acute (21) Leukocytosis Status: Acute (22) Leukocytosis Status: Acute (23) Sepsis Status: Acute (24) Sepsis Status: Acute (25) Severe sepsis Status: Acute (26) SIRS (systemic inflammatory response syndrome) Status: Acute (27) Urinary tract infection Status: Acute (28) UTI (urinary tract infection) Status: Acute (29) UTI (urinary tract infection) Status: Acute (30) UTI (urinary tract infection) Status: Acute (31) Weakness Status: Acute Review of Systems Constitutional: + weakness, + fatigue Abdomen: + pain, + diarrhea Musculoskeletal: + joint pain Neurologic: + weakness All Other Systems: Reviewed and Negative Medications Current Inpatient Medications Medications (Trade) Dose Ordered Sig/Martina Route Start Time Stop Time Status Last Admin Dose Admin Acetaminophen (Tylenol Tab) 650 mg Q4H PRN PO 08/05/17 07:30 09/04/17 07:29 08/12/17 23:41 650 MG Ondansetron HCl (Zofran Inj) 4 mg Q6H PRN IV 08/05/17 07:30 09/04/17 07:29 08/13/17 01:55 4 MG Mirabegron (Myrbetriq Er) 25 mg QPM PO 08/05/17 21:00 09/04/17 20:59 08/12/17 20:51 25 MG Gentamicin Sulfate (Gentamicin 0.3% Oph Oint) 1 appln QID OP 08/06/17 17:00 08/16/17 16:59 08/13/17 13:17 1 APPLN Vancomycin HCl (Vancomycin Oral Soln) 125 mg Q6H PO 08/07/17 23:00 08/21/17 23:59 08/13/17 11:15 125 MG Raspberry (Raspberry Syrup 5ml Cup) 5 ml Q6H PO 08/07/17 23:00 08/21/17 23:59 08/13/17 11:15 5 ML Saccharomyces Boulardii (Florastor Cap) 250 mg DAILY PO 08/08/17 09:00 09/07/17 08:59 08/13/17 07:36 250 MG Promethazine HCl 12.5 mg/Sodium Chloride 50.5 ml @ 204 mls/hr Q6H PRN IV 08/09/17 09:15 09/08/17 09:14 08/09/17 15:27 204 MLS/HR Metronidazole 500 mg/Prmx 100 ml @ 100 mls/hr Q8H IV 08/09/17 12:00 08/23/17 11:59 08/13/17 11:36 100 MLS/HR Amlodipine Besylate (Norvasc Tab) 5 mg QAM PO 08/11/17 09:00 09/10/17 08:59 08/13/17 08:55 5 MG Heparin Sodium (Porcine) (Heparin Sq 5000 Unit/0.5ml) 5,000 unit Q12 SQ 08/10/17 21:00 09/09/17 20:59 4/30/18 07:34 5,000 UNIT Albuterol/ Ipratropium (Duoneb) 3 ml QIDR INH 08/11/17 08:00 09/10/17 07:59 08/13/17 15:10 3 ML Aspirin (Ecotrin Tab) 81 mg QAM PO 08/12/17 09:00 09/11/17 08:59 08/13/17 07:35 81 MG Simvastatin (Zocor Tab) 20 mg QPM PO 08/11/17 21:00 09/10/17 20:59 08/12/17 20:50 20 MG Triamterene/HCTZ (Maxzide 37.5/25 Tab) 1 tab QAM PO 08/12/17 09:00 09/11/17 08:59 08/13/17 07:36 1 TAB Calcium/Vitamin D (Caltrate Plus Tab) 1 tab QAM PO 08/12/17 09:00 09/11/17 08:59 08/13/17 07:35 1 TAB Miscellaneous Information (Order Awaiting Action) 1 ea QS N/A 08/11/17 16:00 09/10/17 15:59 Metoprolol Tartrate (Lopressor Tab) 25 mg BID PO 08/11/17 21:00 09/10/17 20:59 08/13/17 07:37 25 MG Heparin Sodium (Porcine) (Heparin 100 Unit/ml 5ml Flush) 5 ml PRN PRN IV 08/11/17 18:30 09/10/17 18:29 08/13/17 14:40 5 ML Enteral Nutritional Formula (Boost) 1 can BID PO 08/12/17 21:00 09/11/17 20:59 08/13/17 07:34 1 CAN Prednisone (PredniSONE TAB) 12 mg QAM PO 08/13/17 09:00 09/12/17 08:59 08/13/17 07:36 12 MG Non-Formulary Medication (Non-Formulary Patient'S Own Med) 1 ea PRN PRN EXT 08/12/17 17:00 09/11/17 16:59 Tramadol HCl (Ultram Tab) 50 mg Q12H PRN PO 08/12/17 18:15 09/11/17 18:14 08/13/17 09:23 50 MG Hydromorphone HCl (Dilaudid Inj) 1 mg NOW IV 08/13/17 10:30 08/27/17 10:29 Hydromorphone HCl (Dilaudid Inj) 0.5 mg Q6 PRN IV 08/13/17 10:30 08/27/17 10:29 08/13/17 11:37 0.5 MG Cholestyramine Resin (Questran Powder Light) 4 gm BID@10,22 PO 08/13/17 22:00 09/12/17 21:59 Miconazole Nitrate (Desenex Powder) 1 appln BID EXT 08/13/17 16:00 09/12/17 15:59 Objective Vital Signs Date Time Temp Pulse Resp B/P (MAP) Pulse Ox O2 Delivery O2 Flow Rate FiO2 08/13/17 15:10 36.4 103 19 100/63 (75) 96 Nasal Cannula 3.0 08/13/17 15:10 102 18 97 Nasal Cannula 3.0 08/13/17 11:09 114 20 95 Nasal Cannula 3.0 08/13/17 08:55 99 20 94 Nasal Cannula 3.0 08/13/17 08:07 36.8 90 18 142/85 (104) 98 Room Air 08/13/17 08:00 Nasal Cannula 2.0 08/13/17 00:00 Nasal Cannula 2.0 08/12/17 23:30 36.4 97 20 150/75 (100) 99 Nasal Cannula 2.0 08/12/17 20:48 88 142/72 (95) 08/12/17 20:00 Nasal Cannula 2.0 08/12/17 17:56 36.8 101 18 98 2.0 08/12/17 16:20 Nasal Cannula 2.0 Physical Exam General Appearance: no apparent distress, + thin Neck: supple, no adenopathy, no JVD, trachea midline Respiratory/Chest: chest non-tender, lungs clear, normal breath sounds, no respiratory distress, no accessory muscle use Cardiovascular: no edema, no gallop, no JVD, no murmur, + tachycardia Abdomen: normal bowel sounds, soft, no organomegaly, + tenderness (LUQ and LLQ , no rebound or rigidity) Extremities: normal range of motion, non-tender, normal inspection, no pedal edema, no calf tenderness, pelvis stable Neurologic/Psychiatric: case reviewer II-XII nml as tested, no motor/sensory deficits, alert, normal mood/affect, oriented x 3 Skin: normal color, warm/dry, no rash Lymphatic: no adenopathy Laboratory Results Last 24 Hours Test 08/13/17 05:28 White Blood Count 20.00 K/uL Red Blood Count 4.22 M/uL Hemoglobin 12.1 g/dL Hematocrit 37.2 % Mean Corpuscular Volume 88.2 fL Mean Corpuscular Hemoglobin 28.7 pg Mean Corpuscular Hemoglobin Concent 32.5 g/dl RDW Standard Deviation 56.4 fL RDW Coefficient of Variation 17.5 % Platelet Count 261 K/uL Mean Platelet Volume 9.8 fL Nucleated RBC Absolute Count (auto) 0.03 K/uL Nucleated Red Blood Cells % 0.1 % Sodium Level 146 mmol/L Potassium Level 3.6 mmol/L Chloride Level 118 mmol/L Carbon Dioxide Level 21 mmol/L Anion Gap 7.0 mmol/L Blood Urea Nitrogen 35 mg/dl Creatinine 1.21 mg/dl Est Creatinine Clear Calc Drug Dose 31.8 ml/min Estimated GFR () 48.3 Estimated GFR (Non- 41.6 BUN/Creatinine Ratio 28.9 Random Glucose 87 mg/dl Calcium Level 7.7 mg/dl Phosphorus Level 1.8 mg/dl Magnesium Level 1.8 mg/dl Assessment and Plan 81 y/o female admitted on August 05, 2017 because of sepsis and acute diverticulitis, later found has cdiff pancolitis Past medical history HTN, HLD, RA, h/o breast cancer s/p lumpectomy and radiation, recurrent UTI, urinary incontinence, and anemia of chronic disease - C diff colitis: not improving very quickly still with moderate abdominal pain, diarrhea multiple times a day, poor oral intake WBC still high at 20k x-ray on 08/12 did not show toxic megacolon or obstruction GI following, will follow up on their recommendations continue Vanco PO and Flagyl IV added Questran today Shortness of breath and wheezing, chest x-ray yesterday shows pleural effusion, and mild pulmonary edema, stopped IV fluid, checked echocardiogram, which shows normal LVEF, no obvious diastolic dysfunction, Patient shortness of breath and wheezing seems improved today we will continue oxygen support Acute on chronic kidney failure stage III, creatinine improving, Cr stable at 1.2 may need to resume fluids if PO intake still poor HTN, HLD--stable History of RA Was on oral prednisone at home -back on home dose of Prednisone -Enbrel injections at home H/o breast cancer--noted DVT prophylaxis, NANCY grubbs and SCDs DO NOT RESUSCITATE Continued [facility] stay due to: home environment unsafe for pt Discharge planning: rehab hospital, [facility] facility
[2017-08-13] MEDS: MICONAZOLE NITRATE POWDER 43 GM EXT SCH ×2 (16:52→20:53)
--- NOTE | 2017-08-13 18:04 | GASTROENTEROLOGY PROGRESS NOTE ---
DATE: 08/13/2017 Chart reviewed, patient examined. The patient with a C. diff colitis, on Questran, prednisone, simvastatin, Lopressor, Maxzide, aspirin, metronidazole 500 mg q. 8, vancomycin 125 mg p.o. q. 6, and p.r.n. medications. The patient has a mild left-sided abdominal pain without rebound or guarding. There is no nausea or vomiting. She is tolerating a liquid diet well but reports that she has not had any solids recently. Her stools remain loose prompting a rectal tube. The patient has a chronic indwelling Krause. PHYSICAL EXAMINATION: VITAL SIGNS: Today, the patient is afebrile at 36.4, blood pressure 100/63, 96% on 3 L nasal cannula, respiratory rate 19, heart rate 102. GENERAL: The patient is awake, alert and oriented x3. HEENT: Sclerae are anicteric, conjunctiva moist. Oral mucosa moist. HEART: Normal S1, S2. LUNGS: Clear to auscultation. ABDOMEN: Soft, tender in the left upper quadrant with mild to moderate palpation. There is no rebound or guarding. There is no evidence of ascites or shifting dullness. EXTREMITIES: Without edema. RECTAL: Deferred. IMPRESSION AND PLAN: The patient with C. difficile colitis, on p.o. vancomycin and IV Flagyl. The patient's diarrhea pattern has intensified requiring tube placement for drainage control. The patient is also on Questran. Yesterday's flat plate demonstrated no evidence of obstruction or free air or evidence of megacolon. RECOMMENDATIONS: Would continue current therapy. LABORATORY STUDIES: White count is currently stable at 20,000, hemoglobin 12.1, MCV is 88.2, platelets 261,000. If white count persists or increases, it may be prudent to reimage the abdomen for any abscess or collection. Urinalysis did reveal leukocyte esterase positivity with many red cells and white cells and 3+ occult blood, although this may be from the Krause catheter placement. All questions answered. Dr. Dill will be rounding on the service tomorrow.
--- NOTE | 2017-08-13 19:55 | Infectious Disease Progress Nt ---
Progress Note Date of Service Aug 13, 2017. Subjective Pt evaluation today including: conversation w/ patient, physical exam, chart review, lab review, review of studies, conversation w/ seo consultant, review of inpatient medication list Rectal tube replaced for persistent diarrhea. Abdominal pain slightly better. Remains afebrile, white count elevated but stable. All Other Systems: Reviewed and Negative Medications Current Inpatient Medications Medications (Trade) Dose Ordered Sig/Martina Route Start Time Stop Time Status Last Admin Dose Admin Acetaminophen (Tylenol Tab) 650 mg Q4H PRN PO 08/05/17 07:30 09/04/17 07:29 08/12/17 23:41 650 MG Ondansetron HCl (Zofran Inj) 4 mg Q6H PRN IV 08/05/17 07:30 09/04/17 07:29 08/13/17 01:55 4 MG Mirabegron (Myrbetriq Er) 25 mg QPM PO 08/05/17 21:00 09/04/17 20:59 08/12/17 20:51 25 MG Gentamicin Sulfate (Gentamicin 0.3% Oph Oint) 1 appln QID OP 08/06/17 17:00 08/16/17 16:59 08/13/17 16:53 1 APPLN Vancomycin HCl (Vancomycin Oral Soln) 125 mg Q6H PO 08/07/17 23:00 08/21/17 23:59 08/13/17 16:56 125 MG Raspberry (Raspberry Syrup 5ml Cup) 5 ml Q6H PO 08/07/17 23:00 08/21/17 23:59 08/13/17 16:56 5 ML Saccharomyces Boulardii (Florastor Cap) 250 mg DAILY PO 08/08/17 09:00 09/07/17 08:59 08/13/17 07:36 250 MG Promethazine HCl 12.5 mg/Sodium Chloride 50.5 ml @ 204 mls/hr Q6H PRN IV 08/09/17 09:15 09/08/17 09:14 08/09/17 15:27 204 MLS/HR Metronidazole 500 mg/Prmx 100 ml @ 100 mls/hr Q8H IV 08/09/17 12:00 08/23/17 11:59 08/13/17 11:36 100 MLS/HR Amlodipine Besylate (Norvasc Tab) 5 mg QAM PO 08/11/17 09:00 09/10/17 08:59 08/13/17 08:55 5 MG Heparin Sodium (Porcine) (Heparin Sq 5000 Unit/0.5ml) 5,000 unit Q12 SQ 08/10/17 21:00 09/09/17 20:59 08/13/17 07:34 5,000 UNIT Albuterol/ Ipratropium (Duoneb) 3 ml QIDR INH 08/11/17 08:00 09/10/17 07:59 08/13/17 15:10 3 ML Aspirin (Ecotrin Tab) 81 mg QAM PO 08/12/17 09:00 09/11/17 08:59 08/13/17 07:35 81 MG Simvastatin (Zocor Tab) 20 mg QPM PO 08/11/17 21:00 09/10/17 20:59 08/12/17 20:50 20 MG Triamterene/HCTZ (Maxzide 37.5/25 Tab) 1 tab QAM PO 08/12/17 09:00 09/11/17 08:59 08/13/17 07:36 1 TAB Calcium/Vitamin D (Caltrate Plus Tab) 1 tab QAM PO 08/12/17 09:00 09/11/17 08:59 08/13/17 07:35 1 TAB Miscellaneous Information (Order Awaiting Action) 1 ea QS N/A 08/11/17 16:00 09/10/17 15:59 Metoprolol Tartrate (Lopressor Tab) 25 mg BID PO 08/11/17 21:00 09/10/17 20:59 08/13/17 07:37 25 MG Heparin Sodium (Porcine) (Heparin 100 Unit/ml 5ml Flush) 5 ml PRN PRN IV 08/11/17 18:30 09/10/17 18:29 08/13/17 14:40 5 ML Enteral Nutritional Formula (Boost) 1 can BID PO 08/12/17 21:00 09/11/17 20:59 08/13/17 07:34 1 CAN Prednisone (PredniSONE TAB) 12 mg QAM PO 08/13/17 09:00 09/12/17 08:59 08/13/17 07:36 12 MG Non-Formulary Medication (Non-Formulary Patient'S Own Med) 1 ea PRN PRN EXT 08/12/17 17:00 09/11/17 16:59 Tramadol HCl (Ultram Tab) 50 mg Q12H PRN PO 08/12/17 18:15 09/11/17 18:14 08/13/17 09:23 50 MG Hydromorphone HCl (Dilaudid Inj) 1 mg NOW IV 08/13/17 10:30 08/27/17 10:29 Hydromorphone HCl (Dilaudid Inj) 0.5 mg Q6 PRN IV 08/13/17 10:30 08/27/17 10:29 08/13/17 18:41 0.5 MG Cholestyramine Resin (Questran Powder Light) 4 gm BID@10,22 PO 08/13/17 22:00 09/12/17 21:59 Miconazole Nitrate (Desenex Powder) 1 appln BID EXT 08/13/17 16:00 09/12/17 15:59 08/13/17 16:52 1 APPLN Objective Vital Signs Date Time Temp Pulse Resp B/P (MAP) Pulse Ox O2 Delivery O2 Flow Rate FiO2 08/13/17 16:00 97 Nasal Cannula 3.0 100 08/13/17 15:10 36.4 103 19 100/63 (75) 96 Nasal Cannula 3.0 08/13/17 15:10 102 18 97 Nasal Cannula 3.0 08/13/17 11:09 114 20 95 Nasal Cannula 3.0 08/13/17 08:55 99 20 94 Nasal Cannula 3.0 08/13/17 08:07 36.8 90 18 142/85 (104) 98 Room Air 08/13/17 08:00 Nasal Cannula 2.0 08/13/17 00:00 Nasal Cannula 2.0 08/12/17 23:30 36.4 97 20 150/75 (100) 99 Nasal Cannula 2.0 08/12/17 20:48 88 142/72 (95) 08/12/17 20:00 Nasal Cannula 2.0 Physical Exam General Appearance: WD/WN, no apparent distress Eyes: normal inspection, EOMI, sclerae normal ENT: normal ENT inspection, pharynx normal Neck: supple, no adenopathy, thyroid normal, trachea midline Respiratory/Chest: chest non-tender, lungs clear, normal breath sounds, no respiratory distress Cardiovascular: regular rate, rhythm, no gallop, no murmur Abdomen: normal bowel sounds, soft, no organomegaly, + tenderness Extremities: non-tender, no calf tenderness Neurologic/Psychiatric: alert, oriented x 3 Skin: normal color, warm/dry, no rash Lymphatic: no adenopathy Laboratory Results Last 24 Hours Test 08/13/17 05:28 White Blood Count 20.00 K/uL Red Blood Count 4.22 M/uL Hemoglobin 12.1 g/dL Hematocrit 37.2 % Mean Corpuscular Volume 88.2 fL Mean Corpuscular Hemoglobin 28.7 pg Mean Corpuscular Hemoglobin Concent 32.5 g/dl RDW Standard Deviation 56.4 fL RDW Coefficient of Variation 17.5 % Platelet Count 261 K/uL Mean Platelet Volume 9.8 fL Nucleated RBC Absolute Count (auto) 0.03 K/uL Nucleated Red Blood Cells % 0.1 % Sodium Level 146 mmol/L Potassium Level 3.6 mmol/L Chloride Level 118 mmol/L Carbon Dioxide Level 21 mmol/L Anion Gap 7.0 mmol/L Blood Urea Nitrogen 35 mg/dl Creatinine 1.21 mg/dl Est Creatinine Clear Calc Drug Dose 31.8 ml/min Estimated GFR () 48.3 Estimated GFR (Non- 41.6 BUN/Creatinine Ratio 28.9 Random Glucose 87 mg/dl Calcium Level 7.7 mg/dl Phosphorus Level 1.8 mg/dl Magnesium Level 1.8 mg/dl Assessment and Plan 81-year-old female with severe colitis secondary to C difficile, at risk for significant complications given elevated white count and acute kidney injury. Patient to be continued on current therapy with vancomycin. Would recommend prolonged tapering course given high possibility of recurrence.
[2017-08-13] MEDS: SIMVASTATIN 20 MG TAB PO SCH (20:52)
[2017-08-13] MEDS: MIRABEGRON ER 25 MG TAB PO SCH (20:52)
[2017-08-13] MEDS: CHOLESTYRAMINE LIGHT 4 GM PKT PO SCH (21:28)
[2017-08-14] MEDS: HYDROmorphone INJ 0.5 MG/0.5 ML SYR IV PRN ×3 (00:48→20:42)
[2017-08-14] MEDS: VANCOMYCIN HCL 125 MG/2.5ML SOLN PO SCH ×4 (04:56→22:00)
[2017-08-14] MEDS: METRONIDAZOLE / NSS 500 MG in PREMIXED NSS 100 ML IV SCH ×3 (04:56→20:24)
[2017-08-14] MEDS: RASPBERRY SYRUP 5 ML UDP PO SCH ×4 (04:57→22:00)
[2017-08-14 06:27] VITALS: BP 128/70; PULSE 106; TEMP 36.8; O2SAT 95
[2017-08-14] MEDS: ALBUT/IPRATROP 3MG/0.5MG NEB 3 ML VIAL INH SCH ×4 (06:55→19:12)
[2017-08-14 08:53] LABS: HEMATOCRIT 30.3 % (37-47); HEMOGLOBIN 9.7 g/dL (12.0-16.0); MEAN CELL VOLUME 88.1 fL (80-100); MEAN CORPUSCULAR HEMOGLOBIN 28.2 pg (25-34); MEAN PLATELET VOLUME 9.7 fL (7.4-10.4); NUCLEATED RED BLOOD CELL ABS 0.03 K/uL (0-0); PLATELET COUNT 233 K/uL (130-400); RED CELL DISTRIBUTION WIDTH CV 17.7 % (11.5-14.5); RED CELL DISTRIBUTION WIDTH SD 57.1 fL (36.4-46.3)
[2017-08-14 09:21] LABS: BASO % 0.2 %; BASO ABS # 0.05 K/uL (0-0.2); EOS % 0.2 %; EOS ABS # 0.05 K/uL (0-0.5); IG# 1.28 K/uL (0.00-0.02); LYMPH % 5.9 %; LYMPH ABS # 1.56 K/uL (1.2-3.4); MONO % 6.7 %; MONO ABS # 1.77 K/uL (0.11-0.59); NEUT % 82.2 %; NEUT ABS # 21.79 K/uL (1.4-6.5)
[2017-08-14 09:29] LABS: ALBUMIN 1.6 gm/dl (3.4-5.0); CALCIUM 7.6 mg/dl (8.5-10.1); CREATININE 1.44 mg/dl (0.60-1.20); POTASSIUM 3.6 mmol/L (3.5-5.1)
[2017-08-14 09:32] LABS: TOTAL PROTEIN 3.9 gm/dl (6.4-8.2)
[2017-08-14] MEDS ORDERED: OPTIRAY 320 IV PRN (09:45)
[2017-08-14] MEDS: MICONAZOLE NITRATE POWDER 43 GM EXT SCH ×2 (09:50→20:31)
[2017-08-14] MEDS: AMLODIPINE BESYLATE 5 MG TAB PO SCH (09:51)
[2017-08-14] MEDS: CALCIUM 600MG + VIT D 400 IU TAB PO SCH (09:51)
[2017-08-14] MEDS: TRIAMTERENE/HCTZ 37.5/25MG TAB PO SCH (09:51)
[2017-08-14] MEDS: METOPROLOL TARTRATE 25 MG TAB PO SCH ×2 (09:51→20:31)
[2017-08-14] MEDS: ASPIRIN 81 MG ECTAB PO SCH (09:51)
[2017-08-14] MEDS: PREDNISONE PO SCH ×2 (09:51)
[2017-08-14] MEDS: GENTAMICIN SULFATE 0.3% OP OINT 3.5 GM TUBE OP SCH ×4 (09:52→20:31)
[2017-08-14] MEDS: SACCHAROMYCES BOUL (FLORASTOR) 250 MG CAP PO SCH (09:52)
[2017-08-14] MEDS: HEPARIN SOD 5000 UNIT/0.5 ML CARP SQ SCH ×2 (09:53→20:36)
[2017-08-14] MEDS: BOOST VANILLA PO SCH ×2 (09:54→20:23)
[2017-08-14] MEDS: CHOLESTYRAMINE LIGHT 4 GM PKT PO SCH ×2 (10:00→22:00)
--- NOTE | 2017-08-14 10:53 | Progress Note ---
Subjective Date of Service: August 14, 2017. Subjective Pt evaluation today including: conversation w/ patient, physical exam, lab review, conversation w/ application consultant, review of inpatient medication list Pain: still with severe LLQ and LUQ pain PO Intake: poor Voiding: klein catheter in place rectal tube with liquid stool, brown still with severe pain, relieved with Dilaudid, able to sleep patient is not comfortable, breathing a little heavy diffuse edema, third spacing from infection and fluids reviewed labs, WBC up to 26k with left shift, Cr is 1.4, electrolytes stable, Lactic acid normal discussed getting CT of the abdomen/pelvis again today since she still has pain , diarrhea, rising WBC discussed case with Dr. Garcia Problem List Medical Problems: (1) Acute kidney injury Status: Acute (2) Acute renal failure Status: Acute (3) Anemia Status: Acute (4) Anemia Status: Acute (5) Back pain Status: Chronic (6) Colitis Status: Acute (7) Dehydration Status: Acute (8) Dehydration Status: Acute (9) Diarrhea Status: Acute (10) Elevated lactic acid level Status: Acute (11) Elevated troponin I level Status: Acute (12) Failure of outpatient treatment Status: Acute (13) Fever Status: Acute (14) Fever Status: Acute (15) GI bleed Status: Acute (16) History of chronic urinary tract infection Status: Acute (17) Hyponatremia Status: Acute (18) Immunocompromised Status: Acute (19) Laceration Status: Acute (20) Left arm cellulitis Status: Acute (21) Leukocytosis Status: Acute (22) Leukocytosis Status: Acute (23) Sepsis Status: Acute (24) Sepsis Status: Acute (25) Severe sepsis Status: Acute (26) SIRS (systemic inflammatory response syndrome) Status: Acute (27) Urinary tract infection Status: Acute (28) UTI (urinary tract infection) Status: Acute (29) UTI (urinary tract infection) Status: Acute (30) UTI (urinary tract infection) Status: Acute (31) Weakness Status: Acute Review of Systems Constitutional: + weakness, + fatigue Cardiac: + edema (diffuse) Abdomen: + pain, + diarrhea Neurologic: + weakness All Other Systems: Reviewed and Negative Medications Current Inpatient Medications Medications (Trade) Dose Ordered Sig/Martina Route Start Time Stop Time Status Last Admin Dose Admin Acetaminophen (Tylenol Tab) 650 mg Q4H PRN PO 08/05/17 07:30 09/04/17 07:29 08/12/17 23:41 650 MG Ondansetron HCl (Zofran Inj) 4 mg Q6H PRN IV 08/05/17 07:30 09/04/17 07:29 08/13/17 01:55 4 MG Mirabegron (Myrbetriq Er) 25 mg QPM PO 08/05/17 21:00 09/04/17 20:59 08/13/17 20:52 25 MG Gentamicin Sulfate (Gentamicin 0.3% Oph Oint) 1 appln QID OP 08/06/17 17:00 08/16/17 16:59 08/14/17 09:52 1 APPLN Vancomycin HCl (Vancomycin Oral Soln) 125 mg Q6H PO 08/07/17 23:00 08/21/17 23:59 08/14/17 04:56 125 MG Raspberry (Raspberry Syrup 5ml Cup) 5 ml Q6H PO 08/07/17 23:00 08/21/17 23:59 08/14/17 04:57 5 ML Saccharomyces Boulardii (Florastor Cap) 250 mg DAILY PO 08/08/17 09:00 09/07/17 08:59 08/14/17 09:52 250 MG Promethazine HCl 12.5 mg/Sodium Chloride 50.5 ml @ 204 mls/hr Q6H PRN IV 08/09/17 09:15 09/08/17 09:14 08/09/17 15:27 204 MLS/HR Metronidazole 500 mg/Prmx 100 ml @ 100 mls/hr Q8H IV 08/09/17 12:00 08/23/17 11:59 08/14/17 04:56 100 MLS/HR Amlodipine Besylate (Norvasc Tab) 5 mg QAM PO 08/11/17 09:00 09/10/17 08:59 08/14/17 09:51 5 MG Heparin Sodium (Porcine) (Heparin Sq 5000 Unit/0.5ml) 5,000 unit Q12 SQ 08/10/17 21:00 09/09/17 20:59 08/14/17 09:53 5,000 UNIT Albuterol/ Ipratropium (Duoneb) 3 ml QIDR INH 08/11/17 08:00 09/10/17 07:59 4/30/18 20:00 3 ML Aspirin (Ecotrin Tab) 81 mg QAM PO 08/12/17 09:00 09/11/17 08:59 08/14/17 09:51 81 MG Simvastatin (Zocor Tab) 20 mg QPM PO 08/11/17 21:00 09/10/17 20:59 08/13/17 20:52 20 MG Triamterene/HCTZ (Maxzide 37.5/25 Tab) 1 tab QAM PO 08/12/17 09:00 09/11/17 08:59 08/14/17 09:51 1 TAB Calcium/Vitamin D (Caltrate Plus Tab) 1 tab QAM PO 08/12/17 09:00 09/11/17 08:59 08/14/17 09:51 1 TAB Miscellaneous Information (Order Awaiting Action) 1 ea QS N/A 08/11/17 16:00 09/10/17 15:59 Metoprolol Tartrate (Lopressor Tab) 25 mg BID PO 08/11/17 21:00 09/10/17 20:59 08/14/17 09:51 25 MG Heparin Sodium (Porcine) (Heparin 100 Unit/ml 5ml Flush) 5 ml PRN PRN IV 08/11/17 18:30 09/10/17 18:29 08/14/17 08:39 5 ML Enteral Nutritional Formula (Boost) 1 can BID PO 08/12/17 21:00 09/11/17 20:59 08/14/17 09:54 1 CAN Prednisone (PredniSONE TAB) 12 mg QAM PO 08/13/17 09:00 09/12/17 08:59 08/14/17 09:51 12 MG Non-Formulary Medication (Non-Formulary Patient'S Own Med) 1 ea PRN PRN EXT 08/12/17 17:00 09/11/17 16:59 Tramadol HCl (Ultram Tab) 50 mg Q12H PRN PO 08/12/17 18:15 09/11/17 18:14 08/13/17 21:27 50 MG Hydromorphone HCl (Dilaudid Inj) 1 mg NOW IV 08/13/17 10:30 08/27/17 10:29 Hydromorphone HCl (Dilaudid Inj) 0.5 mg Q6 PRN IV 08/13/17 10:30 08/27/17 10:29 08/14/17 07:10 0.5 MG Cholestyramine Resin (Questran Powder Light) 4 gm BID@10,22 PO 08/13/17 22:00 09/12/17 21:59 08/13/17 21:28 4 GM Miconazole Nitrate (Desenex Powder) 1 appln BID EXT 08/13/17 16:00 09/12/17 15:59 08/14/17 09:50 1 APPLN Potassium Chloride/Sodium Chloride 1,000 ml @ 100 mls/hr Q10H IV 08/14/17 09:30 08/14/17 19:29 UNV Ioversol (Optiray 320) 100 ml UD PRN IV 08/14/17 09:45 08/18/17 09:44 UNV Objective Vital Signs Date Time Temp Pulse Resp B/P (MAP) Pulse Ox O2 Delivery O2 Flow Rate FiO2 08/14/17 08:00 Nasal Cannula 3.0 08/14/17 06:27 36.8 106 18 128/70 (89) 95 Nasal Cannula 3.0 08/14/17 00:45 Nasal Cannula 3.0 08/13/17 22:26 36.4 100 18 116/72 (87) 97 Nasal Cannula 3.0 08/13/17 20:00 103 18 97 Nasal Cannula 3.0 08/13/17 16:00 97 Nasal Cannula 3.0 100 08/13/17 15:10 36.4 103 19 100/63 (75) 96 Nasal Cannula 3.0 08/13/17 15:10 102 18 97 Nasal Cannula 3.0 08/13/17 11:09 114 20 95 Nasal Cannula 3.0 Physical Exam General Appearance: WD/WN, no apparent distress Eyes: normal inspection, EOMI, sclerae normal ENT: normal ENT inspection, hearing grossly normal, pharynx normal Neck: supple, no adenopathy, no JVD, trachea midline Respiratory/Chest: chest non-tender, lungs clear, no respiratory distress, no accessory muscle use, + decreased breath sounds (bases) Cardiovascular: no gallop, no JVD, no murmur, + tachycardia Abdomen: normal bowel sounds, soft, no organomegaly, + tenderness (LUQ and LLQ , no rebound or rigidity, non distended) Extremities: normal range of motion, non-tender, normal inspection, no calf tenderness, pelvis stable, + pedal edema (anasarca, arms and legs edematous, pitting) Neurologic/Psychiatric: pulling unit operator II-XII nml as tested, alert, normal mood/affect, oriented x 3, + motor weakness Skin: normal color, warm/dry, no rash Laboratory Results Last 24 Hours Test 08/14/17 08:38 White Blood Count 26.50 K/uL Red Blood Count 3.44 M/uL Hemoglobin 9.7 g/dL Hematocrit 30.3 % Mean Corpuscular Volume 88.1 fL Mean Corpuscular Hemoglobin 28.2 pg Mean Corpuscular Hemoglobin Concent 32.0 g/dl Platelet Count 233 K/uL Mean Platelet Volume 9.7 fL Neutrophils (%) (Auto) 82.2 % Lymphocytes (%) (Auto) 5.9 % Monocytes (%) (Auto) 6.7 % Eosinophils (%) (Auto) 0.2 % Basophils (%) (Auto) 0.2 % Neutrophils # (Auto) 21.79 K/uL Lymphocytes # (Auto) 1.56 K/uL Monocytes # (Auto) 1.77 K/uL Eosinophils # (Auto) 0.05 K/uL Basophils # (Auto) 0.05 K/uL RDW Standard Deviation 57.1 fL RDW Coefficient of Variation 17.7 % Immature Granulocyte % (Auto) 4.8 % Immature Granulocyte # (Auto) 1.28 K/uL Nucleated RBC Absolute Count (auto) 0.03 K/uL Nucleated Red Blood Cells % 0.1 % Anisocytosis PRESENT Echinocytes 1+ Sodium Level 142 mmol/L Potassium Level 3.6 mmol/L Chloride Level 117 mmol/L Carbon Dioxide Level 19 mmol/L Anion Gap 7.0 mmol/L Blood Urea Nitrogen 37 mg/dl Creatinine 1.44 mg/dl Est Creatinine Clear Calc Drug Dose 26.7 ml/min Estimated GFR () 39.1 Estimated GFR (Non- 33.7 BUN/Creatinine Ratio 25.5 Random Glucose 88 mg/dl Lactic Acid Level 1.2 mmol/L Calcium Level 7.6 mg/dl Total Bilirubin 0.2 mg/dl Aspartate Amino Transf (AST/SGOT) 26 U/L Alanine Aminotransferase (ALT/SGPT) 14 U/L Alkaline Phosphatase 38 U/L Total Protein 3.9 gm/dl Albumin 1.6 gm/dl Globulin 2.3 gm/dl Albumin/Globulin Ratio 0.7 Assessment and Plan 81 y/o female admitted on August 05, 2017 because of sepsis and acute diverticulitis, later found has cdiff pancolitis Past medical history HTN, HLD, RA, h/o breast cancer s/p lumpectomy and radiation, recurrent UTI, urinary incontinence, and anemia of chronic disease - C diff colitis: still no improvement today, pain is still moderate to severe, liquid diarrhea, no blood, WBC up to 26k today x-ray on 08/12 did not show toxic megacolon or obstruction discussed with Dr. Garcia, had recommended repeat imaging to look for abscess or other developments will check a CT with IV contrast today, issue with lack of IV access, may need US guided line continue Vanco PO and Flagyl IV added Questran yesterday but stools still loose ID following, recommending prolonged course of antibiotics with taper - Dyspnea volume overload due to third spacing with sepsis initially checked echocardiogram, which shows normal LVEF, no obvious diastolic dysfunction, cautious use of fluids, was going to give some fluids with IV contrast since Cr 1.4 Acute on chronic kidney failure stage III, creatinine improving, Cr stable at 1.4 but trending up slightly give some gentle fluids prior and post contrast may need to resume fluids if PO intake still poor HTN, HLD--stable History of RA Was on oral prednisone at home -back on home dose of Prednisone 12mg daily -Enbrel injections at home H/o breast cancer--noted DVT prophylaxis, NANCY grubbs and SCDs DO NOT RESUSCITATE Plan: need to get CT scan since patient failing to improve despite a week of appropriate treatment Continued [facility] stay due to: home environment unsafe for pt Discharge planning: rehab hospital, group home facility
[2017-08-14] MEDS ORDERED: NSS + 20MEQ KCL 1000ML 1,000 ML IV SCH (11:00)
[2017-08-14 11:11] VITALS: PULSE 78; O2SAT 96
[2017-08-14] MEDS: TRAMADOL HCL 50 MG TAB PO PRN (11:46)
--- NOTE | 2017-08-14 14:53 | Infectious Disease Progress Nt ---
Progress Note Date of Service August 14, 2017. Subjective Pt evaluation today including: conversation w/ patient, physical exam, chart review, lab review, review of studies, conversation w/ process consultant, review of inpatient medication list Somewhat more abdominal pain today. CT scan of the abdomen ordered. White count up a bit to 21,000. Remains afebrile. All Other Systems: Reviewed and Negative Medications Current Inpatient Medications Medications (Trade) Dose Ordered Sig/Martina Route Start Time Stop Time Status Last Admin Dose Admin Acetaminophen (Tylenol Tab) 650 mg Q4H PRN PO 08/05/17 07:30 09/04/17 07:29 08/12/17 23:41 650 MG Ondansetron HCl (Zofran Inj) 4 mg Q6H PRN IV 08/05/17 07:30 09/04/17 07:29 08/13/17 01:55 4 MG Mirabegron (Myrbetriq Er) 25 mg QPM PO 08/05/17 21:00 09/04/17 20:59 08/13/17 20:52 25 MG Gentamicin Sulfate (Gentamicin 0.3% Oph Oint) 1 appln QID OP 08/06/17 17:00 08/16/17 16:59 08/14/17 13:45 1 APPLN Vancomycin HCl (Vancomycin Oral Soln) 125 mg Q6H PO 08/07/17 23:00 08/21/17 23:59 08/14/17 11:19 125 MG Raspberry (Raspberry Syrup 5ml Cup) 5 ml Q6H PO 08/07/17 23:00 08/21/17 23:59 08/14/17 11:19 5 ML Saccharomyces Boulardii (Florastor Cap) 250 mg DAILY PO 08/08/17 09:00 09/07/17 08:59 08/14/17 09:52 250 MG Promethazine HCl 12.5 mg/Sodium Chloride 50.5 ml @ 204 mls/hr Q6H PRN IV 08/09/17 09:15 09/08/17 09:14 08/09/17 15:27 204 MLS/HR Metronidazole 500 mg/Prmx 100 ml @ 100 mls/hr Q8H IV 08/09/17 12:00 08/23/17 11:59 08/14/17 11:19 100 MLS/HR Amlodipine Besylate (Norvasc Tab) 5 mg QAM PO 08/11/17 09:00 09/10/17 08:59 08/14/17 09:51 5 MG Heparin Sodium (Porcine) (Heparin Sq 5000 Unit/0.5ml) 5,000 unit Q12 SQ 08/10/17 21:00 09/09/17 20:59 08/14/17 09:53 5,000 UNIT Albuterol/ Ipratropium (Duoneb) 3 ml QIDR INH 08/11/17 08:00 09/10/17 07:59 08/14/17 11:09 3 ML Aspirin (Ecotrin Tab) 81 mg QAM PO 08/12/17 09:00 09/11/17 08:59 08/14/17 09:51 81 MG Simvastatin (Zocor Tab) 20 mg QPM PO 08/11/17 21:00 09/10/17 20:59 08/13/17 20:52 20 MG Triamterene/HCTZ (Maxzide 37.5/25 Tab) 1 tab QAM PO 08/12/17 09:00 09/11/17 08:59 08/14/17 09:51 1 TAB Calcium/Vitamin D (Caltrate Plus Tab) 1 tab QAM PO 08/12/17 09:00 09/11/17 08:59 08/14/17 09:51 1 TAB Miscellaneous Information (Order Awaiting Action) 1 ea QS N/A 08/11/17 16:00 09/10/17 15:59 Metoprolol Tartrate (Lopressor Tab) 25 mg BID PO 08/11/17 21:00 09/10/17 20:59 08/14/17 09:51 25 MG Heparin Sodium (Porcine) (Heparin 100 Unit/ml 5ml Flush) 5 ml PRN PRN IV 08/11/17 18:30 09/10/17 18:29 08/14/17 08:39 5 ML Enteral Nutritional Formula (Boost) 1 can BID PO 08/12/17 21:00 09/11/17 20:59 08/14/17 09:54 1 CAN Prednisone (PredniSONE TAB) 12 mg QAM PO 08/13/17 09:00 09/12/17 08:59 08/14/17 09:51 12 MG Non-Formulary Medication (Non-Formulary Patient'S Own Med) 1 ea PRN PRN EXT 08/12/17 17:00 09/11/17 16:59 Tramadol HCl (Ultram Tab) 50 mg Q12H PRN PO 08/12/17 18:15 09/11/17 18:14 08/14/17 11:46 50 MG Hydromorphone HCl (Dilaudid Inj) 1 mg NOW IV 08/13/17 10:30 08/27/17 10:29 Hydromorphone HCl (Dilaudid Inj) 0.5 mg Q6 PRN IV 08/13/17 10:30 08/27/17 10:29 08/14/17 07:10 0.5 MG Cholestyramine Resin (Questran Powder Light) 4 gm BID@10,22 PO 08/13/17 22:00 09/12/17 21:59 08/13/17 21:28 4 GM Miconazole Nitrate (Desenex Powder) 1 appln BID EXT 08/13/17 16:00 09/12/17 15:59 08/14/17 09:50 1 APPLN Potassium Chloride/Sodium Chloride 1,000 ml @ 100 mls/hr Q10H IV 08/14/17 11:00 08/14/17 20:59 08/14/17 11:20 100 MLS/HR Ioversol (Optiray 320) 100 ml UD PRN IV 08/14/17 09:45 08/18/17 09:44 Objective Vital Signs Date Time Temp Pulse Resp B/P (MAP) Pulse Ox O2 Delivery O2 Flow Rate FiO2 08/14/17 11:11 78 16 96 Nasal Cannula 3.0 08/14/17 08:00 Nasal Cannula 3.0 08/14/17 06:27 36.8 106 18 128/70 (89) 95 Nasal Cannula 3.0 08/14/17 00:45 Nasal Cannula 3.0 08/13/17 22:26 36.4 100 18 116/72 (87) 97 Nasal Cannula 3.0 08/13/17 20:00 103 18 97 Nasal Cannula 3.0 08/13/17 16:00 97 Nasal Cannula 3.0 100 08/13/17 15:10 36.4 103 19 100/63 (75) 96 Nasal Cannula 3.0 08/13/17 15:10 102 18 97 Nasal Cannula 3.0 Physical Exam General Appearance: WD/WN, no apparent distress Eyes: normal inspection, EOMI, sclerae normal ENT: normal ENT inspection, pharynx normal Neck: supple, no adenopathy, thyroid normal, trachea midline Respiratory/Chest: chest non-tender, lungs clear, normal breath sounds, no respiratory distress Cardiovascular: regular rate, rhythm, no gallop, no murmur Abdomen: normal bowel sounds, soft, no organomegaly, + tenderness Extremities: non-tender, no calf tenderness Neurologic/Psychiatric: alert, oriented x 3 Skin: normal color, warm/dry, no rash Lymphatic: no adenopathy Laboratory Results Last 24 Hours Test 08/14/17 08:38 White Blood Count 26.50 K/uL Red Blood Count 3.44 M/uL Hemoglobin 9.7 g/dL Hematocrit 30.3 % Mean Corpuscular Volume 88.1 fL Mean Corpuscular Hemoglobin 28.2 pg Mean Corpuscular Hemoglobin Concent 32.0 g/dl Platelet Count 233 K/uL Mean Platelet Volume 9.7 fL Neutrophils (%) (Auto) 82.2 % Lymphocytes (%) (Auto) 5.9 % Monocytes (%) (Auto) 6.7 % Eosinophils (%) (Auto) 0.2 % Basophils (%) (Auto) 0.2 % Neutrophils # (Auto) 21.79 K/uL Lymphocytes # (Auto) 1.56 K/uL Monocytes # (Auto) 1.77 K/uL Eosinophils # (Auto) 0.05 K/uL Basophils # (Auto) 0.05 K/uL RDW Standard Deviation 57.1 fL RDW Coefficient of Variation 17.7 % Immature Granulocyte % (Auto) 4.8 % Immature Granulocyte # (Auto) 1.28 K/uL Nucleated RBC Absolute Count (auto) 0.03 K/uL Nucleated Red Blood Cells % 0.1 % Anisocytosis PRESENT Echinocytes 1+ Sodium Level 142 mmol/L Potassium Level 3.6 mmol/L Chloride Level 117 mmol/L Carbon Dioxide Level 19 mmol/L Anion Gap 7.0 mmol/L Blood Urea Nitrogen 37 mg/dl Creatinine 1.44 mg/dl Est Creatinine Clear Calc Drug Dose 26.7 ml/min Estimated GFR () 39.1 Estimated GFR (Non- 33.7 BUN/Creatinine Ratio 25.5 Random Glucose 88 mg/dl Lactic Acid Level 1.2 mmol/L Calcium Level 7.6 mg/dl Total Bilirubin 0.2 mg/dl Aspartate Amino Transf (AST/SGOT) 26 U/L Alanine Aminotransferase (ALT/SGPT) 14 U/L Alkaline Phosphatase 38 U/L Total Protein 3.9 gm/dl Albumin 1.6 gm/dl Globulin 2.3 gm/dl Albumin/Globulin Ratio 0.7 Assessment and Plan 81-year-old female with severe colitis secondary to C difficile, at risk for significant complications given elevated white count and acute kidney injury. Patient to be continued on current therapy with vancomycin. Would recommend prolonged tapering course given high possibility of recurrence. Agree with need for follow-up CT scan given rising white count. Will follow.
[2017-08-14 15:35] VITALS: PULSE 81; O2SAT 93
[2017-08-14 15:43] VITALS: BP 96/56; PULSE 94; TEMP 36.7; O2SAT 93
[2017-08-14 15:51] VITALS: O2SAT 93
--- NOTE | 2017-08-14 16:23 | PROGRESS NOTE ---
DATE: 08/14/2017 The patient continues on IV Flagyl and p.o. vancomycin for her C. difficile colitis. Her vital signs show a temperature of 36.7, pulse 94, blood pressure is 96/56. She does have 17 bowel movements recorded yesterday, and today, her white count is up to 26.5 with a left shift. Her abdominal series done on August 12 did not show any signs of megacolon. Repeat CT scan has been ordered for today given the increase in white count. We will continue to follow the patient during her hospital stay.
[2017-08-14 19:14] VITALS: PULSE 89; O2SAT 96
[2017-08-14] MEDS: MIRABEGRON ER 25 MG TAB PO SCH (20:31)
[2017-08-14] MEDS: SIMVASTATIN 20 MG TAB PO SCH (20:31)
[2017-08-14] MEDS ORDERED: TRAMADOL HCL 50 MG TAB PO STA (20:51)
[2017-08-14] MEDS ORDERED: NURSING VERBAL MED ORDER ONE (21:00)
--- NOTE | 2017-08-14 21:46 | DIAGNOSTIC IMAGING REPORT ---
ABDOMEN AND PELVIS CT WITH IV CONTRAST CT DOSE: 429.93 mGy.cm HISTORY: Acute generalized abdominal pain with leukocytosis C diff colitis, worsening pain, rising WBC, diarrhea TECHNIQUE: Multiaxial CT images of the abdomen and pelvis were performed following the use of intravenous contrast. A dose lowering technique was utilized adhering to the principles of ALARA. COMPARISON STUDY: CT abdomen and pelvis 08/07/2017 FINDINGS: Motion degraded exam. Increased size of right pleural effusion which is now moderate in size. Areas of mucous plugging are noted within the bilateral lung bases. Small left pleural effusion is also slightly increased in size. Imaged inferior cardiac chambers are mildly enlarged with coronary arterial and mitral annular calcifications. The opacified pulmonary arterial tree is unremarkable. Dependent bibasilar consolidation is noted. No pneumatosis or pneumoperitoneum identified. Chronic right hemidiaphragmatic elevation. Prior cholecystectomy. No intrahepatic biliary ductal dilation. The spleen is mildly diminutive in size. Moderate generalized pancreatic atrophy. Adrenal glands are unremarkable. Multifocal prequel scarring about the right kidney which is mildly atrophic. No renal calculi or obstructive uropathy identified. Hallux structures are not well seen secondary to streak artifact from bilateral hip arthroplasties. Extensive calcification and tortuosity of the abdominal aorta without aneurysm. Moderate sized hiatal hernia. Moderate duodenal diverticulum. No small bowel obstruction. Small volume of abdominal and pelvic ascites. Extensive colonic diverticulosis. Rectal tube is in place. At least moderate wall thickening involving the entire colon with areas of mucosal hyperemia are again noted in addition to pericolonic inflammatory stranding which overall appears similar from comparison study 08/07/2017. Progressively worsened moderate to extensive body wall edema. Diastases recti. Prior posterior decompression with interbody abhishek and screw fusion of the lumbar spine at L2-L4. Grade 1 anterolisthesis L4 on L5 is unchanged. Lumbar dextroscoliosis. IMPRESSION: 1. Moderate pancolonic wall thickening with pericolonic inflammatory stranding is again noted compatible with infectious or inflammatory colitis. 2. Findings compatible with progressive fluid overload manifested by increased size of bilateral pleural effusions, progressive body wall edema and mild abdominopelvic ascites. 3. Colonic diverticulosis. 4. Moderate sized hiatal hernia. 5. Additional findings as above. Electronically signed by: Reji Rodney M.D. 08/14/2017 9:45 PM Dictated Date/Time: 08/14/2017 9:35 PM
[2017-08-14] MEDS: ACETAMINOPHEN 325 MG TAB PO PRN (23:44)
[2017-08-15] VITALS (9 sets, daily range): BP systolic 92–109; BP diastolic 52–71; PULSE 77–95; TEMP 36.3–36.6; O2SAT 95–99
[2017-08-15] MEDS: HYDROmorphone INJ 0.5 MG/0.5 ML SYR IV PRN (04:15)
[2017-08-15] MEDS: METRONIDAZOLE / NSS 500 MG in PREMIXED NSS 100 ML IV SCH ×3 (04:15→20:02)
[2017-08-15] MEDS: VANCOMYCIN HCL 125 MG/2.5ML SOLN PO SCH ×4 (04:15→22:38)
[2017-08-15] MEDS: RASPBERRY SYRUP 5 ML UDP PO SCH ×4 (04:15→22:38)
[2017-08-15] MEDS: ALBUT/IPRATROP 3MG/0.5MG NEB 3 ML VIAL INH SCH ×4 (06:46→18:50)
[2017-08-15] MEDS: BOOST VANILLA PO SCH ×2 (08:11→20:04)
[2017-08-15] MEDS: CALCIUM 600MG + VIT D 400 IU TAB PO SCH (08:11)
[2017-08-15] MEDS: METOPROLOL TARTRATE 25 MG TAB PO SCH ×2 (08:12→20:05)
[2017-08-15] MEDS: PREDNISONE PO SCH ×2 (08:12)
[2017-08-15] MEDS: SACCHAROMYCES BOUL (FLORASTOR) 250 MG CAP PO SCH (08:12)
[2017-08-15] MEDS: ASPIRIN 81 MG ECTAB PO SCH (08:13)
[2017-08-15] MEDS: MICONAZOLE NITRATE POWDER 43 GM EXT SCH ×2 (08:13→20:03)
[2017-08-15] MEDS: AMLODIPINE BESYLATE 5 MG TAB PO SCH (08:13)
[2017-08-15] MEDS: TRIAMTERENE/HCTZ 37.5/25MG TAB PO SCH (08:13)
[2017-08-15] MEDS: GENTAMICIN SULFATE 0.3% OP OINT 3.5 GM TUBE OP SCH ×4 (08:14→20:03)
[2017-08-15] MEDS: HEPARIN SOD 5000 UNIT/0.5 ML CARP SQ SCH ×2 (08:17→20:15)
[2017-08-15] MEDS ORDERED: ALBUMIN 5% 250 ML with FUROSEMIDE INJ 40 MG IV ONE ×2 (08:45)
[2017-08-15] MEDS ORDERED: ALBUMIN 25% 50 ML with FUROSEMIDE INJ 40 MG IV ONE ×4 (09:15→15:30)
[2017-08-15] MEDS ORDERED: FUROSEMIDE IV ONE ×2 (09:15)
[2017-08-15] MEDS ORDERED: ALBUMIN 25% IV ONE ×2 (09:15)
[2017-08-15] MEDS: CHOLESTYRAMINE LIGHT 4 GM PKT PO SCH ×2 (09:40→21:45)
[2017-08-15] MEDS: HYDROmorphone INJ 2 MG/ML SYR/VIAL IV SCH (11:39)
[2017-08-15] MEDS: MIRABEGRON ER 25 MG TAB PO SCH (20:05)
[2017-08-15] MEDS: SIMVASTATIN 20 MG TAB PO SCH (20:05)
--- NOTE | 2017-08-15 21:22 | Progress Note ---
Subjective Date of Service: August 15, 2017. Subjective Pt evaluation today including: conversation w/ patient, conversation w/ family , physical exam, review of inpatient medication list Pain: still with LUQ and LLQ pain PO Intake: poor, tolerating full liquids Voiding: no voiding problems rectal tube still in place, still with liquid stools, brown, no blood patient with persistent pain, Dilaudid helps but it wears off, requesting higher dose discussed that higher dose may compromise breathing, she accepts that, just wants pain controlled breathing a little harder today anasarca evident discussed with daughter at the bedside discussed results of CT scan, still with alejandro colitis, no abscess, no perforation , no toxic megacolon daughter understands guarded prognosis, not sure if patient will recover will continue to take things one day at a time if patient would get severely ill she would want comfort measures gave Albumin and Lasix, 800cc out in the morning Problem List Medical Problems: (1) Acute kidney injury Status: Acute (2) Acute renal failure Status: Acute (3) Anemia Status: Acute (4) Anemia Status: Acute (5) Back pain Status: Chronic (6) Colitis Status: Acute (7) Dehydration Status: Acute (8) Dehydration Status: Acute (9) Diarrhea Status: Acute (10) Elevated lactic acid level Status: Acute (11) Elevated troponin I level Status: Acute (12) Failure of outpatient treatment Status: Acute (13) Fever Status: Acute (14) Fever Status: Acute (15) GI bleed Status: Acute (16) History of chronic urinary tract infection Status: Acute (17) Hyponatremia Status: Acute (18) Immunocompromised Status: Acute (19) Laceration Status: Acute (20) Left arm cellulitis Status: Acute (21) Leukocytosis Status: Acute (22) Leukocytosis Status: Acute (23) Sepsis Status: Acute (24) Sepsis Status: Acute (25) Severe sepsis Status: Acute (26) SIRS (systemic inflammatory response syndrome) Status: Acute (27) Urinary tract infection Status: Acute (28) UTI (urinary tract infection) Status: Acute (29) UTI (urinary tract infection) Status: Acute (30) UTI (urinary tract infection) Status: Acute (31) Weakness Status: Acute Review of Systems Constitutional: + weakness, + fatigue Respiratory: + shortness of breath Cardiac: + edema Abdomen: + pain, + nausea, + diarrhea Musculoskeletal: + joint pain Neurologic: + weakness Psychiatric: + depression symptoms All Other Systems: Reviewed and Negative Medications Current Inpatient Medications Medications (Trade) Dose Ordered Sig/Martina Route Start Time Stop Time Status Last Admin Dose Admin Acetaminophen (Tylenol Tab) 650 mg Q4H PRN PO 08/05/17 07:30 09/04/17 07:29 08/14/17 23:44 650 MG Ondansetron HCl (Zofran Inj) 4 mg Q6H PRN IV 08/05/17 07:30 09/04/17 07:29 08/13/17 01:55 4 MG Mirabegron (Myrbetriq Er) 25 mg QPM PO 08/05/17 21:00 09/04/17 20:59 08/15/17 20:05 25 MG Gentamicin Sulfate (Gentamicin 0.3% Oph Oint) 1 appln QID OP 08/06/17 17:00 08/16/17 16:59 08/15/17 20:03 1 APPLN Vancomycin HCl (Vancomycin Oral Soln) 125 mg Q6H PO 08/07/17 23:00 08/21/17 23:59 08/15/17 17:01 125 MG Raspberry (Raspberry Syrup 5ml Cup) 5 ml Q6H PO 08/07/17 23:00 08/21/17 23:59 08/15/17 17:02 5 ML Saccharomyces Boulardii (Florastor Cap) 250 mg DAILY PO 08/08/17 09:00 09/07/17 08:59 08/15/17 08:12 250 MG Promethazine HCl 12.5 mg/Sodium Chloride 50.5 ml @ 204 mls/hr Q6H PRN IV 08/09/17 09:15 09/08/17 09:14 08/09/17 15:27 204 MLS/HR Metronidazole 500 mg/Prmx 100 ml @ 100 mls/hr Q8H IV 08/09/17 12:00 08/23/17 11:59 08/15/17 20:02 100 MLS/HR Amlodipine Besylate (Norvasc Tab) 5 mg QAM PO 08/11/17 09:00 09/10/17 08:59 08/15/17 08:13 5 MG Heparin Sodium (Porcine) (Heparin Sq 5000 Unit/0.5ml) 5,000 unit Q12 SQ 08/10/17 21:00 09/09/17 20:59 08/15/17 20:15 5,000 UNIT Albuterol/ Ipratropium (Duoneb) 3 ml QIDR INH 08/11/17 08:00 09/10/17 07:59 08/15/17 18:50 3 ML Aspirin (Ecotrin Tab) 81 mg QAM PO 08/12/17 09:00 09/11/17 08:59 08/15/17 08:13 81 MG Simvastatin (Zocor Tab) 20 mg QPM PO 08/11/17 21:00 09/10/17 20:59 08/15/17 20:05 20 MG Triamterene/HCTZ (Maxzide 37.5/25 Tab) 1 tab QAM PO 08/12/17 09:00 09/11/17 08:59 08/15/17 08:13 1 TAB Calcium/Vitamin D (Caltrate Plus Tab) 1 tab QAM PO 08/12/17 09:00 09/11/17 08:59 08/15/17 08:11 1 TAB Miscellaneous Information (Order Awaiting Action) 1 ea QS N/A 08/11/17 16:00 09/10/17 15:59 Metoprolol Tartrate (Lopressor Tab) 25 mg BID PO 08/11/17 21:00 09/10/17 20:59 08/15/17 20:05 25 MG Heparin Sodium (Porcine) (Heparin 100 Unit/ml 5ml Flush) 5 ml PRN PRN IV 08/11/17 18:30 09/10/17 18:29 08/15/17 16:59 5 ML Enteral Nutritional Formula (Boost) 1 can BID PO 08/12/17 21:00 09/11/17 20:59 08/15/17 08:11 1 CAN Prednisone (PredniSONE TAB) 12 mg QAM PO 08/13/17 09:00 09/12/17 08:59 08/15/17 08:12 12 MG Non-Formulary Medication (Non-Formulary Patient'S Own Med) 1 ea PRN PRN EXT 08/12/17 17:00 09/11/17 16:59 Tramadol HCl (Ultram Tab) 50 mg Q12H PRN PO 4/29/18 18:15 09/11/17 18:14 08/14/17 11:46 50 MG Hydromorphone HCl (Dilaudid Inj) 1 mg NOW IV 08/13/17 10:30 08/27/17 10:29 08/15/17 11:39 1 MG Cholestyramine Resin (Questran Powder Light) 4 gm BID@10,22 PO 08/13/17 22:00 09/12/17 21:59 08/15/17 09:40 4 GM Miconazole Nitrate (Desenex Powder) 1 appln BID EXT 08/13/17 16:00 09/12/17 15:59 08/15/17 20:03 1 APPLN Ioversol (Optiray 320) 100 ml UD PRN IV 08/14/17 09:45 08/18/17 09:44 Hydromorphone HCl (Dilaudid Inj) 1 mg Q6 PRN IV 08/15/17 11:30 08/27/17 10:29 Objective Vital Signs Date Time Temp Pulse Resp B/P (MAP) Pulse Ox O2 Delivery O2 Flow Rate FiO2 08/15/17 18:50 86 16 97 Nasal Cannula 2.0 08/15/17 17:06 90 19 109/71 (84) 96 Nasal Cannula 3.0 08/15/17 16:23 36.5 83 19 96/61 (73) 98 Nasal Cannula 3.0 08/15/17 16:00 99 Nasal Cannula 2.0 100 08/15/17 16:00 80 19 94/63 (73) 99 Nasal Cannula 2.0 08/15/17 11:22 87 16 95 Nasal Cannula 2.0 08/15/17 08:00 Nasal Cannula 2.0 08/15/17 07:20 36.6 95 16 100/65 (77) 97 Nasal Cannula 2.0 08/15/17 07:07 90 16 98 Nasal Cannula 2.0 08/15/17 00:37 36.5 93 16 92/52 (65) 96 Nasal Cannula 2.0 08/14/17 23:28 Nasal Cannula 2.0 Physical Exam General Appearance: WD/WN, no apparent distress Eyes: normal inspection, EOMI, sclerae normal Neck: supple, no adenopathy, no JVD, trachea midline Respiratory/Chest: chest non-tender, no respiratory distress, no accessory muscle use, + decreased breath sounds (bases), + rales (bases) Cardiovascular: no gallop, no JVD, no murmur, + tachycardia Abdomen: normal bowel sounds, soft, no organomegaly, + guarding, + tenderness ( LUQ and LLQ) Extremities: normal range of motion, non-tender, normal inspection, no calf tenderness, normal capillary refill, pelvis stable, + pedal edema (pitting edema , +4 in legs and arms) 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, alert, oriented x 3, + motor weakness, + depressed affect Skin: normal color, warm/dry, no rash Assessment and Plan 81 y/o female admitted on August 05, 2017 because of sepsis and acute diverticulitis, later found has cdiff pancolitis Past medical history HTN, HLD, RA, h/o breast cancer s/p lumpectomy and radiation, recurrent UTI, urinary incontinence, and anemia of chronic disease - C diff colitis: no significant response to Vanco and Flagyl IV, still with severe pain, diarrhea CT on 08/14 did not show abscess or perforation, still shows pancolitis continue Vanco PO and Flagyl IV added Questran but stools still loose ID following, recommending prolonged course of antibiotics with taper due to severity of illness discussed with patient and daughter that prognosis is guarded, may not recover from infection explained that she was immunocompromised with the Enbrel and Prednisone - Dyspnea volume overload due to third spacing with sepsis initially checked echocardiogram, which shows normal LVEF, no obvious diastolic dysfunction, bibasilar rales and decreased breath sound start Lasix 40mg BID with Albumin Diffuse edema, anasarca due to hypoalbuminemia at 1.6, aggressive IV fluids and capillary leaking with sepsis initially pitting edema in legs and arms try to improve with Lasix Severe protein calorie malnutrition: Albumin only 1.6 poor oral intake Boost, hopefully appetite will improve with treatment Acute on chronic kidney failure stage III, Cr 1.4 yesterday, will repeat tomorrow poor UO volume overloaded, start Lasix 40mg IV with Albumin 25% BID today no further fluids HTN, HLD--stable History of RA Was on oral prednisone at home -back on home dose of Prednisone 12mg daily -Enbrel injections at home, last dose was 2 weeks ago - Dr. Sosa warned about inability to fight infections with Enbrel H/o breast cancer--noted DVT prophylaxis, NANCY grubbs and SCDs DO NOT RESUSCITATE Plan: continue Vanco and Flagyl, continue supportive care, Albumin and Lasix for diuresis patient and daughter understand she may get worse, would not want aggressive measures Continued [facility] stay due to: home environment unsafe for pt Discharge planning: rehab hospital, residential facility
[2017-08-15] MEDS: HYDROmorphone INJ 2 MG/ML SYR/VIAL IV PRN (23:28)
[2017-08-16] MEDS: METRONIDAZOLE / NSS 500 MG in PREMIXED NSS 100 ML IV SCH ×3 (04:28→19:45)
[2017-08-16] MEDS: RASPBERRY SYRUP 5 ML UDP PO SCH ×4 (04:32→22:45)
[2017-08-16] MEDS: VANCOMYCIN HCL 125 MG/2.5ML SOLN PO SCH ×4 (04:32→22:45)
[2017-08-16] MEDS: HYDROmorphone INJ 2 MG/ML SYR/VIAL IV PRN ×4 (05:27→23:23)
[2017-08-16 06:06] LABS: BASO % 0.1 %; BASO ABS # 0.03 K/uL (0-0.2); EOS % 0.3 %; EOS ABS # 0.06 K/uL (0-0.5); HEMATOCRIT 24.9 % (37-47); IG# 0.55 K/uL (0.00-0.02); LYMPH ABS # 1.66 K/uL (1.2-3.4); MEAN CORPUSCULAR HEMOGLOBIN 28.3 pg (25-34); MEAN CORPUSCULAR HGB CONC 32.1 g/dl (32-36); MONO % 5.9 %; MONO ABS # 1.38 K/uL (0.11-0.59); NEUT % 84.4 %; NEUT ABS # 19.88 K/uL (1.4-6.5); PLATELET COUNT 249 K/uL (130-400); RED CELL DISTRIBUTION WIDTH CV 17.9 % (11.5-14.5); RED CELL DISTRIBUTION WIDTH SD 56.4 fL (36.4-46.3); WHITE BLOOD COUNT 23.56 K/uL (4.8-10.8)
[2017-08-16 06:28] LABS: CALCIUM 8.1 mg/dl (8.5-10.1); CREATININE 1.34 mg/dl (0.60-1.20); POTASSIUM 3.9 mmol/L (3.5-5.1)
[2017-08-16] MEDS: ALBUT/IPRATROP 3MG/0.5MG NEB 3 ML VIAL INH SCH ×3 (06:51→19:39)
[2017-08-16 06:54] VITALS: PULSE 85; O2SAT 93
[2017-08-16 07:33] VITALS: BP 102/60; PULSE 85; TEMP 36.4; O2SAT 94
[2017-08-16] MEDS: MICONAZOLE NITRATE POWDER 43 GM EXT SCH ×2 (08:18→21:00)
[2017-08-16] MEDS: GENTAMICIN SULFATE 0.3% OP OINT 3.5 GM TUBE OP SCH ×2 (08:19→12:18)
[2017-08-16] MEDS: CALCIUM 600MG + VIT D 400 IU TAB PO SCH (08:20)
[2017-08-16] MEDS: METOPROLOL TARTRATE 25 MG TAB PO SCH ×2 (08:20→20:59)
[2017-08-16] MEDS: AMLODIPINE BESYLATE 5 MG TAB PO SCH (08:22)
[2017-08-16] MEDS: PREDNISONE PO SCH ×2 (08:22)
[2017-08-16] MEDS: ASPIRIN 81 MG ECTAB PO SCH (08:23)
[2017-08-16] MEDS: SACCHAROMYCES BOUL (FLORASTOR) 250 MG CAP PO SCH (08:23)
[2017-08-16] MEDS: TRIAMTERENE/HCTZ 37.5/25MG TAB PO SCH (08:24)
[2017-08-16] MEDS: HEPARIN SOD 5000 UNIT/0.5 ML CARP SQ SCH ×2 (08:25→20:57)
[2017-08-16] MEDS: BOOST VANILLA PO SCH ×2 (08:28→18:46)
[2017-08-16] MEDS ORDERED: ALBUMIN 25% 50 ML with FUROSEMIDE INJ 40 MG IV ONE ×4 (08:30→15:00)
[2017-08-16] MEDS: CHOLESTYRAMINE LIGHT 4 GM PKT PO SCH ×2 (10:03→21:01)
[2017-08-16] MEDS: TRAMADOL HCL 50 MG TAB PO PRN ×2 (10:46→22:45)
--- NOTE | 2017-08-16 13:15 | PROGRESS NOTE ---
DATE: 08/16/2017 SUBJECTIVE: The patient states her abdomen is still sore, but is getting a little bit better day today. She is still on liquid diet. She remains afebrile. White blood cell count is down a little bit today to 23.5. PHYSICAL EXAMINATION: ABDOMEN: Shows multiple scars. There is mild diffuse tenderness throughout the abdomen. Rectal tube is yielding dark brown liquid stool. She continues on IV Flagyl and p.o. vancomycin. IMPRESSION: The patient has severe C. diff, but no signs of megacolon at this time. We will continue at current measures and continue to monitor her progress.
--- NOTE | 2017-08-16 14:37 | Progress Note ---
Subjective Date of Service: August 16, 2017. Subjective Pt evaluation today including: conversation w/ patient, conversation w/ family (daughter), physical exam, lab review, review of inpatient medication list Pain: less pain today, Dilaudid sufficient PO Intake: improving, full liquids Voiding: klein catheter in place patient actually doing a little better today, tolerating full liquids, asked her if she wanted some solid food and she said no less pain, less diarrhea WBC coming down slightly at 23k from 26k Cr and electrolytes stable -1400cc yesterday with albumin and lasix updated daughter at the bedside, prognosis still guarded but today she is improving a little Problem List Medical Problems: (1) Acute kidney injury Status: Acute (2) Acute renal failure Status: Acute (3) Anemia Status: Acute (4) Anemia Status: Acute (5) Back pain Status: Chronic (6) Colitis Status: Acute (7) Dehydration Status: Acute (8) Dehydration Status: Acute (9) Diarrhea Status: Acute (10) Elevated lactic acid level Status: Acute (11) Elevated troponin I level Status: Acute (12) Failure of outpatient treatment Status: Acute (13) Fever Status: Acute (14) Fever Status: Acute (15) GI bleed Status: Acute (16) History of chronic urinary tract infection Status: Acute (17) Hyponatremia Status: Acute (18) Immunocompromised Status: Acute (19) Laceration Status: Acute (20) Left arm cellulitis Status: Acute (21) Leukocytosis Status: Acute (22) Leukocytosis Status: Acute (23) Sepsis Status: Acute (24) Sepsis Status: Acute (25) Severe sepsis Status: Acute (26) SIRS (systemic inflammatory response syndrome) Status: Acute (27) Urinary tract infection Status: Acute (28) UTI (urinary tract infection) Status: Acute (29) UTI (urinary tract infection) Status: Acute (30) UTI (urinary tract infection) Status: Acute (31) Weakness Status: Acute Review of Systems Constitutional: + weakness, + fatigue Respiratory: + shortness of breath Cardiac: + edema Abdomen: + pain, + diarrhea Neurologic: + weakness Psychiatric: + depression symptoms All Other Systems: Reviewed and Negative Medications Current Inpatient Medications Medications (Trade) Dose Ordered Sig/Martina Route Start Time Stop Time Status Last Admin Dose Admin Acetaminophen (Tylenol Tab) 650 mg Q4H PRN PO 08/05/17 07:30 09/04/17 07:29 08/14/17 23:44 650 MG Ondansetron HCl (Zofran Inj) 4 mg Q6H PRN IV 08/05/17 07:30 09/04/17 07:29 08/13/17 01:55 4 MG Mirabegron (Myrbetriq Er) 25 mg QPM PO 08/05/17 21:00 09/04/17 20:59 08/15/17 20:05 25 MG Gentamicin Sulfate (Gentamicin 0.3% Oph Oint) 1 appln QID OP 08/06/17 17:00 08/16/17 16:59 08/16/17 12:18 1 APPLN Vancomycin HCl (Vancomycin Oral Soln) 125 mg Q6H PO 08/07/17 23:00 08/21/17 23:59 08/16/17 10:45 125 MG Raspberry (Raspberry Syrup 5ml Cup) 5 ml Q6H PO 08/07/17 23:00 08/21/17 23:59 08/16/17 10:45 5 ML Saccharomyces Boulardii (Florastor Cap) 250 mg DAILY PO 08/08/17 09:00 09/07/17 08:59 08/16/17 08:23 250 MG Promethazine HCl 12.5 mg/Sodium Chloride 50.5 ml @ 204 mls/hr Q6H PRN IV 08/09/17 09:15 09/08/17 09:14 08/09/17 15:27 204 MLS/HR Metronidazole 500 mg/Prmx 100 ml @ 100 mls/hr Q8H IV 08/09/17 12:00 08/23/17 11:59 08/16/17 12:12 100 MLS/HR Amlodipine Besylate (Norvasc Tab) 5 mg QAM PO 08/11/17 09:00 09/10/17 08:59 08/16/17 08:22 5 MG Heparin Sodium (Porcine) (Heparin Sq 5000 Unit/0.5ml) 5,000 unit Q12 SQ 08/10/17 21:00 09/09/17 20:59 08/16/17 08:25 5,000 UNIT Albuterol/ Ipratropium (Duoneb) 3 ml QIDR INH 08/11/17 08:00 09/10/17 07:59 08/16/17 06:51 3 ML Aspirin (Ecotrin Tab) 81 mg QAM PO 08/12/17 09:00 09/11/17 08:59 08/16/17 08:23 81 MG Simvastatin (Zocor Tab) 20 mg QPM PO 08/11/17 21:00 09/10/17 20:59 08/15/17 20:05 20 MG Triamterene/HCTZ (Maxzide 37.5/25 Tab) 1 tab QAM PO 08/12/17 09:00 09/11/17 08:59 08/16/17 08:24 1 TAB Calcium/Vitamin D (Caltrate Plus Tab) 1 tab QAM PO 08/12/17 09:00 09/11/17 08:59 08/16/17 08:20 1 TAB Miscellaneous Information (Order Awaiting Action) 1 ea QS N/A 08/11/17 16:00 09/10/17 15:59 Metoprolol Tartrate (Lopressor Tab) 25 mg BID PO 08/11/17 21:00 09/10/17 20:59 08/16/17 08:20 25 MG Heparin Sodium (Porcine) (Heparin 100 Unit/ml 5ml Flush) 5 ml PRN PRN IV 08/11/17 18:30 09/10/17 18:29 08/16/17 14:03 5 ML Enteral Nutritional Formula (Boost) 1 can BID PO 08/12/17 21:00 09/11/17 20:59 08/16/17 08:28 1 CAN Prednisone (PredniSONE TAB) 12 mg QAM PO 08/13/17 09:00 09/12/17 08:59 08/16/17 08:22 12 MG Non-Formulary Medication (Non-Formulary Patient'S Own Med) 1 ea PRN PRN EXT 08/12/17 17:00 09/11/17 16:59 Tramadol HCl (Ultram Tab) 50 mg Q12H PRN PO 08/12/17 18:15 09/11/17 18:14 08/16/17 10:46 50 MG Hydromorphone HCl (Dilaudid Inj) 1 mg NOW IV 08/13/17 10:30 08/27/17 10:29 08/15/17 11:39 1 MG Cholestyramine Resin (Questran Powder Light) 4 gm BID@10,22 PO 08/13/17 22:00 09/12/17 21:59 08/16/17 10:03 4 GM Miconazole Nitrate (Desenex Powder) 1 appln BID EXT 08/13/17 16:00 09/12/17 15:59 08/16/17 08:18 1 APPLN Ioversol (Optiray 320) 100 ml UD PRN IV 08/14/17 09:45 08/18/17 09:44 Hydromorphone HCl (Dilaudid Inj) 1 mg Q6 PRN IV 08/15/17 11:30 08/27/17 10:29 08/16/17 12:51 1 MG Objective Vital Signs Date Time Temp Pulse Resp B/P (MAP) Pulse Ox O2 Delivery O2 Flow Rate FiO2 08/16/17 08:30 Nasal Cannula 2.0 08/16/17 07:33 36.4 85 16 102/60 (74) 94 Nasal Cannula 2.0 08/16/17 06:54 85 16 93 Nasal Cannula 1.0 08/16/17 00:00 Nasal Cannula 3.0 08/15/17 23:07 36.3 77 20 109/71 (84) 96 Nasal Cannula 2.0 08/15/17 18:50 86 16 97 Nasal Cannula 2.0 08/15/17 17:06 90 19 109/71 (84) 96 Nasal Cannula 3.0 08/15/17 16:23 36.5 83 19 96/61 (73) 98 Nasal Cannula 3.0 08/15/17 16:00 99 Nasal Cannula 2.0 100 08/15/17 16:00 80 19 94/63 (73) 99 Nasal Cannula 2.0 Physical Exam General Appearance: WD/WN, no apparent distress Eyes: normal inspection, EOMI, sclerae normal ENT: normal ENT inspection, hearing grossly normal, pharynx normal Neck: supple, no adenopathy, no JVD, trachea midline Respiratory/Chest: chest non-tender, no respiratory distress, no accessory muscle use, + decreased breath sounds (bases), + rales (bases) Cardiovascular: regular rate, rhythm, no gallop, no JVD, no murmur Abdomen: normal bowel sounds, soft, no organomegaly, + tenderness (LUQ and LLQ , no rebound or rigidity, abdomen soft) Extremities: non-tender, normal inspection, no calf tenderness, normal capillary refill, pelvis stable, + pedal edema (4+ pitting in legs and arms) 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, alert, normal mood/affect, oriented x 3, + motor weakness Skin: normal color, warm/dry, no rash Laboratory Results Last 24 Hours Test 08/16/17 05:51 White Blood Count 23.56 K/uL Red Blood Count 2.83 M/uL Hemoglobin 8.0 g/dL Hematocrit 24.9 % Mean Corpuscular Volume 88.0 fL Mean Corpuscular Hemoglobin 28.3 pg Mean Corpuscular Hemoglobin Concent 32.1 g/dl Platelet Count 249 K/uL Mean Platelet Volume 9.0 fL Neutrophils (%) (Auto) 84.4 % Lymphocytes (%) (Auto) 7.0 % Monocytes (%) (Auto) 5.9 % Eosinophils (%) (Auto) 0.3 % Basophils (%) (Auto) 0.1 % Neutrophils # (Auto) 19.88 K/uL Lymphocytes # (Auto) 1.66 K/uL Monocytes # (Auto) 1.38 K/uL Eosinophils # (Auto) 0.06 K/uL Basophils # (Auto) 0.03 K/uL RDW Standard Deviation 56.4 fL RDW Coefficient of Variation 17.9 % Immature Granulocyte % (Auto) 2.3 % Immature Granulocyte # (Auto) 0.55 K/uL Echinocytes 1+ Sodium Level 137 mmol/L Potassium Level 3.9 mmol/L Chloride Level 113 mmol/L Carbon Dioxide Level 19 mmol/L Anion Gap 5.0 mmol/L Blood Urea Nitrogen 31 mg/dl Creatinine 1.34 mg/dl Est Creatinine Clear Calc Drug Dose 28.7 ml/min Estimated GFR () 42.7 Estimated GFR (Non- 36.8 BUN/Creatinine Ratio 22.8 Random Glucose 79 mg/dl Calcium Level 8.1 mg/dl Magnesium Level 1.8 mg/dl Assessment and Plan 81 y/o female admitted on August 05, 2017 because of sepsis and acute diverticulitis, later found has cdiff pancolitis Past medical history HTN, HLD, RA, h/o breast cancer s/p lumpectomy and radiation, recurrent UTI, urinary incontinence, and anemia of chronic disease - C diff colitis: starting to show some response to Vanco and Flagyl IV, less pain, less diarrhea WBC down to 23k from 26k CT on 08/14 did not show abscess or perforation, still shows pancolitis continue Vanco PO and Flagyl IV added Questran, continue ID following, recommending prolonged course of antibiotics with taper due to severity of illness discussed with patient and daughter that prognosis is guarded, but showing some promising signs today explained that she was immunocompromised with the Enbrel and Prednisone - Dyspnea volume overload due to third spacing with sepsis initially checked echocardiogram, which shows normal LVEF, no obvious diastolic dysfunction, bibasilar rales and decreased breath sounds still today start Lasix 40mg BID with Albumin, continue q12 for three days Diffuse edema, anasarca due to hypoalbuminemia at 1.6, aggressive IV fluids and capillary leaking with sepsis initially pitting edema in legs and arms try to improve with Lasix, -1400cc yesterday Severe protein calorie malnutrition: Albumin only 1.6 poor oral intake Boost, hopefully appetite will improve with treatment Acute on chronic kidney failure stage III, Cr 1.34 today, will repeat tomorrow improved UO with Lasix volume overloaded, start Lasix 40mg IV with Albumin 25% BID BID for three days total no further fluids HTN, HLD--stable History of RA Was on oral prednisone at home -back on home dose of Prednisone 12mg daily -Enbrel injections at home, last dose was 2 weeks ago - Dr. Sosa warned about inability to fight infections with Enbrel H/o breast cancer--noted DVT prophylaxis, NANCY grubbs and SCDs DO NOT RESUSCITATE Plan: continue Vanco and Flagyl, continue supportive care, Albumin and Lasix for diuresis patient and daughter understand she may get worse, would not want aggressive measures some signs of improvement today, continue current care, repeat labs tomorrow Continued [facility] stay due to: home environment unsafe for pt Discharge planning: rehab hospital, custodial facility
[2017-08-16 15:53] VITALS: BP 92/57; PULSE 73; TEMP 36.6; O2SAT 94
[2017-08-16 16:00] VITALS: O2SAT 94
[2017-08-16 19:39] VITALS: PULSE 89; O2SAT 96
--- NOTE | 2017-08-16 20:40 | Infectious Disease Progress Nt ---
Progress Note Date of Service August 16, 2017. Subjective Pt evaluation today including: conversation w/ patient, physical exam, chart review, lab review, review of studies, conversation w/ specification consultant, review of inpatient medication list Patient states abdominal pain slightly better today. Less diarrhea. White count improved from [id number]. Constitutional: + weakness, + fatigue, No fever Respiratory: + shortness of breath Abdomen: + pain, + diarrhea Female : No problem reported Neurologic: + weakness Psychiatric: + depression symptoms All Other Systems: Reviewed and Negative Medications Current Inpatient Medications Medications (Trade) Dose Ordered Sig/Martina Route Start Time Stop Time Status Last Admin Dose Admin Acetaminophen (Tylenol Tab) 650 mg Q4H PRN PO 08/05/17 07:30 09/04/17 07:29 08/14/17 23:44 650 MG Ondansetron HCl (Zofran Inj) 4 mg Q6H PRN IV 08/05/17 07:30 09/04/17 07:29 08/13/17 01:55 4 MG Mirabegron (Myrbetriq Er) 25 mg QPM PO 08/05/17 21:00 09/04/17 20:59 08/15/17 20:05 25 MG Vancomycin HCl (Vancomycin Oral Soln) 125 mg Q6H PO 08/07/17 23:00 08/21/17 23:59 08/16/17 16:39 125 MG Raspberry (Raspberry Syrup 5ml Cup) 5 ml Q6H PO 08/07/17 23:00 08/21/17 23:59 08/16/17 16:40 5 ML Saccharomyces Boulardii (Florastor Cap) 250 mg DAILY PO 08/08/17 09:00 09/07/17 08:59 08/16/17 08:23 250 MG Promethazine HCl 12.5 mg/Sodium Chloride 50.5 ml @ 204 mls/hr Q6H PRN IV 08/09/17 09:15 09/08/17 09:14 08/09/17 15:27 204 MLS/HR Metronidazole 500 mg/Prmx 100 ml @ 100 mls/hr Q8H IV 08/09/17 12:00 08/23/17 11:59 08/16/17 19:45 100 MLS/HR Amlodipine Besylate (Norvasc Tab) 5 mg QAM PO 08/11/17 09:00 09/10/17 08:59 08/16/17 08:22 5 MG Heparin Sodium (Porcine) (Heparin Sq 5000 Unit/0.5ml) 5,000 unit Q12 SQ 08/10/17 21:00 09/09/17 20:59 08/16/17 08:25 5,000 UNIT Albuterol/ Ipratropium (Duoneb) 3 ml QIDR INH 08/11/17 08:00 09/10/17 07:59 08/16/17 19:39 3 ML Aspirin (Ecotrin Tab) 81 mg QAM PO 08/12/17 09:00 09/11/17 08:59 08/16/17 08:23 81 MG Simvastatin (Zocor Tab) 20 mg QPM PO 08/11/17 21:00 09/10/17 20:59 08/15/17 20:05 20 MG Triamterene/HCTZ (Maxzide 37.5/25 Tab) 1 tab QAM PO 08/12/17 09:00 09/11/17 08:59 08/16/17 08:24 1 TAB Calcium/Vitamin D (Caltrate Plus Tab) 1 tab QAM PO 08/12/17 09:00 09/11/17 08:59 08/16/17 08:20 1 TAB Miscellaneous Information (Order Awaiting Action) 1 ea QS N/A 08/11/17 16:00 09/10/17 15:59 Metoprolol Tartrate (Lopressor Tab) 25 mg BID PO 08/11/17 21:00 09/10/17 20:59 08/16/17 08:20 25 MG Heparin Sodium (Porcine) (Heparin 100 Unit/ml 5ml Flush) 5 ml PRN PRN IV 08/11/17 18:30 09/10/17 18:29 08/16/17 14:03 5 ML Enteral Nutritional Formula (Boost) 1 can BID PO 08/12/17 21:00 09/11/17 20:59 08/16/17 18:46 1 CAN Prednisone (PredniSONE TAB) 12 mg QAM PO 08/13/17 09:00 09/12/17 08:59 08/16/17 08:22 12 MG Non-Formulary Medication (Non-Formulary Patient'S Own Med) 1 ea PRN PRN EXT 08/12/17 17:00 09/11/17 16:59 Tramadol HCl (Ultram Tab) 50 mg Q12H PRN PO 08/12/17 18:15 09/11/17 18:14 08/16/17 10:46 50 MG Hydromorphone HCl (Dilaudid Inj) 1 mg NOW IV 08/13/17 10:30 08/27/17 10:29 08/15/17 11:39 1 MG Cholestyramine Resin (Questran Powder Light) 4 gm BID@10,22 PO 08/13/17 22:00 09/12/17 21:59 08/16/17 10:03 4 GM Miconazole Nitrate (Desenex Powder) 1 appln BID EXT 08/13/17 16:00 09/12/17 15:59 08/16/17 08:18 1 APPLN Ioversol (Optiray 320) 100 ml UD PRN IV 08/14/17 09:45 08/18/17 09:44 Hydromorphone HCl (Dilaudid Inj) 1 mg Q4 PRN IV 08/16/17 14:30 08/27/17 10:29 08/16/17 19:45 1 MG Objective Vital Signs Date Time Temp Pulse Resp B/P (MAP) Pulse Ox O2 Delivery O2 Flow Rate FiO2 08/16/17 19:39 89 16 96 Nasal Cannula 2.0 08/16/17 16:00 94 Nasal Cannula 2.0 08/16/17 15:53 36.6 73 16 92/57 (69) 94 2.0 08/16/17 08:30 Nasal Cannula 2.0 08/16/17 07:33 36.4 85 16 102/60 (74) 94 Nasal Cannula 2.0 08/16/17 06:54 85 16 93 Nasal Cannula 1.0 08/16/17 00:00 Nasal Cannula 3.0 08/15/17 23:07 36.3 77 20 109/71 (84) 96 Nasal Cannula 2.0 Physical Exam General Appearance: no apparent distress, + pertinent finding (Chronically ill- appearing) Eyes: normal inspection, EOMI, sclerae normal ENT: normal ENT inspection, pharynx normal Neck: supple, no adenopathy, thyroid normal, trachea midline Respiratory/Chest: chest non-tender, lungs clear, normal breath sounds, no respiratory distress Cardiovascular: regular rate, rhythm, no gallop, no murmur Abdomen: normal bowel sounds, soft, no organomegaly, + tenderness Extremities: non-tender, no calf tenderness, normal capillary refill Neurologic/Psychiatric: alert, oriented x 3 Skin: normal color, warm/dry, no rash Lymphatic: no adenopathy Laboratory Results Last 24 Hours Test 08/16/17 05:51 White Blood Count 23.56 K/uL Red Blood Count 2.83 M/uL Hemoglobin 8.0 g/dL Hematocrit 24.9 % Mean Corpuscular Volume 88.0 fL Mean Corpuscular Hemoglobin 28.3 pg Mean Corpuscular Hemoglobin Concent 32.1 g/dl Platelet Count 249 K/uL Mean Platelet Volume 9.0 fL Neutrophils (%) (Auto) 84.4 % Lymphocytes (%) (Auto) 7.0 % Monocytes (%) (Auto) 5.9 % Eosinophils (%) (Auto) 0.3 % Basophils (%) (Auto) 0.1 % Neutrophils # (Auto) 19.88 K/uL Lymphocytes # (Auto) 1.66 K/uL Monocytes # (Auto) 1.38 K/uL Eosinophils # (Auto) 0.06 K/uL Basophils # (Auto) 0.03 K/uL RDW Standard Deviation 56.4 fL RDW Coefficient of Variation 17.9 % Immature Granulocyte % (Auto) 2.3 % Immature Granulocyte # (Auto) 0.55 K/uL Echinocytes 1+ Sodium Level 137 mmol/L Potassium Level 3.9 mmol/L Chloride Level 113 mmol/L Carbon Dioxide Level 19 mmol/L Anion Gap 5.0 mmol/L Blood Urea Nitrogen 31 mg/dl Creatinine 1.34 mg/dl Est Creatinine Clear Calc Drug Dose 28.7 ml/min Estimated GFR () 42.7 Estimated GFR (Non- 36.8 BUN/Creatinine Ratio 22.8 Random Glucose 79 mg/dl Calcium Level 8.1 mg/dl Magnesium Level 1.8 mg/dl Assessment and Plan 81-year-old female with severe colitis secondary to C difficile, at risk for significant complications given elevated white count and acute kidney injury. Patient to be continued on current therapy with vancomycin. Would recommend prolonged tapering course given high possibility of recurrence. Follow-up CT consistent with continued colitis.
[2017-08-16] MEDS: MIRABEGRON ER 25 MG TAB PO SCH (20:59)
[2017-08-16] MEDS: SIMVASTATIN 20 MG TAB PO SCH (20:59)
[2017-08-16 23:00] VITALS: BP 94/59; PULSE 91; TEMP 36.5; O2SAT 99
[2017-08-17] MEDS: METRONIDAZOLE / NSS 500 MG in PREMIXED NSS 100 ML IV SCH ×3 (04:00→19:52)
[2017-08-17] MEDS: VANCOMYCIN HCL 125 MG/2.5ML SOLN PO SCH ×4 (05:02→23:31)
[2017-08-17] MEDS: RASPBERRY SYRUP 5 ML UDP PO SCH ×4 (05:02→23:31)
[2017-08-17 05:38] LABS: BASO % 0.1 %; BASO ABS # 0.03 K/uL (0-0.2); HEMATOCRIT 23.8 % (37-47); HEMOGLOBIN 7.5 g/dL (12.0-16.0); IG# 0.42 K/uL (0.00-0.02); LYMPH % 6.8 %; MEAN CELL VOLUME 87.5 fL (80-100); MEAN CORPUSCULAR HEMOGLOBIN 27.6 pg (25-34); MEAN CORPUSCULAR HGB CONC 31.5 g/dl (32-36); MONO % 5.7 %; MONO ABS # 1.18 K/uL (0.11-0.59); NEUT % 85.4 %; NEUT ABS # 17.54 K/uL (1.4-6.5); PLATELET COUNT 267 K/uL (130-400); RED CELL DISTRIBUTION WIDTH CV 17.7 % (11.5-14.5); RED CELL DISTRIBUTION WIDTH SD 56.7 fL (36.4-46.3); WHITE BLOOD COUNT 20.57 K/uL (4.8-10.8)
[2017-08-17 06:02] LABS: CREATININE 1.24 mg/dl (0.60-1.20); POTASSIUM 3.8 mmol/L (3.5-5.1)
[2017-08-17] MEDS: ALBUT/IPRATROP 3MG/0.5MG NEB 3 ML VIAL INH SCH ×4 (07:03→21:30)
[2017-08-17 07:05] VITALS: BP 92/57; PULSE 86; TEMP 36.6; O2SAT 96
[2017-08-17] MEDS: HYDROmorphone INJ 2 MG/ML SYR/VIAL IV PRN ×3 (07:58→18:00)
[2017-08-17] MEDS: BOOST VANILLA PO SCH ×2 (08:03→21:29)
[2017-08-17] MEDS: CALCIUM 600MG + VIT D 400 IU TAB PO SCH (08:04)
[2017-08-17] MEDS: MICONAZOLE NITRATE POWDER 43 GM EXT SCH ×2 (08:04→21:29)
[2017-08-17] MEDS: METOPROLOL TARTRATE 25 MG TAB PO SCH ×2 (08:05→21:00)
[2017-08-17] MEDS: AMLODIPINE BESYLATE 5 MG TAB PO SCH (08:06)
[2017-08-17] MEDS: TRIAMTERENE/HCTZ 37.5/25MG TAB PO SCH (08:06)
[2017-08-17] MEDS: PREDNISONE PO SCH ×2 (08:06)
[2017-08-17] MEDS: SACCHAROMYCES BOUL (FLORASTOR) 250 MG CAP PO SCH (08:07)
[2017-08-17] MEDS: ASPIRIN 81 MG ECTAB PO SCH (08:07)
[2017-08-17] MEDS: HEPARIN SOD 5000 UNIT/0.5 ML CARP SQ SCH ×2 (08:10→21:26)
[2017-08-17] MEDS ORDERED: MAGNESIUM SULFATE 1GM / D5W 100 ML IV ONE (08:30)
[2017-08-17] MEDS ORDERED: ALBUMIN 25% 50 ML with FUROSEMIDE INJ 40 MG IV ONE ×2 (08:45)
[2017-08-17] MEDS: POTASSIUM CHLORIDE 20 MEQ TABCR PO SCH ×3 (10:17→22:01)
[2017-08-17] MEDS: CHOLESTYRAMINE LIGHT 4 GM PKT PO SCH ×2 (10:18→22:29)
[2017-08-17] MEDS: TRAMADOL HCL 50 MG TAB PO PRN ×2 (11:44→23:32)
[2017-08-17 14:54] VITALS: BP 88/45; PULSE 91; TEMP 36.3; O2SAT 92
[2017-08-17 21:00] VITALS: BP 96/56; PULSE 96
[2017-08-17] MEDS: SIMVASTATIN 20 MG TAB PO SCH (21:20)
[2017-08-17] MEDS: MIRABEGRON ER 25 MG TAB PO SCH (21:20)
[2017-08-17 21:34] VITALS: PULSE 87; O2SAT 96
[2017-08-17 22:39] VITALS: PULSE 98
[2017-08-17 22:57] VITALS: BP 116/68; PULSE 107; TEMP 36.7; O2SAT 96
--- NOTE | 2017-08-17 23:06 | Progress Note ---
Subjective Date of Service: August 17, 2017. Subjective Pt evaluation today including: conversation w/ patient, conversation w/ family , physical exam, lab review, review of inpatient medication list Pain: less abdominal pain today PO Intake: did not eat breakfast, ate more at lunch time Voiding: klein catheter in place patient feeling a little better today, less abdominal pain, eating better reviewed labs, WBC down slightly to 20k, Cr holding with Lasix Hb down to 7.5 updated patients daughter at the bedside discussed mild improvement but prognosis guarded discussed possible need for blood transfusion if Hb < 7.0, patient agreed if it was necessary BP low in the afternoon, could not give Lasix and cautioned RN about giving Dilaudid patient slept most of the day, comfortable Problem List Medical Problems: (1) Acute kidney injury Status: Acute (2) Acute renal failure Status: Acute (3) Anemia Status: Acute (4) Anemia Status: Acute (5) Back pain Status: Chronic (6) Colitis Status: Acute (7) Dehydration Status: Acute (8) Dehydration Status: Acute (9) Diarrhea Status: Acute (10) Elevated lactic acid level Status: Acute (11) Elevated troponin I level Status: Acute (12) Failure of outpatient treatment Status: Acute (13) Fever Status: Acute (14) Fever Status: Acute (15) GI bleed Status: Acute (16) History of chronic urinary tract infection Status: Acute (17) Hyponatremia Status: Acute (18) Immunocompromised Status: Acute (19) Laceration Status: Acute (20) Left arm cellulitis Status: Acute (21) Leukocytosis Status: Acute (22) Leukocytosis Status: Acute (23) Sepsis Status: Acute (24) Sepsis Status: Acute (25) Severe sepsis Status: Acute (26) SIRS (systemic inflammatory response syndrome) Status: Acute (27) Urinary tract infection Status: Acute (28) UTI (urinary tract infection) Status: Acute (29) UTI (urinary tract infection) Status: Acute (30) UTI (urinary tract infection) Status: Acute (31) Weakness Status: Acute Review of Systems Constitutional: + weakness, + fatigue Abdomen: + pain (Left sided), + diarrhea (continues to fill rectal bag with liquid stool) Musculoskeletal: + joint pain (chronic, RA) Neurologic: + weakness All Other Systems: Reviewed and Negative Medications Current Inpatient Medications Medications (Trade) Dose Ordered Sig/Martina Route Start Time Stop Time Status Last Admin Dose Admin Acetaminophen (Tylenol Tab) 650 mg Q4H PRN PO 08/05/17 07:30 09/04/17 07:29 08/14/17 23:44 650 MG Ondansetron HCl (Zofran Inj) 4 mg Q6H PRN IV 08/05/17 07:30 09/04/17 07:29 08/13/17 01:55 4 MG Mirabegron (Myrbetriq Er) 25 mg QPM PO 08/05/17 21:00 09/04/17 20:59 08/17/17 21:20 25 MG Vancomycin HCl (Vancomycin Oral Soln) 125 mg Q6H PO 08/07/17 23:00 08/21/17 23:59 08/17/17 16:48 125 MG Raspberry (Raspberry Syrup 5ml Cup) 5 ml Q6H PO 08/07/17 23:00 08/21/17 23:59 08/17/17 16:48 5 ML Saccharomyces Boulardii (Florastor Cap) 250 mg DAILY PO 08/08/17 09:00 09/07/17 08:59 08/17/17 08:07 250 MG Promethazine HCl 12.5 mg/Sodium Chloride 50.5 ml @ 204 mls/hr Q6H PRN IV 08/09/17 09:15 09/08/17 09:14 08/09/17 15:27 204 MLS/HR Metronidazole 500 mg/Prmx 100 ml @ 100 mls/hr Q8H IV 08/09/17 12:00 08/23/17 11:59 08/17/17 19:52 100 MLS/HR Amlodipine Besylate (Norvasc Tab) 5 mg QAM PO 08/11/17 09:00 09/10/17 08:59 08/17/17 08:06 5 MG Heparin Sodium (Porcine) (Heparin Sq 5000 Unit/0.5ml) 5,000 unit Q12 SQ 08/10/17 21:00 09/09/17 20:59 08/17/17 21:26 5,000 UNIT Albuterol/ Ipratropium (Duoneb) 3 ml QIDR INH 08/11/17 08:00 09/10/17 07:59 08/17/17 21:30 3 ML Aspirin (Ecotrin Tab) 81 mg QAM PO 08/12/17 09:00 09/11/17 08:59 08/17/17 08:07 81 MG Simvastatin (Zocor Tab) 20 mg QPM PO 08/11/17 21:00 09/10/17 20:59 08/17/17 21:20 20 MG Triamterene/HCTZ (Maxzide 37.5/25 Tab) 1 tab QAM PO 08/12/17 09:00 09/11/17 08:59 08/17/17 08:06 1 TAB Calcium/Vitamin D (Caltrate Plus Tab) 1 tab QAM PO 08/12/17 09:00 09/11/17 08:59 08/17/17 08:04 1 TAB Miscellaneous Information (Order Awaiting Action) 1 ea QS N/A 08/11/17 16:00 09/10/17 15:59 Metoprolol Tartrate (Lopressor Tab) 25 mg BID PO 08/11/17 21:00 09/10/17 20:59 08/16/17 20:59 25 MG Heparin Sodium (Porcine) (Heparin 100 Unit/ml 5ml Flush) 5 ml PRN PRN IV 08/11/17 18:30 09/10/17 18:29 08/17/17 21:14 5 ML Enteral Nutritional Formula (Boost) 1 can BID PO 08/12/17 21:00 09/11/17 20:59 08/17/17 21:29 1 CAN Prednisone (PredniSONE TAB) 12 mg QAM PO 08/13/17 09:00 09/12/17 08:59 08/17/17 08:06 12 MG Non-Formulary Medication (Non-Formulary Patient'S Own Med) 1 ea PRN PRN EXT 08/12/17 17:00 09/11/17 16:59 Tramadol HCl (Ultram Tab) 50 mg Q12H PRN PO 08/12/17 18:15 09/11/17 18:14 08/17/17 11:44 50 MG Hydromorphone HCl (Dilaudid Inj) 1 mg NOW IV 08/13/17 10:30 08/27/17 10:29 08/15/17 11:39 1 MG Cholestyramine Resin (Questran Powder Light) 4 gm BID@ PO 08/13/17 22:00 09/12/17 21:59 08/17/17 22:29 4 GM Miconazole Nitrate (Desenex Powder) 1 appln BID EXT 08/13/17 16:00 09/12/17 15:59 08/17/17 21:29 1 APPLN Ioversol (Optiray 320) 100 ml UD PRN IV 08/14/17 09:45 08/18/17 09:44 Hydromorphone HCl (Dilaudid Inj) 1 mg Q4 PRN IV 08/16/17 14:30 08/27/17 10:29 08/17/17 18:00 1 MG Potassium Chloride (Klor-Con Tab) 20 meq TID PO 08/17/17 09:00 09/16/17 08:59 08/17/17 22:01 20 MEQ Objective Vital Signs Date Time Temp Pulse Resp B/P (MAP) Pulse Ox O2 Delivery O2 Flow Rate FiO2 08/17/17 22:39 98 Tent 08/17/17 21:34 87 16 96 Nasal Cannula 2.0 08/17/17 21:00 96 96/56 (69) 08/17/17 15:40 Nasal Cannula 2.0 08/17/17 14:54 36.3 91 16 88/45 (59) 92 Nasal Cannula 2.0 08/17/17 08:00 Nasal Cannula 2.0 08/17/17 07:05 36.6 86 18 92/57 (69) 96 Nasal Cannula 2.0 08/17/17 00:00 Nasal Cannula 2.0 08/16/17 23:00 36.5 91 18 94/59 (71) 99 Nasal Cannula 2.0 Physical Exam General Appearance: WD/WN, no apparent distress Eyes: normal inspection, EOMI, sclerae normal Neck: supple, no adenopathy, no JVD, trachea midline Respiratory/Chest: chest non-tender, no respiratory distress, no accessory muscle use, + decreased breath sounds (bases), + rales (bases) Cardiovascular: regular rate, rhythm, no gallop, no JVD, no murmur Abdomen: normal bowel sounds, soft, no organomegaly, + tenderness (LUQ but less than yesterday) Extremities: non-tender, no calf tenderness, normal capillary refill, pelvis stable, + pedal edema (4 + pitting bilateral legs and arms) Neurologic/Psychiatric: ethanol operator II-XII nml as tested, alert, normal mood/affect, oriented x 3, + motor weakness (generalized) Skin: normal color, warm/dry, no rash Laboratory Results Last 24 Hours Test 08/17/17 05:27 White Blood Count 20.57 K/uL Red Blood Count 2.72 M/uL Hemoglobin 7.5 g/dL Hematocrit 23.8 % Mean Corpuscular Volume 87.5 fL Mean Corpuscular Hemoglobin 27.6 pg Mean Corpuscular Hemoglobin Concent 31.5 g/dl Platelet Count 267 K/uL Mean Platelet Volume 9.0 fL Neutrophils (%) (Auto) 85.4 % Lymphocytes (%) (Auto) 6.8 % Monocytes (%) (Auto) 5.7 % Eosinophils (%) (Auto) 0.0 % Basophils (%) (Auto) 0.1 % Neutrophils # (Auto) 17.54 K/uL Lymphocytes # (Auto) 1.40 K/uL Monocytes # (Auto) 1.18 K/uL Eosinophils # (Auto) 0.00 K/uL Basophils # (Auto) 0.03 K/uL RDW Standard Deviation 56.7 fL RDW Coefficient of Variation 17.7 % Immature Granulocyte % (Auto) 2.0 % Immature Granulocyte # (Auto) 0.42 K/uL Poikilocytosis PRESENT Sodium Level 139 mmol/L Potassium Level 3.8 mmol/L Chloride Level 113 mmol/L Carbon Dioxide Level 23 mmol/L Anion Gap 3.0 mmol/L Blood Urea Nitrogen 28 mg/dl Creatinine 1.24 mg/dl Est Creatinine Clear Calc Drug Dose 31.0 ml/min Estimated GFR () 46.8 Estimated GFR (Non- 40.4 BUN/Creatinine Ratio 22.8 Random Glucose 92 mg/dl Calcium Level 8.0 mg/dl Magnesium Level 1.6 mg/dl Assessment and Plan 81 y/o female admitted on August 05, 2017 because of sepsis and acute diverticulitis, later found has cdiff pancolitis Past medical history HTN, HLD, RA, h/o breast cancer s/p lumpectomy and radiation, recurrent UTI, urinary incontinence, and anemia of chronic disease - C diff colitis: third day in a row with increased response to Vanco and Flagyl IV, far less pain today, less diarrhea WBC down to 20k from 23k, peaked at 26k two days ago CT on 08/14 did not show abscess or perforation, still shows pancolitis continue Vanco PO and Flagyl IV added Questran, continue ID following, recommending prolonged course of antibiotics with taper due to severity of illness discussed with patient and daughter that prognosis is guarded, but showing some improvement daily explained that she was immunocompromised with the Enbrel and Prednisone - Dyspnea volume overload due to third spacing with sepsis initially checked echocardiogram, which shows normal LVEF, no obvious diastolic dysfunction, bibasilar rales and decreased breath sounds for three days treated with Lasix and Albumin for three days, breathing stable Diffuse edema, anasarca due to hypoalbuminemia at 1.6, aggressive IV fluids and capillary leaking with sepsis initially pitting edema in legs and arms try to improve with Lasix, -2500cc for past three days, however, still positive 12 liters for admission difficult to diurese due to hypoalbuminemia today is day three of Albumin and Lasix, less response today Cr holding but less urine output, difficult due to very weak oncotic pressure Severe protein calorie malnutrition: Albumin only 1.6 last checked poor oral intake but improving over two days Boost added check Albumin tomorrow Acute on chronic kidney failure stage III, Cr 1.24 today improved UO with Lasix but not responding as well today volume overloaded, received three days of Lasix and Albumin, can continue PRN no further fluids Acute on chronic anemia: patient had been getting EPO with Dr. García Hb 7.5 today, no obvious bleeding from GI tract likely from acute illness, some dilution from volume overload explained that don't want to give transfusion unless < 7.0 repeat tomorrow HTN: BP low normal, hypotensive at times but mentating clearly holding BP meds History of RA Was on oral prednisone at home -back on home dose of Prednisone 12mg daily -Enbrel injections at home, last dose was 2 weeks ago - Dr. Sosa warned about inability to fight infections with Enbrel H/o breast cancer--noted DVT prophylaxis, NANCY grubbs and SCDs DO NOT RESUSCITATE Plan: continue Vanco and Flagyl, continue supportive care, Albumin and Lasix for diuresis PRN patient and daughter understand she may get worse, would not want aggressive measures some signs of improvement today, continue current care, repeat labs tomorrow Continued [facility] stay due to: home environment unsafe for pt Discharge planning: rehab hospital, senior living facility
[2017-08-18] MEDS: HYDROmorphone INJ 2 MG/ML SYR/VIAL IV PRN ×3 (03:17→23:19)
[2017-08-18] MEDS: METRONIDAZOLE / NSS 500 MG in PREMIXED NSS 100 ML IV SCH ×3 (04:20→21:15)
[2017-08-18] MEDS: VANCOMYCIN HCL 125 MG/2.5ML SOLN PO SCH ×4 (05:01→23:00)
[2017-08-18] MEDS: RASPBERRY SYRUP 5 ML UDP PO SCH ×4 (05:01→23:00)
[2017-08-18 06:04] LABS: BASO % 0.1 %; BASO ABS # 0.02 K/uL (0-0.2); EOS % 0.1 %; EOS ABS # 0.01 K/uL (0-0.5); HEMATOCRIT 23.6 % (37-47); HEMOGLOBIN 7.5 g/dL (12.0-16.0); IG# 0.66 K/uL (0.00-0.02); LYMPH % 7.7 %; LYMPH ABS # 1.53 K/uL (1.2-3.4); MEAN CELL VOLUME 88.1 fL (80-100); MEAN CORPUSCULAR HGB CONC 31.8 g/dl (32-36); MONO % 4.6 %; MONO ABS # 0.92 K/uL (0.11-0.59); NEUT % 84.2 %; NEUT ABS # 16.76 K/uL (1.4-6.5); NUCLEATED RED BLOOD CELL ABS 0.03 K/uL (0-0); PLATELET COUNT 298 K/uL (130-400); RED CELL DISTRIBUTION WIDTH CV 17.9 % (11.5-14.5); RED CELL DISTRIBUTION WIDTH SD 57.4 fL (36.4-46.3)
[2017-08-18 06:40] LABS: ALBUMIN 2.1 gm/dl (3.4-5.0); CALCIUM 8.2 mg/dl (8.5-10.1); CREATININE 1.22 mg/dl (0.60-1.20); POTASSIUM 4.4 mmol/L (3.5-5.1)
[2017-08-18 06:43] LABS: TOTAL PROTEIN 4.4 gm/dl (6.4-8.2)
[2017-08-18] MEDS: ALBUT/IPRATROP 3MG/0.5MG NEB 3 ML VIAL INH SCH ×4 (07:04→19:22)
[2017-08-18 07:06] VITALS: PULSE 92; O2SAT 90
[2017-08-18 07:31] VITALS: BP 94/55; PULSE 92; TEMP 36.6; O2SAT 90
[2017-08-18] MEDS: HYDROmorphone INJ 2 MG/ML SYR/VIAL IV SCH (07:47)
[2017-08-18] MEDS: AMLODIPINE BESYLATE 5 MG TAB PO SCH (07:49)
[2017-08-18] MEDS: PREDNISONE PO SCH ×2 (07:49)
[2017-08-18] MEDS: ASPIRIN 81 MG ECTAB PO SCH (07:49)
[2017-08-18] MEDS: POTASSIUM CHLORIDE 20 MEQ TABCR PO SCH ×3 (07:50→21:00)
[2017-08-18] MEDS: SACCHAROMYCES BOUL (FLORASTOR) 250 MG CAP PO SCH (07:50)
[2017-08-18] MEDS: TRIAMTERENE/HCTZ 37.5/25MG TAB PO SCH (07:50)
[2017-08-18] MEDS: CALCIUM 600MG + VIT D 400 IU TAB PO SCH (07:50)
[2017-08-18] MEDS: METOPROLOL TARTRATE 25 MG TAB PO SCH ×2 (07:51→21:00)
[2017-08-18] MEDS: MICONAZOLE NITRATE POWDER 43 GM EXT SCH ×2 (07:52→21:15)
--- NOTE | 2017-08-18 08:08 | Progress Note ---
Subjective Date of Service: August 18, 2017. Subjective Was called to discuss end-of-life with the patient's family patient's blood pressure is been lower and she has not been responding to diuresis despite anasarca due to poor nutrition she has been able to tolerate her medications for her C. difficile colitis I spoke to the daughter at bedside is power of holistic nutritionist she states at this point time she wishes to focus on comfort care. She however does not wish to discontinue any treatment for infectious etiologies and wishes to have an attempted diuresis for another 24 hours patient herself also voiced that she is very uncomfortable mostly with arthritic pains from being in bed and wishes to be kept comfortable Problem List Medical Problems: (1) Acute kidney injury Status: Acute (2) Acute renal failure Status: Acute (3) Anemia Status: Acute (4) Anemia Status: Acute (5) Back pain Status: Chronic (6) Colitis Status: Acute (7) Dehydration Status: Acute (8) Dehydration Status: Acute (9) Diarrhea Status: Acute (10) Elevated lactic acid level Status: Acute (11) Elevated troponin I level Status: Acute (12) Failure of outpatient treatment Status: Acute (13) Fever Status: Acute (14) Fever Status: Acute (15) GI bleed Status: Acute (16) History of chronic urinary tract infection Status: Acute (17) Hyponatremia Status: Acute (18) Immunocompromised Status: Acute (19) Laceration Status: Acute (20) Left arm cellulitis Status: Acute (21) Leukocytosis Status: Acute (22) Leukocytosis Status: Acute (23) Sepsis Status: Acute (24) Sepsis Status: Acute (25) Severe sepsis Status: Acute (26) SIRS (systemic inflammatory response syndrome) Status: Acute (27) Urinary tract infection Status: Acute (28) UTI (urinary tract infection) Status: Acute (29) UTI (urinary tract infection) Status: Acute (30) UTI (urinary tract infection) Status: Acute (31) Weakness Status: Acute Review of Systems Constitutional: + chills, + weakness, + fatigue, No fever Respiratory: + shortness of breath, + dyspnea on exertion, + dyspnea at rest, No cough Cardiac: No chest pain Abdomen: + pain, + diarrhea Musculoskeletal: No joint pain, No muscle pain Female : No dysuria, No urinary frequency Psychiatric: No depression symptoms, No anhedonism Objective Vital Signs Date Time Temp Pulse Resp B/P (MAP) Pulse Ox O2 Delivery O2 Flow Rate FiO2 08/18/17 07:31 36.6 92 18 94/55 (68) 90 2.0 08/18/17 07:06 92 16 90 Nasal Cannula 2.0 08/18/17 00:00 Nasal Cannula 2.0 08/17/17 22:57 36.7 107 18 116/68 (84) 96 Nasal Cannula 2.0 08/17/17 22:39 98 Tent 08/17/17 21:34 87 16 96 Nasal Cannula 2.0 08/17/17 21:00 96 96/56 (69) 08/17/17 20:00 Nasal Cannula 2.0 08/17/17 15:40 Nasal Cannula 2.0 08/17/17 14:54 36.3 91 16 88/45 (59) 92 Nasal Cannula 2.0 Physical Exam General Appearance: WD/WN, + mild distress Eyes: normal inspection, sclerae normal Neck: supple, no JVD Respiratory/Chest: chest non-tender, lungs clear, normal breath sounds Cardiovascular: regular rate, rhythm, no murmur Abdomen: normal bowel sounds, soft, + tenderness Extremities: no pedal edema, + swelling Laboratory Results Last 24 Hours Test 08/18/17 05:40 White Blood Count 19.90 K/uL Red Blood Count 2.68 M/uL Hemoglobin 7.5 g/dL Hematocrit 23.6 % Mean Corpuscular Volume 88.1 fL Mean Corpuscular Hemoglobin 28.0 pg Mean Corpuscular Hemoglobin Concent 31.8 g/dl Platelet Count 298 K/uL Mean Platelet Volume 9.0 fL Neutrophils (%) (Auto) 84.2 % Lymphocytes (%) (Auto) 7.7 % Monocytes (%) (Auto) 4.6 % Eosinophils (%) (Auto) 0.1 % Basophils (%) (Auto) 0.1 % Neutrophils # (Auto) 16.76 K/uL Lymphocytes # (Auto) 1.53 K/uL Monocytes # (Auto) 0.92 K/uL Eosinophils # (Auto) 0.01 K/uL Basophils # (Auto) 0.02 K/uL RDW Standard Deviation 57.4 fL RDW Coefficient of Variation 17.9 % Immature Granulocyte % (Auto) 3.3 % Immature Granulocyte # (Auto) 0.66 K/uL Nucleated RBC Absolute Count (auto) 0.03 K/uL Nucleated Red Blood Cells % 0.1 % Hypochromasia PRESENT Sodium Level 139 mmol/L Potassium Level 4.4 mmol/L Chloride Level 113 mmol/L Carbon Dioxide Level 21 mmol/L Anion Gap 5.0 mmol/L Blood Urea Nitrogen 27 mg/dl Creatinine 1.22 mg/dl Est Creatinine Clear Calc Drug Dose 31.5 ml/min Estimated GFR () 47.8 Estimated GFR (Non- 41.2 BUN/Creatinine Ratio 22.0 Random Glucose 91 mg/dl Calcium Level 8.2 mg/dl Magnesium Level 1.9 mg/dl Total Bilirubin 0.4 mg/dl Direct Bilirubin 0.1 mg/dl Aspartate Amino Transf (AST/SGOT) 24 U/L Alanine Aminotransferase (ALT/SGPT) 11 U/L Alkaline Phosphatase 44 U/L Total Protein 4.4 gm/dl Albumin 2.1 gm/dl Assessment and Plan 81 y/o female admitted on August 05, 2017 because of sepsis and acute diverticulitis, later found has cdiff pancolitis. will move toward comfort care will continue treatment of C Diff and increase pain medicines reducing antihypertensive meds Past medical history HTN, HLD, RA, h/o breast cancer s/p lumpectomy and radiation, recurrent UTI, urinary incontinence, and anemia of chronic disease - C diff colitis: Vanco and Flagyl IV, less diarrhea added Questran CT on 08/14 did not show abscess or perforation, ID following, recommending prolonged course of antibiotics with taper due to severity of illness Dr Baltazar discussed with patient and daughter that prognosis is guarded, explained that she was immunocompromised with the Enbrel and Prednisone - Dyspnea volume overload due to third spacing from poor nutrition and with sepsis initially echocardiogram, normal LVEF, no obvious diastolic dysfunction, bibasilar rales and decreased breath sounds treated with Lasix and Albumin Diffuse edema, anasarca due to hypoalbuminemia Severe protein calorie malnutrition: Albumin only 1.6 last checked Boost added Acute kidney injury on chronic kidney failure stage III, Cr improved Acute on chronic anemia: patient had been getting EPO with Dr. García Hb 7.5 no plans on transfusion HTN: BP low normal, hypotensive at times but mentating clearly, continue holding BP meds History of RA previously on prednisone at home 12mg daily, since comfort care pathway will not consider stress dosing -Enbrel injections at home, last dose was 2 weeks ago H/o breast cancer--noted DVT prophylaxis, NANCY grubbs and SCDs DO NOT RESUSCITATE patient and daughter understand she may get worse, would not want aggressive measures Continued [facility] stay due to: home environment unsafe for pt Discharge planning: rehab hospital, longterm facility
[2017-08-18] MEDS: BOOST VANILLA PO SCH ×2 (08:28→21:00)
[2017-08-18] MEDS: HEPARIN SOD 5000 UNIT/0.5 ML CARP SQ SCH ×2 (08:33→21:00)
--- NOTE | 2017-08-18 08:48 | PROGRESS NOTE ---
DATE: 08/18/2017 SUBJECTIVE: The patient continues on p.o. vancomycin and IV Flagyl. OBJECTIVE: Temperature is 36.6, blood pressure is 94/55. She is having about 0-1 bowel movement per day currently. LABORATORY DATA: White count today has dropped slightly to 19.9, continues to have a left shift. She has had Questran added which seems to be helping with the consistency of her stool. She does appear to have a prolonged course due to immunosuppression with Enbrel and prednisone. IMPRESSION: The patient has severe C. diff, on IV Flagyl and p.o. vancomycin. I think it is important to make sure that her Questran is given away from her other oral medications as it is a resin-binder and could bind to some of her medications and make them less effective because of decreased absorption.
[2017-08-18] MEDS: CHOLESTYRAMINE LIGHT 4 GM PKT PO SCH ×2 (09:55→22:00)
[2017-08-18 11:24] VITALS: PULSE 106; O2SAT 95
[2017-08-18] MEDS: TRAMADOL HCL 50 MG TAB PO PRN (11:38)
[2017-08-18 11:59] VITALS: BP 93/42; PULSE 104; O2SAT 95
[2017-08-18] MEDS ORDERED: MoRPHine SULFATE 2 MG/ML CARP IV PRN (13:45)
[2017-08-18] MEDS ORDERED: LORAZEPAM 2 MG/ML 1 ML VIAL IV PRN ×2 (13:45)
[2017-08-18] MEDS ORDERED: MoRPHine SULFATE 4 MG/ML 1 ML CARP\\VIAL IV PRN (13:45)
[2017-08-18] MEDS ORDERED: LORAZEPAM 0.5 MG TAB PO PRN (13:45)
[2017-08-18 14:45] VITALS: BP 99/50; PULSE 82; TEMP 36.4; O2SAT 94
[2017-08-18 15:31] VITALS: PULSE 104; O2SAT 96
[2017-08-18] MEDS: ALBUMIN 25% 50 ML with FUROSEMIDE INJ 40 MG IV SCH ×4 (16:09→21:18)
[2017-08-18] MEDS: LORAZEPAM INJ 0.5 MG in SYRINGE 0.75 ML IV PRN ×2 (20:07→23:29)
[2017-08-18] MEDS: MIRABEGRON ER 25 MG TAB PO SCH (21:00)
[2017-08-19] MEDS: HYDROmorphone INJ 2 MG/ML SYR/VIAL IV PRN ×6 (03:25→21:22)
[2017-08-19] MEDS: METRONIDAZOLE / NSS 500 MG in PREMIXED NSS 100 ML IV SCH ×3 (04:00→21:29)
[2017-08-19] MEDS: VANCOMYCIN HCL 125 MG/2.5ML SOLN PO SCH ×3 (04:13→16:25)
[2017-08-19] MEDS: RASPBERRY SYRUP 5 ML UDP PO SCH ×4 (04:13→23:00)
[2017-08-19] MEDS: LORAZEPAM INJ 0.5 MG in SYRINGE 0.75 ML IV PRN ×2 (04:49→22:29)
[2017-08-19] MEDS: ALBUT/IPRATROP 3MG/0.5MG NEB 3 ML VIAL INH SCH ×4 (07:03→19:18)
[2017-08-19] MEDS: SACCHAROMYCES BOUL (FLORASTOR) 250 MG CAP PO SCH (09:00)
[2017-08-19] MEDS: ASPIRIN 81 MG ECTAB PO SCH (09:00)
[2017-08-19] MEDS: HEPARIN SOD 5000 UNIT/0.5 ML CARP SQ SCH ×2 (09:00→21:48)
[2017-08-19] MEDS: METOPROLOL TARTRATE 25 MG TAB PO SCH (09:00)
[2017-08-19] MEDS: POTASSIUM CHLORIDE 20 MEQ TABCR PO SCH ×2 (09:00→13:02)
[2017-08-19] MEDS: BOOST VANILLA PO SCH (09:00)
[2017-08-19] MEDS: PREDNISONE PO SCH ×2 (09:00)
[2017-08-19] MEDS: MICONAZOLE NITRATE POWDER 43 GM EXT SCH ×2 (09:14→21:30)
[2017-08-19] MEDS: CHOLESTYRAMINE LIGHT 4 GM PKT PO SCH (09:34)
[2017-08-19] MEDS: LORAZEPAM INJ 1 MG in SYRINGE 0.5 ML IV PRN ×2 (10:22→16:21)
[2017-08-19] MEDS: HYDROmorphone INJ 2 MG/ML SYR/VIAL IV SCH (14:14)
[2017-08-19] MEDS ORDERED: HYDROmorphone INJ 2 MG/ML SYR/VIAL IV SCH (14:15)
[2017-08-19] MEDS ORDERED: NURSING VERBAL MED ORDER ONE (14:15)
--- NOTE | 2017-08-19 14:23 | Progress Note ---
Subjective Date of Service: August 19, 2017. Subjective this pt is not responsive, she appears comfortable and family is at bedside. Problem List Medical Problems: (1) Acute kidney injury Status: Acute (2) Acute renal failure Status: Acute (3) Anemia Status: Acute (4) Anemia Status: Acute (5) Back pain Status: Chronic (6) Colitis Status: Acute (7) Dehydration Status: Acute (8) Dehydration Status: Acute (9) Diarrhea Status: Acute (10) Elevated lactic acid level Status: Acute (11) Elevated troponin I level Status: Acute (12) Failure of outpatient treatment Status: Acute (13) Fever Status: Acute (14) Fever Status: Acute (15) GI bleed Status: Acute (16) History of chronic urinary tract infection Status: Acute (17) Hyponatremia Status: Acute (18) Immunocompromised Status: Acute (19) Laceration Status: Acute (20) Left arm cellulitis Status: Acute (21) Leukocytosis Status: Acute (22) Leukocytosis Status: Acute (23) Sepsis Status: Acute (24) Sepsis Status: Acute (25) Severe sepsis Status: Acute (26) SIRS (systemic inflammatory response syndrome) Status: Acute (27) Urinary tract infection Status: Acute (28) UTI (urinary tract infection) Status: Acute (29) UTI (urinary tract infection) Status: Acute (30) UTI (urinary tract infection) Status: Acute (31) Weakness Status: Acute Review of Systems Constitutional: + weakness, + problem reported (Pts obtunded state prevents ROS ), No fever, No chills Objective Vital Signs Date Time Temp Pulse Resp B/P (MAP) Pulse Ox O2 Delivery O2 Flow Rate FiO2 08/19/17 08:00 Nasal Cannula 2.0 08/19/17 00:00 Nasal Cannula 2.0 08/18/17 20:00 Nasal Cannula 2.0 08/18/17 16:00 Nasal Cannula 2.0 08/18/17 15:31 104 18 96 Nasal Cannula 2.0 08/18/17 14:45 36.4 82 20 99/50 (66) 94 2.0 Physical Exam General Appearance: + moderate distress, + severe distress, + thin Respiratory/Chest: + respiratory distress, + decreased breath sounds, + accessory muscle use Cardiovascular: + tachycardia, + pertinent finding Abdomen: soft, + abnormal bowel sounds Assessment and Plan 81 y/o female admitted on August 05, 2017 because of sepsis and acute diverticulitis, later found has cdiff pancolitis. comfort care initialted 08/18 and rapid decline with expected. Past medical history HTN, HLD, RA, h/o breast cancer s/p lumpectomy and radiation, recurrent UTI, urinary incontinence, and anemia of chronic disease - C diff colitis: Vanco and Flagyl IV, CT on 08/14 did not show abscess or perforation, Dr Baltazar discussed with patient and daughter that prognosis is guarded, explained that she was immunocompromised with the Enbrel and Prednisone - Dyspnea volume overload due to third spacing from poor nutrition and with sepsis initially echocardiogram, normal LVEF, no obvious diastolic dysfunction, bibasilar rales and decreased breath sounds initially treated with Lasix and Albumin, the efficacy waned over the last attempts, now stopped and moved to comfort care Diffuse edema, anasarca due to hypoalbuminemia Severe protein calorie malnutrition: Albumin only 1.6 last checked Boost added Acute kidney injury on chronic kidney failure stage III, Cr improved Acute on chronic anemia: patient had been getting EPO with Dr. García Hb 7.5 no plans on transfusion HTN: BP low normal, hypotensive at times but mentating clearly, continue holding BP meds History of RA previously on prednisone at home 12mg daily, since comfort care pathway will not consider stress dosing -Enbrel injections at home, last dose was 2 weeks ago H/o breast cancer--noted DVT prophylaxis, NANCY grubbs and SCDs DO NOT RESUSCITATE patient and daughter understands and reinforced that the patient would not want aggressive measures, she is expected to this hospital stay Continued [facility] stay due to: home environment unsafe for pt Discharge planning: rehab hospital, [facility] facility
[2017-08-19] MEDS ORDERED: SCOPOLAMINE 1.5 MG TDSY TD SCH (15:00)
[2017-08-19] MEDS: CHECK SCOPOLAMINE PATCH PLACEMENT SCH (16:21)
[2017-08-20] MEDS: VANCOMYCIN HCL 125 MG/2.5ML SOLN PO SCH ×5 (00:09→20:00)
[2017-08-20] MEDS: CHECK SCOPOLAMINE PATCH PLACEMENT SCH ×3 (00:09→16:01)
[2017-08-20] MEDS: HYDROmorphone INJ 2 MG/ML SYR/VIAL IV PRN ×8 (00:48→22:52)
[2017-08-20] MEDS: METRONIDAZOLE / NSS 500 MG in PREMIXED NSS 100 ML IV SCH ×3 (03:23→19:59)
[2017-08-20] MEDS: LORAZEPAM INJ 1 MG in SYRINGE 0.5 ML IV PRN (06:31)
[2017-08-20] MEDS: RASPBERRY SYRUP 5 ML UDP PO SCH ×4 (06:31→20:00)
[2017-08-20] MEDS: ALBUT/IPRATROP 3MG/0.5MG NEB 3 ML VIAL INH SCH ×3 (07:05→19:21)
[2017-08-20 08:00] VITALS: O2SAT 96
[2017-08-20] MEDS: MICONAZOLE NITRATE POWDER 43 GM EXT SCH ×2 (08:07→22:53)
[2017-08-20] MEDS: HEPARIN SOD 5000 UNIT/0.5 ML CARP SQ SCH ×2 (08:07→19:59)
[2017-08-20] MEDS: LORAZEPAM INJ 0.5 MG in SYRINGE 0.75 ML IV PRN (14:18)
--- NOTE | 2017-08-20 15:43 | Progress Note ---
Subjective Date of Service: August 20, 2017. Subjective Patient is comfortable with family at bedside. Patient is unresponsive. Unable to obtain ROS due to mental status Problem List Medical Problems: (1) Acute kidney injury Status: Acute (2) Acute renal failure Status: Acute (3) Anemia Status: Acute (4) Anemia Status: Acute (5) Back pain Status: Chronic (6) Colitis Status: Acute (7) Dehydration Status: Acute (8) Dehydration Status: Acute (9) Diarrhea Status: Acute (10) Elevated lactic acid level Status: Acute (11) Elevated troponin I level Status: Acute (12) Failure of outpatient treatment Status: Acute (13) Fever Status: Acute (14) Fever Status: Acute (15) GI bleed Status: Acute (16) History of chronic urinary tract infection Status: Acute (17) Hyponatremia Status: Acute (18) Immunocompromised Status: Acute (19) Laceration Status: Acute (20) Left arm cellulitis Status: Acute (21) Leukocytosis Status: Acute (22) Leukocytosis Status: Acute (23) Sepsis Status: Acute (24) Sepsis Status: Acute (25) Severe sepsis Status: Acute (26) SIRS (systemic inflammatory response syndrome) Status: Acute (27) Urinary tract infection Status: Acute (28) UTI (urinary tract infection) Status: Acute (29) UTI (urinary tract infection) Status: Acute (30) UTI (urinary tract infection) Status: Acute (31) Weakness Status: Acute Objective Vital Signs Date Time Temp Pulse Resp B/P (MAP) Pulse Ox O2 Delivery O2 Flow Rate FiO2 08/20/17 08:00 96 Nasal Cannula 2.0 08/20/17 00:00 Nasal Cannula 2.0 08/19/17 20:00 Nasal Cannula 2.0 08/19/17 16:00 Nasal Cannula 2.0 Physical Exam Comments: General Appearance: resting comforatbly+ thin Respiratory/Chest: + decreased breath sounds, + accessory muscle use Cardiovascular: + tachycardia, + pertinent finding Abdomen: soft, + abnormal bowel sounds Assessment and Plan 81 y/o female admitted on August 05, 2017 because of sepsis and acute diverticulitis, later found has cdiff pancolitis. comfort care initialted 5/5 and rapid decline with expected. Past medical history HTN, HLD, RA, h/o breast cancer s/p lumpectomy and radiation, recurrent UTI, urinary incontinence, and anemia of chronic disease - C diff colitis: Vanco and Flagyl IV, CT on 08/14 did not show abscess or perforation, Dr Baltazar discussed with patient and daughter that prognosis is guarded, explained that she was immunocompromised with the Enbrel and Prednisone - Dyspnea volume overload due to third spacing from poor nutrition and with sepsis initially echocardiogram, normal LVEF, no obvious diastolic dysfunction, bibasilar rales and decreased breath sounds initially treated with Lasix and Albumin, the efficacy waned over the last attempts, now stopped and moved to comfort care Diffuse edema, anasarca due to hypoalbuminemia END STAGE RENAL DISEASE Family does not want aggressive treatment such as dialysis. Failure to thrive in adult due to severe infection. Severe protein calorie malnutrition: Albumin only 1.6 last checked Boost added Acute kidney injury on chronic kidney failure stage III, Cr improved Acute on chronic anemia: patient had been getting EPO with Dr. García Hb 7.5 no plans on transfusion HTN: BP low normal, hypotensive at times but mentating clearly, continue holding BP meds History of RA previously on prednisone at home 12mg daily, since comfort care pathway will not consider stress dosing -Enbrel injections at home, last dose was 2 weeks ago H/o breast cancer--noted DVT prophylaxis, NANCY grubbs and SCDs DO NOT RESUSCITATE patient and daughter understands and reinforced that the patient would not want aggressive measures, she is expected to this hospital stay Continued [facility] stay due to: home environment unsafe for pt Discharge planning: rehab hospital, group home facility
--- NOTE | 2017-08-20 21:58 | Infectious Disease Progress Nt ---
Progress Note Date of Service August 20, 2017. Subjective Pt evaluation today including: conversation w/ patient, physical exam, chart review, lab review, review of studies, conversation w/ senior analytic consultant, review of inpatient medication list Recent events reviewed. Patient has become unresponsive, now on comfort care measures. Continues treatment for C difficile. Additional Comments: Not obtainable because of patient's mental status Medications Current Inpatient Medications Medications (Trade) Dose Ordered Sig/Martina Route Start Time Stop Time Status Last Admin Dose Admin Acetaminophen (Tylenol Tab) 650 mg Q4H PRN PO 08/05/17 07:30 09/04/17 07:29 08/14/17 23:44 650 MG Ondansetron HCl (Zofran Inj) 4 mg Q6H PRN IV 08/05/17 07:30 09/04/17 07:29 08/13/17 01:55 4 MG Vancomycin HCl (Vancomycin Oral Soln) 125 mg Q6H PO 08/07/17 23:00 08/21/17 23:59 08/18/17 11:38 125 MG Raspberry (Raspberry Syrup 5ml Cup) 5 ml Q6H PO 08/07/17 23:00 08/21/17 23:59 08/18/17 11:38 5 ML Promethazine HCl 12.5 mg/Sodium Chloride 50.5 ml @ 204 mls/hr Q6H PRN IV 08/09/17 09:15 09/08/17 09:14 08/09/17 15:27 204 MLS/HR Metronidazole 500 mg/Prmx 100 ml @ 100 mls/hr Q8H IV 08/09/17 12:00 08/23/17 11:59 08/18/17 11:38 100 MLS/HR Heparin Sodium (Porcine) (Heparin Sq 5000 Unit/0.5ml) 5,000 unit Q12 SQ 08/10/17 21:00 09/09/17 20:59 08/18/17 08:33 5,000 UNIT Albuterol/ Ipratropium (Duoneb) 3 ml QIDR INH 08/11/17 08:00 09/10/17 07:59 08/18/17 15:31 3 ML Miscellaneous Information (Order Awaiting Action) 1 ea QS N/A 08/11/17 16:00 09/10/17 15:59 Heparin Sodium (Porcine) (Heparin 100 Unit/ml 5ml Flush) 5 ml PRN PRN IV 08/11/17 18:30 09/10/17 18:29 08/20/17 08:04 5 ML Non-Formulary Medication (Non-Formulary Patient'S Own Med) 1 ea PRN PRN EXT 08/12/17 17:00 09/11/17 16:59 Miconazole Nitrate (Desenex Powder) 1 appln BID EXT 08/13/17 16:00 09/12/17 15:59 08/19/17 09:14 1 APPLN Morphine Sulfate (MoRPHine SULFATE INJ) 2 mg Q4H PRN IV 08/18/17 13:45 09/01/17 13:44 08/19/17 01:23 2 MG Morphine Sulfate (MoRPHine SULFATE INJ) 4 mg Q4H PRN IV 08/18/17 13:45 09/01/17 13:44 08/20/17 10:39 4 MG Lorazepam (Ativan Tab) 0.5 mg Q6 PRN PO 08/18/17 13:45 09/17/17 13:44 Lorazepam (Ativan Inj) 0.5 mg Q4H PRN IV 08/18/17 13:45 09/17/17 13:44 Lorazepam (Ativan Inj) 1 mg Q4H PRN IV 08/18/17 13:45 09/17/17 13:44 Lorazepam 0.5 mg/ Syringe 1 ml @ 1 mls/min Q4H PRN IV 08/18/17 14:00 09/17/17 13:59 08/20/17 14:18 1 MLS/MIN Lorazepam 1 mg/ Syringe 1 ml @ 1 mls/min Q4H PRN IV 08/18/17 14:00 09/17/17 13:59 08/20/17 06:31 1 MLS/MIN Hydromorphone HCl (Dilaudid Inj) 1 mg Q1H PRN IV 08/19/17 14:15 08/27/17 10:29 08/20/17 18:37 1 MG Scopolamine (Transderm-Scop Patch) 1.5 mg Q72H TD 08/19/17 15:00 09/18/17 14:59 08/19/17 16:21 1.5 MG Miscellaneous (Remove Transderm-Scop Patch) 1 ea Q72H N/A 08/22/17 14:59 09/21/17 14:58 Miscellaneous Information (Check Scopolamine Patch Placement) 1 ea QS N/A 08/19/17 16:00 09/18/17 15:59 08/20/17 16:01 1 EA Objective Vital Signs Date Time Temp Pulse Resp B/P (MAP) Pulse Ox O2 Delivery O2 Flow Rate FiO2 08/20/17 08:00 96 Nasal Cannula 2.0 08/20/17 00:00 Nasal Cannula 2.0 Physical Exam General Appearance: + moderate distress, + thin Eyes: normal inspection, sclerae normal ENT: normal ENT inspection, pharynx normal Neck: supple, trachea midline Respiratory/Chest: + respiratory distress, + rhonchi Cardiovascular: regular rate, rhythm, no gallop, no murmur, + tachycardia Abdomen: normal bowel sounds, soft, no organomegaly, + tenderness Neurologic/Psychiatric: + pertinent finding (Not responding) Skin: normal color, no rash Assessment and Plan 81-year-old female with severe colitis secondary to C difficile, at risk for significant complications given elevated white count and acute kidney injury. Patient now poorly responsive, has been transition to comfort care. To continue vancomycin and metronidazole for C difficile infection.
--- NOTE | 2017-08-28 13:04 | PROGRESS NOTE ---
DATE: 08/18/2017 ADDENDUM Date of service 08/14/2017 and 08/18/2017. On these dates, I spoke to the patient and reviewed her vital signs and results of her progress. The patient understood that she was being treated for C. diff and was on an oral and IV antibiotic and that her progress is improving. She had no further questions or needs at that time.
--- NOTE | 2017-08-29 16:12 | Death Summary ---
Summary of Admission Date Aug 05, 2017 at 08:10 Date & Time of August 21, 2017. 0001 Cause of C. diff colitis Secondary Diagnoses As noted below. Hospital Course 81 y/o female admitted on August 05, 2017 because of sepsis and acute diverticulitis, later found has cdiff pancolitis. comfort care initialted 08/18 and rapid decline with expected. Past medical history HTN, HLD, RA, h/o breast cancer s/p lumpectomy and radiation, recurrent UTI, urinary incontinence, and anemia of chronic disease - C diff colitis: Vanco and Flagyl IV, CT on 08/14 did not show abscess or perforation, Dr Baltazar discussed with patient and daughter that prognosis is guarded, explained that she was immunocompromised with the Enbrel and Prednisone Patient was expected to during this hopsital stay. There were plans to have patient admitted under hospice the following day, however overnight patient ceased to breath at 0001 of 08/21/17 Nurses pronounced patient and overnight resident Dr. Kovacs was made aware. - Dyspnea volume overload due to third spacing from poor nutrition and with sepsis initially echocardiogram, normal LVEF, no obvious diastolic dysfunction, bibasilar rales and decreased breath sounds initially treated with Lasix and Albumin, the efficacy waned over the last attempts, This was stopped as patient was moved to comfort care Diffuse edema, anasarca due to hypoalbuminemia END STAGE RENAL DISEASE Family does not want aggressive treatment such as dialysis. Failure to thrive in adult due to severe infection. Severe protein calorie malnutrition: Albumin only 1.6 last checked Boost added Acute kidney injury on chronic kidney failure stage III, Cr improved Acute on chronic anemia: patient had been getting EPO with Dr. García Hb 7.5 no plans on transfusion HTN: BP low normal, hypotensive at times but mentating clearly, continue holding BP meds History of RA previously on prednisone at home 12mg daily, since comfort care pathway will not consider stress dosing -Enbrel injections at home, last dose was 2 weeks ago H/o breast cancer--noted DVT prophylaxis, NANCY grubbs and SCDs DO NOT RESUSCITATE
--- NOTE | 2017-08-31 10:29 | PROGRESS NOTE ---
DATE: 08/21/2017 ADDENDUM TO 2 PROGRESS NOTES, 08/14/2017 and 08/18/2017. Please add this addendum to those notes. The patient was seen on these dates and her vital signs were reviewed. She was in bed and we reviewed her condition and treatment and plan for ongoing care. The patient agreed with the plan and will continue on her current course.
== END 2017-08-21 03:28 | disposition expired | DRG 871 ==
LOC: C.EDB 03:37 → CANRESERV 07:46 → ENRESERV 07:46 → UNDOADMIN 08:10 → C.2E 08:10 → CANBEDREQ 08:12 → ENRESERV 08:16 → C.MS2W 08-12 18:22
PROVIDERS: ADMIT Internal Medicine; ATTEND Internal Medicine Sports Medicine
DX: A41.9 Sepsis, unspecified organism (principal); E43 Unspecified severe protein-calorie malnutrition; N18.6 End stage renal disease; N39.0 Urinary tract infection, site not specified; E27.40 Unspecified adrenocortical insufficiency; K57.92 Diverticulitis of intestine, part unspecified, without perforation or abscess without bleeding; A04.72 Enterocolitis due to Clostridium difficile, not specified as recurrent; N17.9 Acute kidney failure, unspecified; I12.0 Hypertensive chronic kidney disease with stage 5 chronic kidney disease or end stage renal disease; Z82.49 Family history of ischemic heart disease and other diseases of the circulatory system; R65.20 Severe sepsis without septic shock; Z83.3 Family history of diabetes mellitus; Z79.82 Long term (current) use of aspirin; Z88.2 Allergy status to sulfonamides; M06.9 Rheumatoid arthritis, unspecified; Z79.2 Long term (current) use of antibiotics; Z96.643 Presence of artificial hip joint, bilateral; Z85.3 Personal history of malignant neoplasm of breast; E78.5 Hyperlipidemia, unspecified; R60.1 Generalized edema; D64.9 Anemia, unspecified